=== PATIENT | female | born 1990 | race Caucasian/White ===

== ENCOUNTER → 2017-09-01 09:45 | Outpatient (CLI) | payer OTHER, SELFPAY ==
[2017-09-01 12:52] LABS: T4 Free Direct 0.99 ng/dL (0.76-1.46); Thyroid Stim Hormone (TSH) 1.56 uIU/mL (0.358-3.74)
== END ==
PROVIDERS: Family Provider Family Medicine; PCP Family Medicine; Visit Provider Family Medicine
DX: E05.00 Thyrotoxicosis with diffuse goiter without thyrotoxic crisis or storm (principal)
CPT/HCPCS: 36415; 84439; 84443

== ENCOUNTER → 2018-07-13 | Outpatient (CLI) | payer OTHER, SELFPAY ==
[2018-07-02 09:29] VITALS: BMI 28.3
[2018-07-13 12:06] LABS: Absolute Lymphocyte Count 3.49 X10^3/ul (0.83-4.51); Absolute Neutrophil Count 4.3 X10^3/uL (2.0-7.7); Basophil# 0.05 X10^3/uL; Basophil% 0.6 % (0-1); Eosinophil# 0.31 X10^3/uL; Eosinophils% 3.6 % (0-5); Hematocrit 41.8 % (37-47); Hemoglobin 13.8 g/dl (12.0-15.0); Lymphocyte # 3.49 X10^3/ul (4.0); Lymphocyte % 40.1 % (19-41); Mean Corpuscular Hgb 27.8 pg (27.0-32.0); Mean Corpuscular Volume 84.3 fL (81-99); Mean Platelet Vol. 10.1 fl (6.2-12.0); Monocyte# 0.51 X10^3/uL; Monocyte% 5.9 % (0-10); Neutrophil # 4.34 X10^3/uL (2.7-7.7); Neutrophil % 49.7 % (47-70); Platelet Count 305 K/mm3 (150-450); RBC Distribution Width CV 12.6 % (11.6-14.6); RBC Distribution Width SD 38.3 fl (35.1-43.9); Red Blood Count 4.96 M/mm3 (4.2-5.4); White Blood Count 8.7 K/mm3 (4.4-11.0)
[2018-07-13 12:07] LABS: POSITIVE COUNT NO; POSITIVE DIFFERENTIAL NO; POSITIVE MORPHOLOGY NO
[2018-07-13 13:05] LABS: AST(SGOT) 25 U/L (15-37); Alanine Aminotransfer ALT/SGPT 48 U/L (13-56); Albumin, Serum 3.8 g/dL (3.2-5.0); Alkaline Phosphatase 86 U/L (45-117); Anion Gap 11 (5-15); BUN 10 mg/dL (7-18); BUN/Creat Ratio 11.8 RATIO (10-20); Bilirubin, Direct 0.07 mg/dL (0.00-0.30); Chloride 104 mmol/L (98-107); Creatinine, Serum 0.84 mg/dL (0.55-1.02); EST Glomerular Filtration Rate 86 mL/min (>60); Est Glom Filt Rate - Afr Amer 104 mL/min (>60); Glucose 70 mg/dL (74-106); Potassium 3.9 mmol/L (3.5-5.1); Protein, Total 7.8 g/dL (6.4-8.2); Sodium Level 139 mmol/L (136-145)
[2018-07-16 20:07] LABS: QNTFERON TB Mitogen Value > 10.00 IU/mL (.); QNTFERON TB Nil Value 0.03 IU/mL (.); QNTFERON TB1+ Ag Value 0.03 IU/mL (.); QNTFERON TB2+ Ag Value 0.02 IU/mL (.)
[2018-07-17 14:01] LABS: QNTIFERON TB Positive Criteria Negative (Negative)
== END | disposition home or self-care (01) ==
LOC: MTLAB 09:56
PROVIDERS: Family Provider Family Medicine; PCP Family Medicine; Referring Provider Physician Assistant; Visit Provider Physician Assistant
DX: L20.89 Other atopic dermatitis (principal); L30.1 Dyshidrosis [pompholyx]; L23.9 Allergic contact dermatitis, unspecified cause
CPT/HCPCS: 36415; 80048; 80076; 85025; 86480

== ENCOUNTER 2018-08-31 13:55 | Emergency (ER) | payer OTHER, SELFPAY ==
[2018-08-31 12:53] VITALS: BMI 28.3
[2018-08-31 13:56] VITALS: BP 128/83; PULSE 89; RESP 16; TEMP 36.7; O2SAT 96; BMI 29.7
--- NOTE | 2018-08-31 16:04 | ED.VIS.GEN ---
History of Present Illness Chief Complaint: GI Bleed Informant: Patient Onset: Days - 4 Narrative: Sent over by urgent care for concerns for rectal bleeding. Patient reports she has been noting black stools at least for the last 4 days unclear if prior to that. She states she started Pepto-Bismol 4 days ago. Denies abdominal pain. Denies chronic NSAID use, states yesterday took 2 ibuprofens for discomfort. She noted pain in her rectum concerns of hemorrhoid. She called her insurance company with nursing was referred to go see a healthcare provider. After going to urgent care states had discussion however no rectal exam was sent to the ED. She is on immunosuppressants for her eczema every 2 weeks followed by dermatology. Denies any nausea or vomiting. No lightheaded symptoms. No bright red blood per rectum. Past Medical History - Allergies and Home Meds Allergies/Adverse Reactions: Allergies shellfish derived Allergy (Severe, Verified 08/31/18 13:58) unknown Primary Care Physician: Julieta Prince MD [Primary Care Provider] - Smoking Status: Never smoker Review of Systems General: Denies: Chills, Fever, Sweats Eyes: Denies: Visual changes - bilaterally, Diplopia ENT: Denies: Rhinorrhea, Sore throat Cardiovascular: Denies: Chest pain, Palpitations Respiratory: Denies: Dyspnea, Cough, Dyspnea on exertion Gastrointestinal: Denies: Abdominal pain, Nausea, Vomiting, Diarrhea, Melena, Hematochezia Genitourinary: Denies: Dysuria, Hematuria, Frequency Musculoskeletal: Denies: Back pain, Extremity Pain Skin: Denies: Rash, Wounds Neurological: Denies: Headache, Weakness, Numbness Physical Exam Vital Signs/Narrative: Vital Signs Temp Pulse Resp BP Pulse Ox 08/31/18 13:56 98.1 F 89 16 128/83 H 96 Inital Vital Signs reviewed: Yes General: Well nourished, Well developed, No Acute Distress Head: Normocephalic, Atraumatic Eyes: Perrl, EOMI ENT: Moist mucous membranes, No rhinorrhea Neck: Supple, Nontender Cardiovascular: Regular rate, Regular rhythm, No murmurs Respiratory: No distress, CTA bilaterally, Chest nontender Abdomen: Soft, Nontender, Nondistended, Normal bowel sounds Rectal: Guaiac negative, - - Noticed small bump 3:00 positions tender to palpation, no fissures. Yellow stools, guaiac negative. Back: Nontender, Normal Inspection Extremities: Nontender, No edema Skin: Normal color, No rash Neurological: Alert, Oriented x3, Cranial nerves II-XII grossly intact, Normal Strength, Normal Sensation Psychological: Normal affect, Normal Mood Diagnostic/Tx/Re-eval - Medical Decision Making Patient's guaiac sent was negative. She has a tender bump right at the anal region. Discussed possibility of early hemorrhoid versus abscess. Discussed monitoring symptoms. She is Tylenol for discomfort she provided stool softeners and Proctofoam. She will follow-up with her PCP for reevaluation. ED Disposition - Plan for ED Patient: Disposition: Home or Assisted Living Diagnosis: Acute hemorrhoid Instructions: Hemorrhoids Prescriptions: Docusate Sodium [Colace] 100 mg PO BID #60 capsule Pramoxine HCl [Proctofoam] 1 applic TP BID PRN #1 foam PRN Reason: Pain Referrals: Julieta Prince MD [Primary Care Provider] - 3-5 Days Additional Instructions: Early hemorrhoid versus early abscess, monitor symptoms. Use medications as prescribed. Worsening symptoms of fever, pain, drainage, return for reevaluation. Otherwise follow-up with your doctor.
[2018-08-31 16:19] VITALS: BP 114/76; PULSE 52; RESP 16; O2SAT 98
== END 2018-08-31 16:20 | disposition home or self-care (01) ==
PROVIDERS: Emergency Provider Emergency Medicine; Family Provider Family Medicine; PCP Family Medicine
DX: K64.9 Unspecified hemorrhoids (principal); L30.9 Dermatitis, unspecified; Z79.899 Other long term (current) drug therapy
CPT/HCPCS: 82274; 99282

== ENCOUNTER → 2018-09-09 | Outpatient (CLI) | payer OTHER, SELFPAY ==
[2018-09-09 17:26] VITALS: BMI 29.7
== END | disposition home or self-care (01) ==
PROVIDERS: Family Provider Family Medicine; PCP Family Medicine; Referring Provider Family Medicine; Visit Provider Family Medicine
DX: L73.9 Follicular disorder, unspecified (principal)
CPT/HCPCS: 87070; 87077; 87186; 87205

== ENCOUNTER 2019-05-08 11:28 | Emergency (ER) | payer OTHER, SELFPAY ==
[2018-09-09 17:26] VITALS: BMI 29.7
[2019-05-08 11:29] VITALS: BP 118/80; PULSE 115; RESP 20; TEMP 36.9; O2SAT 98; BMI 27.7
[2019-05-08 11:44] VITALS: BP 118/80; PULSE 115; RESP 20; TEMP 36.9; O2SAT 98
--- NOTE | 2019-05-08 11:46 | CT_ITS ---
STUDY: CT BRAIN WITHOUT CONTRAST REASON FOR EXAM: Female, 29 years old. PATIENT STATES SHE HAS HAD LOSS OF TASTE AND SMELL A WEEK AGO AND SOB X2 DAYS, FEVER 100.4 THIS AM -- STATES THAT SHE HAD A SEIZURE PER HER . RADIATION DOSAGE (If Supplied By Facility): CTDIvol = ( 44.99 ) mGy, DLP = ( 796.11 ) mGycm TECHNIQUE: Transaxial CT imaging of the brain was performed without administration of intravenous contrast material. Individualized dose optimization techniques were used for this CT. COMPARISON: No relevant priors. FINDINGS: Normal soft tissue structures. Normal calvarium. Normal size ventricles and extra-axial spaces for the patient''s age. Normal white matter tracts of the cerebral hemispheres. Normal basal ganglia and thalami. Normal brainstem. Normal cerebellum. There is no intracranial hemorrhage. There are no findings of an acute ischemic infarction. Normal visualized paranasal sinuses. CT/Brain/Head without Contrast IMPRESSION: Normal unenhanced CT scan of the brain. Electronically Signed: Shu Rojas MD at 13:10 EDT Tel , Service support ,
--- NOTE | 2019-05-08 11:46 | EKG12_ITS ---
Test Reason : SYNCOPE Blood Pressure : / mmHG Vent. Rate : 088 BPM Atrial Rate : 088 BPM P-R Int : 142 ms QRS Dur : 078 ms QT Int : 392 ms P-R-T Axes : 046 -15 073 degrees QTc Int : 474 ms Normal sinus rhythm Low voltage QRS Nonspecific T-wave Abnormality Borderline ECG Confirmed by TE ARRINGTON, KIKA ([id number]), editor producer GISELA LAWTON ([id number]) on 05/10/2019 9:35:29 AM Referred By: MARTINA Confirmed By:KIKA TIWARI MD
--- NOTE | 2019-05-08 11:48 | ED.VIS.GEN ---
History of Present Illness Chief Complaint: Seizure Informant: Patient Narrative: Patient presents following an unresponsive episode at home. Patient tells me that for the past week she has felt ill. She is felt some sinus congestion and lost her sense of taste and smell. She states that she has felt short of breath for the past couple days. She has had fever up to 100.4 for several days as well including this morning. She tells me that she has been able to eat and drink and some intermittent nausea though. Today she took a shower when she got in the shower she was feeling very lightheaded she felt like she needed to sit down. She got sweaty and the next thing she knows she woke up and she had emesis in her hair and her had said that she looked like she had had a seizure. She has had no prior history of syncope or seizures. She denies any loss of bowel or bladder control. She denies any injuries to her tongue or mouth. Past Medical History - Allergies and Home Meds Allergies/Adverse Reactions: Allergies shellfish derived Allergy (Severe, Verified 05/08/19 11:29) unknown Primary Care Physician: Julieta Prince MD [Primary Care Provider] - Smoking Status: Never smoker Review of Systems General: Reports: Fever, Malaise. Denies: Chills, Sweats Eyes: Denies: Visual changes - bilaterally, Diplopia ENT: Reports: Rhinorrhea - And congestion. Denies: Sore throat Cardiovascular: Denies: Chest pain, Palpitations Respiratory: Reports: Dyspnea, Cough - Mild nonproductive cough. Denies: Dyspnea on exertion Gastrointestinal: Reports: Nausea. Denies: Abdominal pain, Vomiting, Diarrhea, Melena, Hematochezia Genitourinary: Denies: Dysuria, Hematuria, Frequency Musculoskeletal: Reports: Myalgias. Denies: Back pain, Extremity Pain Skin: Denies: Rash, Wounds Neurological: Reports: Headache - Frontal headache (patient describes this as a sinus headache).. Denies: Weakness, Numbness Physical Exam Vital Signs/Narrative: Vital Signs Temp Pulse Resp BP Pulse Ox 05/08/19 11:44 98.4 F 115 H 20 H 118/80 98 05/08/19 11:29 98.4 F 115 H 20 H 118/80 98 Inital Vital Signs reviewed: Yes General: Well nourished, Well developed, No Acute Distress Head: Normocephalic, Atraumatic Eyes: Perrl, EOMI ENT: Moist mucous membranes, Nasal congestion Neck: Supple, Nontender Cardiovascular: Regular rate, Regular rhythm, No murmurs Respiratory: No distress, CTA bilaterally, Chest nontender Abdomen: Soft, Nontender, Nondistended, Normal bowel sounds Back: Nontender, Normal Inspection Extremities: Nontender, No edema Skin: Normal color, No rash Neurological: Alert, Oriented x3, Cranial nerves II-XII grossly intact, Normal Strength, Normal Sensation Psychological: Normal affect, Normal Mood Diagnostic/Tx/Re-eval - EKG Initial EKG Interpretation: Sinus Rhythm - EKG is a sinus rhythm at a rate of 88 with no ectopy. No concerning features of ACS. No prolonged QT or delta wave noted. - Medical Decision Making Chest x-ray shows a normal mediastinal silhouette. Basic labs including lactic acid and troponin and were normal. Her white count is normal. CT the brain was obtained and I do not see any obvious cause for her anosmia. I think based on her description of events this is most likely a vasovagal syncope. Even if this was a seizure we would not start antiepileptics on the first event. Patient appears to be having a viral illness. She does not meet the current guidelines for prajapati virus testing. She was instructed to self isolate. To rest. Continue to hydrate. ED Disposition - Plan for ED Patient: Disposition: Home or Assisted Living Diagnosis: Syncope and collapse, Viral syndrome Instructions: ED VAGAL SYNCOPE, ED Viral Syndrome Prescriptions: Ondansetron [Zofran Odt] 4 mg PO Q6H PRN PRN #14 tab PRN Reason: Nausea Prescription Printed Referrals: Julieta Prince MD [Primary Care Provider] - As Needed
--- NOTE | 2019-05-08 12:00 | RAD_ITS ---
STUDY: X-RAY CHEST REASON FOR EXAM: Female, 29 years old. Shortness of breath and fever TECHNIQUE: Single AP portable view of the chest. COMPARISON: None. FINDINGS: There is hazy groundglass opacity in the right midlung. There is no demonstrated pleural abnormality. Normal size heart. Normal mediastinum and nabil. Normal visualized pulmonary arteries. Normal visualized aortic arch and descending thoracic aorta. Normal visualized thoracic spine. Normal visualized ribs, clavicles, and shoulders. There is no demonstrated abnormality of the visualized soft tissue structures of the upper abdomen. RAD/Chest 1 View (Portable) IMPRESSION: Hazy ground glass opacity in the right midlung. Consider early COVID-19 infection with this clinical presentation and radiographic appearance. Electronically Signed: Kashmir Hwang, at 13:16 EDT Tel , Service support ,
[2019-05-08 12:11] LABS: Absolute Lymphocyte Count 1.83 X10^3/uL (0.83-4.51); Absolute Neutrophil Count 2.3 X10^3/uL (2.0-7.7); Basophil# 0.01 X10^3/uL; Basophil% 0.2 % (0-1); Eosinophil# 0.02 X10^3/uL; Eosinophils% 0.5 % (0-5); Hematocrit 45.7 % (37-47); Hemoglobin 14.7 g/dL (12.0-15.0); Lymphocyte # 1.83 X10^3/ul (4.0); Lymphocyte % 41.5 % (19-41); Mean Corp Hgb Conc 32.2 g/dL (32-36); Mean Corpuscular Hgb 27.7 pg (27.0-32.0); Mean Corpuscular Volume 86.1 fL (81-99); Mean Platelet Vol. 10.1 fl (6.2-12.0); Monocyte# 0.28 X10^3/uL; Monocyte% 6.3 % (0-10); NRBC Flagged by Analyzer 0 % (0-5); Neutrophil # 2.26 X10^3/uL (2.7-7.7); Neutrophil % 51.3 % (47-70); Platelet Count 220 K/mm3 (150-450); RBC Distribution Width CV 13.2 % (11.6-14.6); RBC Distribution Width SD 40.5 fl (35.1-43.9); Red Blood Count 5.31 M/mm3 (4.2-5.4); White Blood Count 4.4 K/mm3 (4.4-11.0)
[2019-05-08 12:28] LABS: ALB/GLOB Ratio 1.1 RATIO (0.9-2.4); AST(SGOT) 36 U/L (15-37); Alanine Aminotransfer ALT/SGPT 50 U/L (13-56); Albumin, Serum 4.5 g/dL (3.2-5.0); Alkaline Phosphatase 85 U/L (45-117); Anion Gap 5 (5-15); BUN 8 mg/dL (7-18); BUN/Creat Ratio 8.2 RATIO (10-20); Calcium,Total 9.2 mg/dL (8.5-10.1); Chloride 105 mmol/L (98-107); Creatinine, Serum 0.98 mg/dL (0.55-1.02); EST Glomerular Filtration Rate 72 mL/min (>60); Est Glom Filt Rate - Afr Amer 87 mL/min (>60); Estimated Creatinine Clearance 80.01 ml/min; Glucose 89 mg/dL (74-106); Potassium 3.8 mmol/L (3.5-5.1); Protein, Total 8.5 g/dL (6.4-8.2); Sodium Level 139 mmol/L (136-145)
[2019-05-08 12:48] LABS: Internal QC Validated? YES +Cl - CLEAR BKGD; Pregnancy, Serum, hCG Quali. NEGATIVE Negative
[2019-05-08 12:51] LABS: Lactic Acid 1.7 mmol/L (0.4-1.9)
[2019-05-08 13:45] VITALS: BP 118/62; PULSE 88; RESP 18; O2SAT 98
== END 2019-05-08 13:48 | disposition home or self-care (01) ==
LOC: ED 13:28
PROVIDERS: Emergency Provider Emergency Medicine; PCP Family Medicine
DX: J06.9 Acute upper respiratory infection, unspecified (principal); R55 Syncope and collapse
CPT/HCPCS: 70450; 71045; 80053; 83605; 84484; 84703; 85025; 93005; 99284; A4216

== ENCOUNTER → 2019-09-01 | Outpatient (CLI) | payer OTHER, SELFPAY ==
[2019-09-01 17:16] LABS: Absolute Lymphocyte Count 3.12 X10^3/uL (0.83-4.51); Absolute Neutrophil Count 4.4 X10^3/uL (2.0-7.7); Basophil# 0.06 X10^3/uL; Basophil% 0.7 % (0-1); Eosinophil# 0.17 X10^3/uL; Hematocrit 40.4 % (37-47); Hemoglobin 12.8 g/dL (12.0-15.0); Lymphocyte # 3.12 X10^3/ul (4.0); Lymphocyte % 37.5 % (19-41); Mean Corp Hgb Conc 31.7 g/dL (32-36); Mean Corpuscular Hgb 28.3 pg (27.0-32.0); Mean Corpuscular Volume 89.2 fL (81-99); Monocyte# 0.53 X10^3/uL; Monocyte% 6.4 % (0-10); NRBC Flagged by Analyzer 0 % (0-5); Neutrophil # 4.41 X10^3/uL (2.7-7.7); Platelet Count 322 K/mm3 (150-450); RBC Distribution Width CV 12.7 % (11.6-14.6); RBC Distribution Width SD 41.1 fl (35.1-43.9); Red Blood Count 4.53 M/mm3 (4.2-5.4); White Blood Count 8.3 K/mm3 (4.4-11.0)
[2019-09-01 17:44] LABS: Thyroid Stim Hormone (TSH) 1.63 uIU/mL (0.358-3.74)
== END | disposition home or self-care (01) ==
LOC: MFPLAB 16:02
PROVIDERS: PCP Family Medicine; Referring Provider Family Medicine; Visit Provider Family Medicine
DX: F41.9 Anxiety disorder, unspecified (principal)
CPT/HCPCS: 36415; 84443; 85025

== ENCOUNTER → 2020-01-26 | Outpatient (CLI) | payer OTHER, SELFPAY ==
[2020-01-26 10:45] LABS: Red Blood Cells-Urine 0 SEEN /hpf (0-5)
[2020-01-26 10:58] LABS: Color, Urine Yellow (Yellow); Glucose, Dipstick Normal (Normal); Ketone-Dipstick Negative (Negative); Leukocyte Esterase-Dipstick Negative /ul (Negative); Nitrite-Dipstick Negative (Negative); Occult Blood-Urine Negative /ul (Negative); Protein-Dipstick Negative (Negative); Urine Bilirubin Dipstick Negative (Negative); Urine Clarity Sl. Cloudy (Clear); Urine Urobilinogen Normal (Normal)
[2020-01-26 11:00] LABS: Bacteria RARE /hpf (None Seen); Mucous, Urine RARE /hpf (<or=2+); Squamous Epithelial Cells - UA 0-5 SEEN /hpf (5-10); White Blood Cells 0-5 SEEN /hpf (0-5)
[2020-01-26 12:55] LABS: Chlamydia Trachomatis by PCR Negative (Negative); Neisserai gonorrhoeae by PCR Negative (Negative); Probe Check PASS; Sample Adequacy Control PASS; Specimen Processing Control PASS
== END | disposition home or self-care (01) ==
LOC: LABSPEC 10:24
PROVIDERS: PCP Family Medicine; Visit Provider Physician Assistant Surgical
DX: R10.2 Pelvic and perineal pain (principal); R10.9 Unspecified abdominal pain
CPT/HCPCS: 81001; 87086; 87491; 87591

== ENCOUNTER → 2020-02-21 | Outpatient (CLI) | payer OTHER, SELFPAY ==
[2020-02-21 10:11] VITALS: BMI 22.3
[2020-02-26 17:31] LABS: HPV Reflexed? NOT INDICATED
== END | disposition home or self-care (01) ==
LOC: LABSPEC 13:14
PROVIDERS: PCP Family Medicine; Visit Provider Nurse Practitioner Women's Health
DX: N89.8 Other specified noninflammatory disorders of vagina (principal); Z12.4 Encounter for screening for malignant neoplasm of cervix
CPT/HCPCS: 87070; 87205; 88175; G0145

== ENCOUNTER → 2020-10-12 | Outpatient (CLI) | payer OTHER, SELFPAY | END | disposition home or self-care (01) | LOC: LABSPEC 10-15 10:38 | PROVIDERS: PCP Family Medicine; Referring Provider Nurse Practitioner Family; Visit Provider Nurse Practitioner Family | DX: R50.9 Fever, unspecified (principal) | CPT/HCPCS: 87635; U0005; U0003 ==

== ENCOUNTER → 2021-12-15 | Outpatient (CLI) | payer OTHER, SELFPAY ==
--- NOTE | 2021-12-15 17:01 | RAD_ITS ---
EXAM: XR RIGHT SHOULDER COMPLETE, 2 OR MORE VIEWS CLINICAL INDICATION: pain TECHNIQUE: Two or more views of the right shoulder. This report was created using [employer] report generation technology. COMPARISON: None. FINDINGS: BONES/JOINTS: Irregular contour of the undersurface of the acromion, mild, suspected hypertrophic changes. No evidence of shoulder, clavicle, glenohumeral or AC joint fracture or dislocation. No sclerotic or destructive changes observed. SOFT TISSUES: Unremarkable. No soft tissue swelling or gas. No radiopaque foreign body. RAD/Shoulder min 2 Views IMPRESSION: 1. No acute abnormality. 2. Unusual small crescent-shaped ossification along the inferior surface of the acromion, suspected hypertrophic change or incompletely fused ossification center. Not typical of fracture. No rotator cuff interval narrowing to suggest impingement. Electronically Signed: Kate Martinez MD at 7:26 EST ,
== END | disposition home or self-care (01) ==
LOC: MTRAD 17:00
PROVIDERS: PCP Family Medicine; Referring Provider Physician Assistant; Visit Provider Physician Assistant
DX: M25.511 Pain in right shoulder (principal)
CPT/HCPCS: 73030

== ENCOUNTER → 2022-01-13 | Outpatient (CLI) | payer OTHER, SELFPAY ==
[2022-01-13 10:41] LABS: NATERA MAILED SPECIMEN
[2022-01-20 14:40] LABS: HPV Reflexed? NOT INDICATED
== END | disposition home or self-care (01) ==
PROVIDERS: PCP Family Medicine; Referring Provider Nurse Practitioner Women's Health; Visit Provider Nurse Practitioner Women's Health
DX: Z12.4 Encounter for screening for malignant neoplasm of cervix (principal)
CPT/HCPCS: 36415; 88175; G0145

== ENCOUNTER → 2022-01-14 | Outpatient (CLI) | payer OTHER, SELFPAY ==
--- NOTE | 2022-01-14 08:47 | US_ITS ---
STUDY: ULTRASOUND BREAST - RIGHT REASON FOR EXAM: Female, 31 years old. Palpable lump in the right breast. TECHNIQUE: Axial and longitudinal images of the RIGHT breast were performed with a high resolution ultrasound transducer. # OF IMAGES: 36 COMPARISON: Comparison is made with prior mammogram done earlier today. FINDINGS: RIGHT Breast: Dense fibroglandular tissue. The palpable abnormality corresponds to a 1.7 cm x 1.9 cm x 1.3 cm well-defined hypoechoic nodule at the 5 o''clock position of the breast at 5 cm from the nipple. Increased blood flow is seen. This most likely represents a fibroadenoma. Biopsy recommended. Incidental note is also made of multiple small cysts at the 11 o''clock position of the breast. The largest measures 9 mm x 9 mm x 4 US/Breast Limited Unilateral IMPRESSION: The palpable abnormality corresponds to a 1.7 cm x 1.9 cm x 1.3 cm well-defined hypoechoic nodule at the 5 o''clock position of the breast at 5 cm from the nipple. Biopsy recommended. ASSESSMENT CATEGORY: BIRADS Category 4: Suspicious - Biopsy Should Be Considered. A letter regarding these results will be sent to the patient by the facility within 30 days. Electronically Signed: Akhil Marshall MD at 10:07 EST ,
--- NOTE | 2022-01-14 08:47 | BI_ITS ---
MAMMOGRAPHY - BILATERAL DIAGNOSTIC REASON FOR EXAM: Female, 31 years old. Right breast lump. PERTINENT HISTORY: Grandmother with breast cancer. TECHNIQUE: Digital bilateral breast umu (3D mammographic acquisition) in the CC and MLO projections. 2-D mediolateral oblique (MLO) and craniocaudad (CC) views of both breasts were obtained. CAD: Full Field Digital Mammography with Computer Added Detection was performed. COMPARISON: None. Baseline examination. FINDINGS: Breast Composition: The breasts are extremely dense, which lowers the sensitivity of mammography. There are no dominant masses or suspicious calcifications. No other significant abnormalities are identified. BI/DIAG MAMM W/CAD, BILAT IMPRESSION: Negative diagnostic mammogram. With the patient''s history of a palpable lump in the right breast, correlation with ultrasound is recommended. ASSESSMENT CATEGORY: BIRADS Category 0: Incomplete. Need additional imaging evaluation. A letter regarding these results will be sent to the patient by the facility within 30 days. Approximately 10% of breast cancers are not detected by mammography. A normal mammogram should not delay biopsy of a clinically suspicious abnormality. Electronically Signed: Akhil Marshall MD at 10:07 [facility] ,
== END | disposition home or self-care (01) ==
PROVIDERS: PCP Family Medicine; Referring Provider Nurse Practitioner Women's Health; Visit Provider Nurse Practitioner Women's Health
DX: Z12.31 Encounter for screening mammogram for malignant neoplasm of breast (principal); Z80.3 Family history of malignant neoplasm of breast; N63.0 Unspecified lump in unspecified breast
CPT/HCPCS: 76642; 77062; 77066; G0279

== ENCOUNTER 2022-01-26 08:40 | Day surgery (SDC) | payer OTHER, SELFPAY ==
[2022-01-26] VITALS (7 sets, daily range): BP systolic 98–114; BP diastolic 66–81; PULSE 80–103; RESP 16; TEMP 36.3–37.1; O2SAT 97–100; BMI 28.0
--- NOTE | 2022-01-26 08:55 | HP.PCM_ITS ---
History and Physical Date of Admission: 01/26/22 Intake Visit Reasons:?RIGHT BIRAD 4 Chief Complaint: right breast biopsy Patient Account Representative Required: No Is patient in pain?: No Allergies shellfish derived Allergy (Severe, Verified 01/19/22 10:12) unknown Medications fluoxetine 40 mg capsule ea PO 11/06/19 [History Confirmed 01/19/22] PFSH Medical History? Asthma Cervical strain, acute Depression Right shoulder strain Surgical History? History of oral surgery Family History? Grandmother Breast cancerUncle Lung cancer Social History? household members:? spouse number of children:? 0 current occupational status:? employed current occupation:? [employer] history of recent travel:? No sexually active:? Yes Smoking Status:? Never smoker alcohol intake:? never substance use type:? does not use what type of physical activity do you participate in:? walking and running seatbelt use:? always do you feel safe at home:? Yes additional social history:? - Eliseo HPI HPI HPI: Patient is a 31-year-old female here with a right breast mass.? Patient noted this about a week ago.? She has never noticed a breast mass in this area.? She has never had a breast biopsy.? She does have a strong family history with a grandmother and several cousins with breast cancer.? She denies any nipple discharge or breast pain ROS General General: Yes weight change and fatigue; No appetite, colon cancer, breast cancer or weakness HEENT HEENT: No difficulty swallowing, eye injury, eye surgery, swollen glands or hoarseness Endo Endocrine: Yes thyroid disease; No diabetes mellitus, thyroid cancer, Hair loss, heat intolerance or cold intolerance Skin Skin: No rash or changing moles Breast Breast: No left breast lump, right breast lump, nipple discharge, breast pain, abnormal mammogram, abnormal US or breast enlargement Musc Musculoskeletal: No back problems, arthritis, rheumatoid arthritis, gout or joint pain Cardio Cardiovascular: No murmur, pacemaker, heart disease, atrial fibrillation, high blood pressure, heart attack, heart stent, palpitations, shortness of breat with exertion or chest pain Psych Psychiatric: Yes depression and anxiety; No hearing voices Resp Respiratory: No shortness of breath, No sleep apnea, No cough, No COPD, Yes asthma, No emphysema and No wheezing Gastro Gastrointestinal: No abdominal pain, No nausea or vomiting, No diarrhea, No constipation, No blood in stool, No acid reflux, No hemorrhoids, No ulcers, No gallbladder problem and No black,tarry stools Davy Hematologic: No blood thinners, No blood disorders, No bleeding, No anemia and No blood clots Neuro Neurologic: No system reviewed and no additional complaints, except as documented, No as per HPI, No abnormal gait, No abnormal hearing, No abnormal movements, No abnormal speech, No behavioral changes, No burning sensations, No confusion, No convulsions, No disequilibrium, No dizziness, No localized weakness, No frequent falls, No headache(s), No lack of coordination, No loss of vision, No memory loss, No numbness, No other visual disturbances, No radicular pain, No restless legs, No sensory deficit, No syncope, No tingling, No tremor(s), No weakness and No other Exam Const General: cooperative Orientation: alert and oriented x3 HENMT Head: normal to inspection Neck Neck: normal visual inspection and full ROM Chest Chest palpation & inspection: normal inspection of the chest Resp Effort & Inspection: normal respiratory effort Auscultation: clear to auscultation bilaterally Cardio Rate: regular rate Rhythm: regular rhythm GI Inspection: non-distended Palpation: soft and nontender Skin General: no rashes or lesions noted Neuro General: patient alert and patient oriented x3 Extrem General: full ROM Psych Appearance: grossly normal Mental Status: mental status grossly normal Assessment and Plan Assessment and Plan (1) Breast mass, right: ?Status:?Acute ?Comment: Imaging 01/14/22 ?Plan: Patient has a right breast mass was given a BI-RADS score 4 and the read this is likely fibroadenoma.? I discussed core needle biopsy versus excisional biopsy with the patient in detail.? The patient is very anxious and would like this removed if possible.? I discussed excisional biopsy with her in the risks including balloted to bleeding, infection, seroma or hematoma formation, need for further margins or sentinel lymph node biopsy if this is cancerous.? Patient understands all the risks and is willing proceed with excisional biopsy of the right breast mass.? She will be scheduled next week. Bill Perea MD Pager: [facility] [address] [place] [address], [address] [place] [phone] Office: I have examined the patient and the H&P has been reviewed. There are no clinical changes since date of exam.
[2022-01-26] MEDS: Lactated Ringers 1,000 ML 15 ML IV (09:07)
[2022-01-26 09:13] LABS: Internal QC Validated? YES +Cl - CLEAR BKGD; Pregnancy, Urine Negative Negative
[2022-01-26] MEDS: Cefazolin 2 GM in 0.9% Normal Saline 100 ML IV (09:19)
[2022-01-26] MEDS: Bupivacaine Mpf 0.5% 30 ML VIAL (09:45)
--- NOTE | 2022-01-26 10:15 | BR_PTH ---
PATIENT: JOSEPHINE VILLANUEVA LOC: [facility] U#:[id number] AGE/SX: 31/F ROOM: RE01/26/[address]: Dr. Bill Perea MD : 1990 BED: DIS: 01/26/2022 SPEC #: [id number] RECD: 01/26/22 14:17 STATUS: MERCEDES REQ #: [id number] SANDIE: 01/26/22 10:[address]: Bill Perea DEPT: SURGICAL PATHOLOGY RECD BY: Lianna Ruvalcaba ENTERED: 01/27/22 09:27 SP TYPE: MAMOPLASTY OTHR DR: Dr. Julieta Prince MD Tissues: Right breast, NOS Procedures: Surgery Specimen Level V HEADER OPERATION: Excisional right breast biopsy PRE-OP DIAGNOSIS: Right breast mass TISSUE SUBMITTED: Right breast mass MICROSCOPIC DIAGNOSIS Right breast mass, excisional biopsy: Fibroadenoma. Negative for atypia or malignancy. SJ:inessa 01/28/2022 MICROSCOPIC DESCRIPTION Slides are reviewed. GROSS DESCRIPTION Received in fixative is one container labeled with the patient's name and designated right breast mass. The specimen consists of a nodular, rubbery piece of hoyt-yellow tissue measuring 3 x 2 x 1.5 cm. Also present in the container are two detached pieces of hoyt, rubbery tissue measuring 0.5 and 1 cm in greatest dimension. The larger piece is inked and serially sectioned and reveals a hoyt, solid nodule. One of the smaller piece is bisected. The entire specimen is submitted in five cassettes. Cassette 1 contains the smaller pieces of tissue. / SJ:inessa 01/27/2022 TC:1 CPT: 95740
--- NOTE | 2022-01-26 11:28 | PCM.OPRPT ---
Problems Associated Problem List Diagnoses (1) Breast mass, right: Report of Operation Date of Procedure: 01/26/22 Pre-Operative Diagnosis: Right breast mass Post-Operative Diagnosis: Right breast mass Surgery/Procedure Performed:: Right breast mass excisional biopsy Specimen's removed: Right breast mass Description of Procedure: General anesthesia was induced. Right breast was prepped and draped in the usual sterile fashion. Ultrasound was used to elia the skin over the mass. The skin was then injected with local anesthetic. Incision was made and the mass was palpable. It was disssected free using electrocautery and sent for pathology. The cavity was irrigated and suctioned dry. Hemostasis was obtained with electrocautery. The incision was closed with 3-0 vicryl suture and a running 4-0 monocryl suture. Dermabond was applies. Patient tolerated the procedure well. Admit VTE Documentation VTE Mechan Device Prophylaxis: SCD's
--- NOTE | 2022-01-26 11:32 | DCINST_ITS ---
Discharge Instructions Diet Discharge Diet: No restrictions Activity Discharge Activity: No Restrictions, May Drive and May Shower Dressing / Incision Call your doctor if your incision/area has: Continuous Slow Oozing, Sudden In creased Bleeding, Increased Pain/ Swelling, Increased Redness, Foul Smelling Discharge and Swelling at the incision site Call your doctor if you observe: Fever of 101 or Higher Cleanse incision/area with: Soap & Water Additional Dressing/Incision Instructions:: Tylenol and Ibuprofen alternating for pain Follow Up Care Please Follow Up With: Bill Perea MD When: Call to make 2 week follow up appt [phone] Test Results: Test results from this visit will be discussed in further detail at your follow- up appointment, if applicable. Discharge Plan Admission Attending Provider: Bill Perea Primary Care Provider: Julieta Prince Discharge Orders/Prescriptions Prescriptions: No Action fluoxetine 40 mg capsule 40 mg PO DAILY Label Comments: TAKE 1 CAPSULE BY MOUTH EVERY DAY alprazolam [Xanax] 0.5 mg Tablet 0.25 mg PO BID PRN (Reason: Anxiety) albuterol sulfate 90 mcg/actuation Hfa Aerosol Inhaler 2 puff INHALATION Q6H PRN (Reason: ASTHMA) 1 mg Tablet 1 tab PO DAILY Referrals / Follow Up: Julieta Prince MD [Primary Care Provider] - Disposition Disposition (needs filled in before D/C Order can be placed): Home, Self Care
== END 2022-01-26 12:17 | disposition home or self-care (01) ==
LOC: SDC 08:41 → AC 08:41
PROVIDERS: Anesthesiology; PCP Family Medicine; Referring Provider Surgery; Visit Provider Surgery
PROC: (CPT 19120; principal; 2022-01-26 10:00)
DX: D24.1 Benign neoplasm of right breast (principal); Z80.3 Family history of malignant neoplasm of breast; E05.00 Thyrotoxicosis with diffuse goiter without thyrotoxic crisis or storm
CPT/HCPCS: 19120; 00400; 81025; 88305; 88307; J7120; J2405

== ENCOUNTER 2022-02-27 16:13 | Outpatient (CLI) | payer OTHER, SELFPAY ==
[2022-02-27 18:16] LABS: Internal QC Validated? YES +Cl - CLEAR BKGD; Pregnancy, Serum, hCG Quali. NEGATIVE Negative
== END 2022-02-27 23:59 | disposition home or self-care (01) ==
LOC: MFPLAB 16:20
PROVIDERS: PCP Family Medicine; Referring Provider Family Medicine; Visit Provider Family Medicine
DX: N91.2 Amenorrhea, unspecified (principal)
CPT/HCPCS: 36415; 84703

== ENCOUNTER → 2022-05-19 | Outpatient (CLI) | payer OTHER, SELFPAY ==
[2022-05-19 17:26] LABS: Bacteria 0 SEEN /hpf (None Seen); Mucous, Urine 0 SEEN /hpf (<or=2+); Red Blood Cells-Urine 0 SEEN /hpf (0-5)
[2022-05-19 17:49] LABS: Color, Urine Yellow (Yellow); Glucose, Dipstick Normal (Normal); Ketone-Dipstick Negative (Negative); Leukocyte Esterase-Dipstick 25 /ul (Negative); Nitrite-Dipstick Positive (Negative); Occult Blood-Urine Negative /ul (Negative); Protein-Dipstick 15 mg/dl (Negative); Specific Gravity, Urine 1.005 (1.002-1.030); Urine Clarity Clear (Clear); Urine Urobilinogen 8 mg/dl (Normal)
[2022-05-19 18:06] LABS: Urine Bilirubin Dipstick 3 mg/dL (Negative)
[2022-05-19 18:07] LABS: Squamous Epithelial Cells - UA 0-5 SEEN /hpf (5-10); White Blood Cells 0-5 SEEN /hpf (0-5)
== END | disposition home or self-care (01) ==
LOC: LABSPEC 15:25
PROVIDERS: PCP Family Medicine; Referring Provider Physician Assistant Surgical; Visit Provider Physician Assistant Surgical
DX: R30.0 Dysuria (principal)
CPT/HCPCS: 81001; 87077; 87086; 87088; 87186

== ENCOUNTER → 2022-05-20 | Outpatient (CLI) | payer OTHER, SELFPAY ==
--- NOTE | 2022-05-20 12:40 | US_ITS ---
STUDY: ULTRASOUND OF THE FEMALE PELVIS - COMPLETE REASON FOR EXAM: Female, 32 years old. Infertility LMP: 04/29/2022 TECHNIQUE: Transabdominal and Transvaginal TECHNICAL QUALITY: Adequate. COMPARISON: None. FINDINGS: The uterus is anteverted and is in a midline position. The uterus measures 8.2 x 6.5 x 5.5 cm. Normal uterine cervix. The endometrium measures 11 mm in thickness, and is hyperechoic. There is no demonstrated endometrial mass. There is a 4.9 x 4.7 x 4.8 cm fibroid. I.U.D. - The patient does not have an I.U.D. The right ovary is visualized. The right ovary measures 4.5 x 2.3 x 3.3 cm. There is no right ovarian cyst or ovarian mass. There is no visualized right adnexal mass or complex lesion. There is normal arterial and normal venous vascularity. The left ovary is visualized. The left ovary measures 2.5 x 1.5 x 1.3 cm. There is no left ovarian cyst or ovarian mass. There is no visualized left adnexal mass or complex lesion. There is normal arterial and normal venous vascularity. There is no fluid in the cul-de-sac. The pre void volume of the bladder was 504 ml. The post void volume of the bladder was 0 ml. Polycystic ovary disease: No. US/Pelvic w/ Transvaginal IMPRESSION: 4.9 cm uterine fibroid, otherwise unremarkable pelvic ultrasound Electronically Signed: Tom Kahn MD at 14:07 EDT ,
== END | disposition home or self-care (01) ==
LOC: US 12:39
PROVIDERS: PCP Family Medicine; Referring Provider Advanced Practice Midwife; Visit Provider Advanced Practice Midwife
DX: N97.0 Female infertility associated with anovulation (principal)
CPT/HCPCS: 76830; 76856

== ENCOUNTER → 2022-05-28 | Outpatient (CLI) | payer OTHER, SELFPAY ==
--- NOTE | 2022-05-28 12:00 | RAD_ITS ---
STUDY: HISTORY OF SEPTIC VENOGRAM. REASON FOR EXAM: Female, 32 years old. Abnormal US FLUOROSCOPY TIME (if supplied): ( 1 minute and 5 seconds ) minutes/seconds. 6 images were obtained. 26.93 mGy TECHNIQUE: A hysterosalpingogram was performed by the contact center consultant. Imaging was provided. COMPARISON: None. FINDINGS: There is patency of the left fallopian tube with spill. The right fallopian tube is not well visualized. There is heterogeneous filling defects in the dome of the uterus extending to the right side of the uterus. RAD/Salpingogram IMPRESSION: Patency of the left fallopian tube. Heterogeneous appearance of the fundal portion of the uterus extending to the right side at the midline. Electronically Signed: Akhil Marshall MD at 15:36 EDT ,
--- NOTE | 2022-05-31 15:09 | OP.PCM_ITS ---
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 Speculum was placed in the vagina and the cervix prepped with Betadine and the HSG catheter was easily introduced into the uterus and speculum removed. Radiologist was brought in and while pushing radiopaque dye into the uterus via the HSG catheter the radiologist took multiple images and views and confirmed left only tubal patency was seen. images were compared with the ultrasound and reviewed with the radiologist and he agreed that the fundal fibroid is impinging on the tube and cavity, and would recommend removal prior to conception. All instruments removed from the vagina and the uterus without complication. Patient tolerated the procedure well. Multi Select Codes Urinary/Genital Urinary/Genital CPT Codes: 03428 HSG/SIS
== END | disposition home or self-care (01) ==
LOC: RAD 11:49
PROVIDERS: PCP Family Medicine; Referring Provider Advanced Practice Midwife; Visit Provider Advanced Practice Midwife
DX: R10.2 Pelvic and perineal pain (principal)
CPT/HCPCS: 58340; 74740; Q9967

== ENCOUNTER 2022-07-17 07:25 | Inpatient (IN) | payer OTHER, SELFPAY ==
[2022-07-14 13:28] LABS: Hematocrit 39.6 % (37-47); Hemoglobin 12.5 g/dL (12.0-15.0); Mean Corp Hgb Conc 31.6 g/dL (32-36); Mean Corpuscular Hgb 27.1 pg (27.0-32.0); Mean Corpuscular Volume 85.9 fL (81-99); Mean Platelet Vol. 9.6 fl (6.2-12.0); Platelet Count 369 K/mm3 (150-450); RBC Distribution Width SD 40.3 fl (35.1-43.9); Red Blood Count 4.61 M/mm3 (4.2-5.4); White Blood Count 9.3 K/mm3 (4.4-11.0)
[2022-07-17] VITALS (15 sets, daily range): BP systolic 90–113; BP diastolic 45–79; PULSE 66–90; RESP 14–20; TEMP 36.6–37.2; O2SAT 93–99; BMI 29.8
--- NOTE | 2022-07-17 | MISC_PTH ---
PATIENT: JOSEPHINE VILLANUEVA LOC: [facility] U#:[id number] AGE/SX: 32/F ROOM: AK316 RE07/17/[address]: Dr. Lakia Mayo MD : 1990 BED: 1 DIS: 07/18/2022 SPEC #: [id number] RECD: 07/17/22 10:17 STATUS: MERCEDES SALDIVAR #: [id number] SANDIE: 07/17/22 00:[address]: Lakia Mayo DEPT: SURGICAL PATHOLOGY RECD BY: Que Christine ENTERED: 07/17/22 10:17 SP TYPE: MISC OTHR DR: Dr. Julieta Prince MD Tissues: Fibrous tissue Procedures: Surgery Specimen Level IV HEADER OPERATION: Mini laparotomy, abdominal myomectomy PRE-OP DIAGNOSIS: Abnormal menstrual periods, fibroid uterus TISSUE SUBMITTED: Fibroid MICROSCOPIC DIAGNOSIS Fibroid, myomectomy: Leiomyoma (5.5 cm in greatest dimension). SJ:inessa 07/20/2022 MICROSCOPIC DESCRIPTION Slides are reviewed. GROSS DESCRIPTION Received in fixative is one container labeled with the patient's name and designated fibroid. The specimen consists of a hoyt-white nodule weighing 60 gm and measuring 5.5 x 5.0 x 4.0 cm. Sections of this mass reveals hoyt whorled cut surfaces without areas of hemorrhage, necrosis or cystic degeneration. Agriculture Intern sections are submitted in three cassettes. / ELIZABETH:inessa 07/17/2022 TC:1 CPT: 68474
--- NOTE | 2022-07-17 01:59 | PCM.HP.BLA ---
History and Physical [facility] [address] [place] [address] OFFICE VISIT Date of Service:? 06/29/22 MR#: [id number] Acct: [id number] Name:JOSEPHINE DE LOS SANTOS Rep #: [id number] : 1990 ? ? Provider: Dr. Lakia Mayo MD Age/Sex:? 32/F ? ? Location: [facility] [place] Status: Signed Intake Vital Signs ? 06/29/2312:48 06/29/2313:02 Height 5 ft 6 in 5 ft 6 in Weight: 179 lb ? BMI 28.8 ? BP 117/79 ? Intake Visit Reasons:?mini lap. abdominal myomectomy Chief Complaint: preop minin lap. abd. myomectomy Ob Gyn Physician Assistant Required: No Is patient in pain?: No Allergies shellfish derived Allergy (Severe, Verified 06/29/22 13:47) unknownlatex Allergy (Verified 06/29/22 13:47) Rash Medications fluoxetine 40 mg capsule 40 mg PO DAILY 11/06/19 [History Confirmed 06/29/22] albuterol sulfate 90 mcg/actuation aerosol inhaler 2 puff inhalation Q6H PRN ASTHMA 01/21/22 [History Confirmed 06/29/22] alprazolam 0.5 mg tablet (Xanax) 0.25 mg PO BID PRN Anxiety 01/21/22 [History Confirmed 06/29/22] Is last menstrual period known: Yes Last Menstrual Period: 06/03/22 Post menopausal: No Patient : No : No [facility] Medical History? Anxiety Asthma Blackout Cervical strain, acute Depression Graves' disease Non-smoker Restless legs Right shoulder strain Syncope Surgical History? History of breast biopsy History of oral surgery Family History? Grandmother Breast cancerUncle Lung cancer Social History? household members:? spouse number of children:? 0 current occupational status:? employed current occupation:? [employer] history of recent travel:? No sexually active:? Yes Smoking Status:? Never smoker alcohol intake:? never substance use type:? does not use what type of physical activity do you participate in:? walking and running seatbelt use:? always do you feel safe at home:? Yes additional social history:? - Eliseo HPI mini lap. abdominal myomectomy Details: JOSEPHINE VILLANUEVA is a 32 year old who presents for preop visit for fibroid.? she has heavy bleeding and infertility. Female Reproductive History Last Menstrual Period: 06/03/22 Menopausal Symptoms: No night sweats History ? ? ? 0 ? Elective abortions ? Hx Para ? Spontaneous abortions ? Hx # Term Pregnancies ? Ectopic pregnancies ? Hx # Pregnancies ? Multiple births ? # of living children ? ROS Const Constitutional: Denies fatigue, night sweats, weight gain or weight loss ENT ENT: Reports system reviewed and no additional complaints, except as documented Cardio Card: Denies chest pain Resp Resp: Denies cough or dyspnea GI GI: Reports as per HPI; Denies abdominal pain, constipation, nausea or vomiting : Denies nipple discharge, urinary frequency, urinary incontinence, urinary hesitancy, urinary urgency, vaginal discharge, vaginal dryness, vaginal odor or vaginal pruritus Musc Musc: Denies arthralgias, back pain or muscle weakness Skin Skin/Breast: Denies alopecia, change in hair, dry skin, breast mass, breast pain, breast skin changes or nipple discharge Neuro Neuro: Reports system reviewed and no additional complaints, except as documented Psych Psych: Reports system reviewed and no additional complaints, except as documented Endo Endo: Denies cold intolerance, excessive sweating, heat intolerance or polydipsia Davy/Lymph Hematologic/Lymphatic: Denies easy bleeding, Denies easy bruising and Denies lymphadenopathy Exam Const General: cooperative, healthy appearing, comfortable and no acute distress Orientation: alert [facility] Head: normal to inspection and normocephalic Ears: hearing grossly normal bilaterally and external ears normal Nose: external nose normal and nares normal Face and sinus: normal facial exam Neck Neck: normal visual inspection and no lymphadenopathy Thyroid: thyroid normal Chest Chest palpation & inspection: normal inspection of the chest Resp Effort & Inspection: normal respiratory effort Auscultation: clear to auscultation bilaterally Cardio Rate: regular rate Rhythm: regular rhythm Heart Sounds: S1 normal and S2 normal GI Inspection: normal to inspection and non-distended Palpation: soft and no hepatosplenomegaly Musc Other: gross motor intact no deficits, full bilateral strength Skin General: no rashes or lesions noted Neuro General: patient alert, patient awake, moves all extremities and no focal motor deficits Motor: muscle tone normal throughout Extrem General: normal to inspection and no pedal edema Psych Appearance: grossly normal Mental Status: mental status grossly normal Affect: normal affect Speech and Movement: speech and movement normal Coding Level of Care Code No Charge Diagnoses 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 N97.1 Fibroid uterus? 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 schedule minilap with myomectomy Plan After discussing the patient's diagnosis and treatment plan options, patient wishes to proceed with surgical management.? I have discussed with the patient the risks, benefits, and alternatives of the procedure which include but are not limited to risks of anesthesia, bleeding, infection, possible damage to bowel, bladder, or surrounding vasculature which could lead to additional surgery to evaluate any complications.? Patient agrees to procedure and wishes to proceed.? ACOG/uptodate references given for additional information regarding procedure.?
[2022-07-17] MEDS: Lactated Ringers 1,000 ML 15 ML IV (06:40)
[2022-07-17 06:45] LABS: Internal QC Validated? YES +Cl - CLEAR BKGD; Pregnancy, Urine Negative Negative
[2022-07-17] MEDS: Cefotetan 2 GM in 0.9% NS 100 ML IV (07:25)
--- NOTE | 2022-07-17 07:40 | DCINST_ITS ---
Discharge Instructions Diet Discharge Diet: No restrictions Activity Discharge Activity: Return to Normal Activity, May Drive (when pain free and off narcotic pain meds), May Shower and May Take a Tub Bath (in 4 weeks) May resume sexual activity in: 6 weeks Weight Bearing Status: Full weight bearing Lifting Restrictions: under 30 lbs for 6 weeks Dressing / Incision Call your doctor if your incision/area has: Continuous Slow Oozing, Sudden Increased Bleeding, Increased Pain/ Swelling, Increased Redness, Foul Smelling Discharge and - Call your doctor if you observe: Fever of 101 or Higher, Using more than 1 pad per hour, Shortness of breath, Chest pain and Uncontrolled pain Suture Line Care: Avoid Pulling/Pushing and Avoid Pinching/Bending Change Dressing in: 1 week (leave open to air after removed) Remove Dressing in: 1 week (if present) Cleanse incision/area with: Soap & Water and Keep Dressing Clean & Dry Follow Up Care Please Follow Up With: Lakia Mayo MD When: Call to make an appointment with your doctor for a postop visit in 2 and 6 weeks. Test Results: Test results from this visit will be discussed in further detail at your follow- up appointment, if applicable. Discharge Plan Admission Attending Provider: Lakia Mayo Primary Care Provider: Julieta Prince Discharge Orders/Prescriptions Prescriptions: New oxycodone-acetaminophen [Percocet] 5-325 mg tablet 1 tab PO Q6H PRN (Reason: pain) 7 Days Qty: 20 0RF naproxen [naproxen] 500 mg tablet 500 mg PO BID PRN PRN (Reason: Pain) Qty: 30 1RF Continued fluoxetine 40 mg capsule 40 mg PO DAILY Label Comments: TAKE 1 CAPSULE BY MOUTH EVERY DAY alprazolam [Xanax] 0.5 mg Tablet 0.25 mg PO BID PRN (Reason: Anxiety) albuterol sulfate 90 mcg/actuation Hfa Aerosol Inhaler 2 puff INHALATION Q6H PRN (Reason: ASTHMA) Referrals / Follow Up: Julieta Prince MD [Primary Care Provider] - Disposition Disposition (needs filled in before D/C Order can be placed): Home, Self Care
--- NOTE | 2022-07-17 07:40 | PCM.OPRPT ---
Problems Associated Problem List Diagnoses (1) Abnormal menstrual periods: (2) Fibroid uterus: Report of Operation Date of Procedure: 07/17/22 Pre-Operative Diagnosis: see A/P Post-Operative Diagnosis: same Surgery/Procedure Performed:: abdominal myomectomy Description of Surgical Findings:: 5 cm anterior low vesicouterine fibroid subserosal Surgeon: Lakia Mayo branner machine tender: Brown Boone Type of Anesthesia: General Special Medications: vasopressin, surgicel Specimen's removed: fibroid Drains: pineda Estimated Blood Loss (mL): 100 Description of Procedure: The patient was taken to the operating room and placed under general anesthesia in the dorsal supine position. She was prepped and draped in the normal sterile fashion. Pineda catheter was placed in the bladder SCDs were on and preoperative antibiotics were given. A Pfannenstiel skin incision was made with the scalpel and carried through the underlying layer of the fascia with the scalpel, fascia was nicked in the midline, incision extended laterally. Rectus bellies were dissected off superiorly and inferiorly sharply and bluntly and peritoneum entered digitally, incision stretched laterally and the retractor was placed after the bowel was packed away. The uterus was identified and noted to be significantly enlarged approximately 5 cm. The ovaries were noted to be within normal limits. Vasopressin was injected into the fibroid and under their serosa. Incision was made across the serosa and then the fibroid was shelled out without complication. The uterine defect was closed in 3 layers with first 3-0 Monocryl and fibrillar and finishing with a baseball stitch of 4-0 Monocryl across the uterine serosa. Surgicel was placed over the incision after excellent hemostasis was noted. Excellent hemostasis was noted all instruments removed from the abdomen and the peritoneum was closed with 3-0 Monocryl fascia closed with 0 PDS subcutaneous tissue reapproximated with 3-0 Monocryl and the skin closed with 4-0 Monocryl. Patient was awoken and taken recovery in stable condition. Complications none Admit VTE Documentation VTE Present on Admission: No VTE Mechan Device Prophylaxis: [facility] Pharm Prophylaxis ordered?: Yes Multi Select Codes Urinary/Genital Urinary/Genital CPT Codes: 12797 Myomectomy, >5 fibroids >250gr uterus
[2022-07-17] MEDS: Vasopressin 20 UNITS/ML Vial (08:15)
[2022-07-17] MEDS: Acetaminophen 500 MG Tablet 1000 MG PO ×3 (12:35→23:32)
[2022-07-17] MEDS: Ketorolac 30 MG/ML Syringe IV ×3 (12:35→23:32)
[2022-07-17] MEDS: Docusate Sodium 100 MG Capsule PO ×2 (12:36→23:32)
[2022-07-17] MEDS: Fluoxetine HCl 40 MG CAPSULE PO (12:36)
[2022-07-17] MEDS: Lactated Ringers 1,000 ML 70 ML IV (15:23)
--- NOTE | 2022-07-17 15:51 | NURSING ---
Spoke with Dr Smith, informed her pt has been dizzy each time she has been up, has voided. bp is within parameters, but on the low end.
[2022-07-17] MEDS: Lactated Ringers 1,000 ML 999 ML IV (16:22)
[2022-07-17 16:29] LABS: Hematocrit 37.8 % (37-47); Hemoglobin 12.1 g/dL (12.0-15.0); Mean Corpuscular Hgb 28.1 pg (27.0-32.0); Mean Corpuscular Volume 87.7 fL (81-99); Mean Platelet Vol. 9.8 fl (6.2-12.0); Platelet Count 297 K/mm3 (150-450); RBC Distribution Width CV 12.8 % (11.6-14.6); RBC Distribution Width SD 41.3 fl (35.1-43.9); Red Blood Count 4.31 M/mm3 (4.2-5.4); White Blood Count 11.4 K/mm3 (4.4-11.0)
--- NOTE | 2022-07-17 17:36 | NURSING ---
abd binder applied
[2022-07-17] MEDS: 0.9% Saline Lock 10 ML Syringe IV (17:41)
[2022-07-17] MEDS: ALPRAZolam 0.5 MG Tablet 0.25 MG PO (23:44)
[2022-07-18 03:16] VITALS: BP 98/61; PULSE 90; RESP 18; TEMP 36.7; O2SAT 95
[2022-07-18] MEDS: Lactated Ringers 1,000 ML 70 ML IV (03:32)
[2022-07-18 06:49] LABS: Hematocrit 34.1 % (37-47); Hemoglobin 10.7 g/dL (12.0-15.0); Mean Corp Hgb Conc 31.4 g/dL (32-36); Mean Corpuscular Hgb 27.4 pg (27.0-32.0); Mean Corpuscular Volume 87.4 fL (81-99); Mean Platelet Vol. 10.1 fl (6.2-12.0); Platelet Count 271 K/mm3 (150-450); RBC Distribution Width CV 13.1 % (11.6-14.6); RBC Distribution Width SD 41.1 fl (35.1-43.9); White Blood Count 11.6 K/mm3 (4.4-11.0)
[2022-07-18] MEDS: Acetaminophen 500 MG Tablet 1000 MG PO (06:49)
[2022-07-18] MEDS: Ketorolac 30 MG/ML Syringe IV (06:51)
[2022-07-18] MEDS: Fluoxetine HCl 40 MG CAPSULE PO (08:11)
[2022-07-18] MEDS: Ensure Plus High Protein 120 ML LIQUID PO (08:11)
[2022-07-18] MEDS: Enoxaparin 40 MG/0.4 ML Syringe SC (08:12)
[2022-07-18] MEDS: Docusate Sodium 100 MG Capsule PO (08:12)
[2022-07-18 08:13] VITALS: O2SAT 98
[2022-07-18 08:16] VITALS: BP 107/61; PULSE 87; RESP 16; TEMP 36.8; O2SAT 96
--- NOTE | 2022-07-18 09:01 | PCM.PN.OB ---
Subjective Subjective pt tolerating PO diet, ambulating well. pain controlled with PO medications .denies dizziness, sob, lightheadness no vaginal bleeding. Objective Data Objective Data Vital Signs: Vital Signs Temp Pulse Resp BP Pulse Ox O2 Del Method O2 Flow Rate 98.3 F 87 16 107/61 96 Room Air 2 07/18/22 08:16 07/18/22 08:16 07/18/22 08:16 07/18/22 08:16 07/18/22 08:16 07/18/22 08:16 07/17/22 15:32 Oxygen Flow Rate (L/min) 2 Oxygen Delivery Method Room Air Weight: 184 lb 11.958 oz Body Mass Index (BMI) 29.8 Intake & Output: Intake and Output for Last 24 Hours 07/16/22 07/17/22 07/18/22 23:59 23:59 23:59 Intake Total 1300.5 / 1800.5 1114.83 / 1114.83 Output Total 1040 / 1040 Balance 260.5 / 760.5 1114.83 / 1114.83 Lab / Micro Data Attestation: I reviewed the patient's lab results. Result Diagrams: 07/18/22 06:26 Labs: Laboratory Results - last 24 hr 07/17/22 16:09: WBC 11.4 H, RBC 4.31, Hgb 12.1, Hct 37.8, MCV 87.7, MCH 28.1, MCHC 32.0, RDW Std Deviation 41.3, RDW Coeff of Ramiro 12.8, Plt Count 297, MPV 9.8 07/18/22 06:26: WBC 11.6 H, RBC 3.90 L, Hgb 10.7 L, Hct 34.1 L, MCV 87.4, MCH 27.4, MCHC 31.4 L, RDW Std Deviation 41.1, RDW Coeff of Ramiro 13.1, Plt Count 271, MPV 10.1 Physical Exam Const alert, oriented x3 and no apparent distress Neck full ROM and nuchal rigidity Lymph Lymphatic: no lymphadenopathy noted Resp normal respiratory effort, normal air movement and no retractions Auscultation: crackles right GI normal to inspection, nondistended, normoactive bowel sounds GI Narrative: abdomen soft, nd. dressing c/d/i Extremity normal to inspection, full ROM, no calf tenderness and no pedal edema Skin no rashes or lesions noted Skin Narrative: dressing c/d/i Neuro oriented x3 Psych mental status grossly normal Assessment & Plan (1) Fibroid uterus: COMMENT: HSG done, recommend removal of fibroid prior to conception. schedule minilap with myomectomy PLAN: stable for d/c home today with follow up in office in 2 and 6 weeks. Percocet and naproxen for pain management. Rx sent encourage deep breath, ambulation. Charges/Coding Visit Charges Office Visits / Consults: 17511 OV L3 Est
--- NOTE | 2022-07-18 11:45 | CASEMGMT ---
Patient was discharged prior to RN CM completing assessment. No needs identified when reviewing chart.
== END 2022-07-18 11:22 | disposition home or self-care (01) | DRG 743 ==
LOC: SDC 09:50 → MS3 09:51
PROVIDERS: Admitting Provider Obstetrics & Gynecology; PCP Family Medicine; Referring Provider Obstetrics & Gynecology; Visit Provider Obstetrics & Gynecology
PROC: 0UT90ZZ Resection of Uterus, Open Approach (ICD-10-PCS; CPT 58150; principal; 2022-07-17 07:10)
DX: D25.2 Subserosal leiomyoma of uterus (principal); N97.1 Female infertility of tubal origin; Z79.899 Other long term (current) drug therapy
CPT/HCPCS: 36415; 81025; 85027; 86850; 86900; 86901; 88304; 88305; 94668; J7120; A4216; J2405

== ENCOUNTER → 2022-07-30 | Outpatient (CLI) | payer OTHER, SELFPAY | END | disposition home or self-care (01) | LOC: PAVLAB 12:27 | PROVIDERS: PCP Family Medicine; Referring Provider Advanced Practice Midwife; Visit Provider Advanced Practice Midwife | DX: N97.0 Female infertility associated with anovulation (principal) | CPT/HCPCS: 36415 ==

== ENCOUNTER → 2022-08-04 | Outpatient (CLI) | payer OTHER, SELFPAY ==
--- NOTE | 2022-08-04 10:19 | MRI_ITS ---
STUDY: BILATERAL BREAST MR WITHOUT AND WITH CONTRAST REASON FOR EXAM: Female, 32 years old. Family history of breast cancer. Abnormal breast cancer genetics. TECHNIQUE: Multi-sequence multi-echo imaging of both breasts was performed with a dedicated breast coil. T1-weighted and T2-weighted images were performed before the administration of contrast. T1-weighted images were also performed after the intravenous administration of 16ml of Clariscan contrast. COMPARISON: Mammogram and right breast ultrasound dated January 14, 2022. FINDINGS: RIGHT BREAST: Extremely dense fibroglandular tissue with moderate background enhancement. Multiple cysts and ductal ectasia. No abnormal enhancing masses or areas of non-mass enhancement in the right breast. LEFT BREAST: Extremely dense fibroglandular tissue with moderate background enhancement. Multiple cysts and ductal ectasia. Irregular ovoid enhancing area of enhancement at the 6:00 position measuring 13 mm x 9 mm x 6.5 mm best seen on series 02/13/2002 images 140-144 and sagittal series 7 images 14-17). This area is approximately 4.8 cm behind the nipple. A second look ultrasound of the left breast for further evaluation of this MRI finding is recommended. If no correlate to the MRI finding is noted by ultrasound, a six-month follow-up bilateral breast MRI with contrast, given the patient''s history, is recommended. No enlarged or abnormal lymph nodes. No abnormality in the visualized regions of the chest or liver. MRI/Breast Bilateral W/O and W IMPRESSION: Irregular ovoid focal area of enhancement in the left breast at the 6:00 position 4.8 cm behind the nipple and slightly below the nipple on the lateral view. A second look left breast ultrasound is recommended for this finding. There is no ultrasonographic correlate is identified, a repeat breast MRI with contrast in 6 months to establish the stability of this focus of enhancement is recommended. CATEGORY: BIRADS Category 0: Incomplete. Need additional imaging evaluation. A letter regarding these results will be sent to the patient by the facility within 30 days. Electronically Signed: Fernando Sanon MD at 10:07 EDT ,
== END | disposition home or self-care (01) ==
LOC: MRI 10:14
PROVIDERS: PCP Family Medicine; Referring Provider Nurse Practitioner Women's Health; Visit Provider Nurse Practitioner Women's Health
DX: N63.10 Unspecified lump in the right breast, unspecified quadrant (principal); D24.9 Benign neoplasm of unspecified breast; Z80.3 Family history of malignant neoplasm of breast; Z15.01 Genetic susceptibility to malignant neoplasm of breast; Z14.8 Genetic carrier of other disease
CPT/HCPCS: 77049; A9575; A4216; C8908

== ENCOUNTER → 2022-08-10 | Outpatient (CLI) | payer OTHER, SELFPAY ==
--- NOTE | 2022-08-10 07:48 | US_ITS ---
STUDY: ULTRASOUND BREAST - LEFT REASON FOR EXAM: Female, 32 years old. Abnormal MRI examination. TECHNIQUE: Axial and longitudinal images of the LEFT breast were performed with a high resolution ultrasound transducer. # OF IMAGES: 54 COMPARISON: Comparison is made with prior MRI of the breasts dated August 04, 2022. FINDINGS: LEFT Breast: There is 8 mm by 8 mm x 7mm complex cystic structure in the retroareolar region of the left breast. US/Breast Limited Unilateral IMPRESSION: There is a 7 mm x 8 mm x 8 mm complex cystic nodule at the 12:00 position breast in the retroareolar region. Biopsy recommended. ASSESSMENT CATEGORY: BIRADS Category 4: Suspicious - Biopsy Should Be Considered. A letter regarding these results will be sent to the patient by the facility within 30 days. Electronically Signed: Akhil Marshall MD at 12:24 EDT ,
== END | disposition home or self-care (01) ==
LOC: OPUS 07:47
PROVIDERS: PCP Family Medicine; Referring Provider Registered Nurse; Visit Provider Registered Nurse
DX: R92.8 Other abnormal and inconclusive findings on diagnostic imaging of breast (principal); Z80.3 Family history of malignant neoplasm of breast
CPT/HCPCS: 76642

== ENCOUNTER → 2022-08-20 | Outpatient (CLI) | payer OTHER, SELFPAY ==
--- NOTE | 2022-08-20 11:47 | US_ITS ---
ULTRASOUND GUIDED CORE BIOPSY REASON FOR EXAM: Female, 32 years old. Left breast mass PERTINENT HISTORY: Left breast mass. COMPARISON: Comparison is made with prior ultrasound of the left breast dated August 10, 2022. TECHNIQUE: (All elements of maximal sterile barrier technique followed, including US elements as applicable) Under direct sonographic guidance, the surgeon performed core biopsies of the 8mm by 8 mm x 7 mm complex cystic structure in the retroareolar region of the left breast. US/US Breast Biopsy 1st Lesion IMPRESSION: Ultrasound guided core biopsy of a mass in the LEFT breast in the retroareolar region without complication. Electronically Signed: Akhil Marshall MD at 13:19 EDT ,
--- NOTE | 2022-08-20 12:27 | BRBX_PTH ---
PATIENT: JOSEPHINE VILLANUEVA LOC: [facility] U#:[id number] AGE/SX: 32/F ROOM: RE08/20/[address]: Dr. Bill Perea MD : 1990 BED: DIS: 08/20/2022 SPEC #: [id number] RECD: 08/20/22 13:23 STATUS: MERCEDES JANNA #: [id number] SANDIE: 08/20/22 12:[address]: Bill Perea DEPT: SURGICAL PATHOLOGY RECD BY: Lianna Ruvalcaba ENTERED: 08/20/22 14:02 SP TYPE: BREAST BX OTHR DR: Dr. Julieta Prince MD Tissues: Left breast, NOS Procedures: Surgery Specimen Level IV HEADER OPERATION: Ultrasound guided left breast core biopsy PRE-OP DIAGNOSIS: Mass in left breast TISSUE SUBMITTED: Left breast 12:00 o'clock, retroaleolar MICROSCOPIC DIAGNOSIS Left breast 12:00 o'clock, retroaleolar, Ultrasound guided core biopsy: Fibrocystic changes, adenosis, and intraductal hyperplasia without atypia. See comment. SJ: 08/21/2022 COMMENT Correlation with clinical, radiologic findings and appropriate follow up are necessary. MICROSCOPIC DESCRIPTION Slides are reviewed. GROSS DESCRIPTION Received in formalin is one container labeled with the patient name and designated left breast. The specimen consists of multiple irregular and elongated fragments of hoyt-white tissue measuring in aggregate 2 x 1 x .1 cm. The specimen is totally submitted in one cassette. / ELIZABETH:whitney 08/21/22 TC:5 CPT: 12082
--- NOTE | 2022-08-20 13:23 | PCM.OPRPT ---
Report of Operation Date of Procedure: 08/20/22 Pre-Operative Diagnosis: Abnormal left breast ultrasound Post-Operative Diagnosis: Same Surgery/Procedure Performed:: Ultrasound-guided core needle biopsy of the left breast Specimen's removed: Left breast biopsy Description of Procedure: The left breast was prepped and draped in usual sterile fashion. Ultrasound to localize the lesion. Lateral to this an area of skin was injected with local anesthetic and a small chloe was made with a scalpel. Next the mammotome needle was placed into the breast under ultrasound guidance and the area was biopsied. The needle was removed and a clip was placed into the area. A Steri-Strip and OpSite were placed over the incision. Patient tolerated the procedure well.
== END | disposition home or self-care (01) ==
PROVIDERS: PCP Family Medicine; Referring Provider Surgery; Visit Provider Surgery
DX: N60.22 Fibroadenosis of left breast (principal)
CPT/HCPCS: 19083; 88305

== ENCOUNTER → 2023-04-19 | Outpatient (CLI) | payer OTHER, SELFPAY ==
--- OUTSIDE RECORDS SUMMARY | 2023-04-19 09:26 | XMS RPT_ITS | CCD ---
Author Name Unknown Address [address] [place] [address] Organization [facility] Care Team Providers Care Housing Property Manager Name Role Phone Julieta Prince Primary Care Provider MAXIM MCDERMOTT Attending Unavailabl e Unavailable Primary Care Provider Unavailkeyona e MAXIM MCDERMOTT Referring Unavailabl e Allergies Allergy Classification Reported Allergen(s) Allergy Type Date of Onset Reaction(s) Facility (4 sources) Shellfish; Translations: [SHELLFISH DERIVED] Propensity to adverse reactions to drug (disorder) 6 Shortness of Breath [facility] Other [place] [facility] Medications Current Medications Medication Drug Class(es) Dates Sig (Normalized) Sig (Original) Dupilumab (DUPIXENT SC) (1 source) Dupilumab (DUPIX ENT SC) Inject under the skin. 0 Active FLUoxetine 20 mg oral tablet (1 source) Serotonin Reuptake Inhibitor take 1 tablet by mouth once daily fluoxetine 20 MG tablet Take 20 mg by mouth daily. 0 Active loratadine 10 mg oral capsule (1 source) Loratadine (Claritin) 10 MG capsule Take by mouth. 0 Active Completed/Discontinued Medications Medication Drug Class(es) Dates Sig (Normalized) Sig (Original) [id number] 200 actuat albuterol 0.09 mg/actuat metered dose inhaler (2 sources) beta2-Adrenergic Agonist Start: 12-31-2015 take 2 puff(s) by inhalation every four hours as needed for wheezing albuterol HFA (VENTOLIN HFA) 90 mcg/actuation inhaler Indications: Bronchitis Inhale 2 Puffs as instructed every 4 hours as needed for Wheezing/Shortnes s of Breath. 1 Inhaler 0 12/31/2015 Active Problems Active Problems Problem Classification Problem Date Documented Da te Episodic/Chronic Anxiety disorders (1 source) Panic attack; Translations: [Panic attack] Chronic Female infertility (1 source) Female infertility; Translations: [Female infertility, unspecified] 04-14-2023 Chronic Past or Other Problems Problem Classification Problem Date Documented Da te Episodic/Chronic Allergic reactions (2 sources) Contact dermatitis; Translations: [Unspecified contact dermatitis, unspecified cause] Onset: 07-24-2010 07-24-2010 Episodic Nausea and vomiting (1 source) Nausea and vomiting; Translations: [Non-intractable vomiting with nausea, unspecified vomiting type] Episodic Results Test Name Value Interpretation Reference Range Facil ity Vital Signs Date Time Vital Sign Value Performing Clinician Faci lit 08-18-2019 15:29-0400 BP Diastolic 72 mm[Hg] [employer] 08-18-2019 15:29-0400 BP Systolic 117 mm[Hg] Julieta [employer] 08-18-2019 15:29-0400 Pulse (Heart Rate) 92 /min [employer] 08-18-2019 15:29-0400 Pulse Oximetry 100 % [employer] 08-18-2019 15:29-0400 Respiratory Rate 16 /min [employer] 08-18-2019 14:57-0400 Height 167.6 cm [employer] 08-18-2019 14:55-0400 Body Temperature 97.81 [degF] Julieta [employer] Encounters Encounter Date Encounter Type Care Provider Facility Start: 04-12-2023 End: 04-12-2023 ambulatory MAXIM MCDERMOTT Facility:[facility] Start: 04-12-2023 End: 04-12-2023 Nursing evaluation of patient and report Nurse Drew [facility] Work Phone: Reproductive Endocrinology Infertility Procedures Date Procedure Procedure Detail Performing Clinician Start: 08-18-2019 Choriogonadotropin ( test) [Presence] in Urine Shameka Miramontes Work Phone: Start: 08-18-2019 Urinalysis, reagent strip without microscopy Shameka Miramontes Work Phone: Start: 08-18-2019 Complete blood count with white cell differential, automated Shameka Miramontes Work Phone: Start: 08-18-2019 Creatinine blood Shameka Miramontes Work Phone: Plan of Treatment Date Care Activity Detail Author Start: 02-08-2023 Depression Assessment Depression Ass essment [facility] Start: 10-09-2022 Covid-19 Vaccine ( season) Covid-19 Vaccine () [facility] Start: 10-09-2022 Influenza vaccination Influenza Vacc ine (#1) [facility] Start: 05-01-2021 Screening for malign ant neoplasm of cervix HPV Testing [facility] Start: 10-10-2019 Influenza vaccination INFLUENZA VACC INE (#1) [facility] Start: 05-01-2012 Screening for malign ant neoplasm of cervix [facility] Start: 05-01-2010 Third diphtheria, te tanus and acellular pertussis (DTaP) vaccination TDAP (ADULT) [facility] Start: 05-01-2010 Urine microalbumin profile DTa P,Tdap,Td Vaccine (1 - Tdap) [facility] Start: 05-01-2009 Hepatitis C screening Hepatitis C Sc reening [facility] Start: 05-01-2009 HIV screening HIV Screening [facility] Start: 05-01-2009 Tetanus vaccination [facility] Start: 05-01-2004 HIV screening HIV SCREENING DISCUSSI ON [facility] Start: 1991 Hepatitis B Vaccine (1 of 3 - 3-dose series) Hepatitis B Vaccine (1 of 3 - 3-dose series) [facility] Immunizations Immunization Date Immunization Notes Care Provider Fa aguilar 01-28-2022 influenza virus vacc ine, unspecified formulation Maxim Mcdermott MD Work Phone: [facility] Payers Date Payer Category Payer Unknown [id number] 2018 Unknown MMO MMO [employer] PPO [id number] 2018-Present [phone] [address] [place] [address] PPO [id number] 2015 Unknown [employer] [id number] 2015-Present [id number] Social History Date Type Detail Facility Start: 12-31-2015 End: 08-18-2019 Tobacco smoking status NHIS Never smoker [facility] Start: 12-31-2015 End: 08-18-2019 Tobacco use and exposure Never used [employer] Start: 08-18-2019 Alcohol intake Current drinke r of alcohol (finding) [employer] Start: 08-18-2019 Alcohol Comment [facility] Start: 1990 Sex Assigned At Not on file A [place] Exposure to SARS-CoV -2 (event) Not sure [facility] Start: 02-15-2023 End: 04-12-2023 Alcohol intake Ex-drinker (finding) [facility] Start: 02-15-2023 End: 04-12-2023 History of Social function [place] [facility] Start: 02-15-2023 End: 04-12-2023 Tobacco use panel [facility] National Score (1-10 0), lower number is lower risk 90 [facility] Progress note 04-12-2023 Note Date & Type Note Facility 04-12-2023 Note HNO ID: [id number] Author: SUDHA CURTIS RN Service: ? Author Type: Registered Nurse Type: Progress Notes Filed: 04/14/2023 13:40 Note Text: Patient had an IVF consult with Maxim Mcdermott MD. Present for the phone call today is patient and partner/. Identified patient by name and date of . Yes. Chief Complaint- infertility Medications and allergies reviewed and updated. Yes. History reviewed: OB, Medical, Surgical, and Substance AND Sexuality- Yes. Pre IVF requirements reviewed- Yes. Pre IVF requirements sent to the patient via PayActivt- Yes Patient reminded to call us with start of periods- Yes Previous Fertility Treatment? - No G 0P 0 AB 0 LMP 04/01/23, Cycles- 30 days Episode created- yes / Protocol- antagonist Will monitor at [facility] yearly exam/PAP - 04/19/23 Uterine Eval - needs Mammo needed (41yo) - needs [facility]- 6.13 Pt. Labs: Type AND Screen, HIV 1AND2, Syphilis (RPR), Hepatitis B Core AB, Hepatitis B Surface AG, Hepatitis C AB, Rubella, Varicella, GC/Chlam - Needs___ Myriad carrier screening - Needs____ History AND Physical appt with Nurse Practitioner - Needs____ Partner STD: HIV 1AND2, Syphilis (RPR) Hepatitis B Core AB, Hepatitis B Surface AG, GC/Chlam - Needs____ SA/Freeze Backup - ? Needs____ PGTA/M - yes Financial/Coverage- self pay Pharmacy [facility] Reunite discussed Psych Consult- n/a Donor Sperm- n/a IVF / Embryo - Nursing reviewed with patient and Sent via [employer] Is there anything special we should know about your medical history: Any artificial parts, pins, limbs, lines, drains, ports, implants, prosthetics- Patient Declines Medical problems- anxiety Diabetes- Patient Declines / (For DM - last eye appt no, MFM appt n/a) Sleep apnea- Patient Declines / CPAP machine no Blood clots or history of hematology issues- Patient Declines Any Latex allergies Yes. control use in past? Yes. Any contraindications? No / migraines No / smoking No / blood clots No RN Discussed: Nursing reviewed with patient all below Vacations and Traveling / Covid-19 / Weekend monitoring and retrieval / Time-off work MyChart use with plans, instructions results, appts. No jumping, bouncing, heavy lifting, or high impact activity during IVF cycle. Risk of ovarian torsion. No Motrin, Advil, Ibuprofen, etc. Tylenol or Acetaminophen only. Team approach of doctors and nurses. Stimulation can go 10-14 days. IVF appointments in the morning, called monitoring, which consist of ultrasound and bloodwork. Noon meeting with MD to discuss results/POC. Nurse call patient in afternoon with plan and send MyChart, schedule next appt. Patient and Partner verbally agreed on 3 not to order medication until all of the above requirements are completed, and they have been formally instructed to order medication. Patient and Partner verbally agreed on 04/11 to share their medical information with each other. 3/4 will be available and with patient before and after surgery. To Do: [facility] woman STD for both Semen analysis Send shamekaitae [facility] History of Present illness Narrative 04-12-2023 Sudha Curtis RN - 04/12/2023 9:57 AM EST Note Date & Type Note Facility 04-12-2023 History of Presen t illness Narrative Patient had an IVF consult with Maxim Mcdermott MD. Present for the phone call today is patient and partner/. Identified patient by name and date of . Yes. Chief Complaint- infertility Medications and allergies reviewed and updated. Yes. History reviewed: OB, Medical, Surgical, and Substance & Sexuality- Yes. Pre IVF requirements reviewed- Yes. Pre IVF requirements sent to the patient via PayActivt- Yes Patient reminded to call us with start of periods- Yes Previous Fertility Treatment? - No G 0P 0 AB 0 LMP 04/01/23, Cycles- 30 days Episode created- yes / Protocol- antagonist Will monitor at [facility] yearly exam/PAP - 04/19/23 Uterine Eval - needs Mammo needed (41yo) - needs [facility]- 6.13 Pt. Labs: Type & Screen, HIV 1&2, Syphilis (RPR), Hepatitis B Core AB, Hepatitis B Surface AG, Hepatitis C AB, Rubella, Varicella, GC/Chlam - Needs___ Myriad carrier screening - Needs____ History & Physical appt with Nurse Practitioner - Needs____ Partner STD: HIV 1&2, Syphilis (RPR) Hepatitis B Core AB, Hepatitis B Surface AG, GC/Chlam - Needs____ SA/Freeze Backup - ? Needs____ PGTA/M - yes Financial/Coverage- self pay Pharmacy [facility] Reunite discussed Psych Consult- n/a Donor Sperm- n/a IVF / Embryo - Nursing reviewed with patient and Sent via [employer]Activt Is there anything special we should know about your medical history: Any artificial parts, pins, limbs, lines, drains, ports, implants, prosthetics- Patient Declines Medical problems- anxiety Diabetes- Patient Declines / (For DM - last eye appt no, MFM appt n/a) Sleep apnea- Patient Declines / CPAP machine no Blood clots or history of hematology issues- Patient Declines Any Latex allergies Yes. control use in past? Yes. Any contraindications? No / migraines No / smoking No / blood clots No RN Discussed: Nursing reviewed with patient all below Vacations and Traveling / Covid-19 / Weekend monitoring and retrieval / Time-off work MyChart use with plans, instructions results, appts. No jumping, bouncing, heavy lifting, or high impact activity during IVF cycle. Risk of ovarian torsion. No Motrin, Advil, Ibuprofen, etc. Tylenol or Acetaminophen only. Team approach of doctors and nurses. Stimulation can go 10-14 days. IVF appointments in the morning, called monitoring, which consist of ultrasound and bloodwork. Noon meeting with MD to discuss results/POC. Nurse call patient in afternoon with plan and send MyChart, schedule next appt. Patient and Partner verbally agreed on 3/4 not to order medication until all of the above requirements are completed, and they have been formally instructed to order medication. Patient and Partner verbally agreed on 3/4 to share their medical information with each other. 3/4 will be available and with patient before and after surgery. To Do: Well woman STD for both Semen analysis Send invitae documented in this encounter [facility] Note 04-02-2023 Telephone Encounter - Sudha Curtis RN - 04/02/2023 4:30 PM ESTTelephone Encounter - Nae Ureña - 04/02/2023 4:00 PM ESTTelephone Encounter - Shonda Carranza - 04/02/2023 11:08 AM EST Note Date & Type Note Facility 04-02-2023 Miscellaneous Notes Formattin g of this note might be different from the original. [employer] message sent to patient. Sudha Curtis RN April 02, 2023 4:31 PM Patient is financially cleared for IVF, scheduled ivf teach looking for next stepsl Pt made payment for ivf , would like to start scheduling her apts documented in this encounter [facility] Progress note 02-15-2023 Note Date & Type Note Facility 02-15-2023 Note HNO ID: [id number] Author: JENNIE TELLEZ RN Service: ? Author Type: Registered Nurse Type: Progress Notes Filed: 02/15/2023 11:16 Note Text: [employer] req completed on portal. Next steps IVF mychart sent to patient. [facility] entered in resports console. Jennie Tellez RN February 15, 2023 11:16 AM [facility] Progress note 02-15-2023 Note Date & Type Note Facility 02-15-2023 Note HNO ID: [id number] Author: MAXIM MCDERMOTT MD Service: ? Author Type: Physician Type: Progress Notes Filed: 02/15/2023 12:14 Note Text: [facility] Date: 02/15/2023 Consultation Requested By: Self-refered Estrella Riojas is a 32 year old female presenting with the following history: HISTORY OF PRESENT ILLNESS: Estrella Riojas is a 32 year old female Attempting to conceive since 04/2020 Menstrual cycle irregularity: 30-35 day interval. 50 day recently PMHx: BMI 29.0. Graves disease as a teen. CHIP. Depression PSHx: Laparotomy myomectomy OBHx: Denies Meds: MVI. Cymbalta Desire for future fertility Consultation at [facility] 35 year old male partner without proven fertility PMHx: Central sleep apnea (phrenic nerve). Gastroparesis (vagus nerve) PSHx: Denies Meds: Pantoprazole SA: 1.6M/15%/0% Obstetric History T0 L0 SAB0 IAB0 Ectopic0 Multiple0 Live Births0 Fertility Evaluations and Treatments: Eval Checklist Results Date Comments HSG Hysteroscopy Not done Laparoscopy Not done OPK (Ovulation Predictor Kit) Normal Ovarian [place] Ultrasound Semen Analysis Abnormal all categorys abnormal Ultrasound Normal Other (See comments) MENSTRUAL HISTORY: Menarche Age: 16 Length of Cycle: 28-30 most recent 50 day Regular Days: 7 Menstrual Flow: Heavy,Moderate Menstrual Symptoms: Breast Tenderness,Mood Changes,Bloating,Cramping Patient's last menstrual period was 02/03/2023 (exact date). 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 back surgery MEDICATIONS: Current Outpatient Medications on File Prior to Visit Medication Sig DULoxetine (CYMBALTA) 60 mg capsule escitalopram oxalate (LEXAPRO) 10 mg tablet Take 10 mg by mouth once daily. (Patient not taking: Reported on 02/15/2023) MEDICATION, NON-DATABASE Oral control, pt unsure of which one (Patient not taking: Reported on 02/15/2023) albuterol HFA (VENTOLIN HFA) 90 mcg/actuation inhaler Inhale 2 Puffs as instructed every 4 hours as needed for Wheezing/Shortness of Breath. (Patient not taking: Reported on 02/15/2023) clobetasol 0.05 % TOPICAL ointment Apply at bedtime (Patient not taking: Reported on 02/15/2023) No current facility-administered medications on file prior to visit. ALLERGIES: Shellfish Derived [facility] PAP Results: Normal HPV Results: Negative STD Results: No Blood Type: NA ASSESSMENT: 32 year old female Attempting to conceive since 04/2020 Menstrual cycle irregularity: 30-35 day interval. 50 day recently PMHx: BMI 29.0. Graves disease as a teen. CHIP. Depression PSHx: Laparotomy myomectomy OBHx: Denies Meds: MVI. Cymbalta Desire for future fertility Consultation at [facility] 35 year old male partner without proven fertility PMHx: Central sleep apnea (phrenic nerve). Gastroparesis (vagus nerve) PSHx: Denies Meds: Pantoprazole SA: 1.6M/15%/0% PLAN: IVF cycle planning: Consider PGT-A Antagonist. FSH 150-200. No LD hCg. Dual trigger STI/FDA infectious disease screening tests Carrier screening Office hysteroscopy or SIS prior to FET Financial Team: Discuss medical insurance benefits and likely [id number] costs of IVF. IVF nurse coordinator: Schedule IVF nurse teaching. Order meds. Prepare IVF cycle schedule/flowsheet. Sign consents. Dr Mcdermott: Review lab test results. Determine IVF stimulation protocol and medications dosage. Consultation with couple prior to IVF start if questions, abnormal lab test values or other concerns arise. I spent a total of 64 minutes on the date of the service which included preparing to see the patient, [id number] patient care, completing clinical documentation, obtaining and/or reviewing separately obtained history, counseling and educating the patient/family/caregiver, ordering medications, tests, or procedures, communicating with other HCPs (not separately reported), independently interpreting results (not separately reported), communicating results to the patient/family/caregiver, and care coordination (not separately reported). Maxim Mcdermott MD February 15, 2023 12:14 PM [facility] Evaluation note Note Date & Type Note Facility documented in this encounter [facility] Summary Purpose Family History No Family History Records FoundNo Family History Records FoundNo Family History Records Found Advance Directives No Advanced Directives Records FoundNo Advanced Directives Records FoundNo Advanced Directives Records Found Discharge Instructions * Instructions* Shameka Miramontes PA-C - 08/18/2019 Use Zofran as needed for nausea. Follow a clear liquid diet for the next 48 hours. Slowly progress to a bland diet. Utilize your Xanax as needed for further panic attack. * Attachments The following attachments cannot be sent through Care Everywhere. * Nausea and Vomiting (Stateless) * Panic Attacks (Stateless) documented in this encounter Assessments Diagnosis Non-intractable vomiting with nausea, unspecified vomiting type Panic attack Panic disorder without agoraphobia Additional Source Comments INFORMATION SOURCE (unrecogn ized section and content) DATE CREATED AUTHOR AUTHOR'S ORGANIZ ATION 02/15/2023 [facility] DATE CREATED AUTHOR AUTHOR'S ORGANIZ ATION 04/15/2023 [facility] Reason for Visit (unrecogniz ed section and content) Reason Comments scheduling next apts IVF next steps/financially cleared Reason Comments IVF teach Specialty Diagnoses / Procedures Referred By Macy t Referred To Contact REPRODUCT[facility] ENDOCRINOLOGY & FERTILITY Diagnoses Encounter for other procreative management [place] [id number] [place] [address] [facility] [address] [place] [address] Referral ID Status Reason Start Date Expiration Date Visits Requested Visits Authorized [id number] Authorized Do Not Bill Insurance - SP patient Patient Cleared - True Self-Pay required payment collected 04/02/2023 10/01/2023 99 99 Source Comments (unrecognize d section and content) In the event this informatio n is protected by the Federal Confidentiality of Alcohol and Drug Abuse Patient Records regulations: The Federal rules restrict any use of the information to criminally investigate or prosecute any alcohol or drug abuse [facility] the event this information is protected by the Federal Confidentiality of Alcohol and Drug Abuse Patient Records regulations: The Federal rules restrict any use of the information to criminally investigate or prosecute any alcohol or drug abuse patient.[facility] FOR RECORDS PERTAINING TO PATIENTS WHO ARE OR HAVE BEEN ENROLLED IN A CHEMICAL DEPENDENCY/SUBSTANCEABUSE PROGRAM, SOME INFORMATION MAY BE OMITTED. This clinical summary was aggregated from multiple sources. Caution should be exercised in using it in the provision of clinical care. This summary normalizes information from multiple sources, and as a consequence, information in this document may materially change the coding, format and clinical context of patient data. In addition, data may be omitted in some cases. CLINICAL DECISIONS SHOULD BE BASED ON THE PRIMARY CLINICAL RECORDS. [employer] [facility]. provides no warranty or guarantee of the accuracy or completeness of information in this document.
[2023-04-19 10:52] LABS: HIV - WCH Non-Reactive (Nonreactive); Hepatitis B Surface Antigen Non-Reactive (Nonreactive); Hepatitis C Antibody Non-Reactive (Nonreactive); Rubella IgG Reactive (Nonreactive); Syphilis Antibodies Non-reactive
[2023-04-20 07:08] LABS: Hepatitis A IgM Antibody Negative (Negative); Hepatitis B Core Ab Total Negative (Negative); V-Zoster IgG (Immunity) 846 index (Immune >165)
== END | disposition home or self-care (01) ==
LOC: PAVLAB 09:03
PROVIDERS: PCP Family Medicine; Referring Provider Nurse Practitioner Women's Health; Visit Provider Nurse Practitioner Women's Health
DX: Z00.00 Encounter for general adult medical examination without abnormal findings (principal); Z20.2 Contact with and (suspected) exposure to infections with a predominantly sexual mode of transmission
CPT/HCPCS: 36415; 86703; 86704; 86709; 86762; 86780; 86787; 86803; 87340

== ENCOUNTER → 2023-05-03 | Outpatient (CLI) | payer OTHER, SELFPAY ==
--- NOTE | 2023-05-03 12:47 | BI_ITS ---
MAMMOGRAPHY - BILATERAL SCREENING REASON FOR EXAM: Female, 33 years old. Routine annual screening examination. PERTINENT HISTORY: Grandmother with breast cancer. TECHNIQUE: Digital bilateral breast nick (3D mammographic acquisition) in the CC and MLO projections. 2-D mediolateral oblique (MLO) and craniocaudad (CC) views of both breasts were obtained. CAD: Full Field Digital Mammography with Computer Added Detection was performed. COMPARISON: Comparison is made with prior study dated January 14, 2022. FINDINGS: Breast Composition: The breasts are extremely dense, which lowers the sensitivity of mammography. There are no dominant masses or suspicious calcifications. A tissue clip marker seen along the anterior slightly superior retroareolar region of the left breast. Stable small benign-appearing bilateral axillary lymph nodes. No other significant abnormalities are identified. There has been no significant change since the prior study. BI/SCRN MAMM (CAD)W/NICK BILAT IMPRESSION: Stable bilateral screening mammogram. Yearly follow-up mammogram recommended. (A) ASSESSMENT CATEGORY: BIRADS Category 1: Negative. A letter regarding these results will be sent to the patient by the facility within 30 days. Approximately 10% of breast cancers are not detected by mammography. A normal mammogram should not delay biopsy of a clinically suspicious abnormality. [id number] Electronically Signed: Akhil Marshall MD at 13:59 EDT ,
== END | disposition home or self-care (01) ==
LOC: OPBI 12:47
PROVIDERS: PCP Family Medicine; Referring Provider Nurse Practitioner Women's Health; Visit Provider Nurse Practitioner Women's Health
DX: Z12.31 Encounter for screening mammogram for malignant neoplasm of breast (principal)
CPT/HCPCS: 77063; 77067

== ENCOUNTER → 2023-10-22 | Outpatient (CLI) | payer OTHER, SELFPAY ==
[2023-10-22 15:58] LABS: Absolute Lymphocyte Count 4.13 X10^3/uL (0.83-4.51); Absolute Neutrophil Count 5.9 X10^3/uL (2.0-7.7); Basophil# 0.06 X10^3/uL; Basophil% 0.5 % (0-1); Eosinophil# 0.39 X10^3/uL; Eosinophils% 3.5 % (0-5); Hematocrit 36.3 % (37-47); Hemoglobin 11.4 g/dL (12.0-15.0); Lymphocyte # 4.13 X10^3/ul (0.83-4.51); Lymphocyte % 37.3 % (19-41); Mean Corp Hgb Conc 31.4 g/dL (32-36); Mean Corpuscular Hgb 26.2 pg (27.0-32.0); Mean Corpuscular Volume 83.4 fL (81-99); Mean Platelet Vol. 9.9 fl (6.2-12.0); Monocyte# 0.59 X10^3/uL; Monocyte% 5.3 % (0-10); NRBC Flagged by Analyzer 0 % (0-5); Neutrophil # 5.85 X10^3/uL (2.7-7.7); Platelet Count 351 K/mm3 (150-450); RBC Distribution Width CV 13.7 % (11.6-14.6); RBC Distribution Width SD 41.9 fl (35.1-43.9); Red Blood Count 4.35 M/mm3 (4.2-5.4); White Blood Count 11.1 K/mm3 (4.4-11.0)
[2023-10-22 16:54] LABS: HIV - WCH Non-Reactive (Nonreactive); Hepatitis B Surface Antigen Non-Reactive (Nonreactive); Hepatitis C Antibody Non-Reactive (Nonreactive); Rubella IgG Reactive (Nonreactive); Syphilis Antibodies Non-reactive
[2023-10-25 22:06] LABS: Chlamydia By Nucleic Acid AMP Negative (Negative); Gonococcus By Nucleic Acid AMP Negative (Negative)
== END | disposition home or self-care (01) ==
LOC: LAB 15:44
PROVIDERS: PCP Family Medicine; Referring Provider Advanced Practice Midwife; Visit Provider Advanced Practice Midwife
DX: O09.90 Supervision of high risk pregnancy, unspecified, unspecified trimester (principal); Z3A.00 Weeks of gestation of pregnancy not specified
CPT/HCPCS: 36415; 85025; 86703; 86762; 86780; 86803; 86850; 86900; 86901; 87086; 87088; 87340; 87491; 87591

== ENCOUNTER → 2023-11-19 | Outpatient (CLI) | payer OTHER, SELFPAY ==
[2023-11-19 16:55] LABS: T4 Free Direct 0.83 ng/dL (0.76-1.46)
== END | disposition home or self-care (01) ==
LOC: WOBLAB 15:34
PROVIDERS: PCP Family Medicine; Referring Provider Obstetrics & Gynecology; Visit Provider Obstetrics & Gynecology
DX: E05.00 Thyrotoxicosis with diffuse goiter without thyrotoxic crisis or storm (principal); Z13.29 Encounter for screening for other suspected endocrine disorder
CPT/HCPCS: 36415; 84439; 84443

== ENCOUNTER → 2024-01-19 | Outpatient (CLI) | payer OTHER, SELFPAY ==
[2024-01-19 15:28] LABS: Absolute Lymphocyte Count 2.69 X10^3/uL (0.83-4.51); Absolute Neutrophil Count 8.4 X10^3/uL (2.0-7.7); Basophil# 0.06 X10^3/uL; Basophil% 0.5 % (0-1); Eosinophils% 3.3 % (0-5); Hematocrit 32.7 % (37-47); Hemoglobin 10.3 g/dL (12.0-15.0); Lymphocyte # 2.69 X10^3/ul (0.83-4.51); Lymphocyte % 21.9 % (19-41); Mean Corp Hgb Conc 31.5 g/dL (32-36); Mean Corpuscular Hgb 26.5 pg (27.0-32.0); Mean Corpuscular Volume 84.3 fL (81-99); Mean Platelet Vol. 10.1 fl (6.2-12.0); Monocyte% 5.7 % (0-10); NRBC Flagged by Analyzer 0 % (0-5); Neutrophil # 8.39 X10^3/uL (2.7-7.7); Neutrophil % 68.1 % (47-70); Platelet Count 357 K/mm3 (150-450); RBC Distribution Width SD 42.9 fl (35.1-43.9); Red Blood Count 3.88 M/mm3 (4.2-5.4); White Blood Count 12.3 K/mm3 (4.4-11.0)
[2024-01-19 15:53] LABS: Vitamin B12 543 pg/mL (211-911)
[2024-01-19 16:00] LABS: ALB/GLOB Ratio 0.6 RATIO (0.9-2.4); AST(SGOT) 18 U/L (15-37); Alanine Aminotransfer ALT/SGPT 22 U/L (13-56); Albumin, Serum 2.7 g/dL (3.2-5.0); Alkaline Phosphatase 77 U/L (45-117); Anion Gap 9 (5-15); BUN 6 mg/dL (7-18); BUN/Creat Ratio 7.5 RATIO (10-20); Chloride 105 mmol/L (98-107); EST Glomerular Filtration Rate 88 mL/min (>60); Est Glom Filt Rate - Afr Amer 107 mL/min (>60); Ferritin 6 ng/mL (8-252); Globulin 4.3 g/dL (2.2-4.2); Glucose 144 mg/dL (74-106); Iron Binding Capacity,Total 452 ug/dL (250-450); Potassium 3.8 mmol/L (3.5-5.1); Sodium Level 135 mmol/L (136-145)
== END | disposition home or self-care (01) ==
LOC: BWCLAB 14:49
PROVIDERS: PCP Family Medicine; Referring Provider Obstetrics & Gynecology; Visit Provider Obstetrics & Gynecology
DX: R42 Dizziness and giddiness (principal); R00.0 Tachycardia, unspecified
CPT/HCPCS: 36415; 80053; 82607; 82728; 83550; 85025

== ENCOUNTER → 2024-02-29 | Outpatient (CLI) | payer OTHER, SELFPAY ==
[2024-02-29 14:38] LABS: Absolute Lymphocyte Count 2.51 X10^3/uL (0.83-4.51); Absolute Neutrophil Count 7.8 X10^3/uL (2.0-7.7); Basophil# 0.06 X10^3/uL; Basophil% 0.5 % (0-1); Eosinophil# 0.27 X10^3/uL; Eosinophils% 2.4 % (0-5); Hemoglobin 9.8 g/dL (12.0-15.0); Lymphocyte # 2.51 X10^3/ul (0.83-4.51); Lymphocyte % 22.1 % (19-41); Mean Corp Hgb Conc 31.6 g/dL (32-36); Mean Corpuscular Volume 82.2 fL (81-99); Monocyte# 0.61 X10^3/uL; Monocyte% 5.4 % (0-10); NRBC Flagged by Analyzer 0 % (0-5); Neutrophil # 7.84 X10^3/uL (2.7-7.7); Platelet Count 371 K/mm3 (150-450); RBC Distribution Width SD 42.9 fl (35.1-43.9); Red Blood Count 3.77 M/mm3 (4.2-5.4); White Blood Count 11.4 K/mm3 (4.4-11.0)
[2024-02-29 14:47] LABS: Glucose Challenge Gest 1H 50g 169 mg/dL (70-140)
[2024-02-29 15:19] LABS: HIV - WCH Non-Reactive (Nonreactive); Syphilis Antibodies Non-reactive
== END | disposition home or self-care (01) ==
PROVIDERS: Obstetrics & Gynecology; PCP Family Medicine; Referring Provider Nurse Practitioner Women's Health; Visit Provider Nurse Practitioner Women's Health
DX: O09.90 Supervision of high risk pregnancy, unspecified, unspecified trimester (principal); Z13.1 Encounter for screening for diabetes mellitus; Z3A.00 Weeks of gestation of pregnancy not specified
CPT/HCPCS: 36415; 82950; 85025; 86703; 86780

== ENCOUNTER → 2024-03-09 | Outpatient (CLI) | payer OTHER, SELFPAY ==
[2024-03-09 07:31] LABS: Bedside Glucose 78 mg/dL (74-106)
[2024-03-09 08:01] LABS: Glucose GTT-Gestation. Fasting 84 mg/dL (<105)
== END | disposition home or self-care (01) ==
LOC: LAB 07:03
PROVIDERS: PCP Family Medicine; Referring Provider Nurse Practitioner Women's Health; Visit Provider Nurse Practitioner Women's Health
DX: O99.810 Abnormal glucose complicating pregnancy (principal); Z3A.00 Weeks of gestation of pregnancy not specified
CPT/HCPCS: 36415; 82951; 82952; 82962

== ENCOUNTER → 2024-03-17 | Outpatient (CLI) | payer OTHER, SELFPAY ==
--- NOTE | 2024-03-17 12:57 | ECHOD_ITS ---
Reason For Study: Tachy Procedure This was a 2D Doppler, Color Flow transthoracic echocardiogram. Exam performed in department. Left Ventricle Normal LV size. Left ventricular systolic function is normal. The left ventricular ejection fraction is 55 %. No regional wall motion abnormalities noted. Right Ventricle Normal RV size. Normal systolic function. Atria Normal left atrium. Normal right atrium. Mitral Valve Normal mitral valve. Tricuspid Valve Normal tricuspid valve. Aortic Valve Trisinus/trileaflet aortic valve. Pulmonic Valve Normal pulmonic valve. Great Vessels Normal aortic root. The pulmonary artery is normal size. Normal inferior vena cava. Pericardium/Pleural No pericardial effusion. MMode/2D Measurements & Calculations LVIDd: 4.8 cm IVSd: 0.94 cm LVOT diam: 2.0 cm LVIDs: 3.4 cm LVPWd: 0.99 cm LVOT area: 3.1 cm2 FS: 29.1 % _ Ao root diam: 2.8 cm LAV(MOD-bp): 45.9 ml LVAd ap4: 28.1 cm2 LAV(MOD-bp) Indexed: 22.9 ml/m2 LVLd ap4: 8.9 cm LAV(MOD-sp2): 46.9 ml EDV(MOD- sp4): 76.1 ml LAV(MOD-sp4): 36.8 ml EDV(sp4- el): 75.6 ml LVAs ap4: 16.8 cm2 LVLs ap4: 7.3 cm ESV(MOD- sp4): 32.5 ml ESV(sp4- el): 32.8 ml EF(MOD- sp4): 57.3 % EF(sp4- el): 56.7 % _ SV(MOD-sp4): 43.6 ml SV(sp4-el): 42.9 ml LA A4 area: 16.1 cm2 SI(MOD-sp4): 21.8 ml/m2 _ LA dimension(2D): 3.9 cm RA A4 area: 8.3 cm2 Time Measurements MV dec time: 0.14 sec Doppler Measurements & Calculations MV E max giorgi: 86.7 cm/sec Lat Peak E' Giorgi: 19.9 cm/sec Med Peak E' Giorgi: 12.4 cm/sec MV A max giorgi: 59.0 cm/sec E/E' lat: 4.4 E/E' med: 7.0 MV E/A: 1.5 _ MV V2 max: 105.0 cm/sec Ao V2 max: 123.6 cm/sec MV max P.4 mmHg MV dec slope: 605.5 cm/sec2 Ao max P.1 mmHg MV V2 mean: 65.1 cm/sec Ao V2 mean: 83.3 cm/sec MV mean P.9 mmHg Ao mean P.2 mmHg MV V2 VTI: 30.7 cm Ao V2 VTI: 22.8 cm AV (velocity ratio): 0.89 MVA(VTI): 2.1 cm2 MIKE(I,D): 2.8 cm2 MIEK(V,D): 2.7 cm2 _ LV V1 max: 106.3 cm/sec SV(LVOT): 63.6 ml PA V2 max: 114.2 cm/sec LV V1 max P.5 mmHg PA V2 mean: 81.0 cm/sec LV V1 mean P.5 mmHg LV V1 mean: 73.2 cm/sec LV V1 VTI: 20.2 cm ECHO/Echo Complete Interpretation Summary Normal LV size. Left ventricular systolic function is normal. The left ventricular ejection fraction is 55 %. Structurally normal valves. Ordering Physician: Cecil Ramirez Referring Physician: Cecil Ramirez Performed By: Nuris Duran RCS
== END | disposition home or self-care (01) ==
LOC: CVS 12:56
PROVIDERS: PCP Family Medicine; Referring Provider Internal Medicine Cardiovascular Disease; Visit Provider Internal Medicine Cardiovascular Disease
DX: R00.0 Tachycardia, unspecified (principal); R55 Syncope and collapse
CPT/HCPCS: 93306

== ENCOUNTER 2024-04-03 16:02 | Outpatient (RCR) | payer OTHER, SELFPAY | END 2024-04-07 23:59 | LOC: NS 16:02 | PROVIDERS: PCP Family Medicine; Referring Provider Nurse Practitioner Women's Health; Visit Provider Nurse Practitioner Women's Health | DX: Z71.3 Dietary counseling and surveillance (principal); O24.419 Gestational diabetes mellitus in pregnancy, unspecified control; Z3A.00 Weeks of gestation of pregnancy not specified | CPT/HCPCS: 97802 ==

== ENCOUNTER 2024-04-11 15:55 | Outpatient (RCR) | payer OTHER, SELFPAY ==
--- NOTE | 2024-04-11 16:17 | NS ---
04/11/24: RDN called pt for phone call follow-up. No one answered, RDN left voicemail asking pt to call back to reschedule. Shanae Butler RDN, LD
== END 2024-05-08 23:59 ==
LOC: NS 15:55
PROVIDERS: PCP Family Medicine; Referring Provider Nurse Practitioner Women's Health; Visit Provider Nurse Practitioner Women's Health
DX: Z71.3 Dietary counseling and surveillance (principal); O24.419 Gestational diabetes mellitus in pregnancy, unspecified control; Z3A.00 Weeks of gestation of pregnancy not specified

== ENCOUNTER → 2024-04-19 | Outpatient (CLI) | payer OTHER, SELFPAY ==
--- NOTE | 2024-04-19 12:12 | US_ITS ---
PROCEDURE: OB LIMITED WITH BIOMETRICS REASON FOR EXAM: GROWTH COMPARISON: None. FINDINGS Number: 1 Position: Vertex Placental Position: Posterior and not low-lying. Placental Abnormalities: None. DIMENSIONS: Biparietal Diameter: 9 cm: 36 weeks and 2 days: 86 percentile/ Head Circumference: 32.3 cm: 36 weeks and 3 days: 52 percentile/ Abdominal Circumference: 31.5 cm: 35 weeks and 3 days: 70 percentile/ Femur Length: 6.7 cm: 34 weeks and 2 days: 25th percentile/ ESTIMATED WEIGHT: 2672 g plus/-401 g ESTIMATED WEIGHT PERCENTILE (24+ weeks): 59 ESTIMATED GESTATIONAL AGE: Baseline: 35 weeks and 0 days By Ultrasound: 35 weeks and 4 days ESTIMATED DATE OF DELIVERY: Baseline: May 24, 2024 By Ultrasound: May 20, 2024 BIOPHYSICAL ASSESSMENT: Amniotic Fluid Volume: Subjectively normal. Amniotic Fluid Index: 14.7 (8-24 cm normal range) Cardiac Motion: 157 beats per minute (average) Trunk and Limb Motion: Present. MATERNAL ANATOMY: Adnexa: Neither maternal ovary is successfully identified. US/OB Limited With Biometrics IMPRESSION: Single live intrauterine gestation with a mean gestational age of 35 weeks and 4 days. Reading Location: [place] [address]
== END | disposition home or self-care (01) ==
LOC: OPUS 12:11
PROVIDERS: PCP Family Medicine; Referring Provider Obstetrics & Gynecology; Visit Provider Obstetrics & Gynecology
DX: O24.419 Gestational diabetes mellitus in pregnancy, unspecified control (principal); Z3A.35 35 weeks gestation of pregnancy
CPT/HCPCS: 76816

== ENCOUNTER 2024-04-26 05:37 | Inpatient (IN) | payer OTHER, SELFPAY ==
[2024-04-26] VITALS (22 sets, daily range): BP systolic 90–115; BP diastolic 55–92; PULSE 73–106; RESP 13–20; TEMP 35.9–36.8; O2SAT 78–100; BMI 32.1
[2024-04-26] MEDS: Lactated Ringers 1,000 ML 999 ML IV (06:00)
[2024-04-26 06:29] LABS: Absolute Neutrophil Count 5.8 X10^3/uL (2.0-7.7); Basophil# 0.08 X10^3/uL; Basophil% 0.8 % (0-1); Eosinophil# 0.34 X10^3/uL; Eosinophils% 3.2 % (0-5); Hematocrit 30.2 % (37-47); Hemoglobin 9.6 g/dL (12.0-15.0); Lymphocyte % 33.2 % (19-41); Mean Corp Hgb Conc 31.8 g/dL (32-36); Mean Corpuscular Hgb 25.1 pg (27.0-32.0); Mean Corpuscular Volume 79.1 fL (81-99); Mean Platelet Vol. 10.6 fl (6.2-12.0); Monocyte% 7.6 % (0-10); NRBC Flagged by Analyzer 0.2 % (0-5); Neutrophil # 5.78 X10^3/uL (2.7-7.7); Neutrophil % 54.8 % (47-70); Platelet Count 341 K/mm3 (150-450); RBC Distribution Width CV 14.6 % (11.6-14.6); RBC Distribution Width SD 41.9 fl (35.1-43.9); Red Blood Count 3.82 M/mm3 (4.2-5.4); White Blood Count 10.5 K/mm3 (4.4-11.0)
[2024-04-26] MEDS: Acetaminophen 500 MG Tablet 1000 MG PO ×3 (06:54→19:09)
[2024-04-26] MEDS: Lactated Ringers 1,000 ML 50 ML IV (06:55)
[2024-04-26 06:57] LABS: Syphilis Antibodies Nonreactive (Nonreactive)
[2024-04-26] MEDS: Sodium Citrate/Citric Acid 30 ML UDC PO (07:13)
[2024-04-26 07:16] LABS: Bedside Glucose 79 mg/dL (74-106)
--- NOTE | 2024-04-26 07:23 | HP.PCM.OB_ITS ---
HPI - General General Date of Admission: 04/26/24 HPI Narrative JOSEPHINE VILLANUEVA, is a 33 F who presents for LTCS due to previous myomectomy. GDM. Maternal Data Information UNIQUE Calculator Estimated Delivery Date Method Current WG Current Estimate 05/24/24 Manual 36w 0d Other Estimates 05/20/24 Ultrasound #1 36w 4d PFSH PFSH Medical History (Updated 04/26/24 @ 06:06 by Whit Zelaya) Infertility HX: benign breast biopsy Left breast mass Blister Fibroadenoma of breast Anxiety Graves' disease Restless legs Syncope Blackout Non-smoker Depression Asthma Home Medications ?Medication ?Instructions ?Recorded ?Last Taken ?Type albuterol sulfate 90 mcg/actuation 2 puff inhalation Q 6H PRN ASTHMA 01/21/22 04/25/24 16:00 History aerosol inhaler vits 75-iron 28 mg-folic 1 pkg PO DAILY suppl ement 04/19/23 04/25/24 22:00 History acid 800 mcg-omega-3 oral combo pack (One A Day Women's DHA) famotidine 10 mg tablet 10 mg PO BID acid reflux 10/0204/25/24 22:00 History blood sugar diagnostic (Blood #120 ea 03/17/24 Unknown Rx Glucose Test strips) blood-glucose meter #1 ea 03/17/24 Unknown Rx lancets #200 ea 03/17/24 Unknown Rx sertraline 100 mg tablet (Zoloft) 100 mg PO DAILY anxi ety #30 tabs 04/05/24 04/25/24 22:00 Rx Allergy/AdvReac Type Severity Reaction Status Date / Time shellfish derived Allergy Severe unknown Verified 04/26/24 05:49 latex Allergy Rash Verified 04/26/24 05:49 Family History Grandmother Breast cancer Uncle Lung cancer Surgical History S/P laparotomy History of breast biopsy History of oral surgery Social History adopted: No household members: spouse number of children: 0 current occupational status: employed current occupation: [employer] current occupational exposures/hazards: No pets and animals: Yes (Avoid litterbox) pets and animals: cat(s) history of recent travel: Yes (W -Oct) out of state: Yes out of country: No sexually active: Yes Smoking Status: Never smoker alcohol intake: never substance use type: does not use well-balanced diet: daily or most days caffeine: No eating out: 1-3 times/week during the past year weight has: remained stable what type of physical activity do you participate in: none lea/temple: Judaism seatbelt use: always do you feel safe at home: Yes additional social history: - Eliseo History 1 Elective abortions Hx Para 0 Spontaneous abortions Hx # Term Pregnancies Ectopic pregnancies Hx # Pregnancies Multiple births # of living children Visit Details Expected Delivery Route/Plan LTCS with Labor Preferences- CB/BF classes: yes labor support person: Tyler labor intervention preferences: [] pain management options preferred: [] cut cord/dad catch: [] : yes PP control planned: discussed discussed possible routes of delivery and associated risks: [] special requests: [] Plans Covid status: [] Flu vaccine: given Tdap vaccine: given Rhogam: NA LARC form signed: yes Problem list reviewed and updated with the most current plan of care details and appropriate orders placed. Relevant counseling for the gestational age provided. Continue routine care and follow up unless otherwise noted in visit notes/problem list details OB Flowsheet Initial Weight: 187 lb Date -?-?-?-?-?-?-?-?-?-?-?-?- EGA Weight BP Urine Prot -?-?-?-?-?-?-?-?-?-?-?-?- Glucose FHR FuHt Pres Dilation -?-?-?-?-?-?-?-?-?-?-?-?- Effaced St Visit Note 10/22/23 -?-?-?-?-?-?-?-?-?-?-?-?- 9w 2d 187 lb 2 oz (+2 oz) 110/77 -?-?-?-?-?-?-?-?-?-?-?-?- 180 -?-?-?-?-?-?-?-?-?-?-?-?- KW- CRL cons wit h dates. IVF transfer. genetics done with [facility]. likely needs P C/S due to hx of uterine surgery 11/19/23 -?-?-?-?-?-?-?-?-?-?-?-?- 13w 2d 188 lb (+16 oz) 102/73 Negative -?-?-?-?-?-?-?-?-?-?-?-?- Negative 150 -?-?-?-?-?-?-?-?-?-?-?-?- SM- no vb crampi ng discussed depression symptoms SM- no vb cramping discussed depression symptoms co hair loss check tsh and free t4 12/21/23 -?-?-?-?-?-?-?-?-?-?-?-?- 17w 6d 191 lb 2 oz (+4 lb 2 oz) 109/77 Negative -?-?-?-?-?-?-?-?-?-?-?-?- Negative 145 -?-?-?-?-?-?-?-?-?-?-?-?- KW- no vb/crampi ng. MFM US scheduled. requesting mammogram to be scheduled for gene mutation. was getting Q6 mo-last testing was last jan. 01/19/24 -?-?-?-?-?-?-?-?-?-?-?-?- 22w 0d 196 lb 8 oz (+9 lb 8 oz) 106/71 Trace -?-?-?-?-?-?-?-?-?-?-?-?- Negative 148 -?-?-?-?-?-?-?--?-?-?-?-?- JV- pt complains of near blacking out a couple of times. one of the times was when she was driving and had to brisket puller. She has rapid heart rate and has tunnel vision when this happens. One time she started vomiting and this stopped the episode. consulting cardiology and encouraging fluids and compression stockings. Ordering some baseline blood work. There is also a report in her chart that is inaccurate and this was clarified with MFM. they have sent over a new correct copy of her ultrasound. plan for echo at 24 weeks. 02/16/24 -?-?-?-?-?-?-?-?-?-?-?-?- 26w 0d 204 lb 6 oz (+17 lb 6 oz) 107/75 Trace -?-?-?-?-?-?-?-?-?-?-?-?- Negative 140 26 -?-?-?-?-?-?-?-?-?-?-?-?- SM- no vb lof go od fm no regular ctx discussed scheduling csection, will figure out timing 02/29/24 -?-?-?-?-?-?-?-?-?-?-?-?- 27w 6d 206 lb 2 oz (+19 lb 2 oz) 108/70 Trace -?-?-?-?-?-?-?-?-?-?-?-?- Negative 142 28 -?-?-?-?-?-?-?-?-?-?-?-?- MH-No VB, LOF. G ood FM. 28 wk labs pending. [facility] 03/17/24 -?-?-?-?-?-?-?-?-?-?-?-?- 30w 2d 206 lb (+19 lb) 104/72 Negative -?-?-?-?-?-?-?-?-?-?-?-?- Negative 140 30 -?-?-?-?-?-?-?-?-?-?-?-?- SM- no vb lof go od fm no reugalr ctx, threw u p3 hour test. 03/30/24 -?-?-?-?-?-?-?-?-?-?-?-?- 32w 1d 207 lb (+20 lb) 115/75 Negative -?-?-?-?-?-?-?-?-?-?-?-?- Negative 135 33 -?-?-?-?-?-?-?-?-?-?-?-?- SM- no vb lof go od fm no regular ctx BS reveiwed. 04/12/24 -?-?-?-?-?-?-?-?-?-?-?-?- 34w 0d 203 lb 8 oz (+16 lb 8 oz) 102/70 Negative -?-?-?-?-?-?-?-?-?-?-?-?- Negative 135 34 -?-?-?-?-?-?-?-?-?-?-?-?- SM- no vb lof go od fm no regular ctx BS reviewed 04/18/24 -?-?-?-?-?-?-?-?-?-?-?-?- 34w 6d 199 lb (+12 lb) 106/75 Negative -?-?-?-?-?-?-?-?-?-?-?-?- Negative 140 35 -?-?-?-?-?-?-?-?-?-?-?-?- SM- no vb lof go od fm no reuglar ctx NST FHR Rate Baby A Baseline: 130 Variability:: Moderate Accelerations:: 15 x 15 Decelerations:: None NST Reactive:: Yes FHR Category:: Category I Uterine Activity:: irregular ROS Constitutional Constitutional: Reports systems reviewed and no addt'l complaints, except as documented Eyes Eyes: Denies change in vision ENT HEENT: Reports systems reviewed and no addt'l complaints, except as documented; Denies headache(s) Cardiovascular Cardiovascular: Reports systems reviewed and no addt'l complaints, except as documented; Denies chest pain or dyspnea Respiratory/Chest Respiratory/Chest: Reports systems reviewed and no addt'l complaints, except as documented Gastrointestinal Gastrointestinal: Reports systems reviewed and no addt'l complaints, except as documented; Denies abdominal pain Genitourinary Genitourinary: Reports systems reviewed and no addt'l complaints, except as documented, contractions Details: present (irregular) and movement Details: present; Denies dysuria or genital lesions Musculoskeletal Musculoskeletal: Reports systems reviewed and no addt'l complaints, except as documented Neurologic Neurologic: Reports systems reviewed and no addt'l complaints, except as documented Endocrine Endocrinology: Reports systems reviewed and no addt'l complaints, except as documented Vital Signs Vital Signs Vital Signs: 04/26/24 06:34 04/26/24 06:34 04/26/24 06:34 Temperature Temperature Source Pulse Rate 91 Respiratory Rate Blood Pressure 110/69 Blood Pressure Mean BP Systolic 110 BP Diastolic 69 Blood Pressure Source Blood Pressure Position Blood Pressure Location Pulse Ox 97 Oxygen Delivery Method 04/26/24 06:34 04/26/24 06:34 04/26/24 06:34 Temperature 98.2 F Temperature Source Temporal Pulse Rate Respiratory Rate 16 Blood Pressure Blood Pressure Mean BP Systolic BP Diastolic Blood Pressure Source Blood Pressure Position Blood Pressure Location Pulse Ox Oxygen Delivery Method 04/26/24 06:36 Temperature 98.2 F Temperature Source Temporal Pulse Rate 81 Respiratory Rate 16 Blood Pressure 110/69 Blood Pressure Mean 82 BP Systolic BP Diastolic Blood Pressure Source Monitor Blood Pressure Position Semi-Fowlers Blood Pressure Location Right Arm Pulse Ox 100 Oxygen Delivery Method Room Air Weight Weight: 199 lb 4.766 oz Body Mass Index (BMI) 32.1 Physical Exam Const alert, oriented x3, no apparent distress and healthy appearing HEENT normocephalic and moist oral mucous membranes Head and Scalp: atraumatic Neck full ROM, no lymphadenopathy, supple and thyroid normal General: trachea midline Lymph Lymphatic: no lymphadenopathy noted Chest inspection of chest normal Resp normal respiratory effort Cardio regular rate GI soft to palpation and non-tender GI Narrative: gravid Inspection: gravid external exam normal Manual OB Exam: estimated gestational size appropriate, presentation cephalic, dilated, effaced and station Extremity normal to inspection General Extremity: Negative for edema Skin no rashes or lesions noted Neuro no focal motor deficits and deep tendon reflexes 2+ bilaterally Motor Exam: strength 5/5 throughout and clonus absent Psych mental status grossly normal Labs Labs Labs: Blood Type A POSITIVE Antibody Screen NEGATIVE Hct 30.2 % (37-47) L Hgb 9.6 g/dL (12.0-15.0) L Obstetrics Ultrasound Syphilis Total Ab Nonreactive (Nonreactive) VZV IgG Antibody 846 index (Immune >165) Rubella IgG Antibody Reactive (Nonreactive) Hep Bs Antigen Non-Reactive (Nonreactive) Hepatitis C Antibody Non-Reactive (Nonreactive) Chlamydia DNA (ALEXIS) Negative (Negative) N.gonorrhoeae DNA (ALEXIS) Negative (Negative) HIV 1&2 Antibody Non-Reactive (Nonreactive) Glucose 1 Hr 50 gm 169 mg/dL (70-140) H Gest Glucose Tolerance MG/DL Miscellaneous Test Assessment & Plan (1) Gestational diabetes mellitus (GDM): COMMENT: diet controlled. growth US 35 weeks. (2) Supervision of high-risk : QUALIFIERS: Trimester: second trimester Qualified Code(s): O09.92 - Supervision of high risk , unspecified, second trimester COMMENT: PRR, , UNIQUE 05/24/24, boy Amandeep Eliseo (3) Conceived by in vitro fertilization: COMMENT: echo schedulednl (4) : QUALIFIERS: Weeks of gestation: 34 weeks Qualified Code(s): Z3A.34 - 34 weeks gestation of COMMENT: nl echo, nl anatomy (additional views in 2 weeks)previously had genetic and carrier testing-IVF (5) History of uterine fibroid: COMMENT: removed SM- needs P C/S at 36 weeks. (6) Female infertility associated with male factors: COMMENT: seeing [facility], Embryo transfer planned August 2023 (7) Positive test for genetic breast cancer susceptibility marker: COMMENT: Positive CHEK2: yearly mammogram and MRI with imaging Q 6 mo. (8) Anxiety: COMMENT: on meds (9) Depression: QUALIFIERS: Depression Type: reactive depression Qualified Code(s): F32.9 - Major depressive disorder, single episode, unspecified COMMENT: on meds/stable PLAN: Plan plan primary ltcs at 36 weeks due to preivous myomectomy
--- NOTE | 2024-04-26 07:24 | EX.PCM.OBRPT ---
Assessment & Plan (1) Gestational diabetes mellitus (GDM): COMMENT: diet controlled. growth US 35 weeks. (2) Supervision of high-risk : QUALIFIERS: Trimester: second trimester Qualified Code(s): O09.92 - Supervision of high risk , unspecified, second trimester COMMENT: PRR, , UNIQUE 05/24/24, levi Bernstein Eliseo (3) Conceived by in vitro fertilization: COMMENT: echo schedulednl (4) : QUALIFIERS: Weeks of gestation: 34 weeks Qualified Code(s): Z3A.34 - 34 weeks gestation of COMMENT: nl echo, nl anatomy (additional views in 2 weeks)previously had genetic and carrier testing-IVF (5) History of uterine fibroid: COMMENT: removed SM- needs P C/S at 36 weeks. (6) Female infertility associated with male factors: COMMENT: seeing [facility], Embryo transfer planned August 2023 (7) Positive test for genetic breast cancer susceptibility marker: COMMENT: Positive CHEK2: yearly mammogram and MRI with imaging Q 6 mo. (8) Depression: QUALIFIERS: Depression Type: reactive depression Qualified Code(s): F32.9 - Major depressive disorder, single episode, unspecified COMMENT: on meds/stable (9) Anxiety: COMMENT: on meds (10) delivery delivered: COMMENT: LTCS 36 SM levi bernstein gdm previous myomectomy Maternal Data Information UNIQUE Calculator Estimated Delivery Date Method Current WG Current Estimate 05/24/24 Manual 36w 0d Other Estimates 05/20/24 Ultrasound #1 36w 4d Final UNIQUE Source: LMP Operative Report (OB) Cecarean Details Procedure Type: low transverse Date of Procedure: 04/26/24 Procedure Start Time: 07:48 Procedure Stop Time: 08:30 Pre-Operative Diagnosis: Other Other Pre-Operative diagnosis: see a/p comments Post-Operative Diagnosis: Same as Pre-operative diagnosis Classification: Scheduled Type of Anesthesia: Spinal Special Medications: none Antibiotic Given: Ancef 2 grams IV x1 Drain: Garcia to straight drain Estimated Blood Loss: 1100 Fluids Replaced: crystalloid Findings Description of surgery: Patient had a prevoius myomectomy so 36 week delivery was recommended. Spinal anesthesia was placed without difficulty. Garcia catheter was placed. The patient was placed in the dorsal supine position with leftward tilt. Patient was prepped and draped in the normal sterile fashion. Pfannenstiel skin incision was made with the scalpel and carried through to the underlying layer of fascia with the scalpel. Fascia was nicked in the midline and the incision extended laterally. The rectus bellies were dissected off superiorly and inferiorly with out complication both sharply and bluntly. The peritoneum was entered digitally. omental to peritoneum adhesions encountered and taken down with the ligasure. The incision was stretched and a low transverse uterine incision was made with the scalpel. The 's head was delivered atraumatically followed by the anterior and posterior shoulders without complication the rest of the delivered. large blood vessels were encountered and a larger blood loss was encountered approximatlye 1100cc. The cord was clamped and cut and the was handed off to awaiting nurse. The placenta was delivered spontaneously immediately following and was noted to be intact and have a three-vessel cord. The uterus was exteriorized cleared of all clots and debris, and the incision was closed in a single layer closure using #1 Monocryl. The ovaries and fallopian tubes were noted to be within normal limits. The uterus was returned to the maternal abdomen and gutters were cleared of all clots and debris. The peritoneum was closed with 3-0 Monocryl in a running fashion. Gloves were changed prior to fascial closure. Fascia was closed with 0 PDS in a running fashion. Subcutaneous tissue was copiously irrigated and the skin was closed with 3-0 Monocryl in a subcuticular fashion. Mepilex dressing was applied without complication. Patient was taken to recovery in stable condition. It was discussed with the patient that based on the clinical information obtained during this encounter, combined with her history, at this time I would recommend for future deliveries if further pregnancies are desired. Surgical findings: nl uterus tubes ovaries two small 2 cm fibroid in posterior uterine wall Presentation: Vertex Amniotic Membrane Rupture Type: Artificial Amniotic Fluid Description: Clear Specimen collected: Yes Description of specimen(s) removed: placenta and baby Cord Vessel Description: 3 Vessels Delayed Cord Clamping: Yes Court Supervisor ux visual designer: Yes Financial Service Rep: Cuco Ayala Tasks completed by cutting table operator first: Opening & closing, Retracting and Other (assisting in delivery of the infant) Additional bricklayer's assistant?: No Complications Complications: No Admit VTE Documentation VTE Present on Admission: No VTE Mechan Device Prophylaxis: SCD's Procedures Urinary/Genital [id number]: [id number] Delivery global pkg
[2024-04-26] MEDS: Cefazolin 2 GM in Syringe IV (07:30)
[2024-04-26] MEDS: Oxytocin 15 Units/NS 250ml 15 UNITS/250 ML IV.SOLN 83 UNITS IV (09:00)
[2024-04-26] MEDS: Ketorolac 30 MG/ML Syringe IV ×3 (09:23→21:12)
[2024-04-26] MEDS: DiphenhydrAMINE 25 MG Capsule PO (10:06)
[2024-04-26] MEDS: Senna/Docusate Sodium 1 Tablet PO (10:06)
[2024-04-26 10:33] LABS: Bedside Glucose 89 mg/dL (74-106)
[2024-04-26 12:22] LABS: Absolute Neutrophil Count 10.8 X10^3/uL (2.0-7.7); Basophil# 0.06 X10^3/uL; Basophil% 0.4 % (0-1); Eosinophil# 0.04 X10^3/uL; Eosinophils% 0.3 % (0-5); Hematocrit 27.8 % (37-47); Lymphocyte % 13.9 % (19-41); Mean Corp Hgb Conc 32.4 g/dL (32-36); Mean Corpuscular Hgb 25.4 pg (27.0-32.0); Mean Corpuscular Volume 78.5 fL (81-99); Mean Platelet Vol. 10.4 fl (6.2-12.0); Monocyte# 0.75 X10^3/uL; Monocyte% 5.5 % (0-10); NRBC Flagged by Analyzer 0 % (0-5); Neutrophil # 10.83 X10^3/uL (2.7-7.7); Neutrophil % 79.5 % (47-70); Platelet Count 286 K/mm3 (150-450); RBC Distribution Width CV 14.6 % (11.6-14.6); RBC Distribution Width SD 41.5 fl (35.1-43.9); Red Blood Count 3.54 M/mm3 (4.2-5.4); White Blood Count 13.6 K/mm3 (4.4-11.0)
[2024-04-26] MEDS: Lactated Ringers 1,000 ML 100 ML IV (12:29)
[2024-04-26] MEDS: Enoxaparin 40 MG/0.4 ML Syringe SC (20:39)
[2024-04-26] MEDS: LACTATED RINGERS 500 ML 999 ML IV (20:45)
[2024-04-26] MEDS: Sertraline 100 MG Tablet PO (20:46)
--- NOTE | 2024-04-26 22:37 | DCINST_ITS ---
Discharge Instructions Diet Discharge Diet: No restrictions DC O2, CPAP, BIPAP needs Home O2 Discharge instructions: No Dressing / Incision Discharge Activity: May Not Drive (for 2 weeks or while taking narcotic pain medications.), May Shower and May Take a Tub Bath (in 7 days) May shower in (days): 0 May resume sexual activity in: 4-6 weeks Weight Bearing Status: Full weight bearing Lifting Restrictions: 20 pounds Dressing / Incision Call your doctor if your incision/area has: Continuous Slow Oozing, Sudden Increased Bleeding, Increased Pain/ Swelling, Increased Redness and Foul Smelling Discharge Call your doctor if you observe: Fever of 101 or Higher and Using more than 1 pad per hour (for 2 hours) Suture Line Care: Avoid Pulling/Pushing and Avoid Pinching/Bending Cleanse incision/area with: Soap & Water and Keep Dressing Clean & Dry Follow Up Care Please Follow Up With: Lakia Mayo MD When: Call [phone] to make an appointment for an incision check in 1-2 weeks. Test Results: Test results from this visit will be discussed in further detail at your follow- up appointment, if applicable. Discharge Plan Admission Admit Date/Time: 04/26/24 05:37 Attending Provider: Lakia Mayo Primary Care Provider: Julieta Prince Discharge Orders/Prescriptions Prescriptions: New oxycodone-acetaminophen [Percocet] 5-325 mg tablet 1 tab PO Q4H PRN (Reason: pain) 7 Days Qty: 20 0RF naproxen 500 mg tablet 500 mg PO BID PRN PRN (Reason: Pain) Qty: 30 1RF No Action One A Day Women's DHA 28 mg iron- 800 mcg combo pack 1 pkg PO DAILY famotidine 10 mg tablet 10 mg PO BID (DME) Blood Glucose Test Strip See Rx Instructions .MEDSUPPLY Qty: 120 5RF Rx Instructions: As directed-fasting & 2 hr post meals (DME) blood-glucose meter Misc See Rx Instructions .MEDSUPPLY Qty: 1 0RF Rx Instructions: As directed- Test fasting and 2 hours after meals (DME) lancets Misc See Rx Instructions .MEDSUPPLY Qty: 200 5RF Rx Instructions: As directed-fasting & 2 hr post meals albuterol sulfate 90 mcg/actuation Hfa Aerosol Inhaler 2 puff INHALATION Q6H PRN (Reason: ASTHMA) sertraline [Zoloft] 100 mg tablet 100 mg PO DAILY Qty: 30 1RF Referrals / Follow Up: Julieta Prince MD [Primary Care Provider] - Disposition Disposition (needs filled in before D/C Order can be placed): Home, Self Care
[2024-04-27 00:36] VITALS: BP 111/72; PULSE 80; RESP 16; TEMP 36.4; O2SAT 96
[2024-04-27] MEDS: Acetaminophen 500 MG Tablet 1000 MG PO ×4 (00:58→20:04)
[2024-04-27] MEDS: Ketorolac 30 MG/ML Syringe IV (03:33)
[2024-04-27] MEDS: 0.9% Saline Lock 10 ML Syringe IV (03:33)
[2024-04-27 03:40] VITALS: BP 106/68; PULSE 78; RESP 16; TEMP 36.2; O2SAT 96
[2024-04-27 06:37] LABS: Bedside Glucose 101 mg/dL (74-106)
[2024-04-27 07:08] LABS: Hematocrit 25.5 % (37-47); Hemoglobin 8.1 g/dL (12.0-15.0); Mean Corp Hgb Conc 31.8 g/dL (32-36); Mean Corpuscular Hgb 25.4 pg (27.0-32.0); Mean Corpuscular Volume 79.9 fL (81-99); Mean Platelet Vol. 11.3 fl (6.2-12.0); Platelet Count 277 K/mm3 (150-450); RBC Distribution Width CV 14.6 % (11.6-14.6); Red Blood Count 3.19 M/mm3 (4.2-5.4)
--- NOTE | 2024-04-27 07:17 | PCM.PN.OB ---
Subjective Subjective Patient doing well without complaints. Tolerating PO. Ambulating and voiding without difficulty. feeding well. Denies chest pain, shortness of breath, calf pain/swelling, fevers, chills, lightheadedness. Objective Data Objective Data Vital Signs: Vital Signs Temp Pulse Resp BP Pulse Ox O2 Del Method 97.1 F L 78 16 106/68 96 Room Air 04/27/24 03:40 04/27/24 03:40 04/27/24 03:40 04/27/24 03:40 04/27/24 03:40 04/27/24 03:40 Oxygen Delivery Method Room Air Weight: 199 lb 4.766 oz Body Mass Index (BMI) 32.1 Intake & Output: Intake and Output for Last 24 Hours 04/25/24 04/26/24 04/27/24 23:59 23:59 23:59 Intake Total 2250.0 / 2250.0 Output Total 1700 / 1700 Balance 550.0 / 550.0 Lab / Micro Data 04/27/24 06:15 Labs: Laboratory Results - last 24 hr 04/26/24 06:00: Blood Type A POSITIVE, Antibody Screen NEGATIVE 04/26/24 10:09: POC Glucose 89 04/26/24 12:10: WBC 13.6 H, RBC 3.54 L, Hgb 9.0 L, Hct 27.8 L, MCV 78.5 L, MCH 25.4 L, MCHC 32.4, RDW Std Deviation 41.5, RDW Coeff of Ramiro 14.6, Plt Count 286, MPV 10.4, Immature Gran % (Auto) 0.400, Neut % (Auto) 79.5 H, Lymph % (Auto) 13.9 L, Stone % (Auto) 5.5, Eos % (Auto) 0.3, Baso % (Auto) 0.4, Absolute Neuts (auto) 10.8 H, Absolute Lymphs (auto) 1.90, Nucleated RBC % 0 04/27/24 06:15: WBC 12.0 H, RBC 3.19 L, Hgb 8.1 L, Hct 25.5 L, MCV 79.9 L, MCH 25.4 L, MCHC 31.8 L, RDW Std Deviation 43.0, RDW Coeff of Ramiro 14.6, Plt Count 277, MPV 11.3 04/27/24 06:17: POC Glucose 101 ROS Constitutional Constitutional: Reports systems reviewed and no addt'l complaints, except as documented Cardiovascular Cardiovascular: Reports systems reviewed and no addt'l complaints, except as documented Respiratory/Chest Respiratory/Chest: Reports systems reviewed and no addt'l complaints, except as documented Gastrointestinal Gastrointestinal: Reports systems reviewed and no addt'l complaints, except as documented Physical Exam Const alert, oriented x3 and no apparent distress HEENT Head and Scalp: atraumatic Resp normal respiratory effort GI soft to palpation and non-tender Inspection: incision intact, healing well and drainage (none) Bimanual Exam - Vag & Uterus: uterus non-tender Uterus Palpation: uterus fundus firm (below Umbilicus) Assessment & Plan (1) delivery delivered: COMMENT: LTCS 36 SM boy coral gdm previous myomectomy PLAN: Plan s/p LTCS PPD # 1 1. routine post care 2. breast feeding- support given 3. rh positive 4. rubella immune
[2024-04-27 08:55] VITALS: BP 104/70; PULSE 74; RESP 16; TEMP 36.1; O2SAT 98
[2024-04-27] MEDS: Senna/Docusate Sodium 1 Tablet PO (09:35)
[2024-04-27] MEDS: Naproxen 500 MG Tablet PO ×2 (09:35→16:59)
[2024-04-27 13:52] VITALS: BP 103/71; PULSE 79; RESP 16; TEMP 36.1; O2SAT 95
--- NOTE | 2024-04-27 15:45 | CASEMGMT ---
Social Work Brief Assessment - Labor and Delivery Unit [facility] [place] [address] Phone number: [phone] Date and Time of Referral:? 04/26/24, 1222 Referred By: Dr. Mayo Date and time of intervention:? 04/27/24, 1500 Reason for Referral:?? history of anxiety, depression and on zoloft Sw completed chart review and acknowledges social work consult due to maternal mental health history. Sw presented to bedside and introduced self to mother of baby (MOB- Estrella) and father of baby (FOB- Tyler). Sw explained reason for sw involvement and completed psychosocial assessment. Informant:?? Medical record, MOB and FOB History:? JACEK is 33 year old female who is 1, para 0- now 1 following labor and delivery of . JACEK received routine care during with [facility]. JACEK presented to hospital for scheduled on 04/26/24 at 36 weeks gestation. Baby boy, named Mark Ortega, was born weighing 6lb 2oz with apgars of 7 and 8 at one and five minutes of life respectfully. JACEK reports to obtaining all necessary baby supplies and has natural supports in place. Both parents acknowledge that they have mental health history. FOFrancesco has been diagnosed with depression and has perviously been prescribed medications to assist with his symptoms, however he has stopped taking what he was on due to some of the physical side effects it was causing him and impacting his physical health. JACEK states that she has been diagnosed with anxiety and depression and is prescribed Zoloft by her OBGYN. JACEK states that she started to experience anxiety and depression when her parents got a divorce after she and FOB got . MOB also able to relate a lot of her anxiety and depression a result of the couple's infertility. FOFrancesco states that although they have both struggled in the past, the last 8 months have been filled with a lot of rivas when MOB got using IVF. Both parents state that they are not sure what their future holds but they are both extremely excited to now get to do things as a family of three. JACEK reports that at this time she feels as though her mental health is managed, she feels happy and excited now that baby is here. Both parents report to using healthy and safe coping mechanisms when they may be struggling with their mental health. Parents state that they enjoy taking naps as a way to cope. Getting outside and spending time in the fresh air and in the sunshine was encouraged. Educated regarding signs and symptoms of baby blues and depression and anxiety discussed with parents, along with shaken baby prevention and ABCs of safe sleep. Parents expressed understanding. Assessment:? MOB and baby admitted following labor and delivery. MOB was observed laying in bed holding baby following a feed. MOB and FOB both looked somewhat uncomfortable caring for baby, as baby is still fragile to them. But they were tender and loving and their garcia to baby was acknowledged. Parents state that they are each others support. They have a good form of communication and will be able to recognize if the other parent is struggling during this period. MOB states to having all necessary baby supplies. MOB has prior linkage to mental health services in the community, and states that if she feels the need she is able to get reacquainted with them at any time. Plan:??? MOB and baby to be discharged when medically ready. Parents were provided handouts/ literature on: shaken baby prevention, ABCs of safe sleep, Help Me Grow, mental health and list of [facility] resources. No further needs requested or indicated. Betsy Fenton, MATERNITY NURSE, BUSINESS EMPLOYMENT SPECIALIST
[2024-04-27 20:00] VITALS: BP 109/73; PULSE 89; RESP 16; TEMP 36.5; O2SAT 99
[2024-04-27] MEDS: SimETHICONE 80 MG Chewable Tablet PO (20:05)
[2024-04-27] MEDS: Enoxaparin 40 MG/0.4 ML Syringe SC (20:05)
[2024-04-27] MEDS: Sertraline 100 MG Tablet PO (22:46)
[2024-04-28] MEDS: Naproxen 500 MG Tablet PO ×3 (01:40→17:58)
[2024-04-28 02:00] VITALS: BP 110/78; PULSE 70; RESP 17; TEMP 36.2; O2SAT 98
[2024-04-28] MEDS: Acetaminophen 500 MG Tablet 1000 MG PO ×4 (03:08→22:26)
[2024-04-28 07:50] VITALS: BP 115/79; PULSE 65; RESP 16; TEMP 36.4; O2SAT 100
--- NOTE | 2024-04-28 08:25 | PCM.PN.CNM ---
Subjective Subjective Patient doing well without complaints. Tolerating PO. Ambulating and voiding without difficulty. Feeding/pumping well. Denies chest pain, shortness of breath, calf pain/swelling, fevers, chills, lightheadedness. Objective Data Objective Data Vital Signs: Vital Signs Temp Pulse Resp BP Pulse Ox O2 Del Method 97.6 F L 65 16 115/79 100 Room Air 04/28/24 07:50 04/28/24 07:50 04/28/24 07:50 04/28/24 07:50 04/28/24 07:50 04/28/24 07:50 Oxygen Delivery Method Room Air Weight: 199 lb 4.766 oz Body Mass Index (BMI) 32.1 Intake & Output: Intake and Output for Last 24 Hours 04/26/24 04/27/24 04/28/24 23:59 23:59 23:59 Intake Total 2250.0 / 2250.0 Output Total 1700 / 1700 Balance 550.0 / 550.0 Lab / Micro Data 04/27/24 06:15 Physical Exam Const alert, oriented x3 and no apparent distress HEENT Head and Scalp: atraumatic Resp normal respiratory effort GI soft to palpation and non-tender Inspection: incision intact, healing well and drainage (none) Bimanual Exam - Vag & Uterus: uterus non-tender Uterus Palpation: uterus fundus firm (below Umbilicus) Assessment & Plan (1) delivery delivered: COMMENT: LTCS 36 SM boy coral gdm previous myomectomy (2) Gestational diabetes mellitus (GDM): COMMENT: diet controlled. growth US 35 weeks. PLAN: Plan s/p LTCS PPD # 2 1. routine post care 2. breast feeding- support given 3. rh positive 4. rubella immune 5. plan on d/c home tomorrow
[2024-04-28] MEDS: Senna/Docusate Sodium 1 Tablet PO (10:29)
[2024-04-28 14:00] VITALS: BP 99/75; PULSE 80; RESP 15; TEMP 36.8
[2024-04-28] MEDS: Enoxaparin 40 MG/0.4 ML Syringe SC (20:28)
[2024-04-28 20:31] VITALS: BP 108/69; PULSE 80; RESP 16; TEMP 36.6
[2024-04-28] MEDS: Sertraline 100 MG Tablet PO (22:25)
[2024-04-29] MEDS: Naproxen 500 MG Tablet PO ×2 (00:49→08:25)
[2024-04-29 00:50] VITALS: BP 107/77; PULSE 85; RESP 16; TEMP 36.6; O2SAT 98
[2024-04-29] MEDS: Acetaminophen 500 MG Tablet 1000 MG PO ×2 (04:54→11:39)
[2024-04-29 08:30] VITALS: BP 115/94; PULSE 72; RESP 16; TEMP 37.2
--- NOTE | 2024-04-29 10:42 | PCM.PN.CNM ---
Subjective Subjective Patient doing well without complaints. Tolerating PO. Ambulating and voiding without difficulty. Feeding/pumping well. Denies chest pain, shortness of breath, calf pain/swelling, fevers, chills, lightheadedness. Objective Data Objective Data Vital Signs: Vital Signs Temp Pulse Resp BP Pulse Ox O2 Del Method 99 F 72 16 115/94 H 98 Room Air 04/29/24 08:30 04/29/24 08:30 04/29/24 08:30 04/29/24 08:30 04/29/24 00:50 04/29/24 00:50 Oxygen Delivery Method Room Air Weight: 199 lb 4.766 oz Body Mass Index (BMI) 32.1 Intake & Output: Intake and Output for Last 24 Hours 04/26/24 04/27/24 04/28/24 23:59 23:59 23:59 Intake Total 2250.0 / 2250.0 Output Total 1700 / 1700 Balance 550.0 / 550.0 Lab / Micro Data 04/27/24 06:15 Physical Exam Const alert, oriented x3 and no apparent distress HEENT Head and Scalp: atraumatic Resp normal respiratory effort GI soft to palpation and non-tender Inspection: incision intact, healing well and drainage (none) Bimanual Exam - Vag & Uterus: uterus non-tender Uterus Palpation: uterus fundus firm (below Umbilicus) Assessment & Plan (1) delivery delivered: COMMENT: LTCS 36 SM boy coral gdm previous myomectomy (2) Gestational diabetes mellitus (GDM): COMMENT: diet controlled. growth US 35 weeks. PLAN: Plan s/p LTCS PPD # 3 1. routine post care 2. breast feeding- support given 3. rh positive 4. rubella immune 5. plan on d/c home tomorrow due to feedings
[2024-04-29] MEDS: Senna/Docusate Sodium 1 Tablet PO (11:39)
[2024-04-29 14:00] VITALS: BP 95/66; PULSE 68; RESP 16; TEMP 36.4; O2SAT 98
== END 2024-04-29 14:15 | disposition home or self-care (01) | DRG 788 ==
PROVIDERS: Obstetrics & Gynecology; Admitting Provider Obstetrics & Gynecology; PCP Family Medicine; Visit Provider Obstetrics & Gynecology
PROC: 10D00Z1 Extraction of Products of Conception, Low, Open Approach (ICD-10-PCS; CPT 59514; principal; 2024-04-26 07:00)
DX: O24.420 Gestational diabetes mellitus in childbirth, diet controlled (principal); D25.9 Leiomyoma of uterus, unspecified; F32.9 Major depressive disorder, single episode, unspecified; J45.909 Unspecified asthma, uncomplicated; F41.9 Anxiety disorder, unspecified; O99.344 Other mental disorders complicating childbirth; O99.52 Diseases of the respiratory system complicating childbirth; Z37.0 Single live birth; O34.13 Maternal care for benign tumor of corpus uteri, third trimester; O99.893 Other specified diseases and conditions complicating puerperium; Z79.899 Other long term (current) drug therapy; Z3A.36 36 weeks gestation of pregnancy
CPT/HCPCS: 59025; 59050; 82962; 85025; 85027; 86780; 86850; 86900; 86901; 99221; A4216; G0378; J2405

== ENCOUNTER → 2024-06-07 | Outpatient (CLI) | payer OTHER, SELFPAY | END | disposition home or self-care (01) | LOC: LABSPEC 13:33 | PROVIDERS: PCP Family Medicine; Referring Provider Obstetrics & Gynecology; Visit Provider Obstetrics & Gynecology | DX: Z12.4 Encounter for screening for malignant neoplasm of cervix (principal) | CPT/HCPCS: 87624; 88175; G0145 ==

== ENCOUNTER → 2024-07-27 | Outpatient (CLI) | payer OTHER, SELFPAY ==
--- NOTE | 2024-07-27 10:25 | BI_ITS ---
EXAM: SCRN MAMM (CAD)W/NICK BILAT DATE: 07/27/2024 CLINICAL HISTORY: F, Age 34 y/o , BREAST CANCER SCREENING Maternal grandmother with breast cancer. History of prior bilateral breast biopsies for fibroadenoma. BREAST CANCER RISK ASSESSMENT: Not assessed. TECHNIQUE: Bilateral screening digital breast tomosynthesis with 2D and 3D images. Computer aided detection. COMPARISON: Prior exam(s) dated May 03, 2023.. FINDINGS: TISSUE DENSITY: The breast tissue is extremely dense which lowers the sensitivity of mammography. Bilateral Breast Mammographic Findings: No significant masses, calcifications or other abnormalities are identified. No suspicious masses, areas of developing architectural distortion, or suspicious calcifications. There has been no significant interval change. A tissue clip marker is seen along the anterior slightly superior retroareolar region of the left breast. BI/SCRN MAMM (CAD)W/NICK BILAT IMPRESSION: Stable examination OVERALL FINAL ASSESSMENT BI-RADS 2: BENIGN RECOMMEND ANNUAL MAMMOGRAPHIC SCREENING. RECOMMENDATION: Routine annual follow-up in 1 Year A letter with findings and recommendations will be mailed to the patient. Reading Location: [place] [id number]
--- OUTSIDE RECORDS SUMMARY | 2024-07-27 11:15 | XMS RPT_ITS | CCD ---
Author Organization [facility] Care Team Providers Care Web Marketing Assistant Name Role Phone Julieta Prince Primary Care Provider Dr. Julieta Prince Primary Care Provider Dr. Julieta Prince Referring Provider Home PAUL, PA Logan Uribe Attending Provider Johnny 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, 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-C Nadeen Attending Provider Dr. Federico Perea Attending Provider [phone] Dr. Federico Perea Referring Provider Dr. Federico Perea Other Provider Dr. Julieta Prince Primary Care Provider Dr. Federico Perea Attending Provider Dr. Federico Perea Referring Provider Dr. Federico Perea Other Provider Dr. Julieta Prince Referring Provider [phone] ANTWON Rowe Attending Provider Josue PAUL, PA Kenrick Attending Provider Dr. Julieta Prince Primary Care Provider Dr. Federico Perea Attending Provider [phone] ANTWON Rowe Referring Provider ANTWON Rowe Other Provider Dr. Lakia Richards Attending Provider Dr. Julieta Prince Primary Care Provider Dr. Julieta Prince Referring Provider Dr. Lakia Richards Referring Provider [phone] Dr. Lakia Richards Other Provider [phone] Lakia Richards Admit Provider [phone] ANTWON Duff Attending Provider [phone] Dr. Federico Perea Attending Provider Dr. Federico Perea Referring Provider Dr. Federico Perea Other Provider Unavailable Primary Care Provider UnavailDr. Julieta Brewer Primary Care Provider Dr. Julieta Prince Referring Provider Johnny 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, 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Damián Senior Attending Provider [phone] Unavailable Primary Care Provider Unavailabl e Niki, Julieta Kenneth Primary Care Provider LIONELLLIFF, JULIETA KENNETH Primary Care Unavailable REHMER, NICCI Referring Unavailable JOLLIFF, JULIETA KENNETH Primary Care Unavailable ZAIDA NESS Referring Unavailable MAXIM MARTIN Attending Unavailabl e JOLLIFF, JULIETA KENNETH Primary Care Unavailable JOLLIFF, JULIETA KENNETH Primary Care Unavailable JOLLIFF, JULIETA KENNETH Primary Care Unavailable JOLLIFF, JULIETA KENNETH Primary Care Unavailable REHMER, NICCI Referring Unavailable DUDZIAK, EDUAR Referring Unavailable DUDZIAK, EDUAR Referring Unavailable MAXIM MARTIN Referring Unavailabl e DUDZIAK, EDUAR Referring Unavailable DUDZIAK, EDUAR Referring Unavailable DUDZIAK, EDUAR Referring Unavailable JOLLIFF, JULIETA KENNETH Primary Care Unavailable REHMER, NICCI Referring Unavailable JOLLIFF, JULIETA KENNETH Primary Care Unavailable DUDZIAK, EDUAR Referring Unavailable DUDZIAK, EDUAR Referring Unavailable DUDZIAK, EDUAR Referring Unavailable JOLLIFF, JULIETA KENNETH Primary Care Unavailable MAXIM MARTIN Referring Unavailabl e FRANK TRONCOSO Attending Unav ailable JOLLIFF, JULIETA KENNETH Primary Care Unavailable MARTIN, MAXIM LEVI Referring Unavailabl e JOLLIFF, JULIETA KENNETH Primary Care Unavailable PRADEEP ANDREWS Attending Unavailable STEFF CAZARES Referring Unavaila ble JOLLIFF, JULIETA KENNETH Primary Care Unavailable RAHEL, MINDY Referring Unavailable RAHELZAIDA Attending Unavailable MARTIN, MAXIM LEVI Referring Unavailabl e JOLLIFF, JULIETA KENNETH Primary Care Unavailable NICCI CH Attending Unavailable MARTIN, MAXIM LEVI Referring Unavailabl e JOLLIFF, JULIETA KENNETH Primary Care Unavailable JOLLIFF, JULIETA Primary Care Unavailable MARCANTHONY, LAKIA E Referring Unavailabl e HORNE, MONTSE Aguayo Attending Unavailable MARCANTHONY, LAKIA E Referring Unavailabl e HORNE, MONTSE Aguayo Attending Unavailable ZACOUR, PABLO A Primary Care Unavailable MARCANTHONY, LAKIA E Referring Unavailabl e ZACOUR, PABLO A Primary Care Unavailable COLE SCOTT Attending Unavailable Dr. Julieta Prince MD Primary Care Provider Dr. Julieta Prince MD Referring Provider Dr. Janessa Rodrigues DO Attending Provider Dr. Janessa Rodrigues DO Referring Provider Dr. Lakia Richards MD Attending Provider [phone] Dr. Cecil Ramirez MD Attending Provider Johnny 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-CNadeen Attending Provider [phone] Nadeen Padilla Referring Provider [phone] Dr. Cecil Ramirez MD Referring Provider Ginger ARRINGTON, Dr. Hernandez Attending Provider [phone] Dr. Lakia Richards MD Referring Provider [phone] Dr. Lakia Richards MD Admit Provider [phone] Maria Esther ARRINGTON, Dr. Dorman Other Provider [phone] Joanne Duff CNM Attending Provider [phone] Shameka Rowe Referring Unavailable Shameka Rowe Attending Unavailable Niki, Julieta S Primary Care Unavailable Lakia Richards Referring Unavailable DanteonyLakia Attending Unavailable Jolliff, Julieta S Primary Care Unavailable [place] 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, Nadeen Attending Unavailable Jolliff, Julieta S Primary Care Unavailable Jolliff, Julieta S Referring Unavailable MarcanthonyLakia Attending Unavailable Marcanthony, Lakia Referring Unavailable Jolliff, Julieta S Primary Care Unavailable [place] 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, Nadeen Attending Unavailable [place] 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, Nadeen Referring Unavailable Jolliff, Julieta S Primary Care Unavailable [place] 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, Nadeen Referring Unavailable Johnny 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, Nadeen Attending Unavailable Jolliff, Julieta S Primary Care Unavailable [place] 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, Nadeen Referring Unavailable Johnny 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, Nadeen Attending Unavailable Jolliff, Julieta S Primary Care Unavailable DanteonyLakia Admitting Unavailable KasianthonyLakia Attending Unavailable Jolliff, Julieta S Primary Care Unavailable Marcanthony, Lakia Attending Unavailable Jolliff, Julieta S Primary Care Unavailable Jolliff, Julieta S Referring Unavailable MarcanthonyLakia Attending Unavailable Jolliff, Julieta S Referring Unavailable Jolliff, Julieta S Primary Care Unavailable Cecil Ramirez Attending Unavailable Arice VelJanessa arenas Referring Unavailabl e Jolliff, Julieta S Primary Care Unavailable MarcanthonyLakia Attending Unavailable Jolliff, Julieta S Primary Care Unavailable Jolliff, Julieta S Referring Unavailable David Miles Attending Unavailable Jolliff, Julieta S Primary Care Unavailable Johnny 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, Nadeen Attending Unavailable Jolliff, Julieta S Primary Care Unavailable Jolliff, Julieta S Referring Unavailable Shameka Rowe Attending Unavailable Jolliff, Julieta S Primary Care Unavailable Jolliff, Julieta S Referring Unavailable [place] 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, Nadeen Attending Unavailable [place] 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, Nadene Referring Unavailable Jolliff, Julieta S Primary Care Unavailable Cecil Ramirez Referring Unavailable Cecil Ramirez Attending Unavailable Jolliff, Julieta S Primary Care Unavailable Jolliff, Julieta S Primary Care Unavailable Joanne Duff Attending Unavailable Lakia Richards Consulting Unavailable KasianthonyLakia Admitting Unavailable KasianthonyLakia Attending Unavailable Jolliff, Julieta S Referring Unavailable Jolliff, Julieta S Primary Care Unavailable MarclucieonyLakia Attending Unavailable Jolliff, Julieta S Primary Care Unavailable Jolliff, Julieta S Referring Unavailable Johnny 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, Nadeen Referring Unavailable Johnny 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, Nadeen Attending Unavailable Jolliff, Julieta S Primary Care Unavailable Vande Velde, Janessa Attending Unavailabl e Jolliff, Julieta S Primary Care Unavailable Jolliff, Julieta S Referring Unavailable Vande Velde, Janessa Referring Unavailabl e Vande Velde, Janessa Attending Unavailabl e Jolliff, Julieta S Primary Care Unavailable Jhonny 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, Nadeen Attending Unavailable Jolliff, Julieta S Primary Care Unavailable Jolliff, Julieta S Referring Unavailable Shameka Rowe Attending Unavailable Jolliff, Julieta S Primary Care Unavailable Jolliff, Julieta S Referring Unavailable MarcanthonyLakia Attending Unavailable Jolliff, Julieta S Referring Unavailable Jolliff, Julieta S Primary Care Unavailable Marcanthony, Lakia Attending Unavailable Jolliff, Julieta S Referring Unavailable Jolliff, Julieta S Primary Care Unavailable [place] 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, Nadeen Attending Unavailable Jolliff, Julieta S Referring Unavailable Jolliff, Julieta S Primary Care Unavailable Vande Velde, Janessa Attending Unavailabl e Jolliff, Julieta S Referring Unavailable Jolliff, Julieta S Primary Care Unavailable Lakia Richards Attending Unavailable Jolliff, Julieta S Primary Care Unavailable Jolliff, Julieta S Referring Unavailable MarcanthonyLakia Attending Unavailable MarcanthonyLakia Attending Unavailable Marcanthony, Lakia Referring Unavailable Jolliff, Julieta S Primary Care Unavailable Allergies Allergy Classification Reported Allergen(s) Allergy Type Date of Onset Reaction(s) Facility Latex (3 sources) Latex Substance Allergy 4 Rash, Itching [facility] Shellfish (3 sources) Shellfish Food Allergy 6 Shortness of Breath [facility] (20 sources) Latex; Translations: [LATEX] Allergy to substance 2 Rash, Itching [facility] (20 sources) Shellfish; Translations: [SHELLFISH DERIVED] Allergy to substance 6 Shortness of Breath [facility] (1 source) Latex Drug allergy (disorder) 5 [facility] Repository Medications Current Medications Medication Drug Class(es) Dates Sig (Normalized) Sig (Original) acetaminophen 325 mg / oxyCODONE hydrochloride 5 mg oral tablet (12 sources) Opioid Agonist Start: 04-26-2024 take 1 tablet by mouth every four hours as needed for pain Oxycodone-Acetami nophen (Percocet) 5-325 mg tablet Active 1 {tbl} PO Q4H as needed for pain 27 08April 26, 2024 Start: 07-17-2022 End: 07-31-2022 Oxycodone-Acetaminophen (Per cocet) 5-325 mg tablet Discontinued 1 {tbl} PO EVERY 6 HOURS as needed for pain 27 08July 17, 2022 July 31, 2022 1:56pm [id number] 200 actuat albuterol 0.09 mg/actuat metered dose inhaler (20 sources) beta2-Adrenergic Agonist Start: 01-21-2022 Albut lety Sulfate 90 mcg/actuation Hfa Aerosol Inhaler Active 2 NMA INHALATION EVERY 6 HOURS as needed for ASTHMA January 21, 2022 1:00am Start: 01-21-2022 take 1 puff(s) by in halation every six hours Albuterol Sulfate Active 2 PUFF INHALATION EVERY 6 HOURS January 21, 2022 1:00am Start: 12-31-2015 take 2 puff(s) by in halation every four hours as needed for wheezing albuterol HFA (VENTOLIN HFA) 90 mcg/actuation inhaler Indications: Bronchitis Inhale 2 Puffs as instructed every 4 hours as needed for Wheezing/Shortness of Breath. 1 Inhaler 0 12/31/2015 Active Comment on above: Inhale 2 Puffs as in structed every 4 hours as needed for Wheezing/Shortness of Breath. Blood-Glucose Meter misc (6 sources) Start: 03-17-2024 Blood-Glucose Meter misc Active 0 .MEDSUPPLY March 17, 2024 4:18pm As directed- Test fasting and 2 hours after meals Start: 03-13-2024 End: 03-17-2024 Blood-Glucose Meter misc Dis continued 0 .MEDSUPPLY March 13, 2024 1:00am March 17, 2024 4:19pm As directed- Test fasting and 2 hours after meals chorionic gonadotropin 98230 unt/ml injectable solution (12 sources) Gonadotropin Start: 05-05-2023 inject 14824 [IU] by subcutaneous injection once chorionic gonadotropin (PREGNYL) 10,000 unit solr 10,000 Units as directed. Mix vials as directed per nursing in office. Administer subcutaneous. 2 Each 1 05/05/2023 Active Comment on above: 10,000 Units as dire cted. Mix vials as directed per nursing in office. Administer subcutaneous. clobetasol propionate 0.0005 mg/mg topical ointment (15 sources) Corticosteroid Start: 08-05-2010 apply 60 g topically at bedtime clobetasol 0.05 % TOPICAL ointment Apply at bedtime 60 g 0 08/05/2010 Active Comment on above: Apply at bedtime doxycycline hyclate 100 mg oral tablet (12 sources) Tetracycline-clas s Drug Start: 07-26-2023 take 1 tablet by mouth twice daily doxycycline (VIBRA-TABS) 100 mg tablet Take 1 tablet by mouth two times a day. 8 tablet 07/26/2023 Active Dupilumab (DUPIXENT SC) (1 source) Dupilumab (DUPIX ENT SC) Inject under the skin. 0 Active escitalopram 10 mg oral tablet (15 sources) Serotonin Reuptake Inhibitor take 1 tablet by mouth once daily escitalopram oxalate (LEXAPRO) 10 mg tablet Take 10 mg by mouth once daily. 0 Active Comment on above: Take 10 mg by mouth once daily. Ethinyl Estradiol / ethynodiol (12 sources) Progestin, Estrogen Start: 05-05-2023 take 1 tablet by mouth once, then take 1 tablet by mouth once daily at bedtime ethynodiol diacetate-ethinyl estradiol 1 mg-35 mcg (ZOVIA , 28,) 1-35 mg-mcg per tablet Start day 1 of full flow period. Take 1 pill by mouth daily at bedtime, active pills only. Throw out or skip placebo week. 28 tablet 2 05/05/2023 Active Comment on above: Start day 1 of full flow period. Take 1 pill by mouth daily at bedtime, active pills only. Throw out or skip placebo week. famotidine 10 mg oral tablet (3 sources) Histamine-2 Receptor Antagonist Start: 02-16-2024 take 1 tablet by mouth twice daily Famotidine 10 mg tablet Active 10 mg PO TWICE A DAY February 16, 2024 1:00am 0.36 ml follitropin beta 833 unt/ml cartridge (12 sources) Start: 05-05-2023 inject 200 [IU] by subcutaneous injection once daily Follitropin Beta (FOLLISTIM AQ) 300 unit/0.36 mL Inject 200 Units subcutaneously once daily. 6 Each 1 05/05/2023 Active Comment on above: Inject 200 Units sub cutaneously once daily. 0.5 ml ganirelix acetate 0.5 mg/ml prefilled syringe (12 sources) Gonadotropin Releasing Hormone Antagonist Start: 05-05-2023 Ganirelix Acetate 250 mcg/0.5 mL Inject 1 syringe daily subcutaneous before 8am. Inject same time each day 7 Each 1 05/05/2023 Active Comment on above: Inject 1 syringe neli ly subcutaneous before 8am. Inject same time each day leuprolide acetate 5 mg/ml injectable solution (12 sources) Gonadotropin Releasing Hormone Receptor Agonist Start: 05-05-2023 inject 80 [IU] by subcutaneous injection once leuprolide (LUPRON) 1 mg/0.2 mL Inject 80 units subcutaneous once as directed for Lupron trigger 1 Kit 1 05/05/2023 Active Comment on above: Inject 80 units subc utaneous once as directed for Lupron trigger loratadine 10 mg oral capsule (1 source) Loratadine (Claritin) 10 MG capsule Take by mouth. 0 Active MEDICATION, NON-DATABASE (15 sources) MEDICATION, NON-DATABASE Oral control, pt unsure of which one 0 Active Comment on above: Oral control, pt unsure of which one methylPREDNISolone 16 mg oral tablet (20 sources) Corticosteroid Start: 07-26-2023 take 1 tablet by mouth once daily methylPREDNISolone (MEDROL) 16 mg tablet Take 1 tablet by mouth once daily. 4 tablet 07/26/2023 Active Start: 03-20-2017 End: 03-25-2017 take 1 tablet by mouth once Methylprednisolone (Medrol (Jhon)) 4 mg tablets,dose pack Discontinued 4 mg PO per package directions 21 March 20, 2017 1:00am March 24, 2017 1:00am March 25, 2017 1:06am naproxen 500 mg oral tablet (12 sources) Nonsteroidal Anti-inflammatory Drug Start: 04-26-2024 take 1 tablet by mouth twice daily as needed for pain Naproxen 500 mg tablet Active 500 mg PO TWICE DAILY NEEDED as needed for Pain April 26, 2024 12:00am Start: 07-17-2022 End: 04-19-2023 take 1 tablet by mouth twice daily as needed for pain Naproxen 500 mg tablet Discontinued 500 mg PO TWICE DAILY NEEDED as needed for Pain July 17, 2022 12:00am April 19, 2023 8:23am [id number] Fum-Folic Ac-O m3 (One A Day Women's Dha) 28 mg iron- 800 mcg combo pack (5 sources) Start: 04-19-2023 [id number]-Fipo Fum-Folic Ac-Om3 (One A Day Women's Dha) 28 mg iron- 800 mcg combo pack Active 1 NMA PO DAILY April 19, 2023 12:00am Start: 04-19-2023 [id number]-Gdue Fum-Folic Ac-Om3 (One A Day Women's Dha) 28 mg iron- 800 mcg combo pack Active PKG PO April 19, 2023 12:00am vit,calc76/iron/fol ic (PNV 29-1 ORAL) (20 sources) vit,blu c76/iron/folic (PNV 29-1 ORAL) Take by mouth. Active vit,blu c76/iron/folic (PNV 29-1 ORAL) Take by mouth. 0 Active sertraline 100 mg oral tablet (20 sources) Serotonin Reuptake Inhibitor Start: 07-29-2023 End: 05-04-2024 take 1 tablet by mouth once daily Sertraline (Zoloft) 100 mg tablet Active 100 mg PO DAILY May 04, 2024 8:02am Start: 06-17-2023 End: 07-29-2023 take 1 tablet by mouth once daily Sertraline (Zoloft) 50 mg tablet Discontinued 50 mg PO DAILY June 17, 2023 12:00am July 29, 2023 10:46am Sharps Container-Ins Syrng-N dl 1/2 mL 30 x 1/2 syrg (20 sources) Start: 05-05-2023 Sharps Contain er-Ins Syrng-Ndl 1/2 mL 30 x 1/2 syrg 1 Container as directed. Pregnyl trigger 79425 Units #1 with syringes and needles. 1 Each 0 05/05/2023 Active Start: 05-05-2023 Sharps Contain er-Ins Syrng-Ndl 1/2 mL 30 x 1/2 syrg 1 Container as directed. For low dose HCG Pregnyl 14223 units with 5ml syringe and needle to mix and 15 insulin syringes. 1 Each 0 05/05/2023 Active Comment on above: 1 Container as direc veronika. Pregnyl trigger 42892 Units #1 with syringes and needles. 1 Container as dire veronika. For low dose HCG Pregnyl 21434 units with 5ml syringe and needle to mix and 15 insulin syringes. Zuranolone (1 source) Start: 05-01-2024 take 1 capsule by mouth once daily Zuranolone (Zurzuvae) 25 mg capsule Active 50 mg PO daily May 01, 2024 12:00am May 14, 2024 12:00am administer with a high fat meal Completed/Discontinued Medications Medication Drug Class(es) Dates Sig (Normalized) Sig (Original) ALPRAZolam 0.5 mg oral tablet (20 sources) Benzodiazepine Start: 01-21-2022 End: 10-19-2023 take 0.25 mg by mouth twice daily as needed for anxiety Alprazolam (Xanax) 0.5 mg Tablet Discontinued 0.25 mg PO TWICE A DAY as needed for Anxiety January 21, 2022 1:00am October 19, 2023 8:31am Start: 08-18-2019 End: 08-18-2019 ALPRAZolam (XANAX) tablet 0. 25 mg amoxicillin 500 mg oral capsule (16 sources) Penicillin-class Antibacterial Start: 04-30-2021 End: 05-10-2021 take 2 capsules by mouth twice daily Amoxicillin 500 mg capsule Discontinued 1000 mg PO TWICE A DAY 40 April 30, 2021 12:00am May 09, 2021 12:00am May 10, 2021 12:05am Start: 04-30-2021 End: 05-10-2021 take 1000 mg by mouth twice daily Amoxicillin Discontinued 1000 MG PO TWICE A DAY 40 April 30, 2021 12:00am May 10, 2021 12:05am amoxicillin 875 mg / clavulanate 125 mg oral tablet (20 sources) Penicillin-class Antibacterial Start: 07-03-2021 End: 01-13-2022 Amoxicillin-Pot Clavulanate 875-125 mg tablet Discontinued 1 {tbl} PO TWICE A DAY July 03, 2021 12:00am January 13, 2022 9:46am Start: 07-03-2021 End: 01-13-2022 take 1 tablet by mouth twice daily Amoxicillin-Pot Clavulanate Discontinued 1 TABLET PO TWICE A DAY July 03, 2021 12:00am January 13, 2022 9:46am Start: 10-13-2020 End: 04-30-2021 Amoxicillin-Pot Clavulanate (Augmentin) 875-125 mg tablet Discontinued 1 {tbl} PO TWICE A DAY October 13, 2020 12:00am April 30, 2021 11:12am Start: 11-06-2019 End: 11-16-2019 Amoxicillin-Pot Clavulanate (Augmentin) 875-125 mg tablet Discontinued 1 {tbl} PO Q12H 20 November 06, 2019 12:00am November 15, 2019 12:00am November 16, 2019 12:02am Start: 07-02-2018 End: 08-31-2018 Amoxicillin-Pot Clavulanate (Augmentin) 875-125 mg tablet Discontinued 1 {tbl} PO TWICE A DAY July 02, 2018 12:00am August 31, 2018 12:54pm Start: 05-06-2018 End: 05-16-2018 Amoxicillin-Pot Clavulanate (Augmentin) 875-125 mg tablet Discontinued 1 {tbl} PO Q12H 20 May 06, 2018 12:00am May 15, 2018 12:00am May 16, 2018 12:08am Start: 05-13-2017 End: 11-18-2017 Amoxicillin-Pot Clavulanate 875-125 mg tablet Discontinued 1 {tbl} PO TWICE A DAY May 13, 2017 12:00am November 18, 2017 2:37pm Start: 05-13-2017 End: 11-18-2017 take 1 tablet by mouth twice daily Amoxicillin-Pot Clavulanate Discontinued 1 TABLET PO TWICE A DAY May 13, 2017 12:00am November 18, 2017 2:37pm azithromycin 250 mg oral tablet (20 sources) Macrolide Antimicrobial Start: 11-18-2017 End: 05-06-2018 Azithromycin 250 mg tablet Discontinued 250 mg PO daily November 18, 2017 12:00am May 06, 2018 8:22am 2 tablets today, then 1 tablet daily on days 2 through 11 Start: 03-20-2017 End: 03-25-2017 Azithromycin 250 mg tablet D iscontinued 250 mg PO daily 6 5 March 20, 2017 1:00am March 24, 2017 1:00am March 25, 2017 1:06am Take 2 tabs once on day one. Take one tablet once daily for the next 4 days. benzonatate 200 mg oral capsule (19 sources) Non-narcotic Antitussive Start: 06-02-2023 End: 10-19-2023 take 1 capsule by mouth three times daily as needed for cough Benzonatate 200 mg capsule Discontinued 200 mg PO THREE TIMES A DAY as needed for cough June 02, 2023 12:00am October 19, 2023 8:32am Start: 07-03-2021 End: 01-13-2022 take 1 capsule by mouth three times daily as needed for cough Benzonatate 200 mg capsule Discontinued 200 mg PO THREE TIMES A DAY as needed for cough July 03, 2021 12:00am January 13, 2022 9:46am cabergoline 0.5 mg oral tablet (10 sources) Ergot Derivative Start: 06-29-2023 End: 07-26-2023 take 1 tablet by mouth once daily cabergoline (DOSTINEX) 0.5 mg tablet Take 1 tablet by mouth once daily for 8 days. 8 tablet 0 06/29/2023 07/26/2023 Discontinued cyclobenzaprine hydrochloride 5 mg oral tablet (16 sources) Muscle Relaxant Start: 12-15-2021 End: 01-13-2022 take 1 tablet by mouth at bedtime as needed for muscle spasms Cyclobenzaprine 5 mg tablet Discontinued 5 mg PO AT BEDTIME as needed for muscle spasm December 15, 2021 1:00am January 13, 2022 9:46am docusate sodium 100 mg oral capsule (16 sources) Start: 08-31-2018 End: 02-21-2020 take 1 capsule by mouth twice daily Docusate Sodium 100 MG capsule Discontinued 100 mg PO TWICE A DAY August 31, 2018 12:00am February 21, 2020 11:06am doxylamine succinate 25 mg oral tablet (3 sources) Start: 10-22-2023 End: 02-24-2024 take 1 tablet by mouth at bedtime as needed Doxylamine Succinate (Unisom (Doxylamine)) 25 mg tablet Discontinued 25 mg PO AT BEDTIME as needed October 22, 2023 12:00am February 24, 2024 4:00pm DULoxetine 60 mg delayed release oral capsule (20 sources) Serotonin and Norepinephrine Reuptake Inhibitor Start: 07-31-2022 End: 06-17-2023 take 1 capsule by mouth once daily Duloxetine (Cymbalta) 60 mg capsule,delayed release(DR/EC) Discontinued 60 mg PO DAILY July 31, 2022 12:00am June 17, 2023 2:47pm 2 ml dupilumab 150 mg/ml auto-injector (16 sources) Interleukin-4 Receptor alpha Antagonist Start: 02-21-2020 End: 01-13-2022 Dupilumab (Dupixent Pen) 300 mg/2 mL pen injector Discontinued 300 mg SC every 2 weeks February 21, 2020 1:00am January 13, 2022 9:46am estradiol 2 mg oral tablet (16 sources) Estrogen Start: 10-19-2023 End: 12-21-2023 take 3 tablets by mouth once daily Estradiol 2 mg tablet Discontinued 6 mg PO daily October 19, 2023 12:00am December 21, 2023 4:09pm Start: 07-26-2023 End: 08-20-2023 take 3 tablets by mouth once daily estradiol (ESTRACE) 2 mg tablet TAKE 3 TABLETS BY MOUTH EVERY DAY 270 tablet 1 08/20/2023 Active ferrous sulfate 325 mg delayed release oral tablet (3 sources) Start: 01-19-2024 End: 04-26-2024 take 1 tablet by mouth once daily Ferrous Sulfate 325 mg (65 mg iron) tablet,delayed release (DR/EC) Discontinued 325 mg PO daily January 19, 2024 1:00am April 26, 2024 5:55am fluconazole 150 mg oral tablet (3 sources) Azole Antifungal Start: 07-29-2023 End: 10-19-2023 Fluconazole 150 mg tablet Discontinued 150 mg PO .COMPLEX 2 July 29, 2023 12:00am October 19, 2023 8:32am 150 mg PO take one po now and repeat in 3 days FLUoxetine 40 mg oral capsule (20 sources) Serotonin Reuptake Inhibitor Start: 11-06-2019 End: 07-31-2022 take 1 capsule by mouth once daily Fluoxetine 40 mg capsule Discontinued 40 mg PO DAILY November 06, 2019 12:00am July 31, 2022 1:56pm Start: 03-20-2017 End: 11-06-2019 take 1 capsule by mouth once daily Fluoxetine 20 mg capsule Discontinued 20 mg PO DAILY 30 March 20, 2017 1:00am November 06, 2019 4:18pm take 1 tablet by delio th once daily fluoxetine 20 MG tablet Take 20 mg by mouth daily. 0 Active fluticasone propionate 0.05 mg/actuat metered dose nasal spray (20 sources) Corticosteroid Start: 08-24-2018 End: 02-21-2020 take 2 spray(s) nasal route once daily Fluticasone Propionate 50 mcg/actuation spray,suspension Discontinued 0 .ROUTE .COMPLEX August 24, 2018 8:17am February 21, 2020 11:07am 2 SPRAY INTRANASAL DAILY ADMINISTER INTO EACH NOSTRIL Start: 07-02-2018 End: 08-24-2018 take 50 ug nasal route once daily Fluticasone Propionate (Flonase Allergy Relief) 50 mcg/actuation spray,suspension Discontinued 2 NMA INTRANASAL DAILY 15.8 July 02, 2018 12:00am August 24, 2018 8:17am administer into each nostril Start: 07-02-2018 End: 08-24-2018 take 1 spray(s) nasal route once daily Fluticasone Propionate (Flonase Allergy Relief) 50 mcg/actuation spray,suspension Discontinued 2 SPRAY INTRANASAL DAILY 15.8 July 02, 2018 12:00am August 24, 2018 8:17am administer into each nostril nitrofurantoin, macrocrystals 25 mg / nitrofurantoin, monohydrate 75 mg oral capsule (12 sources) Nitrofuran Antibacterial Start: 05-19-2022 End: 05-26-2022 take 1 capsule by mouth every twelve hours at mealtime Nitrofurantoin Monohyd/M-Cryst 100 mg capsule Discontinued 1 NMA PO Q12H 14 7 May 19, 2022 12:00am May 25, 2022 12:00am May 26, 2022 12:05am administer with a meal/food; swallow whole; do not open, crush, dissolve , or chew ondansetron 4 mg disintegrating oral tablet (20 sources) Serotonin-3 Receptor Antagonist Start: 10-22-2023 End: 02-24-2024 take 1 tablet by mouth every six hours as needed for nausea and vomiting Ondansetron 4 mg tablet,disintegrati ng Discontinued 4 mg PO EVERY 6 HOURS as needed for nausea and vomiting October 22, 2023 12:00am February 24, 2024 4:01pm Start: 01-26-2020 End: 02-21-2020 take 1 tablet by mouth every six hours as needed for nausea and vomiting Ondansetron Hcl (Zofran) 4 mg tablet Discontinued 4 mg PO EVERY 6 HOURS as needed for nausea and vomiting January 26, 2020 1:00am February 21, 2020 11:07am Start: 08-18-2019 End: 08-18-2019 ondansetron 4mg/2ml (ZOFRAN) injection 4 mg Start: 08-18-2019 take 1 tablet by delio th every four hours as needed ondansetron 4 MG Tab Dispersible tablet Take 1 tablet by mouth every 4 hours as needed for Nausea. Place on tongue 30 tablet 0 08/18/2019 Active Start: 05-08-2019 End: 01-26-2020 take 1 tablet by mouth every six hours as needed for nausea Ondansetron 4 MG tablet Discontinued 4 mg PO EVERY 6 HOURS NEEDED as needed for Nausea May 08, 2019 1:13pm January 26, 2020 8:46am pramoxine hydrochloride 10 m g/ml rectal foam (16 sources) Start: 08-31-2018 End: 02-21-2020 Pramoxine 15 GM foam Discontinued 1 NMA TP TWICE A DAY as needed for Pain August 31, 2018 4:07pm February 21, 2020 11:07am Start: 08-31-2018 End: 02-21-2020 Pramoxine Discontinued 1 MARY ALICE LIC TP TWICE A DAY August 31, 2018 4:07pm February 21, 2020 11:07am predniSONE 10 mg oral tablet (16 sources) Start: 12-15-2021 End: 01-13-2022 take 4 tablets by mouth once daily, then take 3 tablets by mouth once daily, then take 2 tablets by mouth once daily, then take 1 tablet by mouth once daily Prednisone 10 mg tablet Discontinued 10 mg PO DAILY December 15, 2021 1:00am January 13, 2022 9:46am 4 tablets daily for 3 days, then 3 tablets daily for 3 days, then 2 tablets daily for 3 days, then 1 tablet daily for 3 days Utzjmldy-Jwp-Kg-Fa () 1 mg Tablet (15 sources) Start: 01-21-2022 End: 06-29-2022 take 1 tablet by mouth once daily Cgwwqvee-Sdn-Qt-Fa () 1 mg Tablet Discontinued 1 {tbl} PO DAILY January 21, 2022 1:00am June 29, 2022 2:07pm Start: 01-21-2022 End: 06-29-2022 take 1 tablet by mouth once daily Rpjpcccv-Odj-Tm-Fa () 1 mg Tablet Discontinued 1 TABLET PO DAILY January 21, 2022 1:00am June 29, 2022 2:07pm Start: 01-21-2022 take 1 tablet by delio th once daily Wefbhtui-Lpx-Ip-Fa () 1 mg Tablet Active 1 TABLET PO DAILY January 21, 2022 1:00am Start: 01-21-2022 take 1 tablet by delio th once daily Xyimlqwx-Nat-An-Fa () 1 mg Tablet Active 1 TABLET PO DAILY January 21, 2022 12:00am progesterone 50 mg/ml injectable solution (15 sources) Progesterone Start: 07-26-2023 End: 12-21-2023 inject 50 mg by intramuscular injection once daily Progesterone 50 mg/mL oil Discontinued 50 mg IM daily October 19, 2023 12:00am December 21, 2023 4:09pm 250 ml sodium chloride 9 mg/ml injection (1 source) Start: 08-18-2019 End: 08-18-2019 sodium chloride 0.9% IV solution 1,000 mL Problems Active Problems Problem Classification Problem Date Documented Date Episodic/Chronic Acute bronchitis (1 source) Acute bronchitis; Translations: [Acute bronchitis, unspecified] Episodic Anxiety disorders (20 sources) Panic attack; Translations: [Anxiety] Onset: 04-18-2024 06-17-2023 Chronic Comment on above: on meds Benign neoplasm of uterus (20 sources) Uterine leiomyoma; Translations: [Leiomyoma of uterus, unspecified] 05-21-2022 Episodic Comment on above: HSG done, recommend removal of fibroid prior to conception. schedule minilap with myomectomy Cancer; other and unspecified primary (20 sources) History of gynecological disorder; Translations: [Personal history of other benign neoplasm] 04-19-2023 Episodic Comment on above: removed SM- needs P C/S at 36 weeks. Cancer; other and unspecified primary (4 sources) Personal history of other benign neoplasm; Translations: [Personal history of other genital system and obstetric disorders] Onset: 04-18-2024 04-19-2023 Episodic Cardiac dysrhythmias (13 sources) Tachycardia; Translations: [Tachycardia, unspecified] Onset: 04-03-2024 Episodic Conditions associated with dizziness or vertigo (13 sources) Dizziness; Translations: [Dizziness and giddiness] Onset: 03-17-2024 Episodic Conditions associated with dizziness or vertigo (3 sources) Conditions associated with dizziness or vertigo Contraceptive and procreative management (20 sources) Encounter for other general counseling and advice on procreation; Translations: [Other procreative management counseling and advice] Onset: 06-25-2023 Episodic Comment on above: seeing [facility], Gabino sheridan planned August 2023 Diabetes or abnormal glucose tolerance complicating ; childbirth; or the puerperium (20 sources) Abnormal glucose level; Translations: [Abnormal glucose complicating ] Onset: 03-28-2024 03-30-2024 Episodic Comment on above: threw up with 3 hr, will test for 2 weeks. diet controlled. [facility] US 35 weeks. 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; Translations: [Female infertility of tubal origin] Onset: 08-26-2023 05-31-2022 Chronic Comment on above: left patent right bl ocked Fever of unknown origin (1 source) Fever; Translations: [Fever, unspecified] Episodic Genitourinary symptoms and ill-defined conditions (14 sources) Dysuria; Translations: [Dysuria] 05-19-2022 Episodic Hemorrhoids (16 sources) Hemorrhoids; Translations: [Unspecified hemorrhoids] 09-01-2018 Episodic Immunizations and screening for infectious disease (20 sources) Patient encounter status; Translations: [Encounter for laboratory testing for COVID-19 virus] Onset: 03-17-2024 01-13-2022 Episodic Comment on above: optimal times for co nception, taking PNV, using OPT. [facility] first Menstrual disorders (20 sources) Disorder of menstruation; Translations: [Irregular menstruation, unspecified] Onset: 12-21-2023 01-26-2020 Chronic Miscellaneous mental health disorders (2 sources) depression; Translations: [ depression] 05-01-2024 Episodic Mood disorders (20 sources) Depressive disorder; Translations: [Depression] Onset: 04-18-2024 02-29-2024 Chronic Comment on above: on meds/stable Nonmalignant breast conditions (20 sources) Breast lump; Translations: [Unspecified lump in the right breast, unspecified quadrant] Episodic Comment on above: Imaging 01/14/22 Other and unspecified benign neoplasm (12 sources) Fibroadenoma of breast; Translations: [Benign neoplasm of unspecified breast] 02-03-2022 Episodic Comment on above: removed 01/2022 Other and unspecified benign neoplasm (3 sources) Benign neoplasm of unspecified breast; Translations: [Benign neoplasm of breast] 02-11-2022 Episodic Other complications of ; puerperium affecting management of mother (6 sources) Deliveries by ; Translations: [Encounter for delivery without indication] 04-26-2024 Episodic Comment on above: LTCS 36 SM boy archi e gdm previous myomectomy Other complications of ; puerperium affecting management of mother (1 source) Encounter for delivery without indication; Translations: [Encounter for delivery without indication] Onset: 05-08-2024 Episodic Other complications of (4 sources) with inconclusive viability, not applicable or unspecified; Translations: [ with inconclusive viability] Onset: 09-20-2023 09-20-2023 Episodic Other complications of (20 sources) High risk ; Translations: [Supervision of high risk , unspecified, unspecified trimester] 03-30-2024 Episodic Comment on above: PRR, , UNIQUE , levi Bernstein [place] Other complications of (2 sources) Supervision of high risk , unspecified, second trimester; Translations: [Supervision of high risk , unspecified, second trimester] Onset: 04-18-2024 Episodic Other complications of (1 source) Supervision of high risk , unspecified, unspecified trimester; Translations: [Supervision of high risk , unspecified, unspecified trimester] Onset: 03-21-2024 Episodic Other and delivery including normal (20 sources) test positive; Translations: [Encounter for test, result positive] Onset: 09-27-2023 09-20-2023 Episodic Comment on above: nl echo, nl an atomy (additional views in 2 weeks)previously had genetic and carrier testing-IVF Other screening for suspected conditions (not mental disorders or infectious disease) (9 sources) Magnetic resonance imaging of breast abnormal; Translations: [Other abnormal and inconclusive findings on diagnostic imaging of breast] Onset: 09-20-2023 08-07-2022 Episodic Residual codes; unclassified (20 sources) Family history of breast cancer; Translations: [Family history of malignant neoplasm of breast] 01-13-2022 Episodic Comment on above: Maternal aunt (dx in her 30s) and mat grandmother. Residual codes; unclassified (7 sources) Genetic disorder carrier; Translations: [Genetic carrier of other disease] 02-03-2022 Episodic Residual codes; unclassified (20 sources) Breast cancer genetic marker of susceptibility positive; Translations: [Genetic susceptibility to malignant neoplasm of breast] 02-03-2022 Episodic Comment on above: Positive CHEK2: year ly mammogram and MRI with imaging Q 6 mo. Residual codes; unclassified (4 sources) Other specified postprocedural states; Translations: [Other postprocedural status] 07-31-2022 Episodic Residual codes; unclassified (4 sources) Genetic susceptibility to malignant neoplasm of breast; Translations: [Genetic susceptibility to malignant neoplasm of breast] Onset: 04-18-2024 04-19-2023 Episodic Residual codes; unclassified (20 sources) Conceived by in vitro fertilization; Translations: [Other specified health status] 02-29-2024 Episodic Comment on above: echo schedulednl Residual codes; unclassified (2 sources) Other specified health status; Translations: [Other specified health status] Onset: 04-18-2024 Episodic Residual codes; unclassified (2 sources) 34 weeks gestation of ; Translations: [34 weeks gestation of ] Onset: 04-18-2024 Episodic Residual codes; unclassified (1 source) 32 weeks gestation of ; Translations: [32 weeks gestation of ] Onset: 03-30-2024 Episodic Residual codes; unclassified (1 source) 30 weeks gestation of ; Translations: [30 weeks gestation of ] Onset: 03-17-2024 Episodic Sprains and strains (20 sources) Shoulder strain; Translations: [Strain of unspecified muscle, fascia and tendon at shoulder and upper arm level, right arm, initial encounter] Episodic Syncope (20 sources) Syncope and collapse; Translations: [Syncope and collapse] 05-09-2019 Episodic Thyroid disorders (1 source) Thyrotoxicosis with diffuse goiter without thyrotoxic crisis or storm; Translations: [Thyrotoxicosis with diffuse goiter without thyrotoxic crisis or storm] Onset: 12-13-2023 Chronic Unclassified (14 sources) Infertile; Translations: [Infertility] 05-01-2022 Unclassified (1 source) Consult Onset: 02-15-2023 Viral infection (16 sources) Viral disease; Translations: [Viral infection, unspecified] 05-09-2019 Episodic Past or Other Problems Problem Classification Problem Date Documented Da te Episodic/Chronic Allergic reactions (20 sources) Contact dermatitis; Translations: [Unspecified contact dermatitis, unspecified cause] Onset: 07-24-2010 07-24-2010 Episodic Hemorrhage during ; abruptio placenta; placenta previa (1 source) Other antepartum hemorrhage, unspecified trimester; Translations: [Other antepartum hemorrhage, unspecified trimester] Onset: 12-21-2023 Episodic Nausea and vomiting (1 source) Nausea and vomiting; Translations: [Non-intractable vomiting with nausea, unspecified vomiting type] Episodic Other complications of (1 source) Vomiting of , unspecified; Translations: [Vomiting of , unspecified] Onset: 10-22-2023 Episodic Other upper respiratory infections (12 sources) Acute sinusitis; Translations: [Acute sinusitis, unspecified] Onset: 12-21-2023 02-29-2024 Episodic Polyhydramnios and other problems of amniotic cavity (10 sources) Subchorionic hematoma; Translations: [Other specified disorders of amniotic fluid and membranes, unspecified trimester, not applicable or unspecified] Onset: 12-21-2023 03-17-2024 Episodic Residual codes; unclassified (10 sources) Family history of malignant neoplasm of breast; Translations: [Family history of malignant neoplasm of breast] Onset: 12-21-2023 Episodic Residual codes; unclassified (1 source) 17 weeks gestation of ; Translations: [17 weeks gestation of ] Onset: 12-21-2023 Episodic Results Test Name Value Interpretation Reference Range Facility PAP IG HPV APTIMA 16/18,45on 06-12-2024 ADEQ Comment Normal . [facility] Comment on above: Order Comment: Speci men Comment: [id number] Comment: No. of containers..01 ThinPrep Vial Result Comment: Sati sfactory for evaluation. Endocervical and/or squamous metaplastic cells (endocervical component) are present. Performed By: #### L 7400.0280 ####[facility] [address] [place], [address] COMM . Normal . [facility] Comment on above: Order Comment: Speci men Comment: [id number] Comment: No. of containers..01 ThinPrep Vial Performed By: #### L 7400.0280 ####[facility] [address] [place], [address] COMMENT Comment Normal . [facility] Comment on above: Order Comment: Speci men Comment: [id number] Comment: No. of containers..01 ThinPrep Vial Result Comment: This liquid based ThinPrep(R) pap test was screened with the use of an image guided system. Performed By: #### L 7400.0280 ####[facility] [address] [place], [address] DIAG Comment Normal . [facility] Comment on above: Order Comment: Speci men Comment: [id number] Comment: No. of containers..01 ThinPrep Vial Result Comment: NEGA TIVE FOR INTRAEPITHELIAL LESION OR MALIGNANCY. Performed By: #### L 7400.0280 ####[facility] [address] [place], [address] HPV APTIMA, HR Negative Normal Negative [facility] Comment on above: Order Comment: Speci men Comment: [id number] Comment: No. of containers..01 ThinPrep Vial Result Comment: This nucleic acid amplification test detects fourteen high- risk HPV types (16,18,31,33,35,39,45,51,52,56,58,59,66,68) without differentiation. Performed By: #### L 7400.0280 ####[facility] [address] [place], [address] HPV Marian Rfx Comment Normal . [facility] Comment on above: Order Comment: Speci men Comment: [id number] Comment: No. of containers..01 ThinPrep Vial Result Comment: Denit joseph not met, HPV Genotype not performed. Performed at: - [facility] [id number] Elevator Service Technician: Barbara Fox MD, Phone: [phone] Performed at: = - [facility] [id number] Elevator Service Technician: Barbara Fox MD, Phone: [phone] Performed By: #### L 7400.0280 ####[facility] [address] [place], [address] PAPSMR Comment Normal . [facility] Comment on above: Order Comment: Speci men Comment: [id number] Comment: No. of containers..01 ThinPrep Vial Result Comment: The Pap smear is a screening test designed to aid in the detection of premalignant and malignant conditions of the uterine cervix. It is not a diagnostic procedure and should not be used as the sole means of detecting cervical cancer. Both false-positive and false-negative reports do occur. Performed By: #### L 7400.0280 ####[facility] [address] [place], [address] PERFORM Comment Normal . [facility] Comment on above: Order Comment: Speci men Comment: [id number] Comment: No. of containers..01 ThinPrep Vial Result Comment: Nkechi Rey, Optical Engineering Manager (ASCP) Performed By: #### L 7400.0280 ####[facility] [address] [place], [address] Director Energy Office Visit Reporton 06-07-2024 Director Energy Office Visit Report [facility] [place] [facility] [address], [address] [place] [address] OFFICE VISIT Date of Service: 06/07/24 MR#: [id number] Acct: [id number] Name: ESTRELLA RIOJAS Rep #: [id number] 25 : 1990 Provider: Dr. Lakia guillermo MD Age/Sex: 34/F Location: [facility] Status: Signed Intake Vital Signs 02/29/24 13:33 05/09/24 10:50 06/07/24 10:56 Height 5 ft 6 in 5 ft 6 in 5 ft 6 in Weight: 180 lb 6 oz BMI 29.1 BP 93/61 Intake Visit Reasons: visit (obstetrics) Chief Complaint: 6w pp declines IUD Freight Checker Required: No Is patient in pain?: No Allergies shellfish derived Allergy (Severe, Verified 06/07/24 11:05) unknown latex Allergy (Verified 06/07/24 11:05) Rash Medications ???Medication ???Instructions ???Recorded ???Confirmed ???Type albuterol sulfate 90 mcg/actuation 2 puff inhalation Q6H PRN ASTHMA 01/21/22 06/07/24 History aerosol inhaler vits 75-iron 28 mg-folic 1 pkg PO DAILY supplement 4 06/07/24 History acid 800 mcg-omega-3 oral combo pack (One A Day Women's DHA) sertraline 100 mg tablet (Zoloft) 100 mg PO DAILY anxiety #30 tabs 05/04/24 06/07/24 Rx : Yes PFSH Medical History (Updated 06/07/24 @ 11:[address] Lakia Richards MD) Infertility HX: benign breast biopsy Left breast mass Blister Fibroadenoma of breast Anxiety Graves' disease Restless legs Syncope Blackout Non-smoker Depression Asthma Surgical History S/P laparotomy History of breast biopsy History of oral surgery Family History Grandmother Breast cancer Uncle Lung cancer Social History (Updated 06/07/24 @ 11:05 by Nadeen Ochoa) adopted: No household members: spouse number of children: 1 current occupational status: employed current occupation: [employer] current occupational exposures/hazards: No pets and animals: Yes (Avoid litterbox) pets and animals: cat(s) history of recent travel: Yes ( -Oct) out of state: Yes out of country: No sexually active: Yes Smoking Status: Never smoker alcohol intake: never substance use type: does not use well-balanced diet: daily or most days caffeine: No eating out: 1-3 times/week during the past year weight has: remained stable what type of physical activity do you participate in: none lea/anglican: Islam seatbelt use: always do you feel safe at home: Yes additional social history: - Eliseo History 1 Elective abortions Hx Para 1 Spontaneous abortions Hx # Term Pregnancies Ectopic pregnancies Hx # Pregnancies 1 Multiple births # of living children 1 Past Pregnancies Del. Date Name GA/Weeks Outcome Route Bth Weight Infant Gen Labor Lgth Anesthesia Del Locatn Provider FOB 04/26/24 Flores 36 live - 6lb 0oz Female spinal [facility] [place] Delivery Date: 04/26/24 Last Updated by: Basilia Santiago RN LT 36 gdm Depression Screen PHQ-2/9 PHQ-2 Over the last 2 weeks, how often have you been bothered by any of the following problems? 1. Little interest or pleasure in doing things: not at all 2. Feeling down, depressed, or hopeless: not at all Total score: 0 Post HPI Routine Follow-Up: Details: ESTRELLA RIOJAS is a 34 year old who presents for her post visit. Infant Feeding: Breast Menses resumed: No [place] since delivery: No Emotional Support: Yes Last Pap:: 01/13/22 Control Method: none ROS Const Reports system reviewed and no additional complaints, except as documented GI Reports system reviewed and no additional complaints, except as documented, Denies bloating, Denies constipation, Denies nausea and Denies vomiting Reports system reviewed and no additional complaints, except as documented, Denies abnormal vaginal bleeding, Denies pelvic pain, Denies sexual dysfunction, Denies urinary incontinence, Denies urinary hesitancy, Denies urinary urgency and Denies vaginal discharge Skin/Breast Reports system reviewed and no additional complaints, except as documented and Reports as per HPI Psych Reports as per HPI Exam Const General: cooperative, healthy appearing, comfortable and no acute distress HENWV Head: normal to inspection Neck Neck: normal visual inspection and no lymphadenopathy Thyroid: thyroid normal Chest Breast inspection: normal inspection of the breasts and normal inspection of the axillae Breast palpation: normal palpation of the breasts and normal palpation of the axillae Resp Effort Inspection: normal respiratory effort GI Inspection: normal to inspection and incision (C/D/I) P (more content not included)... Normal [facility] Director Energy Office Visit Reporton 05-09-2024 Director Energy Office Visit Report [facility] [address], [address] [place] [address] OFFICE VISIT Date of Service: 05/09/24 MR#: [id number] Acct: [id number] Name: ESTRELLA RIOJAS Rep #: [id number] 32 : 1990 Provider: MIREILLE gilliam Age/Sex: 34/F Location: [facility] Status: Signed Intake Vital Signs 02/29/24 13:33 04/26/24 05:41 05/09/24 10:44 05/09/24 10:50 Height 5 ft 6 in 5 ft 6 in 5 ft 6 in 5 ft 6 in Weight: 183 lb 6 oz BMI 29.5 BP 102/70 Intake Visit Reasons: 2 wk primary imaging administrator Complaint: 2 Week incision check Freight Checker Required: No Is patient in pain?: No Allergies shellfish derived Allergy (Severe, Verified 05/09/24 10:44) unknown latex Allergy (Verified 05/09/24 10:44) Rash Medications ???Medication ???Instructions ???Recorded ???Confirmed ???Type albuterol sulfate 90 mcg/actuation 2 puff inhalation Q6H PRN ASTHMA 01/21/22 05/09/24 History aerosol inhaler vits 75-iron 28 mg-folic 1 pkg PO DAILY supplement 4 05/09/24 History acid 800 mcg-omega-3 oral combo pack (One A Day Women's DHA) sertraline 100 mg tablet (Zoloft) 100 mg PO DAILY anxiety #30 tabs 05/04/24 05/09/24 Rx Is last menstrual period known: No Post menopausal: No Patient : No : Yes PFSH Medical History Infertility HX: benign breast biopsy Left breast mass Blister Fibroadenoma of breast Anxiety Graves' disease Restless legs Syncope Blackout Non-smoker Depression Asthma Surgical History S/P laparotomy History of breast biopsy History of oral surgery Family History Grandmother Breast cancer Uncle Lung cancer Social History adopted: No household members: spouse number of children: 0 current occupational status: employed current occupation: [employer] current occupational exposures/hazards: No pets and animals: Yes (Avoid litterbox) pets and animals: cat(s) history of recent travel: Yes ( -Oct) out of state: Yes out of country: No sexually active: Yes Smoking Status: Never smoker alcohol intake: never substance use type: does not use well-balanced diet: daily or most days caffeine: No eating out: 1-3 times/week during the past year weight has: remained stable what type of physical activity do you participate in: none lea/anglican: Islam seatbelt use: always do you feel safe at home: Yes additional social history: - [place]iseo HPI 2 wk primary section Details: ESTRELLA RIOJAS is a 34 year old who presents for 2 week postop c section Dr Richards. She is doing well physically. No pain. No issues with bowel/bladder habits. Baby Mark doing well, breast feeding Was having depression/anxiety symptoms first 5 days. On zoloft. Urmila ordered but by time PA approved she started feeling better and never started. Today she states that her symptoms have resolved. Feeling much less anxious History 1 Elective abortions Hx Para 0 Spontaneous abortions Hx # Term Pregnancies Ectopic pregnancies Hx # Pregnancies 1 Multiple births # of living children 1 Past Pregnancies Del. Date Name GA/Weeks Outcome Route Bth Weight Infant Gen Labor Lgth Anesthesia Del Locatn Provider FOB 04/26/24 Flores 36 live - Female spinal [facility] Eliseo Delivery Date: 04/26/24 Last Updated by: Basilia Santiago RN LTCS 36 gdm Exam Const General: cooperative and no acute distress Orientation: oriented x3 GI Inspection: incision (well healed, nonerythematous) Palpation: soft and nontender Coding Level of Care Code No Charge Diagnoses Postop check Z09 depression F53.0 delivery delivered O82 Assessment and Plan Assessment and Plan (1) Postop check: (2) depression: Status: Acute Comment: zoloft. Zuzurve was Rx and approved but did not start. stable (3) delivery delivered: Status: Acute Comment: LTCS 36 SM boy amandeep gdm previous myomectomy Plan Routine pp care If increased anxiety/depression, enc to start zurzuvea and to call if starts it Enc counseling RTO 4 wk 05/09/24 1103 Date Nadeen Turner 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-C Cosigner Signature: Date (if applicable) CC: Normal [facility] Virtual Office Visiton 05-05 Virtual Office Visit [facility] [address] [place] [address] [address] OFFICE VISIT Date of Service: 05/05/24 MR#: [id number] Acct: [id number] Patient: ESTRELLA RIOJAS Rep #: [id number] : 1990 Provider: Dr. Janessa Davidson DO Age/Sex: 34/F Location: [facility] [place] Status: Signed Intake Vital Signs 04/26/24 05:41 Height 5 ft 6 in Intake Visit Reasons: phone call per JV Chief Complaint: 28 Week OB/Glucose Allergies shellfish derived Allergy (Severe, Verified 04/26/24 05:49) unknown latex Allergy (Verified 04/26/24 05:49) Rash Questionnaire PHQ-2/PHQ-9 PHQ-2 Over the last 2 weeks, how often have you been bothered by any of the following problems? 1. Little interest or pleasure in doing things: nearly every day 2. Feeling down, depressed, or hopeless: nearly every day Total score: 6 If score is 2 or greater, continue 3. Trouble falling or staying asleep, or sleeping too much: nearly every day 4. Feeling tired or having little energy: nearly every day 5. Poor appetite or overeating: several days 6. Feeling bad about yourself - or that you are a failure or have let yourself and your family down: not at all 7. Trouble concentrating on things, such as reading the newspaper or watching television: several days 8. Moving or speaking so slowly that other people could have noticed? - Or the opposite - being so fidgety or restless that you have been moving around a lot more than usual: not at all 9. Thoughts that you would be better off or of hurting yourself in some way: not at all Total score: 14 If you checked off any problems, how difficult have these problems made it for you to do your work, take care of things at home, or get along with other people?: somewhat difficult Source: Developed by Drs. Mj Bassett, Amie Rowe, Joe Watkins and colleagues, with an educational ilia from [employer]. PHQ-9 Over the last 2 weeks, how often have you been bothered by any of the following problems? 1. Little interest or pleasure in doing things: nearly every day 2. Feeling down, depressed, or hopeless: nearly every day 3. Trouble falling or staying asleep, or sleeping too much: nearly every day 4. Feeling tired or having little energy: nearly every day 5. Poor appetite or overeating: several days 6. Feeling bad about yourself - or that you are a failure or have let yourself and your family down: not at all 7. Trouble concentrating on things, such as reading the newspaper or watching television: several days 8. Moving or speaking so slowly that other people could have noticed? - Or the opposite - being so fidgety or restless that you have been moving around a lot more than usual: not at all 9. Thoughts that you would be better off or of hurting yourself in some way: not at all Total score: 14 If you checked off any problems, how difficult have these problems made it for you to do your work, take care of things at home, or get along with other people?: somewhat difficult Source: Developed by Drs. Mj Bassett, Amie Rowe, Joe Watkins and colleagues, with an educational ilia from [employer]. [facility] Medical History (Updated 05/01/24 @ 10:51 by Quyen Juan LPN) Infertility HX: benign breast biopsy Left breast mass Blister Fibroadenoma of breast Anxiety Graves' disease Restless legs Syncope Blackout Non-smoker Depression Asthma Surgical History S/P laparotomy History of breast biopsy History of oral surgery Family History Grandmother Breast cancer Uncle Lung cancer Social History adopted: No household members: spouse number of children: 0 current occupational status: employed current occupation: [employer] current occupational exposures/hazards: No pets and animals: Yes (Avoid litterbox) pets and animals: cat(s) history of recent travel: Yes ( -Oct) out of state: Yes out of country: No sexually active: Yes Smoking Status: Never smoker alcohol intake: never substance use type: does not use well-balanced diet: daily or most days caffeine: No eating out: 1-3 times/week during the past year weight has: remained stable what type of physical activity do you participate in: none lea/anglican: Islam seatbelt use: always do you feel safe at home: Yes additional social history: - Eliseo HPI HPI Chief Complaint: 28 Week OB/Glucose Details: Patient was informed that today's visit charges, even if billed to insurance may still be the patient's responsibility to pay. ESTRELLA RIOJAS, is a 34 F who has expressed need for assistance with depression. She is taking zoloft with little relief and is interested in zuzuvae. see PHQ-9 for [employer] (more content not included)... Normal [facility] Bedside Glucoseon 04-27-2024 FINGERSTICK GLU 101 mg/dL Normal 74-106 [facility] Comment on above: Result Comment: EDELMIRA GIFFORD OF PATIENT CARE PER NURSING PROTOCOL Performed By: #### L 500.3332 #### [facility] Laboratory [address] [place], [address] CBC-Complete Blood Cnt No Di ffon 04-27-2024 Erythrocyte distribution width (RBC) [Ratio] 14.6 % Normal 11.6-14.6 [facility] Comment on above: Order Comment: Comme nts: Day #1Reason for Laboratory Test Performed By: #### L 100.0500 ####[facility] [address] [place], [address] Hematocrit (Bld) [Volume fraction] 25.5 % Low 37-47 [facility] Comment on above: Order Comment: Comme nts: Day #1Reason for Laboratory Test Performed By: #### L 100.0500 ####[facility] [address] [place], [address] Hemoglobin (Bld) [Mass/Vol] 8.1 g/dL Low 12.0-15.0 [facility] Comment on above: Order Comment: Comme nts: Day #1Reason for Laboratory Test Performed By: #### L 100.0500 ####[facility] [address] [place], [address] MCH (RBC) [Entitic mass] 25.4 pg Low 27.0-32.0 [facility] Comment on above: Order Comment: Comme nts: Day #1Reason for Laboratory Test Performed By: #### L 100.0500 ####[facility] [address] [place], [address] MCHC (RBC) [Mass/Vol] 31.8 g/dL Low 32-36 [facility] Comment on above: Order Comment: Comme nts: Day #1Reason for Laboratory Test Performed By: #### L 100.0500 ####[facility] [address] [place], [address] MCV (RBC) [Entitic vol] 79.9 fL Low 81-99 [facility] Comment on above: Order Comment: Comme nts: Day #1Reason for Laboratory Test Performed By: #### L 100.0500 ####[facility] [address] [place], [address] Platelet mean volume (Bld) [Entitic vol] 11.3 fL Normal 6.2-12.0 [facility] Comment on above: Order Comment: Comme nts: Day #1Reason for Laboratory Test Performed By: #### L 100.0500 ####[facility] [address] [place], [address] Platelets (Bld) [#/Vol] 277 10*3/uL Normal 150-450 [facility] Comment on above: Order Comment: Comme nts: Day #1Reason for Laboratory Test Performed By: #### L 100.0500 ####[facility] [address] [place], [address] RBC (Bld) [#/Vol] 3.19 10*6/uL Low 4.2-5.4 [facility] Comment on above: Order Comment: Comme nts: Day #1Reason for Laboratory Test Performed By: #### L 100.0500 ####[facility] [address] [place], [address] RDW SD 43.0 fl Normal 35.1-43.9 [facility] Comment on above: Order Comment: Comme nts: Day #1Reason for Laboratory Test Performed By: #### L 100.0500 ####[facility] [address] [place], [address] WBC (Bld) [#/Vol] 12.0 10*3/uL High 4.4-11.0 [facility] Comment on above: Order Comment: Comme nts: Day #1Reason for Laboratory Test Performed By: #### L 100.0500 ####[facility] [address] [place], [address] Erythrocyte distribution wid th ratioOrdered By: Lakia Richards on 04-27-2024 Erythrocyte distribution width (RBC) [Ratio] 14.6 % 11.6-14.6 [facility] Erythrocyte distribution wid th standard deviationOrdered By: Lakia Richards on 04-27-2024 Erythrocyte distribution width (RBC) [Entitic vol] 43.0 fL 35.1-43.9 [facility] Glucose measurement at bedsi deOrdered By: Lakia Richards on 04-27-2024 Bedside Glucose (Misc Panel) 101 mg/dL 74-106 [facility] Comment on above: MANAGEMENT OF PATIEN T CARE PER NURSING PROTOCOL Hematocrit Auto (Bld) [Volum e fraction]Ordered By: Lakia Richards on 04-27-2024 Hematocrit (Bld) [Volume fraction] 25.5 % Low 37-47 [facility] Hemoglobin measurementOrdere d By: Lakia Richards on 04-27-2024 Hemoglobin (Bld) [Mass/Vol] 8.1 g/dL Low 12.0-15.0 [facility] MCV (mean corpuscular volume ) determinationOrdered By: Lakia Richards on 04-27-2024 MCV (RBC) [Entitic vol] 79.9 fL Low 81-99 [facility] Mean corpuscular hemoglobin (MCH) determinationOrdered By: Lakia Richards on 04-27-2024 MCH (RBC) [Entitic mass] 25.4 pg Low 27.0-32.0 [facility] Mean corpuscular hemoglobin concentration (MCHC) determinationOrdered By: Lakia Richards on 04-27-2024 MCHC (RBC) [Mass/Vol] 31.8 g/dL Low 32-36 [facility] Mean platelet volume determi nationOrdered By: Lakia Richards on 04-27-2024 Platelet mean volume (Bld) [Entitic vol] 11.3 fL 6.2-12.0 [facility] Platelet countOrdered By: Magdaleno Richards on 04-27-2024 Platelets (Bld) [#/Vol] 277 10*3/uL 150-450 [facility] RBC Auto (Bld) [#/Vol]Ordere d By: Lakia Villaseñorlucieisela on 04-27-2024 RBC (Bld) [#/Vol] 3.19 10*6/uL Low 4.2-5.4 [facility] White blood cell (WBC) count Ordered By: Lakia Villaseñorfederico on 04-27-2024 WBC (Bld) [#/Vol] 12.0 10*3/uL High 4.4-11.0 [facility] Absolute neutrophil countOrd ered By: Lakia Villaseñorfederico on 04-26-2024 Neutrophils (Bld) [#/Vol] 10.8 10*3/uL High 2.0-7.7 [facility] Basophil percentageOrdered B y: Lakia Richards on 04-26-2024 Basophils/100 WBC (Bld) 0.4 % 0-1 [facility] Bedside Glucoseon 04-26-2024 FINGERSTICK GLU 89 mg/dL Normal 74-106 [facility] Comment on above: Result Comment: EDELMIRA GEMENT OF PATIENT CARE PER NURSING PROTOCOL Performed By: #### L 501.080 #### [facility] [address] [place], [place], [address] (413) FINGERSTICK GLU 79 mg/dL Normal 74-106 [facility] Comment on above: Result Comment: EDELMIRA GEMENT OF PATIENT CARE PER NURSING PROTOCOL Performed By: #### L 501.080 #### [facility] [address] [place], [address] CBC W/Diff, Automatedon 04-08 Absolute Lymph 1.90 X10 3/uL Normal 0.83-4.51 [facility] Comment on above: Performed By: #### L 100.0100 #### [facility] [address] [place], [address] Absolute Neut 10.8 X10 3/uL High 2.0-7.7 [facility] Comment on above: Performed By: #### L 100.0100 #### [facility] [address] [place], [address] Basophils/100 WBC (Bld) 0.4 % Normal 0-1 [facility] Comment on above: Performed By: #### L 100.0100 #### [facility] [address] [place], [address] Eosinophils/100 WBC (Bld) 0.3 % Normal 0-5 [facility] Comment on above: Performed By: #### L 100.0100 #### [facility] [address] [place], [address] Erythrocyte distribution width (RBC) [Ratio] 14.6 % Normal 11.6-14.6 [facility] Comment on above: Performed By: #### L 100.0100 #### [facility] [address] [place], [address] Hematocrit (Bld) [Volume fraction] 27.8 % Low 37-47 [facility] Comment on above: Performed By: #### L 100.0100 #### [facility] [address] [place], [address] Hemoglobin (Bld) [Mass/Vol] 9.0 g/dL Low 12.0-15.0 [facility] Comment on above: Performed By: #### L 100.0100 #### [facility] [address] [place], [address] IG% 0.400 Normal 0.0-0.9 [facility] Comment on above: Result Comment: IG% - Immature Granulocytes (promyelocytes, myelocytes and metamyelocytes) > 1% indicates that a LEFT SHIFT is Present. Performed By: #### L 100.0100 #### [facility] [address] [place], [address] Lymphocytes/100 WBC (Bld) 13.9 % Low 19-41 [facility] Comment on above: Performed By: #### L 100.0100 #### [facility] [address] [place], [address] MCH (RBC) [Entitic mass] 25.4 pg Low 27.0-32.0 [facility] Comment on above: Performed By: #### L 100.0100 #### [facility] [address] [place], [address] MCHC (RBC) [Mass/Vol] 32.4 g/dL Normal 32-36 [facility] Comment on above: Performed By: #### L 100.0100 #### [facility] [address] [place], [address] MCV (RBC) [Entitic vol] 78.5 fL Low 81-99 [facility] Comment on above: Performed By: #### L 100.0100 #### [facility] [address] [place], [address] Monocytes/100 WBC (Bld) 5.5 % Normal 0-10 [facility] Comment on above: Performed By: #### L 100.0100 #### [facility] [address] [place], [address] Neutrophils/100 WBC (Bld) 79.5 % High 47-70 [facility] Comment on above: Performed By: #### L 100.0100 #### [facility] [address] [place], [address] Nucleated RBC (Bld) [#/Vol] 0 10*3/uL Normal 0-5 [facility] Comment on above: Performed By: #### L 100.0100 #### [facility] [address] [place], [address] Platelet mean volume (Bld) [Entitic vol] 10.4 fL Normal 6.2-12.0 [facility] Comment on above: Performed By: #### L 100.0100 #### [facility] [address] [place], [address] Platelets (Bld) [#/Vol] 286 10*3/uL Normal 150-450 [facility] Comment on above: Performed By: #### L 100.0100 #### [facility] [address] [place], [address] RBC (Bld) [#/Vol] 3.54 10*6/uL Low 4.2-5.4 [facility] Comment on above: Performed By: #### L 100.0100 #### [facility] [address] [place], [address] RDW SD 41.5 fl Normal 35.1-43.9 [facility] Comment on above: Performed By: #### L 100.0100 #### [facility] [address] [place], [address] WBC (Bld) [#/Vol] 13.6 10*3/uL High 4.4-11.0 [facility] Comment on above: Performed By: #### L 100.0100 #### [facility] [address] [place], [address] Absolute Lymph 3.50 X10 3/uL Normal 0.83-4.51 [facility] Comment on above: Performed By: #### L 500.7210 #### [facility] [address] [place], [address] Absolute Neut 5.8 X10 3/uL Normal 2.0-7.7 [facility] Comment on above: Performed By: #### L 500.6313 #### [facility] [address] [place], [address] Basophils/100 WBC (Bld) 0.8 % Normal 0-1 [facility] Comment on above: Performed By: #### L 500.4710 #### [facility] [address] [place], [address] Eosinophils/100 WBC (Bld) 3.2 % Normal 0-5 [facility] Comment on above: Performed By: #### L 500.4710 #### [facility] [address] [place], [address] Erythrocyte distribution width (RBC) [Ratio] 14.6 % Normal 11.6-14.6 [facility] Comment on above: Performed By: #### L 500.4710 #### [facility] [address] [place], [address] Hematocrit (Bld) [Volume fraction] 30.2 % Low 37-47 [facility] Comment on above: Performed By: #### L 500.4710 #### [facility] [address] [place], [address] Hemoglobin (Bld) [Mass/Vol] 9.6 g/dL Low 12.0-15.0 [facility] Comment on above: Performed By: #### L 500.4710 #### [facility] [address] [place], [address] IG% 0.400 Normal 0.0-0.9 [facility] Comment on above: Result Comment: IG% - Immature Granulocytes (promyelocytes, myelocytes and metamyelocytes) > 1% indicates that a LEFT SHIFT is Present. Performed By: #### L 500.4710 #### [facility] [address] [place], [address] Lymphocytes/100 WBC (Bld) 33.2 % Normal 19-41 [facility] Comment on above: Performed By: #### L 500.4710 #### [facility] [address] [place], [address] MCH (RBC) [Entitic mass] 25.1 pg Low 27.0-32.0 [facility] Comment on above: Performed By: #### L 500.4710 #### [facility] [address] [place], [address] MCHC (RBC) [Mass/Vol] 31.8 g/dL Low 32-36 [facility] Comment on above: Performed By: #### L 500.4710 #### [facility] [address] [place], [address] MCV (RBC) [Entitic vol] 79.1 fL Low 81-99 [facility] Comment on above: Performed By: #### L 500.4710 #### [facility] [address] [place], [address] Monocytes/100 WBC (Bld) 7.6 % Normal 0-10 [facility] Comment on above: Performed By: #### L 500.4710 #### [facility] [address] [place], [address] Neutrophils/100 WBC (Bld) 54.8 % Normal 47-70 [facility] Comment on above: Performed By: #### L 500.4710 #### [facility] [address] [place], [address] Nucleated RBC (Bld) [#/Vol] 0.2 10*3/uL Normal 0-5 [facility] Comment on above: Performed By: #### L 500.4710 #### [facility] [address] [place], [address] Platelet mean volume (Bld) [Entitic vol] 10.6 fL Normal 6.2-12.0 [facility] Comment on above: Performed By: #### L 500.4710 #### [facility] [address] [place], [address] Platelets (Bld) [#/Vol] 341 10*3/uL Normal 150-450 [facility] Comment on above: Performed By: #### L 500.4710 #### [facility] [address] [place], [address] RBC (Bld) [#/Vol] 3.82 10*6/uL Low 4.2-5.4 [facility] Comment on above: Performed By: #### L 500.4710 #### [facility] [address] [place], [address] RDW SD 41.9 fl Normal 35.1-43.9 [facility] Comment on above: Performed By: #### L 500.4710 #### [facility] [address] [place], [address] WBC (Bld) [#/Vol] 10.5 10*3/uL Normal 4.4-11.0 [facility] Comment on above: Performed By: #### L 500.4710 #### [facility] [address] [place], [address] Discharge Instructionon 04-08 Discharge Instruction [facility] Medical Records Department [address] [place] [address] Instructions for Home/Discharge Instructions 04/26/24 2237 MR#: [id number] Acct: [id number] Name: ESTRELLA RIOJAS Rep #: [id number] : 1990 33 From: Lakia Richards MD PCP: Dr. Julieta Prince MD Status:ADM IN Discharge Instructions Diet Discharge Diet: No restrictions DC O2, CPAP, BIPAP needs Home O2 Discharge instructions: No Dressing / Incision Discharge Activity: May Not Drive (for 2 weeks or while taking narcotic pain medications.), May Shower and May Take a Tub Bath (in 7 days) May shower in (days): 0 May resume sexual activity in: 4-6 weeks Weight Bearing Status: Full weight bearing Lifting Restrictions: 20 pounds Dressing / Incision Call your doctor if your incision/area has: Continuous Slow Oozing, Sudden Increased Bleeding, Increased Pain/ Swelling, Increased Redness and Foul Smelling Discharge Call your doctor if you observe: Fever of 101 or Higher and Using more than 1 pad per hour (for 2 hours) Suture Line Care: Avoid Pulling/Pushing and Avoid Pinching/Bending Cleanse incision/area with: Soap Water and Keep Dressing Clean Dry Follow Up Care Please Follow Up With: Lakia Richards MD When: Call [phone] to make an appointment for an incision check in 1-2 weeks. Test Results: Test results from this visit will be discussed in further detail at your follow-up appointment, if applicable. Discharge Plan Admission Admit Date/Time: 04/26/24 05:37 Attending Provider: Lakia Richards Primary Care Provider: Julieta Prince Discharge Orders/Prescriptions Prescriptions: New oxycodone-acetaminophen [Percocet] 5-325 mg tablet 1 tab PO Q4H PRN (Reason: pain) 7 Days Qty: 20 0RF naproxen 500 mg tablet 500 mg PO BID PRN PRN (Reason: Pain) Qty: 30 1RF No Action One A Day Women's DHA 28 mg iron- 800 mcg combo pack 1 pkg PO DAILY famotidine 10 mg tablet 10 mg PO BID (DME) Blood Glucose Test Strip See Rx Instructions .MEDSUPPLY Qty: 120 5RF Rx Instructions: As directed-fasting 2 hr post meals (DME) blood-glucose meter Misc See Rx Instructions .MEDSUPPLY Qty: 1 0RF Rx Instructions: As directed- Test fasting and 2 hours after meals (DME) lancets Misc See Rx Instructions .MEDSUPPLY Qty: 200 5RF Rx Instructions: As directed-fasting 2 hr post meals albuterol sulfate 90 mcg/actuation Hfa Aerosol Inhaler 2 puff INHALATION Q6H PRN (Reason: ASTHMA) sertraline [Zoloft] 100 mg tablet 100 mg PO DAILY Qty: 30 1RF Referrals / Follow Up: Julieta Prince MD [Primary Care Provider] - Disposition Disposition (needs filled in before D/C Order can be placed): Home, Self Care 04/26/24 [id number] Lakia Richards MD CC: Dr. Julieta Prince MD Signed Normal [facility] Eosinophil percentageOrdered By: Lakia Richards on 04-26-2024 Eosinophils/100 WBC (Bld) 0.3 % 0-5 [facility] H AND P Exam - OB/GYNon 04-08 H&P Exam - ACADEMIC ASSOCIATE [facility] Medical Records Department [address] [place] [address] H P Exam - ACADEMIC ASSOCIATE 04/26/24 0723 MR#: [id number] Acct: [id number] Name: ESTRELLA RIOJAS Rep #: [id number] : 1990 33 From: Lakia Richards MD PCP: Dr. Julieta Prince MD Status:ADM [facility] - General General Date of Admission: 04/26/24 HPI Narrative ESTRELLA RIOJAS is a 33 F who presents for LTCS due to previous myomectomy. GDM. Maternal Data Information UNIQUE Calculator Estimated Delivery Date Method Current WG Current Estimate 05/24/24 Manual 36w 0d Other Estimates 05/20/24 Ultrasound #1 36w 4d PFSH PFSH Medical History (Updated 04/26/24 @ 06:06 by Whit Zelaya) Infertility HX: benign breast biopsy Left breast mass Blister Fibroadenoma of breast Anxiety Graves' disease Restless legs Syncope Blackout Non-smoker Depression Asthma Home Medications ???Medication ???Instructions ???Recorded ???Last Taken ???Type albuterol sulfate 90 mcg/actuation 2 puff inhalation Q6H PRN ASTHMA 01/21/22 04/25/24 16:00 History aerosol inhaler vits 75-iron 28 mg-folic 1 pkg PO DAILY supplement 4 04/25/24 22:00 History acid 800 mcg-omega-3 oral combo pack (One A Day Women's DHA) famotidine 10 mg tablet 10 mg PO BID acid reflux 02/16/24 04/25/24 22:00 History blood sugar diagnostic (Blood #120 ea 03/17/24 Unknown Rx Glucose Test strips) blood-glucose meter #1 ea 03/17/24 Unknown Rx lancets #200 ea 03/17/24 Unknown Rx sertraline 100 mg tablet (Zoloft) 100 mg PO DAILY anxiety #30 tabs 04/05/24 04/25/24 22:00 Rx Allergy/AdvReac Type Severity Reaction Status Date / Time shellfish derived Allergy Severe unknown Verified 04/26/24 05:49 latex Allergy Rash Verified 04/26/24 05:49 Family History Grandmother Breast cancer Uncle Lung cancer Surgical History S/P laparotomy History of breast biopsy History of oral surgery Social History adopted: No household members: spouse number of children: 0 current occupational status: employed current occupation: [employer] current occupational exposures/hazards: No pets and animals: Yes (Avoid litterbox) pets and animals: cat(s) history of recent travel: Yes ( -Oct) out of state: Yes out of country: No sexually active: Yes Smoking Status: Never smoker alcohol intake: never substance use type: does not use well-balanced diet: daily or most days caffeine: No eating out: 1-3 times/week during the past year weight has: remained stable what type of physical activity do you participate in: none lea/anglican: Islam seatbelt use: always do you feel safe at home: Yes additional social history: - Eliseo History 1 Elective abortions Hx Para 0 Spontaneous abortions Hx # Term Pregnancies Ectopic pregnancies Hx # Pregnancies Multiple births # of living children Visit Details Expected Delivery Route/Plan LTCS with Labor Preferences- CB/BF classes: yes labor support person: Tyler labor intervention preferences: [] pain management options preferred: [] cut cord/dad catch: [] : yes PP control planned: discussed discussed possible routes of delivery and associated risks: [] special requests: [] Plans Covid status: [] Flu vaccine: given Tdap vaccine: given Rhogam: NA LARC form signed: yes Problem list reviewed and updated with the most current plan of care details and appropriate orders placed. Relevant counseling for the gestational age provided. Continue routine care and follow up unless otherwise noted in visit notes/problem list details OB Flowsheet Initial Weight: 187 lb Date -???-???-???-???-???-?? ?-???-???-???-???-???-? ??- EGA Weight BP Urine Prot -???-???-???-???-???-?? ?-???-???-???-???-???-? ??- Glucose FHR FuHt Pres Dilation -???-???-???-???-???-?? ?-???-???-???-???-???-? ??- Effaced St Visit Note 10/22/23 -???-???-???-???-???-?? ?-???-???-???-???-???-? ??- 9w 2d 187 lb 2 oz (+2 oz) 110/77 -???-???-???-???-???-?? ?-???-???-???-???-???-? ??- 180 -???-???-???-???-???-?? ?-???-???-???-???-???-? ??- KW- CRL cons with dates. IVF transfer. genetics done with [facility]. likely needs P C/S due to hx of uterine surgery 11/19/23 -???-???-???-???-???-?? ?-???-???-???-???-???-? ??- 13w 2d 188 lb (+16 oz) 102/73 Negative -???-???-???-???-???-?? ?-???-???-???-???-???-? ??- Negative 150 -???-???-???-???-???-?? ?-???-???-???-???-???-? ??- SM- no vb cr amping discussed depression symptoms SM- no vb cramping discussed depre ssion symptoms (more content not included)... Normal [facility] Immature granulocytes/100 WB C Auto (Bld)Ordered By: Lakia Richards on 04-26-2024 Immature granulocytes/100 WBC (Bld) 0.400 % 0.0-0.9 [facility] Comment on above: IG% - Immature Granu locytes (promyelocytes, myelocytes and metamyelocytes) > 1% indicates that a LEFT SHIFT is Present. [id number] 04-26-2024 Syphilis Abs Non-Reactive Normal Nonreactive [facility] Comment on above: Performed By: #### L 509.8002 #### [facility] Laboratory [address] [place], [address] Lymphocytes Auto (Unsp spec) [#/Vol]Ordered By: Lakia Richards on 04-26-2024 Lymphocytes (Bld) [#/Vol] 1.90 10*3/uL 0.83-4.51 [facility] Lymphocytes/100 WBC Auto (Un sp spec)Ordered By: Lakia Richards on 04-26-2024 Lymphocytes/100 WBC (Bld) 13.9 % Low 19-41 [facility] Monocyte percentageOrdered B y: Lakia Richards on 04-26-2024 Monocytes/100 WBC (Bld) 5.5 % 0-10 [facility] Neutrophil percentageOrdered By: Lakia Richards on 04-26-2024 Neutrophils/100 WBC (Bld) 79.5 % High 47-70 [facility] Nucleated red blood cell per centageOrdered By: Lakia Richards on 04-26-2024 Nucleated RBC/100 WBC (Bld) [Ratio] 0 % 0-5 [facility] Operative Reporton Operative Report [facility] Medical Records Department [address] [place] [address] Operative Report 04/26/24 0724 MR#: [id number] Acct: [id number] Name: ESTRELLA RIOJAS Rep #: [id number] : 1990 33 From: Lakia Richards MD PCP: Dr. Julieta Prince MD Status:ADM IN Location: [id number] Assessment Plan (1) Gestational diabetes mellitus (GDM): COMMENT: diet controlled. growth US 35 weeks. (2) Supervision of high-risk : QUALIFIERS: Trimester: second trimester Qualified Code(s): O09.92 - Supervision of high risk , unspecified, second trimester COMMENT: PRR, , UNIQUE 05/24/24, levi Bernstein Eliseo (3) Conceived by in vitro fertilization: COMMENT: echo schedulednl (4) : QUALIFIERS: Weeks of gestation: 34 weeks Qualified Code(s): Z3A.34 - 34 weeks gestation of COMMENT: nl echo, nl anatomy (additional views in 2 weeks)previously had genetic and carrier testing-IVF (5) History of uterine fibroid: COMMENT: removed SM- needs P C/S at 36 weeks. (6) Female infertility associated with male factors: COMMENT: seeing [facility], Embryo transfer planned August 2023 (7) Positive test for genetic breast cancer susceptibility marker: COMMENT: Positive CHEK2: yearly mammogram and MRI with imaging Q 6 mo. (8) Depression: QUALIFIERS: Depression Type: reactive depression Qualified Code(s): F32.9 - Major depressive disorder, single episode, unspecified COMMENT: on meds/stable (9) Anxiety: COMMENT: on meds (10) delivery delivered: COMMENT: LTCS 36 SM levi bernstein gdm previous myomectomy Maternal Data Information UNIQUE Calculator Estimated Delivery Date Method Current WG Current Estimate 05/24/24 Manual 36w 0d Other Estimates 05/20/24 Ultrasound #1 36w 4d Final UNIQUE Source: LMP Operative Report (OB) Cecarean Details Procedure Type: low transverse Date of Procedure: 04/26/24 Procedure Start Time: 07:48 Procedure Stop Time: 08:30 Pre-Operative Diagnosis: Other Other Pre-Operative diagnosis: see a/p comments Post-Operative Diagnosis: Same as Pre-operative diagnosis Classification: Scheduled Type of Anesthesia: Spinal Special Medications: none Antibiotic Given: Ancef 2 grams IV x1 Drain: Garcia to straight drain Estimated Blood Loss: 1100 Fluids Replaced: crystalloid Findings Description of surgery: Patient had a prevoius myomectomy so 36 week delivery was recommended. Spinal anesthesia was placed without difficulty. Garcia catheter was placed. The patient was placed in the dorsal supine position with leftward tilt. Patient was prepped and draped in the normal sterile fashion. Pfannenstiel skin incision was made with the scalpel and carried through to the underlying layer of fascia with the scalpel. Fascia was nicked in the midline and the incision extended laterally. The rectus bellies were dissected off superiorly and inferiorly with out complication both sharply and bluntly. The peritoneum was entered digitally. omental to peritoneum adhesions encountered and taken down with the ligasure. The incision was stretched and a low transverse uterine incision was made with the scalpel. The 's head was delivered atraumatically followed by the anterior and posterior shoulders without complication the rest of the delivered. large blood vessels were encountered and a larger blood loss was encountered approximatlye 1100cc. The cord was clamped and cut and the infant was handed off to awaiting nurse. The placenta was delivered spontaneously immediately following and was noted to be intact and have a three-vessel cord. The uterus was exteriorized cleared of all clots and debris, and the incision was closed in a single layer closure using #1 Monocryl. The ovaries and fallopian tubes were noted to be within normal limits. The uterus was returned to the maternal abdomen and gutters were cleared of all clots and debris. The peritoneum was closed with 3-0 Monocryl in a running fashion. Gloves were changed prior to fascial closure. Fascia was closed with 0 PDS in a running fashion. Subcutaneous tissue was copiously irrigated and the skin was closed with 3-0 Monocryl in a subcuticular fashion. Mepilex dressing was applied without complication. Patient was taken to recovery in stable condition. It was discussed with the patient that based on the clinical information obtained during this encounter, combined with her history, at this time I would recommend for future deliveries if further pregnancies are desired. Surgical findings: nl uterus tubes ovaries two small 2 cm fibroid in posterior uterine wall Presentation: Vertex Amniotic Membrane Rupture Type: Artificial Amniotic Fluid Description: Clear Specimen collected: Yes Description of specimen(s) removed: placenta and baby Cord Vessel Description: 3 Vess (more content not included)... Normal [facility] T. pallidum abOrdered By: Rogers Kinsey on 04-26-2024 Syphilis Total Antibody Non-Reactive Nonreactiv e [facility] Type AND Screenon 04-26-2024 ABO and Rh group Nom (Bld) Blood group A Rh(D) positive Normal [facility] Comment on above: Order Comment: Y Performed By: #### L 500.4710 #### [facility] Laboratory [address] [facility] [place], [place], [id number] OB Limited With Biometricson 04-19-2024 OB Limited With Biometrics [facility] [address] [place], [place] [id number] OB Limited With Biometrics MR#: [id number] Acct: [id number] Name: ESTRELLA RIOJAS Rep #: [id number] : 1990 F 33 From: Akhil woo MD PCP: Dr. Julieta Prince MD Status: REG CLI Study: OB Limited With Biometrics Date of Exam: 04/19 Exam# [id number] Ordering Dr: Lakia Richards PROCEDURE: OB LIMITED WITH BIOMETRICS REASON FOR EXAM: GROWTH COMPARISON: None. FINDINGS Number: 1 Position: Vertex Placental Position: Posterior and not low-lying. Placental Abnormalities: None. DIMENSIONS: Biparietal Diameter: 9 cm: 36 weeks and 2 days: 86 percentile/ Head Circumference: 32.3 cm: 36 weeks and 3 days: 52 percentile/ Abdominal Circumference: 31.5 cm: 35 weeks and 3 days: 70 percentile/ Femur Length: 6.7 cm: 34 weeks and 2 days: 25th percentile/ ESTIMATED WEIGHT: 2672 g plus/-401 g ESTIMATED WEIGHT PERCENTILE (24+ weeks): 59 ESTIMATED GESTATIONAL AGE: Baseline: 35 weeks and 0 days By Ultrasound: 35 weeks and 4 days ESTIMATED DATE OF DELIVERY: Baseline: May 24, 2024 By Ultrasound: May 20, 2024 BIOPHYSICAL ASSESSMENT: Amniotic Fluid Volume: Subjectively normal. Amniotic Fluid Index: 14.7 (8-24 cm normal range) Cardiac Motion: 157 beats per minute (average) Trunk and Limb Motion: Present. MATERNAL ANATOMY: Adnexa: Neither maternal ovary is successfully identified. US/OB Limited With Biometrics IMPRESSION: Single live intrauterine gestation with a mean gestational age of 35 weeks and 4 days. Reading Location: [place] [address] CC: Dr. Julieta Prince MD; Dr. Lakia Richards MD Psychiatry Resident: Signed Normal [facility] Laboratory - Chemistry and C hemistry - challengeOrdered By: Lakia Richards on 04-18-2024 Glucose Ql (U) Negative [facility] Laboratory - UrinalysisOrder ed By: Lakia Richards on 04-18-2024 Protein Ql (U) Negative [facility] Director Energy Office Visit Reporton 04-18-2024 Director Energy Office Visit Report [facility] [address], [address] [place] [address] OFFICE VISIT Date of Service: 04/18/24 MR#: [id number] Acct: [id number] Name: ESTRELLA RIOJAS Rep #: [id number] : 1990 Provider: Dr. Lakia guillermo MD Age/Sex: 33/F Location: [facility] Status: Signed Intake Vital Signs 04/12/24 14:20 04/18/24 09:55 Height 5 ft 6 in 5 ft 6 in Weight: 199 lb BMI 32.1 BP 106/75 Intake Visit Reasons: 35 wk ob Freight Checker Required: No Is patient in pain?: No Feel stressed/tense/nervous/ anxious/difficulty sleeping: not at all Allergies shellfish derived Allergy (Severe, Verified 04/18/24 09:57) unknown latex Allergy (Verified 04/18/24 09:57) Rash Medications ???Medication ???Instructions ???Recorded ???Confirmed ???Type albuterol sulfate 90 mcg/actuation 2 puff inhalation Q6H PRN ASTHMA 01/21/22 04/18/24 History aerosol inhaler vits 75-iron 28 mg-folic pkg PO 04/19/23 04/18/24 History acid 800 mcg-omega-3 oral combo pack (One A Day Women's DHA) ferrous sulfate 325 mg (65 mg 325 mg PO QDAY #30 tabs 01/19/24 0 04/18/24 Rx iron) tablet,delayed release famotidine 10 mg tablet 10 mg PO BID 02/16/24 04/18/24 His tory blood sugar diagnostic (Blood #120 ea 03/17/24 04/18/24 Rx Glucose Test strips) blood-glucose meter #1 ea 03/17/24 04/18/24 Rx lancets #200 ea 03/17/24 04/18/24 Rx sertraline 100 mg tablet (Zoloft) 100 mg PO DAILY #30 tabs 04/05/24 04/18/24 Rx Last Menstrual Period: 08/14/23 Zika: Zika virus screening: Negative : No PFSH PFSH Medical History HX: benign breast biopsy Left breast mass Blister Fibroadenoma of breast Anxiety Graves' disease Restless legs Syncope Blackout Non-smoker Depression Asthma Surgical History S/P laparotomy History of breast biopsy History of oral surgery Family History Grandmother Breast cancer Uncle Lung cancer Social History adopted: No household members: spouse number of children: 0 current occupational status: employed current occupation: [employer] current occupational exposures/hazards: No pets and animals: Yes (Avoid litterbox) pets and animals: cat(s) history of recent travel: Yes ( -Oct) out of state: Yes out of country: No sexually active: Yes Smoking Status: Never smoker alcohol intake: never substance use type: does not use well-balanced diet: daily or most days caffeine: No eating out: 1-3 times/week during the past year weight has: remained stable what type of physical activity do you participate in: none lea/anglican: Islam seatbelt use: always do you feel safe at home: Yes additional social history: - Eliseo History 1 Elective abortions Hx Para 0 Spontaneous abortions Hx # Term Pregnancies Ectopic pregnancies Hx # Pregnancies Multiple births # of living children HPI 35 wk ob Details: ESTRELLA RIOJAS is a 33 year old who presents for routine OB visit. OB Visit UNIQUE Calculator Estimated Delivery Date Method Current WG Current Estimate 05/24/24 Manual 34w 6d Other Estimates 05/20/24 Ultrasound #1 35w 3d Expected Delivery Route/Plan LTCS with SM Labor Preferences- CB/BF classes: yes labor support person: Tyler labor intervention preferences: [] pain management options preferred: [] cut cord/dad catch: [] : yes PP control planned: discussed discussed possible routes of delivery and associated risks: [] special requests: [] Specific Issue/Plans Covid status: [] Flu vaccine: given Tdap vaccine: given Rhogam: NA LARC form signed: yes Problem list reviewed and updated with the most current plan of care details and appropriate orders placed. Relevant counseling for the gestational age provided. Continue routine care and follow up unless otherwise noted in visit notes/problem list details Initial Weight: 187 lb Date -???-???-???-???-???-?? ?-???-???-???-???-???-? ??- EGA Weight BP Urine Prot -???-???-???-???-???-?? ?-???-???-???-???-???-? ??- Glucose FHR FuHt Pres Dilation -???-???-???-???-???-?? ?-???-???-???-???-???-? ??- Effaced St Visit Note 10/22/23 -???-???-???-???-???-?? ?-???-???-???-???-???-? ??- 9w 2d 187 lb 2 oz (+2 oz) 110/77 -???-???-???-???-???-?? ?-???-???-???-???-???-? ??- 180 -???-???-???-???-???-?? ?-???-???-???-???-???-? ??- KW- CRL cons with dates. IVF transfer. genetics done with [facility]. likely needs P C/S due to hx of uterine surgery 11/19/23 -???-???-?? (more content not included)... Normal [facility] Laboratory - Chemistry and C hemistry - challengeOrdered By: Lakia Richards on 04-12-2024 Glucose Ql (U) Negative [facility] Laboratory - UrinalysisOrder ed By: Lakia Richards on 04-12-2024 Protein Ql (U) Negative [facility] Director Energy Office Visit Reporton 04-12-2024 Director Energy Office Visit Report [facility] [address] [place] [address], [address] [place] [address] OFFICE VISIT Date of Service: 04/12/24 MR#: [id number] Acct: [id number] Name: ESTRELLA RIOJAS Rep #: [id number] : 1990 Provider: Dr. Lakia guillermo MD Age/Sex: 33/F Location: [facility] Status: Signed Intake Vital Signs 12/21/23 13:54 04/03/24 15:17 04/12/24 14:20 Height 5 ft 6 in 5 ft 6 in 5 ft 6 in Weight: 203 lb 8 oz BMI 32.8 BP 102/70 Intake Visit Reasons: 34 WK OB Freight Checker Required: No Allergies shellfish derived Allergy (Severe, Verified 04/12/24 14:21) unknown latex Allergy (Verified 04/12/24 14:21) Rash Medications ???Medication ???Instructions ???Recorded ???Confirmed ???Type albuterol sulfate 90 mcg/actuation 2 puff inhalation Q6H PRN ASTHMA 01/21/22 04/12/24 History aerosol inhaler vits 75-iron 28 mg-folic pkg PO 04/19/23 04/12/24 History acid 800 mcg-omega-3 oral combo pack (One A Day Women's DHA) ferrous sulfate 325 mg (65 mg 325 mg PO QDAY #30 tabs 01/19/24 0 04/12/24 Rx iron) tablet,delayed release famotidine 10 mg tablet 10 mg PO BID 02/16/24 04/12/24 His tory blood sugar diagnostic (Blood #120 ea 03/17/24 04/12/24 Rx Glucose Test strips) blood-glucose meter #1 ea 03/17/24 04/12/24 Rx lancets #200 ea 03/17/24 04/12/24 Rx sertraline 100 mg tablet (Zoloft) 100 mg PO DAILY #30 tabs 04/05/24 04/12/24 Rx Last Menstrual Period: 08/14/23 Zika: Zika virus screening: Negative : No PFSH PFSH Medical History HX: benign breast biopsy Left breast mass Blister Fibroadenoma of breast Anxiety Graves' disease Restless legs Syncope Blackout Non-smoker Depression Asthma Surgical History S/P laparotomy History of breast biopsy History of oral surgery Family History Grandmother Breast cancer Uncle Lung cancer Social History adopted: No household members: spouse number of children: 0 current occupational status: employed current occupation: [employer] current occupational exposures/hazards: No pets and animals: Yes (Avoid litterbox) pets and animals: cat(s) history of recent travel: Yes ( -Oct) out of state: Yes out of country: No sexually active: Yes Smoking Status: Never smoker alcohol intake: never substance use type: does not use well-balanced diet: daily or most days caffeine: No eating out: 1-3 times/week during the past year weight has: remained stable what type of physical activity do you participate in: none lea/anglican: Islam seatbelt use: always do you feel safe at home: Yes additional social history: - Eliseo History 1 Elective abortions Hx Para 0 Spontaneous abortions Hx # Term Pregnancies Ectopic pregnancies Hx # Pregnancies Multiple births # of living children HPI 34 WK OB Details: ESTRELLA RIOJAS is a 33 year old who presents for routine OB visit. OB Visit UNIQUE Calculator Estimated Delivery Date Method Current WG Current Estimate 05/24/24 Manual 34w 0d Other Estimates 05/20/24 Ultrasound #1 34w 4d Expected Delivery Route/Plan LTCS with SM Labor Preferences- CB/BF classes: yes labor support person: Tyler labor intervention preferences: [] pain management options preferred: [] cut cord/dad catch: [] : yes PP control planned: discussed discussed possible routes of delivery and associated risks: [] special requests: [] Specific Issue/Plans Covid status: [] Flu vaccine: given Tdap vaccine: given Rhogam: NA LARC form signed: yes Problem list reviewed and updated with the most current plan of care details and appropriate orders placed. Relevant counseling for the gestational age provided. Continue routine care and follow up unless otherwise noted in visit notes/problem list details Initial Weight: 187 lb Date -???-???-???-???-???-?? ?-???-???-???-???-???-? ??- EGA Weight BP Urine Prot -???-???-???-???-???-?? ?-???-???-???-???-???-? ??- Glucose FHR FuHt Pres Dilation -???-???-???-???-???-?? ?-???-???-???-???-???-? ??- Effaced St Visit Note 10/22/23 -???-???-???-???-???-?? ?-???-???-???-???-???-? ??- 9w 2d 187 lb 2 oz (+2 oz) 110/77 -???-???-???-???-???-?? ?-???-???-???-???-???-? ??- 180 -???-???-???-???-???-?? ?-???-???-???-???-???-? ??- KW- CRL cons with dates. IVF transfer. genetics done with [facility]. likely needs P C/S due to hx of uterine surgery 11/19/23 -???-???-???-???-???-?? ?-???-???-???-???-???-? ??- 13w 2d 188 lb (+16 oz (more content not included)... Normal [facility] - Chemistry and C hemistry - challengeOrdered By: Lakia Richards on 03-30-2024 Glucose Ql (U) Negative [facility] Laboratory - UrinalysisOrder ed By: Lakia Richards on 03-30-2024 Protein Ql (U) Negative [facility] Director Energy Office Visit Reporton 03-30-2024 Director Energy Office Visit Report [facility] [address], [address] [place] [address] OFFICE VISIT Date of Service: 03/30/24 MR#: [id number] Acct: [id number] Name: ESTRELLA RIOJAS Rep #: [id number] : 1990 Provider: Dr. Lakia guillermo MD Age/Sex: 33/F Location: [facility] Status: Signed Intake Vital Signs 12/21/23 13:54 12/21/23 14:39 03/17/24 14:48 03/30/24 14:28 Height 5 ft 6 in 5 ft 6 in 5 ft 6 in 5 ft 6 in Weight: 207 lb BMI 33.4 BP 115/75 Intake Visit Reasons: 33 WK OB Freight Checker Required: No Is patient in pain?: No Allergies shellfish derived Allergy (Severe, Verified 03/30/24 14:31) unknown latex Allergy (Verified 03/30/24 14:31) Rash Medications ???Medication ???Instructions ???Recorded ???Confirmed ???Type albuterol sulfate 90 mcg/actuation 2 puff inhalation Q6H PRN ASTHMA 01/21/22 03/30/24 History aerosol inhaler vits 75-iron 28 mg-folic pkg PO 04/19/23 03/30/24 History acid 800 mcg-omega-3 oral combo pack (One A Day Women's DHA) ferrous sulfate 325 mg (65 mg 325 mg PO QDAY #30 tabs 01/19/24 0 03/30/24 Rx iron) tablet,delayed release famotidine 10 mg tablet 10 mg PO BID 02/16/24 03/30/24 His tory sertraline 100 mg tablet (Zoloft) 100 mg PO DAILY #30 tabs 03/06/24 03/30/24 Rx blood sugar diagnostic (Blood #120 ea 03/17/24 03/30/24 Rx Glucose Test strips) blood-glucose meter #1 ea 03/17/24 03/30/24 Rx lancets #200 ea 03/17/24 03/30/24 Rx Last Menstrual Period: 08/14/23 Zika: Zika virus screening: Negative : No PFSH PFSH Medical History HX: benign breast biopsy Left breast mass Blister Fibroadenoma of breast Anxiety Graves' disease Restless legs Syncope Blackout Non-smoker Depression Asthma Surgical History S/P laparotomy History of breast biopsy History of oral surgery Family History Grandmother Breast cancer Uncle Lung cancer Social History adopted: No household members: spouse number of children: 0 current occupational status: employed current occupation: [employer] current occupational exposures/hazards: No pets and animals: Yes (Avoid litterbox) pets and animals: cat(s) history of recent travel: Yes ( -Oct) out of state: Yes out of country: No sexually active: Yes Smoking Status: Never smoker alcohol intake: never substance use type: does not use well-balanced diet: daily or most days caffeine: No eating out: 1-3 times/week during the past year weight has: remained stable what type of physical activity do you participate in: none lea/anglican: Islam seatbelt use: always do you feel safe at home: Yes additional social history: - Eliseo History 1 Elective abortions Hx Para 0 Spontaneous abortions Hx # Term Pregnancies Ectopic pregnancies Hx # Pregnancies Multiple births # of living children HPI 33 WK OB Details: ESTRELLA RIOJAS is a 33 year old who presents for routine OB visit. OB Visit UNIQUE Calculator Estimated Delivery Date Method Current WG Current Estimate 05/24/24 Manual 32w 1d Other Estimates 05/20/24 Ultrasound #1 32w 5d Expected Delivery Route/Plan LTCS with SM Labor Preferences- CB/BF classes: yes labor support person: Tyler labor intervention preferences: [] pain management options preferred: [] cut cord/dad catch: [] : yes PP control planned: discussed discussed possible routes of delivery and associated risks: [] special requests: [] Specific Issue/Plans Covid status: [] Flu vaccine: given Tdap vaccine: given Rhogam: NA LARC form signed: yes Problem list reviewed and updated with the most current plan of care details and appropriate orders placed. Relevant counseling for the gestational age provided. Continue routine care and follow up unless otherwise noted in visit notes/problem list details Initial Weight: 187 lb Date -???-???-???-???-???-?? ?-???-???-???-???-???-? ??- EGA Weight BP Urine Prot -???-???-???-???-???-?? ?-???-???-???-???-???-? ??- Glucose FHR FuHt Pres Dilation -???-???-???-???-???-?? ?-???-???-???-???-???-? ??- Effaced St Visit Note 10/22/23 -???-???-???-???-???-?? ?-???-???-???-???-???-? ??- 9w 2d 187 lb 2 oz (+2 oz) 110/77 -???-???-???-???-???-?? ?-???-???-???-???-???-? ??- 180 -???-???-???-???-???-?? ?-???-???-???-???-???-? ??- KW- CRL cons with dates. IVF transfer. genetics done with [facility]. likely needs P C/S due to hx of uterine surgery 11/19/23 -???-???-???-???-???-?? ?-?? (more content not included)... Normal [facility] Echo Completeon 03-17-2024 Echo Complete [facility] [address] [place] [address] Echo Complete 03/17/24 1300 MR#: [id number] Acct: [id number] Name: ESTRELLA RIOJAS Rep #: [id number] : 1990 33 From: David Miles MD Attending Dr: Dr. Cecil Ramirez MD Status: RE G CLI Ordering Dr: Cecil Ramirez MD Date: 03/17/24 Location: [facility] Sex: F C Admitted: Reason For Study: Tachy Procedure This was a 2D Doppler, Color Flow transthoracic echocardiogram. Exam performed in department. Left Ventricle Normal LV size. Left ventricular systolic function is normal. The left ventricular ejection fraction is 55 %. No regional wall motion abnormalities noted. Right Ventricle Normal RV size. Normal systolic function. Atria Normal left atrium. Normal right atrium. Mitral Valve Normal mitral valve. Tricuspid Valve Normal tricuspid valve. Aortic Valve Trisinus/trileaflet aortic valve. Pulmonic Valve Normal pulmonic valve. Great Vessels Normal aortic root. The pulmonary artery is normal size. Normal inferior vena cava. Pericardium/Pleural No pericardial effusion. MMode/2D Measurements Calculations LVIDd: 4.8 cm IVSd: 0.94 cm LVOT diam: 2.0 cm LVIDs: 3.4 cm LVPWd: 0.99 cm LVOT area: 3.1 cm2 FS: 29.1 % Ao root diam: 2.8 cm LAV(MOD-bp): 45.9 ml LVAd ap4: 28.1 cm2 LAV(MOD-bp) Indexed: 22.9 ml/m2 LVLd ap4: 8.9 cm LAV(MOD-sp2): 46.9 ml EDV(MOD-sp4): 76.1 ml LAV(MOD-sp4): 36.8 ml EDV(sp4-el): 75.6 ml LVAs ap4: 16.8 cm2 LVLs ap4: 7.3 cm ESV(MOD-sp4): 32.5 ml ESV(sp4-el): 32.8 ml EF(MOD-sp4): 57.3 % EF(sp4-el): 56.7 % SV(MOD-sp4): 43.6 ml SV(sp4-el): 42.9 ml LA A4 area: 16.1 cm2 SI(MOD-sp4): 21.8 ml/m2 LA dimension(2D): 3.9 cm RA A4 area: 8.3 cm2 Time Measurements MV dec time: 0.14 sec Doppler Measurements Calculations MV E max shawnee: 86.7 cm/sec Lat Peak E' [place]: 19.9 cm/sec Med Peak E' [place]: 12.4 cm/sec MV A max shawnee: 59.0 cm/sec E/E' lat: 4.4 E/E' med: 7.0 MV E/A: 1.5 MV V2 max: 105.0 cm/sec Ao V2 max: 123.6 cm/sec MV max P.4 mmHg MV dec slope: 605.5 cm/sec2 Ao max P.1 mmHg MV V2 mean: 65.1 cm/sec Ao V2 mean: 83.3 cm/sec MV mean P.9 mmHg Ao mean P.2 mmHg MV V2 VTI: 30.7 cm Ao V2 VTI: 22.8 cm AV (velocity ratio): 0.89 MVA(VTI): 2.1 cm2 MIKE(I,D): 2.8 cm2 MIKE(V,D): 2.7 cm2 LV V1 max: 106.3 cm/sec SV(LVOT): 63.6 ml PA V2 max: 114.2 cm/sec LV V1 max P.5 mmHg PA V2 mean: 81.0 cm/sec LV V1 mean P.5 mmHg LV V1 mean: 73.2 cm/sec LV V1 VTI: 20.2 cm ECHO/Echo Complete Interpretation Summary Normal LV size. Left ventricular systolic function is normal. The left ventricular ejection fraction is 55 %. Structurally normal valves. Ordering Physician: Cecil Ramirez Referring Physician: Cecil Ramirez Performed By: Nuris Duran RCS 03/17/24 173 Date David Miles MD CC: Dr. Julieta Prince MD; Dr. Cecil Ramirez MD Date Dictated: 03/17/24 1300 Date Transcribed: 03/17/241733 Psychiatry Resident: Signed Normal [facility] Laboratory - Chemistry and C hemistry - challengeOrdered By: Lakia Richards on 03-17-2024 Glucose Ql (U) Negative [facility] Laboratory - UrinalysisOrder ed By: Lakai Richards on 03-17-2024 Protein Ql (U) Negative [facility] Director Energy Office Visit Reporton 03-17-2024 Director Energy Office Visit Report [facility]'s [address], [address] [place] [address] OFFICE VISIT Date of Service: 03/17/24 MR#: [id number] Acct: [id number] Name: ESTRELLA RIOJAS Rep #: [id number] : 1990 Provider: Dr. Lakia guillermo MD Age/Sex: 33/F Location: [facility] Status: Signed Intake Vital Signs 12/21/23 13:54 12/21/23 14:39 02/29/24 13:33 03/17/24 14:47 03/17/24 14:48 Height 5 ft 6 in 5 ft 6 in 5 ft 6 in 5 ft 6 in 5 ft 6 in Weight: 206 lb 2 oz 206 lb BMI 33.3 33.2 BP 108/70 104/72 Intake Visit Reasons: 30 WK OB Freight Checker Required: No Is patient in pain?: No Feel stressed/tense/nervous/ anxious/difficulty sleeping: not at all Allergies shellfish derived Allergy (Severe, Verified 03/17/24 14:47) unknown latex Allergy (Verified 03/17/24 14:47) Rash Medications ???Medication ???Instructions ???Recorded ???Confirmed ???Type albuterol sulfate 90 mcg/actuation 2 puff inhalation Q6H PRN ASTHMA 01/21/22 03/17/24 History aerosol inhaler vits 75-iron 28 mg-folic pkg PO 04/19/23 03/17/24 History acid 800 mcg-omega-3 oral combo pack (One A Day Women's DHA) ferrous sulfate 325 mg (65 mg 325 mg PO QDAY #30 tabs 01/19/24 0 03/17/24 Rx iron) tablet,delayed release famotidine 10 mg tablet 10 mg PO BID 02/16/24 03/17/24 His tory sertraline 100 mg tablet (Zoloft) 100 mg PO DAILY #30 tabs 03/06/24 03/17/24 Rx blood sugar diagnostic (Blood #120 ea 03/17/24 03/17/24 Rx Glucose Test strips) blood-glucose meter #1 ea 03/17/24 03/17/24 Rx lancets #200 ea 03/17/24 03/17/24 Rx Last Menstrual Period: 08/14/23 Zika: Zika virus screening: Negative : No Have you fallen in the past year?: No PFSH PFSH Medical History HX: benign breast biopsy Left breast mass Blister Fibroadenoma of breast Anxiety Graves' disease Restless legs Syncope Blackout Non-smoker Depression Asthma Surgical History S/P laparotomy History of breast biopsy History of oral surgery Family History Grandmother Breast cancer Uncle Lung cancer Social History adopted: No household members: spouse number of children: 0 current occupational status: employed current occupation: [employer] current occupational exposures/hazards: No pets and animals: Yes (Avoid litterbox) pets and animals: cat(s) history of recent travel: Yes ( -Oct) out of state: Yes out of country: No sexually active: Yes Smoking Status: Never smoker alcohol intake: never substance use type: does not use well-balanced diet: daily or most days caffeine: No eating out: 1-3 times/week during the past year weight has: remained stable what type of physical activity do you participate in: none lea/anglican: Islam seatbelt use: always do you feel safe at home: Yes additional social history: - Eliseo History 1 Elective abortions Hx Para 0 Spontaneous abortions Hx # Term Pregnancies Ectopic pregnancies Hx # Pregnancies Multiple births # of living children HPI 30 WK OB Details: ESTRELLA RIOJAS is a 33 year old who presents for routine OB visit. OB Visit UNIQUE Calculator Estimated Delivery Date Method Current WG Current Estimate 05/24/24 Manual 30w 2d Other Estimates 05/20/24 Ultrasound #1 30w 6d Expected Delivery Route/Plan LTCS with Labor Preferences- CB/BF classes: yes labor support person: Tyler labor intervention preferences: [] pain management options preferred: [] cut cord/dad catch: [] : yes PP control planned: discussed discussed possible routes of delivery and associated risks: [] special requests: [] Specific Issue/Plans Covid status: [] Flu vaccine: given Tdap vaccine: given Rhogam: NA LARC form signed: yes Problem list reviewed and updated with the most current plan of care details and appropriate orders placed. Relevant counseling for the gestational age provided. Continue routine care and follow up unless otherwise noted in visit notes/problem list details Initial Weight: 187 lb Date -???-???-???-???-???-?? ?-???-???-???-???-???-? ??- EGA Weight BP Urine Prot -???-???-???-???-???-?? ?-???-???-???-???-???-? ??- Glucose FHR FuHt Pres Dilation -???-???-???-???-???-?? ?-???-???-???-???-???-? ??- Effaced St Visit Note 10/22/23 -???-???-???-???-???-?? ?-???-???-???-???-???-? ??- 9w 2d 187 lb 2 oz (+2 oz) 110/77 -???-???-???-???-???-?? ?-???-???-???-???-???-? ??- 180 -???-???-???-???-???-?? ?-???-???-???-???-???-? ?? (more content not included)... Normal [facility] Bedside Glucoseon 03-09-2024 FINGERSTICK GLU 78 mg/dL Normal 74-106 [facility] Comment on above: Result Comment: EDELMIRA AYLEENENT OF PATIENT CARE PER NURSING PROTOCOL Performed By: #### L 509.8002 #### [facility] Laboratory [address] [place], [place], [address] Gestational GTT 3HR 100gon 0 03-09-2024 3HR GTT- GEST. Normal [facility] Comment on above: Order Comment: Y Result Comment: FAST ING 84 Col: 03/09/24 0709 GLUCOSE TOLERANCE TEST FOR Reference Interval GESTATIONAL DIABETES Fasting <105 mg/dL 1 hour <190 mg/dl 2 hour <165 mg/dl 3 hour <145 mg/dl 1 HR GLU Col: 03/09/24 0812 2 HR GLU Col: 03/09/24 0912 3 HR GLU Col: 03/09/24 1012 Performed By: #### L 500.9956 #### [facility] [address] [place], [place], [id number] [facility] deOrdered By: Nadeen Turner on 03-09-2024 [facility] 78 mg/dL 74-106 [facility] Comment on above: MANAGEMENT OF PATIEN T CARE PER NURSING PROTOCOL Glucose tolerance 3 hours ge stational panelOrdered By: Nadeen Turner on 03-09-2024 Gestational Glucose Tolerance Test See comment [facility] Comment on above: FASTING 84 Col: 02/10 0709GLUCOSE TOLERANCE TEST FOR Reference Interval GESTATIONAL DIABETES Fasting <105 mg/dL 1 hour <190 mg/dl 2 hour <165 mg/dl 3 hour <145 mg/dl Absolute neutrophil countOrd ered By: Lakia Richards on 02-29-2024 Neutrophils (Bld) [#/Vol] 7.8 10*3/uL High 2.0-7.7 [facility] Basophil percentageOrdered B y: Lakia Richards on 02-29-2024 Basophils/100 WBC (Bld) 0.5 % 0-1 [facility] CBC W/Diff, Automatedon 02-09 Absolute Lymph 2.51 X10 3/uL Normal 0.83-4.51 [facility] Comment on above: Performed By: #### L 509.8002 #### [facility] [address] [place], [address] Absolute Neut 7.8 X10 3/uL High 2.0-7.7 [facility] Comment on above: Performed By: #### L 509.8002 #### [facility] [address] [place], [address] Basophils/100 WBC (Bld) 0.5 % Normal 0-1 [facility] Comment on above: Performed By: #### L 509.8002 #### [facility] [address] [place], [address] Eosinophils/100 WBC (Bld) 2.4 % Normal 0-5 [facility] Comment on above: Performed By: #### L 509.8002 #### [facility] [address] [place], [address] Erythrocyte distribution width (RBC) [Ratio] 15.0 % High 11.6-14.6 [facility] Comment on above: Performed By: #### L 509.8002 #### [facility] [address] [place], [address] Hematocrit (Bld) [Volume fraction] 31.0 % Low 37-47 [facility] Comment on above: Performed By: #### L 509.8002 #### [facility] [address] [place], [address] Hemoglobin (Bld) [Mass/Vol] 9.8 g/dL Low 12.0-15.0 [facility] Comment on above: Performed By: #### L 509.8002 #### [facility] [address] [place], [address] IG% 0.600 Normal 0.0-0.9 [facility] Comment on above: Result Comment: IG% - Immature Granulocytes (promyelocytes, myelocytes and metamyelocytes) > 1% indicates that a LEFT SHIFT is Present. Performed By: #### L 509.8002 #### [facility] [address] [place], [address] Lymphocytes/100 WBC (Bld) 22.1 % Normal 19-41 [facility] Comment on above: Performed By: #### L 509.8002 #### [facility] [address] [place], [address] MCH (RBC) [Entitic mass] 26.0 pg Low 27.0-32.0 [facility] Comment on above: Performed By: #### L 509.8002 #### [facility] [address] [place], [address] MCHC (RBC) [Mass/Vol] 31.6 g/dL Low 32-36 [facility] Comment on above: Performed By: #### L [id number] #### [facility] [address] [place], [address] MCV (RBC) [Entitic vol] 82.2 fL Normal 81-99 [facility] Comment on above: Performed By: #### L [id number] #### [facility] [address] [place], [address] Monocytes/100 WBC (Bld) 5.4 % Normal 0-10 [facility] Comment on above: Performed By: #### L [id number] #### [facility] [address] [place], [address] Neutrophils/100 WBC (Bld) 69.0 % Normal 47-70 [facility] Comment on above: Performed By: #### L [id number] #### [facility] [address] [place], [address] Nucleated RBC (Bld) [#/Vol] 0 10*3/uL Normal 0-5 [facility] Comment on above: Performed By: #### L 509.8002 #### [facility] [address] [place], [address] Platelet mean volume (Bld) [Entitic vol] 10.0 fL Normal 6.2-12.0 [facility] Comment on above: Performed By: #### L 509.8002 #### [facility] [address] [place], [address] Platelets (Bld) [#/Vol] 371 10*3/uL Normal 150-450 [facility] Comment on above: Performed By: #### L [id number] #### [facility] [address] [place], [address] RBC (Bld) [#/Vol] 3.77 10*6/uL Low 4.2-5.4 [facility] Comment on above: Performed By: #### L [id number] #### [facility] [address] [place], [address] RDW SD 42.9 fl Normal 35.1-43.9 [facility] Comment on above: Performed By: #### L [id number] #### [facility] [address] [place], [address] WBC (Bld) [#/Vol] 11.4 10*3/uL High 4.4-11.0 [facility] Comment on above: Performed By: #### L 509.8002 #### [facility] [address] [place], [address] Eosinophil percentageOrdered By: Lakia Richards on 02-29-2024 Eosinophils/100 WBC (Bld) 2.4 % 0-5 [facility] Erythrocyte distribution wid th ratioOrdered By: Lakia Richards on 02-29-2024 Erythrocyte distribution width (RBC) [Ratio] 15.0 % High 11.6-14.6 [facility] Erythrocyte distribution wid th standard deviationOrdered By: Lakia Richards on 02-29-2024 Erythrocyte distribution width (RBC) [Entitic vol] 42.9 fL 35.1-43.9 [facility] Glucose 1 Hr post 50 g gluco se PO [Mass/Vol]Ordered By: Lakia Richards on 02-29-2024 Glucose [Mass/Vol] 169 mg/dL High 70-140 [facility] Glucose Challenge Gest 1H 50 josseline 02-29-2024 GLU GEST 50g 1H 169 mg/dL High 70-140 [facility] Comment on above: Performed By: #### L 509.8002 #### [facility] [address] [place], [address] HIV - WCHon 02-29-2024 HIV Non-Reactive Normal Nonreactive [facility] Comment on above: Performed By: #### L 509.8002 #### [facility] [address] [place], [address] HIV 1+2 Ab+HIV1 p24 Ag IA Ql Ordered By: Lakia Richards on 02-29-2024 HIV (1&2) Antibody Non-Reactive Nonreactive [facility] Hematocrit Auto (Bld) [Volum e fraction]Ordered By: Lakia Richards on 02-29-2024 Hematocrit (Bld) [Volume fraction] 31.0 % Low 37-47 [facility] Hemoglobin measurementOrdere d By: Lakia Richards on 02-29-2024 Hemoglobin (Bld) [Mass/Vol] 9.8 g/dL Low 12.0-15.0 [facility] Immature granulocytes/100 WB C Auto (Bld)Ordered By: Lakia Richards on 02-29-2024 Immature granulocytes/100 WBC (Bld) 0.600 % 0.0-0.9 [facility] Comment on above: IG% - Immature Granu locytes (promyelocytes, myelocytes and metamyelocytes) > 1% indicates that a LEFT SHIFT is Present. [id number] 02-29-2024 Syphilis Abs Non-Reactive Normal [facility] Comment on above: Performed By: #### L 509.8002 #### [facility] [address] [place], [address] Laboratory - Chemistry and C hemistry - challengeon 02-29-2024 Glucose Ql (U) Negative [facility] Laboratory - Urinalysison Protein Ql (U) Trace [facility] Lymphocytes Auto (Unsp spec) [#/Vol]Ordered By: Lakia Richards on 02-29-2024 Lymphocytes (Bld) [#/Vol] 2.51 10*3/uL 0.83-4.51 [facility] Lymphocytes/100 WBC Auto (Un sp spec)Ordered By: Lakia Richards on 02-29-2024 Lymphocytes/100 WBC (Bld) 22.1 % 19-41 [facility] MCV (mean corpuscular volume ) determinationOrdered By: Lakia Richards on 02-29-2024 MCV (RBC) [Entitic vol] 82.2 fL 81-99 [facility] Mean corpuscular hemoglobin (MCH) determinationOrdered By: Lakia Richards on 02-29-2024 MCH (RBC) [Entitic mass] 26.0 pg Low 27.0-32.0 [facility] Mean corpuscular hemoglobin concentration (MCHC) determinationOrdered By: Lakia Richards on 02-29-2024 MCHC (RBC) [Mass/Vol] 31.6 g/dL Low 32-36 [facility] Mean platelet volume determi nationOrdered By: Lakia Richards on 02-29-2024 Platelet mean volume (Bld) [Entitic vol] 10.0 fL 6.2-12.0 [facility] Monocyte percentageOrdered B y: Lakia Richards on 02-29-2024 Monocytes/100 WBC (Bld) 5.4 % 0-10 [facility] Neutrophil percentageOrdered By: Lakia Richards on 02-29-2024 Neutrophils/100 WBC (Bld) 69.0 % 47-70 [facility] Nucleated red blood cell per centageOrdered By: Lakia Richards on 02-29-2024 Nucleated RBC/100 WBC (Bld) [Ratio] 0 % 0-5 [facility] Director Energy Office Visit Reporton 02-29-2024 Director Energy Office Visit Report [facility] [address], [address] [place] [address] OFFICE VISIT Date of Service: 02/29/24 MR#: [id number] Acct: [id number] Name: ESTRELLA RIOJAS Rep #: [id number] : 1990 Provider: MIREILLE gilliam Age/Sex: 33/F Location: [facility] Status: Signed Intake Vital Signs 12/21/23 13:54 02/24/24 14:59 02/29/24 13:33 Height 5 ft 6 in 5 ft 6 in 5 ft 6 in Weight: 206 lb 2 oz BMI 33.3 BP 108/70 Intake Visit Reasons: 28 WK OB/GLUCOSE Chief Complaint: 28 Week OB/Glucose Freight Checker Required: No Is patient in pain?: No Allergies shellfish derived Allergy (Severe, Verified 02/29/24 13:37) unknown latex Allergy (Verified 02/29/24 13:37) Rash Medications ???Medication ???Instructions ???Recorded ???Confirmed ???Type albuterol sulfate 90 mcg/actuation 2 puff inhalation Q6H PRN ASTHMA 01/21/22 02/29/24 History aerosol inhaler vits 75-iron 28 mg-folic pkg PO 04/19/23 02/29/24 History acid 800 mcg-omega-3 oral combo pack (One A Day Women's DHA) sertraline 100 mg tablet (Zoloft) 100 mg PO DAILY #30 tabs 07/29/23 02/29/24 Rx ferrous sulfate 325 mg (65 mg 325 mg PO QDAY #30 tabs 01/19/24 02/29/24 Rx iron) tablet,delayed release famotidine 10 mg tablet 10 mg PO BID 02/16/24 02/29/24 History Last Menstrual Period: 08/14/23 Zika: Zika virus screening: Negative : Yes PFSH PFSH Medical History HX: benign breast biopsy Left breast mass Blister Fibroadenoma of breast Anxiety Graves' disease Restless legs Syncope Blackout Non-smoker Depression Asthma Surgical History S/P laparotomy History of breast biopsy History of oral surgery Family History Grandmother Breast cancer Uncle Lung cancer Social History adopted: No household members: spouse number of children: 0 current occupational status: employed current occupation: [employer] current occupational exposures/hazards: No pets and animals: Yes (Avoid litterbox) pets and animals: cat(s) history of recent travel: Yes ( -Oct) out of state: Yes out of country: No sexually active: Yes Smoking Status: Never smoker alcohol intake: never substance use type: does not use well-balanced diet: daily or most days caffeine: No eating out: 1-3 times/week during the past year weight has: remained stable what type of physical activity do you participate in: none lea/anglican: Islam seatbelt use: always do you feel safe at home: Yes additional social history: - Eliseo History 1 Elective abortions Hx Para 0 Spontaneous abortions Hx # Term Pregnancies Ectopic pregnancies Hx # Pregnancies Multiple births # of living children HPI 28 WK OB/GLUCOSE Details: ESTRELLA RIOJAS is a 33 year old who presents for routine OB visit. OB Visit UNIQUE Calculator Estimated Delivery Date Method Current WG Current Estimate 05/24/24 Manual 27w 6d Other Estimates 05/20/24 Ultrasound #1 28w 3d Expected Delivery Route/Plan Labor Preferences- CB/BF classes: yes labor support person: Tyler labor intervention preferences: [] pain management options preferred: [] cut cord/dad catch: [] : yes PP control planned: discussed discussed possible routes of delivery and associated risks: [] special requests: [] Specific Issue/Plans Covid status: [] Flu vaccine: given Tdap vaccine: [] Rhogam: NA LARC form signed: yes Problem list reviewed and updated with the most current plan of care details and appropriate orders placed. Relevant counseling for the gestational age provided. Continue routine care and follow up unless otherwise noted in visit notes/problem list details Initial Weight: 187 lb Date -???-???-???-???-???-?? ?-???-???-???-???-???-? ??- EGA Weight BP Urine Prot -???-???-???-???-???-?? ?-???-???-???-???-???-? ??- Glucose FHR FuHt Pres Dilation -???-???-???-???-???-?? ?-???-???-???-???-???-? ??- Effaced St Visit Note 10/22/23 -???-???-???-???-???-?? ?-???-???-???-???-???-? ??- 9w 2d 187 lb 2 oz (+2 oz) 110/77 -???-???-???-???-???-?? ?-???-???-???-???-???-? ??- 180 -???-???-???-???-???-?? ?-???-???-???-???-???-? ??- KW- CRL cons with dates. IVF transfer. genetics done with [facility]. likely needs P C/S due to hx of uterine surgery 11/19/23 -???-???-???-???-???-?? ?-???-???-???-???-???-? ??- 13w 2d 188 lb (+16 oz) 102/73 Negative -???-???-???-???-???-?? ?-???-???-???-???-???-? ??- Negative 150 -???-???-???-???-???-?? ?-???-???-?? (more content not included)... Normal [facility] Platelet countOrdered By: Magdaleno Richards on 02-29-2024 Platelets (Bld) [#/Vol] 371 10*3/uL 150-450 [facility] RBC Auto (Bld) [#/Vol]Ordere d By: Lakia Richards on 02-29-2024 RBC (Bld) [#/Vol] 3.77 10*6/uL Low 4.2-5.4 [facility] Treponema sp Ab Ql (S)Ordere d By: Lakia Richards on 02-29-2024 Syphilis Total Antibody Non-Reactive [facility] White blood cell (WBC) count Ordered By: Lakia Richards on 02-29-2024 WBC (Bld) [#/Vol] 11.4 10*3/uL High 4.4-11.0 [facility] 12 Lead EKG performed by [facility] on 02-24-2024 12 Lead EKG performed by [facility] [address] [place] [address] 12 Lead EKG performed by [facility] 02/24/24 0938 MR#: [id number] Acct: [id number] Name: ESTRELLA RIOJAS Rep #: [id number] : 1990 33 From: Cecil Ramirez MD Attending Dr: Dr. Cecil Ramirez MD Status: DE P AMB Ordering Dr: Cecil Ramirez MD Date: 02/24/24 [facility] Sex: F C Admitted: BMS/12 Lead EKG performed by [facility] ECG Report Interpretation ---Sinus Tachycardia Low voltage in precordial leads. OTHWERWISE NORMALElectronically signed on 02/24/2024 at 16:[address] Cecil Ramirez [employer] Software Version [id number] 02/24/24 1658 Date Cecil Ramirez MD CC: Dr. Julieta Prince MD Date Dictated: 02/24/24937 Date Transcribed: 02/24/24937 Psychiatry Resident: Signed Normal [facility] Cardiology Visit Reporton Cardiology Visit Report [facility] [address] [place] [address] OFFICE VISIT Date of Service: 02/24/24 MR#: [id number] Acct: [id number] Name: ESTRELLA RIOJAS Rep #: [id number] : 1990 Provider: Dr. Cecil martinez MD Age/Sex: 33/F Location: [facility] Status: Signed HPI HPI History of Present Illness Details: Patient is a 33-year-old white female that comes in today for new patient visit. She is accompanied by her . She is 27 weeks with in vitro fertilization. Patient carries a history of dizziness and near syncope that predated her but became much more prominent in January 2024. During that timeframe she had 3 episodes that were described as feeling clammy and weak developing tunnel vision and she had to sit down or lay down. When she vomited it relieved all the symptoms and she was back fine. She has not had any falls she has not had any harriet syncope denies any trauma. She did occasionally feel short of breath with these episodes. The patient says she feels her heart racing but she is never been able to catch anything she just got an Apple Watch and does not have it set up yet. The patient's EKG done in office today showed sinus tachycardia to 102 bpm with low voltage in the precordial leads and otherwise is unremarkable and essentially borderline. The patient does have a past history of Graves' disease her thyroid function test in November 2023 were normal. The patient also has a history of depression and some significant emotional distress and anxiety when she came off of Cymbalta in the past. Currently the patient denies any chest pain she denies any PND orthopnea denies any significant lower extremity edema she does wear compression socks. The patient has not had any of these dizzy symptoms or near syncopal episodes in the last 3 weeks. This is the patient's first should be delivered by section end of April beginning of May due to a previous surgery on her uterus for fibroids. Intake Vital Signs 01/19/24 14:15 02/16/24 14:10 02/24/24 14:59 Height 5 ft 6 in 5 ft 6 in 5 ft 6 in Weight: 204 lb 6 oz 203 lb BMI 33.0 32.8 BP 107/75 118/83 H Blood Pressure Location Rt brachial Position Sitting Respiration 20 H Pulse 91 Pulse Source Monitor Pulse Oximetry (%) 98 Oxygen Delivery Method room air Intake Visit Reasons: Tachycardia/Dizziness and Giddiness Freight Checker Required: No Accompanied by: Self Is patient in pain?: No Allergies shellfish derived Allergy (Severe, Verified 02/24/24 15:00) unknown latex Allergy (Verified 02/24/24 15:00) Rash Medications ???Medication ???Instructions ???Recorded ???Confirmed ???Type albuterol sulfate 90 mcg/actuation 2 puff inhalation Q6H PRN ASTHMA 01/21/22 02/24/24 History aerosol inhaler vits 75-iron 28 mg-folic pkg PO 04/19/23 02/24/24 History acid 800 mcg-omega-3 oral combo pack (One [facility] DHA) sertraline 100 mg tablet (Zoloft) 100 mg PO DAILY #30 tabs 07/29/23 02/24/24 Rx ferrous sulfate 325 mg (65 mg 325 mg PO QDAY #30 tabs 01/19/24 02/24/24 Rx iron) tablet,delayed release famotidine 10 mg tablet 10 mg PO BID 02/16/24 02/24/24 History Have you fallen in the past year?: No PFSH Medical History HX: benign breast biopsy Left breast mass Blister Fibroadenoma of breast Anxiety Graves' disease Restless legs Syncope Blackout Non-smoker Depression Asthma Surgical History S/P laparotomy History of breast biopsy History of oral surgery Family History Grandmother Breast cancer Uncle Lung cancer Social History adopted: No household members: spouse number of children: 0 current occupational status: employed current occupation: [employer] current occupational exposures/hazards: No pets and animals: Yes (Avoid litterbox) pets and animals: cat(s) history of recent travel: Yes ( -Oct) out of state: Yes out of country: No sexually active: Yes Smoking Status: Never smoker alcohol intake: never substance use type: does not use well-balanced diet: daily or most days caffeine: No eating out: 1-3 times/week during the past year weight has: remained stable what type of physical activity do you participate in: none lea/anglican: Islam seatbelt use: always do you feel safe at home: Yes additional social history: - Eliseo MACEDO Const Const: Positive for fatigue (attributes to ); Negative for weakness ENT ENT: Negative for dizziness or balance problems (more content not included)... Normal [facility] Laboratory - Chemistry and C hemistry - challengeon 02-16-2024 Glucose Ql (U) Negative [facility] Laboratory - Urinalysison Protein Ql (U) Trace [facility] Director Energy Office Visit Reporton 02-16-2024 Director Energy Office Visit Report [facility] [address], [address] [place] [address] OFFICE VISIT Date of Service: 02/16/24 MR#: [id number] Acct: [id number] Name: ESTRELLA RIOJAS Rep #: [id number] : 1990 Provider: Dr. Lakia guillermo MD Age/Sex: 33/F Location: [facility] Status: Signed Intake Vital Signs 12/21/23 13:54 01/19/24 14:15 02/16/24 14:10 Height 5 ft 6 in 5 ft 6 in 5 ft 6 in Weight: 204 lb 6 oz BMI 33.0 BP 107/75 Intake Visit Reasons: 26 wk ob Chief Complaint: 26 wk ob Allergies shellfish derived Allergy (Severe, Verified 02/16/24 14:17) unknown latex Allergy (Verified 02/16/24 14:17) Rash Medications ???Medication ???Instructions ???Recorded ???Confirmed ???Type albuterol sulfate 90 mcg/actuation 2 puff inhalation Q6H PRN ASTHMA 01/21/22 02/16/24 History aerosol inhaler vits 75-iron 28 mg-folic pkg PO 04/19/23 02/16/24 History acid 800 mcg-omega-3 oral combo pack (One [facility] DHA) sertraline 100 mg tablet (Zoloft) 100 mg PO DAILY #30 tabs 07/29/23 02/16/24 Rx doxylamine succinate 25 mg tablet 25 mg PO QHS PRN 10/22/23 02/16/24 History (Unisom (doxylamine)) ondansetron 4 mg disintegrating 4 mg PO Q6H PRN nausea and 10/22/23 02/16/24 Rx tablet vomiting #90 tabs ferrous sulfate 325 mg (65 mg 325 mg PO QDAY #30 tabs 01/19/24 02/16/24 Rx iron) tablet,delayed release famotidine 10 mg tablet 10 mg PO BID 02/16/24 02/16/24 History Last Menstrual Period: 08/14/23 : No PFSH PFSH Medical History HX: benign breast biopsy Left breast mass Blister Fibroadenoma of breast Anxiety Graves' disease Restless legs Syncope Blackout Non-smoker Depression Asthma Surgical History S/P laparotomy History of breast biopsy History of oral surgery Family History Grandmother Breast cancer Uncle Lung cancer Social History adopted: No household members: spouse number of children: 0 current occupational status: employed current occupation: [employer] current occupational exposures/hazards: No pets and animals: Yes (Avoid litterbox) pets and animals: cat(s) history of recent travel: Yes ( -Oct) out of state: Yes out of country: No sexually active: Yes Smoking Status: Never smoker alcohol intake: never substance use type: does not use well-balanced diet: daily or most days caffeine: No eating out: 1-3 times/week during the past year weight has: remained stable what type of physical activity do you participate in: none lea/anglican: Islam seatbelt use: always do you feel safe at home: Yes additional social history: - Eliseo History 1 Elective abortions Hx Para 0 Spontaneous abortions Hx # Term Pregnancies Ectopic pregnancies Hx # Pregnancies Multiple births # of living children HPI 26 wk ob Details: ESTRELLA RIOJAS is a 33 year old who presents for routine OB visit. OB Visit UNIQUE Calculator Estimated Delivery Date Method Current WG Current Estimate 05/24/24 Manual 26w 0d Other Estimates 05/20/24 Ultrasound #1 26w 4d Expected Delivery Route/Plan Labor Preferences- CB/BF classes: [] labor support person: [] labor intervention preferences: [] pain management options preferred: [] cut cord/dad catch: [] : [] PP control planned: [] discussed possible routes of delivery and associated risks: [] special requests: [] Specific Issue/Plans Covid status: [] Flu vaccine: given Tdap vaccine: [] Rhogam: [] LARC form signed: [] Problem list reviewed and updated with the most current plan of care details and appropriate orders placed. Relevant counseling for the gestational age provided. Continue routine care and follow up unless otherwise noted in visit notes/problem list details Initial Weight: 187 lb Date -???-???-???-???-???-?? ?-???-???-???-???-???-? ??- EGA Weight BP Urine Prot -???-???-???-???-???-?? ?-???-???-???-???-???-? ??- Glucose FHR FuHt Pres Dilation -???-???-???-???-???-?? ?-???-???-???-???-???-? ??- Effaced St Visit Note 10/22/23 -???-???-???-???-???-?? ?-???-???-???-???-???-? ??- 9w 2d 187 lb 2 oz (+2 oz) 110/77 -???-???-???-???-???-?? ?-???-???-???-???-???-? ??- 180 -???-???-???-???-???-?? ?-???-???-???-???-???-? ??- KW- CRL cons with dates. IVF transfer. genetics done with [facility]. likely needs P C/S due to hx of uterine surgery 11/19/23 -???-???-???-???-???-?? ?-???-???-???-???-???-? ??- 13w 2d 188 lb (+16 oz) 102/73 Negative -???-???-???-???-???-?? ?-? (more content not included)... Normal [facility] Absolute neutrophil countOrd ered By: Janessa Kinsey on 01-19-2024 Neutrophils (Bld) [#/Vol] 8.4 10*3/uL High 2.0-7.7 [facility] Albumin to globulin ratioOrd ered By: Janessa Kinsey on 01-19-2024 Albumin/Globulin [Mass ratio] 0.6 {ratio} Low 0.9-2.4 [facility] Comment on above: Performed By: #### L 503.9124, L503.1056, L100.0100, L500.4050, L503.0105 #### [facility] [address] [place], [address] Basophil percentageOrdered B y: Janessa Kinsey on 01-19-2024 Basophils/100 WBC (Bld) 0.5 % 0-1 [facility] Bilirubin, totalOrdered By: Janessa Kinsey on 01-19-2024 Bilirubin [Mass/Vol] 0.20 mg/dL Normal 0.20-1.00 [facility] Comment on above: For patients on eltr ombopag therapy, use of Dimension Edon TBIL is not recommended. Result Comment: For patients on eltrombopag therapy, use of Dimension Edon TBIL is not recommended. Performed By: #### L 503.6550, L503.6075, L100.0100, L500.4050, L503.0105 #### [facility] [address] [place], [address] Blood urea nitrogen (BUN)/cr eatinine ratioOrdered By: Janessa Kinsey on 01-19-2024 Urea nitrogen/Creatinine [Mass ratio] 7.5 mg/mg Low 10-20 [facility] CBC W/Diff, Automatedon 12- Absolute Lymph 2.69 X10 3/uL Normal 0.83-4.51 [facility] Comment on above: Performed By: #### L 503.6550, L503.6075, L100.0100, L500.4050, L503.0105 #### [facility] [address] [place], [address] Absolute Neut 8.4 X10 3/uL High 2.0-7.7 [facility] Comment on above: Performed By: #### L 503.6550, L503.6075, L100.0100, L500.4050, L503.0105 #### [facility] [address] [place], [address] Basophils/100 WBC (Bld) 0.5 % Normal 0-1 [facility] Comment on above: Performed By: #### L 503.6550, L503.6075, L100.0100, L500.4050, L503.0105 #### [facility] [address] [place], [address] Eosinophils/100 WBC (Bld) 3.3 % Normal 0-5 [facility] Comment on above: Performed By: #### L 503.6550, L503.6075, L100.0100, L500.4050, L503.0105 #### [facility] [address] [place], [address] Erythrocyte distribution width (RBC) [Ratio] 14.0 % Normal 11.6-14.6 [facility] Comment on above: Performed By: #### L 503.6550, L503.6075, L100.0100, L500.4050, L503.0105 #### [facility] [address] [place], [address] Hematocrit (Bld) [Volume fraction] 32.7 % Low 37-47 [facility] Comment on above: Performed By: #### L 503.6550, L503.6075, L100.0100, L500.4050, L503.0105 #### [facility] [address] [place], [address] Hemoglobin (Bld) [Mass/Vol] 10.3 g/dL Low 12.0-15.0 [facility] Comment on above: Performed By: #### L 503.6550, L503.6075, L100.0100, L500.4050, L503.0105 #### [facility] [address] [place], [address] IG% 0.500 Normal 0.0-0.9 [facility] Comment on above: Result Comment: IG% - Immature Granulocytes (promyelocytes, myelocytes and metamyelocytes) > 1% indicates that a LEFT SHIFT is Present. Performed By: #### L 503.6550, L503.6075, L100.0100, L500.4050, L503.0105 #### [facility] [address] [place], [address] Lymphocytes/100 WBC (Bld) 21.9 % Normal 19-41 [facility] Comment on above: Performed By: #### L 503.6550, L503.6075, L100.0100, L500.4050, L503.0105 #### [facility] [address] [place], [address] MCH (RBC) [Entitic mass] 26.5 pg Low 27.0-32.0 [facility] Comment on above: Performed By: #### L 503.6550, L503.6075, L100.0100, L500.4050, L503.0105 #### [facility] [address] [place], [address] MCHC (RBC) [Mass/Vol] 31.5 g/dL Low 32-36 [facility] Comment on above: Performed By: #### L 503.6550, L503.6075, L100.0100, L500.4050, L503.0105 #### [facility] [address] [place], [address] MCV (RBC) [Entitic vol] 84.3 fL Normal 81-99 [facility] Comment on above: Performed By: #### L 503.6550, L503.6075, L100.0100, L500.4050, L503.0105 #### [facility] [address] [place], [address] Monocytes/100 WBC (Bld) 5.7 % Normal 0-10 [facility] Comment on above: Performed By: #### L 503.6550, L503.6075, L100.0100, L500.4050, L503.0105 #### [facility] [address] [place], [address] Neutrophils/100 WBC (Bld) 68.1 % Normal 47-70 [facility] Comment on above: Performed By: #### L 503.6550, L503.6075, L100.0100, L500.4050, L503.0105 #### [facility] [address] [place], [address] Nucleated RBC (Bld) [#/Vol] 0 10*3/uL Normal 0-5 [facility] Comment on above: Performed By: #### L 503.6550, L503.6075, L100.0100, L500.4050, L503.0105 #### [facility] [address] [place], [address] Platelet mean volume (Bld) [Entitic vol] 10.1 fL Normal 6.2-12.0 [facility] Comment on above: Performed By: #### L 503.6550, L503.6075, L100.0100, L500.4050, L503.0105 #### [facility] [address] [place], [address] Platelets (Bld) [#/Vol] 357 10*3/uL Normal 150-450 [facility] Comment on above: Performed By: #### L 503.6550, L503.6075, L100.0100, L500.4050, L503.0105 #### [facility] [address] [place], [address] RBC (Bld) [#/Vol] 3.88 10*6/uL Low 4.2-5.4 [facility] Comment on above: Performed By: #### L 503.6550, L503.6075, L100.0100, L500.4050, L503.0105 #### [facility] [address] [place], [address] RDW SD 42.9 fl Normal 35.1-43.9 [facility] Comment on above: Performed By: #### L 503.6550, L503.6075, L100.0100, L500.4050, L503.0105 #### [facility] [address] [place], [address] WBC (Bld) [#/Vol] 12.3 10*3/uL High 4.4-11.0 [facility] Comment on above: Performed By: #### L 503.6550, L503.6075, L100.0100, L500.4050, L503.0105 #### [facility] [address] [place], [address] Carbon dioxide measurementOr dered By: Janessa Kinsey on 01-19-2024 CO2 [Moles/Vol] 21.0 mmol/L Normal 21.0-32.0 [facility] Comment on above: Performed By: #### L 503.6550, L503.6075, L100.0100, L500.4050, L503.0105 #### [facility] [address] [place], [address] Chloride measurementOrdered By: Janessa Kinsey on 01-19-2024 Chloride [Moles/Vol] 105 mmol/L Normal 98-107 [facility] Comment on above: Performed By: #### L 503.6550, L503.6075, L100.0100, L500.4050, L503.0105 #### [facility] [address] [place], [address] Comprehensive Metabolic Prof ilon 01-19-2024 ALK P 77 U/L Normal 45-117 [facility] Comment on above: Performed By: #### L 503.6550, L503.6075, L100.0100, L500.4050, L503.0105 #### [facility] [address] [place], [address] BUN/CRE 7.5 RATIO Low 10-20 [facility] Comment on above: Performed By: #### L 503.6550, L503.6075, L100.0100, L500.4050, L503.0105 #### [facility] [address] [place], [address] CA,Total 9.0 mg/dL Normal 8.5-10.1 [facility] Comment on above: Performed By: #### L 503.6550, L503.6075, L100.0100, L500.4050, L503.0105 #### [facility] [address] [place], [address] EST GFR - AA 107 mL/min Normal >60 [facility] Comment on above: Result Comment: Afri can Bangladeshi GFR Calc Performed By: #### L 503.6550, L503.6075, L100.0100, L500.4050, L503.0105 #### [facility] [address] [place], [address] GAP 9 Normal 5-15 [facility] Comment on above: Performed By: #### L 503.6550, L503.6075, L100.0100, L500.4050, L503.0105 #### [facility] [address] [place], [address] GFR/1.73 sq M.predicted among non-blacks MDRD (S/P/Bld) [Vol rate/Area] 88 mL/min/{1.73_m2} Normal >60 [facility] Comment on above: Result Comment: Non- GFR Calc Performed By: #### L 503.6550, L503.6075, L100.0100, L500.4050, L503.0105 #### [facility] [address] [place], [address] T PROT 7.0 g/dL Normal 6.4-8.2 [facility] Comment on above: Performed By: #### L 503.6550, L503.6075, L100.0100, L500.4050, L503.0105 #### [facility] [address] [place], [address] Comprehensive Metabolic Prof ilOrdered By: Janessa Kinsey on 01-19-2024 AST [Catalytic activity/Vol] 18 U/L Normal 15-37 [facility] Comment on above: Performed By: #### L 503.6550, L503.6075, L100.0100, L500.4050, L503.0105 #### [facility] [address] [place], [address] Eosinophil percentageOrdered By: Janessa Kinsey on 01-19-2024 Eosinophils/100 WBC (Bld) 3.3 % 0-5 [facility] Erythrocyte distribution wid th ratioOrdered By: Janessa Kinsey on 01-19-2024 Erythrocyte distribution width (RBC) [Ratio] 14.0 % 11.6-14.6 [facility] Erythrocyte distribution wid th standard deviationOrdered By: Janessa Kinsey on 01-19-2024 Erythrocyte distribution width (RBC) [Entitic vol] 42.9 fL 35.1-43.9 [facility] Estimated glomerular filtrat ion rate (GFR) AmericanOrdered By: Janessa Kinsey on 01-19-2024 Estimated GFR (MDRD) Amer 107 mL/min >60 [facility] Comment on above: GFR Calc Ferritin measurementOrdered By: Janessa Kinsey on 01-19-2024 Ferritin [Mass/Vol] 6 ng/mL Low 8-252 [facility] Comment on above: Performed By: #### L 501.080 #### [facility] [address] [place], [address] Glomerular filtration rate ( GFR) estimationOrdered By: Janessa Randdeepa on 01-19-2024 Estimated GFR (MDRD) Non-Af Amer 88 mL/min >60 [facility] Comment on above: Non- GFR Calc Glucose measurementOrdered B y: Janessa Kinsey on 01-19-2024 Glucose [Mass/Vol] 144 mg/dL High 74-106 [facility] Comment on above: Fasting Glucose resu lt greater than or equal to 126 mg/dL suggests DIABETES MELLITUS per A.D.A. criteria. Result Comment: Fast ing Glucose result greater than or equal to 126 mg/dL suggests DIABETES MELLITUS per A.D.A. criteria. Performed By: #### L 503.6550, L503.6075, L100.0100, L500.4050, L503.0105 #### [facility] [address] [place], [place], [id number] Hematocrit Auto (Bld) [Volum e fraction]Ordered By: Janessa Tio on 01-19-2024 Hematocrit (Bld) [Volume fraction] 32.7 % Low 37-47 [facility] Hemoglobin measurementOrdere d By: Janessa Randdeepa on 01-19-2024 Hemoglobin (Bld) [Mass/Vol] 10.3 g/dL Low 12.0-15.0 [facility] Immature granulocytes/100 WB C Auto (Bld)Ordered By: Janessa Tio on 01-19-2024 Immature granulocytes/100 WBC (Bld) 0.500 % 0.0-0.9 [facility] Comment on above: IG% - Immature Granu locytes (promyelocytes, myelocytes and metamyelocytes) > 1% indicates that a LEFT SHIFT is Present. Iron Binding Capacity,Totalo n 01-19-2024 TIBC 452 ug/dL High 250-450 [facility] Comment on above: Performed By: #### L 503.6550, L503.6075, L100.0100, L500.4050, L503.0105 #### [facility] [address] [place], [place], [id number] Laboratory - Chemistry and C hemistry - challengeon 01-19-2024 Glucose Ql (U) Negative [facility] Laboratory - Urinalysison Protein Ql (U) Trace [facility] Comment on above: Office Urine Protein previously reported as Negative Lymphocytes Auto (Unsp spec) [#/Vol]Ordered By: Janessa Kinsey on 01-19-2024 Lymphocytes (Bld) [#/Vol] 2.69 10*3/uL 0.83-4.51 [facility] Lymphocytes/100 WBC Auto (Un sp spec)Ordered By: Janessa Kinsey on 01-19-2024 Lymphocytes/100 WBC (Bld) 21.9 % 19-41 [facility] MCV (mean corpuscular volume ) determinationOrdered By: Janessa Kinsey on 01-19-2024 MCV (RBC) [Entitic vol] 84.3 fL 81-99 [facility] Mean corpuscular hemoglobin (MCH) determinationOrdered By: Janessa Kinsey on 01-19-2024 MCH (RBC) [Entitic mass] 26.5 pg Low 27.0-32.0 [facility] Mean corpuscular hemoglobin concentration (MCHC) determinationOrdered By: Janessa Kinsey on 01-19-2024 MCHC (RBC) [Mass/Vol] 31.5 g/dL Low 32-36 [facility] Mean platelet volume determi nationOrdered By: Janessa Kinsey on 01-19-2024 Platelet mean volume (Bld) [Entitic vol] 10.1 fL 6.2-12.0 [facility] Monocyte percentageOrdered B y: Janessa Kinsey on 01-19-2024 Monocytes/100 WBC (Bld) 5.7 % 0-10 [facility] Neutrophil percentageOrdered By: Janessa Kinsey on 01-19-2024 Neutrophils/100 WBC (Bld) 68.1 % 47-70 [facility] Nucleated red blood cell per centageOrdered By: Janessa Kinsey on 01-19-2024 Nucleated RBC/100 WBC (Bld) [Ratio] 0 % 0-5 [facility] Director Energy Office Visit Reporton 01-19-2024 Director Energy Office Visit Report [facility] [address], [address] [place] [address] OFFICE VISIT Date of Service: 01/19/24 MR#: [id number] Acct: [id number] Name: ESTRELLA RIOJAS Rep #: [id number] : 1990 Provider: Dr. Janessa Davidson DO Age/Sex: 33/F Location: [facility] Status: Signed Intake Vital Signs 12/21/23 13:54 12/21/23 14:39 01/19/24 14:13 01/19/24 14:15 Height 5 ft 6 in 5 ft 6 in 5 ft 6 in 5 ft 6 in Weight: 196 lb 8 oz BMI 31.7 BP 106/71 Intake Visit Reasons: 22 wk ob Freight Checker Required: No Is patient in pain?: No Allergies shellfish derived Allergy (Severe, Verified 01/19/24 14:13) unknown latex Allergy (Verified 01/19/24 14:13) Rash Medications ???Medication ???Instructions ???Recorded ???Confirmed ???Type albuterol sulfate 90 mcg/actuation 2 puff inhalation Q6H PRN ASTHMA 01/21/22 01/19/24 History aerosol inhaler vits 75-iron 28 mg-folic pkg PO 04/19/23 01/19/24 History acid 800 mcg-omega-3 oral combo pack (One A Day Women's DHA) sertraline 100 mg tablet (Zoloft) 100 mg PO DAILY #30 tabs 07/29/23 01/19/24 Rx doxylamine succinate 25 mg tablet 25 mg PO QHS PRN 10/22/23 01/19/24 History (Unisom (doxylamine)) ondansetron 4 mg disintegrating 4 mg PO Q6H PRN nausea and 10/22/23 01/19/24 Rx tablet vomiting #90 tabs Last Menstrual Period: 08/14/23 Zika: Zika virus screening: Negative : No PFSH PFSH Medical History HX: benign breast biopsy Left breast mass Blister Fibroadenoma of breast Anxiety Graves' disease Restless legs Syncope Blackout Non-smoker Depression Asthma Surgical History S/P laparotomy History of breast biopsy History of oral surgery Family History Grandmother Breast cancer Uncle Lung cancer Social History adopted: No household members: spouse number of children: 0 current occupational status: employed current occupation: [employer] current occupational exposures/hazards: No pets and animals: Yes (Avoid litterbox) pets and animals: cat(s) history of recent travel: Yes ( -Oct) out of state: Yes out of country: No sexually active: Yes Smoking Status: Never smoker alcohol intake: never substance use type: does not use well-balanced diet: daily or most days caffeine: No eating out: 1-3 times/week during the past year weight has: remained stable what type of physical activity do you participate in: none lea/anglican: Islam seatbelt use: always do you feel safe at home: Yes additional social history: - Eliseo History 1 Elective abortions Hx Para 0 Spontaneous abortions Hx # Term Pregnancies Ectopic pregnancies Hx # Pregnancies Multiple births # of living children HPI 22 wk ob Details: ESTRELLA RIOJAS is a 33 year old who presents for routine OB visit. OB Visit UNIQUE Calculator Estimated Delivery Date Method Current WG Current Estimate 05/24/24 Manual 22w 0d Other Estimates 05/20/24 Ultrasound #1 22w 4d Expected Delivery Route/Plan Labor Preferences- CB/BF classes: [] labor support person: [] labor intervention preferences: [] pain management options preferred: [] cut cord/dad catch: [] : [] PP control planned: [] discussed possible routes of delivery and associated risks: [] special requests: [] Specific Issue/Plans Covid status: [] Flu vaccine: [] Tdap vaccine: [] Rhogam: [] LARC form signed: [] Problem list reviewed and updated with the most current plan of care details and appropriate orders placed. Relevant counseling for the gestational age provided. Continue routine care and follow up unless otherwise noted in visit notes/problem list details Initial Weight: 187 lb Date -???-???-???-???-???-?? ?-???-???-???-???-???-? ??- EGA Weight BP Urine Prot -???-???-???-???-???-?? ?-???-???-???-???-???-? ??- Glucose FHR FuHt Pres Dilation -???-???-???-???-???-?? ?-???-???-???-???-???-? ??- Effaced St Visit Note 10/22/23 -???-???-???-???-???-?? ?-???-???-???-???-???-? ??- 9w 2d 187 lb 2 oz (+2 oz) 110/77 -???-???-???-???-???-?? ?-???-???-???-???-???-? ??- 180 -???-???-???-???-???-?? ?-???-???-???-???-???-? ??- KW- CRL cons with dates. IVF transfer. genetics done with RGI. likely needs P C/S due to hx of uterine surgery 11/19/23 -???-???-???-???-???-?? ?-???-???-???-???-???-? ??- 13w 2d 188 lb (+16 oz) 102/73 Negative -???-???-???-???-???-?? ?-???-???-???-???-???-? ??- Negative 150 -???-???-???-???-???-?? ?-???-??? (more content not included)... Normal [facility] Platelet countOrdered By: Rogers mccann Tio on 01-19-2024 Platelets (Bld) [#/Vol] 357 10*3/uL 150-450 [facility] Potassium measurementOrdered By: Janessa Kinsey on 01-19-2024 Potassium [Moles/Vol] 3.8 mmol/L Normal 3.5-5.1 [facility] Comment on above: Performed By: #### L 503.6550, L503.6075, L100.0100, L500.4050, L503.0105 #### [facility] [address] [place], [address] RBC Auto (Bld) [#/Vol]Ordere d By: Janessa Kinsey on 01-19-2024 RBC (Bld) [#/Vol] 3.88 10*6/uL Low 4.2-5.4 [facility] Serum anion gap measurementO rdered By: Janessa Kinsey on 01-19-2024 Anion gap [Moles/Vol] 9 mmol/L 5-15 [facility] Serum globulin measurementOr dered By: Janessa Kinsey on 01-19-2024 Globulin (S) [Mass/Vol] 4.3 g/dL High 2.2-4.2 [facility] Comment on above: Performed By: #### L 503.6550, L503.6075, L100.0100, L500.4050, L503.0105 #### [facility] [address] [place], [address] Serum or plasma alanine elias otransferase (ALT) measurementOrdered By: Janessa Kinsey on 01-19-2024 ALT [Catalytic activity/Vol] 22 U/L Normal 13-56 [facility] Comment on above: Performed By: #### L 503.6550, L503.6075, L100.0100, L500.4050, L503.0105 #### [facility] [address] [place], [address] Serum or plasma albumin bebeto urement (mass/volume)Ordered By: Janessa Kinsey on 01-19-2024 Albumin [Mass/Vol] 2.7 g/dL Low 3.2-5.0 [facility] Comment on above: Performed By: #### L 503.6550, L503.6075, L100.0100, L500.4050, L503.0105 #### [facility] [address] [place], [place], [id number] Serum or plasma alkaline wendy sphatase measurementOrdered By: Janessa Kinsey on 01-19-2024 ALP [Catalytic activity/Vol] 77 U/L 45-117 [facility] Serum or plasma calcium bebeto urement (mass/volume)Ordered By: Janessa Kinsey on 01-19-2024 Calcium [Mass/Vol] 9.0 mg/dL 8.5-10.1 [facility] Serum or plasma creatinine m easurement (mass/volume)Ordered By: Janessa Kinsey on 01-19-2024 Creatinine [Mass/Vol] 0.80 mg/dL Normal 0.55-1.02 [facility] Comment on above: The validity of the calculated GFR & GFRAA in patients over 70 years has not been determined. Clinical correlation is essential. Result Comment: The validity of the calculated GFR GFRAA in patients over 70 years has not been determined. Clinical correlation is essential. Performed By: #### L 503.6550, L503.6075, L100.0100, L500.4050, L503.0105 #### [facility] [address] [place], [place], [id number] Serum or plasma urea nitroge n measurement (mass/volume)Ordered By: Janessa Kinsey on 01-19-2024 Urea nitrogen [Mass/Vol] 6 mg/dL Low 7-18 [facility] Comment on above: Performed By: #### L 503.6550, L503.6075, L100.0100, L500.4050, L503.0105 #### [facility] [address] [place], [address] Sodium levelOrdered By: Simona Kinsey on 01-19-2024 Sodium [Moles/Vol] 135 mmol/L Low 136-145 [facility] Comment on above: Performed By: #### L 503.6550, L503.6075, L100.0100, L500.4050, L503.0105 #### [facility] [address] [place], [place], [address] TIBCOrdered By: Janessa Parisi on 01-19-2024 Total Iron Binding Capacity 452 ug/dL High 250-450 [facility] Total proteinOrdered By: Ashley Kinsey on 01-19-2024 Protein [Mass/Vol] 7.0 g/dL 6.4-8.2 [facility] Vitamin B12on 01-19-2024 Cobalamin (Vitamin B12) [Mass/Vol] 543 pg/mL Normal 211-911 [facility] Comment on above: Performed By: #### L 503.6550, L503.6075, L100.0100, L500.4050, L503.0105 #### [facility] [address] [place], [place], [id number] Vitamin B12 measurementOrder ed By: Janessa Kinsey on 01-19-2024 Cobalamin (Vitamin B12) [Mass/Vol] 543 pg/mL 211-911 [facility] White blood cell (WBC) count Ordered By: Janessa Kinsey on 01-19-2024 WBC (Bld) [#/Vol] 12.3 10*3/uL High 4.4-11.0 [facility] Director Energy Office Visit Reporton 12-21-2023 Director Energy Office Visit Report [facility], [address] [place] [address] OFFICE VISIT Date of Service: 12/21/23 MR#: [id number] Acct: [id number] Name: ESTRELLA RIOJAS Rep #: [id number] : 1990 Provider: ANTWON Saunders ams Age/Sex: 33/F Location: [facility] Status: Signed Intake Vital Signs 11/19/23 15:02 12/21/23 13:54 Height 5 ft 6 in 5 ft 6 in Weight: 191 lb 2 oz BMI 30.8 BP 109/77 Intake Visit Reasons: 17wk OB Freight Checker Required: No Is patient in pain?: No Feel stressed/tense/nervous/ anxious/difficulty sleeping: not at all Allergies shellfish derived Allergy (Severe, Verified 12/21/23 13:55) unknown latex Allergy (Verified 12/21/23 13:55) Rash Medications ???Medication ???Instructions ???Recorded ???Confirmed ???Type albuterol sulfate 90 mcg/actuation 2 puff inhalation Q6H PRN ASTHMA 01/21/22 12/21/23 History aerosol inhaler vits 75-iron 28 mg-folic pkg PO 04/19/23 12/21/23 History acid 800 mcg-omega-3 oral combo pack (One A Day Women's DHA) sertraline 100 mg tablet (Zoloft) 100 mg PO DAILY #30 tabs 07/29/23 12/21/23 Rx estradiol 2 mg tablet 6 mg PO QDAY 10/19/23 12/21/23 History progesterone 50 mg/mL 50 mg IM QDAY 10/19/23 12/21/23 History intramuscular oil doxylamine succinate 25 mg tablet 25 mg PO QHS PRN 10/22/23 12/21/23 History (Unisom (doxylamine)) ondansetron 4 mg disintegrating 4 mg PO Q6H PRN nausea and 10/22/23 12/21/23 Rx tablet vomiting #90 tabs Last Menstrual Period: 08/14/23 Zika: Zika virus screening: Negative : No Have you fallen in the past year?: No PFSH PFSH Medical History HX: benign breast biopsy Left breast mass Blister Fibroadenoma of breast Anxiety Graves' disease Restless legs Syncope Blackout Non-smoker Depression Asthma Surgical History S/P laparotomy History of breast biopsy History of oral surgery Family History Grandmother Breast cancer Uncle Lung cancer Social History adopted: No household members: spouse number of children: 0 current occupational status: employed current occupation: [employer] current occupational exposures/hazards: No pets and animals: Yes (Avoid litterbox) pets and animals: cat(s) history of recent travel: Yes ( -Oct) out of state: Yes out of country: No sexually active: Yes Smoking Status: Never smoker alcohol intake: never substance use type: does not use well-balanced diet: daily or most days caffeine: No eating out: 1-3 times/week during the past year weight has: remained stable what type of physical activity do you participate in: none lea/anglican: Islam seatbelt use: always do you feel safe at home: Yes additional social history: - Eliseo History 1 Elective abortions Hx Para 0 Spontaneous abortions Hx # Term Pregnancies Ectopic pregnancies Hx # Pregnancies Multiple births # of living children HPI 17wk OB Details: ESTRELLA RIOJAS is a 33 year old who presents for routine OB visit. OB Visit UNIQUE Calculator Estimated Delivery Date Method Current WG Current Estimate 05/24/24 Manual 17w 6d Other Estimates 05/20/24 Ultrasound #1 18w 3d Expected Delivery Route/Plan Labor Preferences- CB/BF classes: [] labor support person: [] labor intervention preferences: [] pain management options preferred: [] cut cord/dad catch: [] : [] PP control planned: [] discussed possible routes of delivery and associated risks: [] special requests: [] Specific Issue/Plans Covid status: [] Flu vaccine: [] Tdap vaccine: [] Rhogam: [] LARC form signed: [] Problem list reviewed and updated with the most current plan of care details and appropriate orders placed. Relevant counseling for the gestational age provided. Continue routine care and follow up unless otherwise noted in visit notes/problem list details Initial Weight: 187 lb Date -???-???-???-???-???-?? ?-???-???-???-???-???-? ??- EGA Weight BP Urine Prot -???-???-???-???-???-?? ?-???-???-???-???-???-? ??- Glucose FHR FuHt Pres Dilation -???-???-???-???-???-?? ?-???-???-???-???-???-? ??- Effaced St Visit Note 10/22/23 -???-???-???-???-???-?? ?-???-???-???-???-???-? ??- 9w 2d 187 lb 2 oz (+2 oz) 110/77 -???-???-???-???-???-?? ?-???-???-???-???-???-? ??- 180 -???-???-???-???-???-?? ?-???-???-???-???-???-? ??- KW- CRL cons with dates. IVF transfer. genetics done with [facility]. likely needs P C/S due to hx of uterine surgery 11/19/23 -???- (more content not included)... Normal [facility] Director Energy Office Visit Reporton 11-19-2023 Director Energy Office Visit Report [facility] [address] [place] [address], [address] [place] [address] OFFICE VISIT Date of Service: 11/19/23 MR#: [id number] Acct: [id number] Name: ESTRELLA RIOJAS Rep #: [id number] : 1990 Provider: Dr. Lakia guillermo MD Age/Sex: 33/F Location: [facility] Status: Signed Intake Vital Signs 10/04/23 17:04 10/22/23 14:59 11/19/23 14:59 11/19/23 15:02 Height 5 ft 6 in 5 ft 6 in 5 ft 6 in 5 ft 6 in Weight: 188 lb BMI 30.3 BP 102/73 Intake Visit Reasons: 12wk OB Freight Checker Required: No Is patient in pain?: No Allergies shellfish derived Allergy (Severe, Verified 11/19/23 14:59) unknown latex Allergy (Verified 11/19/23 14:59) Rash Last Menstrual Period: 08/14/23 Zika: Zika virus screening: Negative : No Have you fallen in the past year?: No PFSH PFSH Medical History HX: benign breast biopsy Left breast mass Blister Fibroadenoma of breast Anxiety Graves' disease Restless legs Syncope Blackout Non-smoker Depression Asthma Surgical History S/P laparotomy History of breast biopsy History of oral surgery Family History Grandmother Breast cancer Uncle Lung cancer Social History adopted: No household members: spouse number of children: 0 current occupational status: employed current occupation: [employer] current occupational exposures/hazards: No pets and animals: Yes (Avoid litterbox) pets and animals: cat(s) history of recent travel: Yes ( -Oct) out of state: Yes out of country: No sexually active: Yes Smoking Status: Never smoker alcohol intake: never substance use type: does not use well-balanced diet: daily or most days caffeine: No eating out: 1-3 times/week during the past year weight has: remained stable what type of physical activity do you participate in: none lea/anglican: Islam seatbelt use: always do you feel safe at home: Yes additional social history: - Eliseo History 1 Elective abortions Hx Para 0 Spontaneous abortions Hx # Term Pregnancies Ectopic pregnancies Hx # Pregnancies Multiple births # of living children HPI 12wk OB Details: ESTRELLA RIOJAS is a 33 year old who presents for routine OB visit. OB Visit UNIQUE Calculator Estimated Delivery Date Method Current WG Current Estimate 05/24/24 Manual 13w 2d Other Estimates 05/20/24 Ultrasound #1 13w 6d Expected Delivery Route/Plan Labor Preferences- CB/BF classes: [] labor support person: [] labor intervention preferences: [] pain management options preferred: [] cut cord/dad catch: [] : [] PP control planned: [] discussed possible routes of delivery and associated risks: [] special requests: [] Specific Issue/Plans Covid status: [] Flu vaccine: [] Tdap vaccine: [] Rhogam: [] LARC form signed: [] Problem list reviewed and updated with the most current plan of care details and appropriate orders placed. Relevant counseling for the gestational age provided. Continue routine care and follow up unless otherwise noted in visit notes/problem list details Initial Weight: 187 lb Date -???-???-???-???-???-?? ?-???-???-???-???-???-? ??- EGA Weight BP Urine Prot -???-???-???-???-???-?? ?-???-???-???-???-???-? ??- Glucose FHR FuHt Pres Dilation -???-???-???-???-???-?? ?-???-???-???-???-???-? ??- Effaced St Visit Note 10/22/23 -???-???-???-???-???-?? ?-???-???-???-???-???-? ??- 9w 2d 187 lb 2 oz (+2 oz) 110/77 -???-???-???-???-???-?? ?-???-???-???-???-???-? ??- 180 -???-???-???-???-???-?? ?-???-???-???-???-???-? ??- KW- CRL cons with dates. IVF transfer. genetics done with [facility]GI. likely needs P C/S due to hx of uterine surgery 11/19/23 -???-???-???-???-???-?? ?-???-???-???-???-???-? ??- 13w 2d 188 lb (+16 oz) 102/73 Negative -???-???-???-???-???-?? ?-???-???-???-???-???-? ??- Negative 150 -???-???-???-???-???-?? ?-???-???-???-???-???-? ??- SM- no vb cr amping discussed depression symptoms SM- no vb cramping discussed depre ssion symptoms co hair loss check tsh and free t4 ACOG First Trimester First Trimester: Second Trimester Second Trimester: Signs and Symptoms of Labor, Selecting a care provider, Reproductive Life Planning Contreception, Care Planning, Depression/Anxiety and Intimate Partner Violence; Discussed Tobacco Cessation Third Trimester Third Trimester: Pain Management Plans, Labor support person(s), Immediate Larc, Signs and Symptoms of Preeclampsia, Infant Feedin (more content not included)... Normal [facility] T4 Free Directon 11-19-2023 T4 FREE DIRECT 0.83 ng/dL Normal 0.76-1.46 [facility] Comment on above: Performed By: #### L 501.080 #### [facility] [address] [place], [address] Thyroid Stim Hormone (TSH)on 11-19-2023 TSH 2.470 uIU/mL Normal 0.358-3.740 [facility] Comment on above: Performed By: #### L 501.080 #### [facility] [address] [place], [address] Chlamydia/GC ALEXIS aptimaon CHLAMY,NUC ACID Negative Normal Negative [facility] Comment on above: Performed By: #### M 100.2200, L7000.1800 ####[facility] [address] [place], [address] GC BY NUC ACID Negative Normal Negative [facility] Comment on above: Result Comment: Perf ormed at: =G - [facility] [address] [place] [id number] Elevator Service Technician: Barbara Fox MD, Phone: [phone] Performed By: #### M 100.2200, L7000.1800 ####[facility] [address] [place], [address] Urine Cultureon 10-24-2023 [facility] Mixed Gram Positive Organisms [place] Count 11,000-25,000 MIXC Mixed contaminants. Submit a new specimen if indicated. Normal [facility] Comment on above: Performed By: #### M 100.2200, L7000.1800 ####[facility] [address] [place], [address] CBC W/Diff, Automatedon 10-09 Absolute Lymph 4.13 X10 3/uL Normal 0.83-4.51 [facility] Comment on above: Performed By: #### L 501.080 #### [facility] [address] [place], [address] Absolute Neut 5.9 X10 3/uL Normal 2.0-7.7 [facility] Comment on above: Performed By: #### L 501.080 #### [facility] [address] [place], [address] Basophils/100 WBC (Bld) 0.5 % Normal 0-1 [facility] Comment on above: Performed By: #### L 501.080 #### [facility] [address] [place], [address] Eosinophils/100 WBC (Bld) 3.5 % Normal 0-5 [facility] Comment on above: Performed By: #### L 501.080 #### [facility] [address] [place], [address] Erythrocyte distribution width (RBC) [Ratio] 13.7 % Normal 11.6-14.6 [facility] Comment on above: Performed By: #### L 501.080 #### [facility] [address] [place], [address] Hematocrit (Bld) [Volume fraction] 36.3 % Low 37-47 [facility] Comment on above: Performed By: #### L 501.080 #### [facility] [address] [place], [address] Hemoglobin (Bld) [Mass/Vol] 11.4 g/dL Low 12.0-15.0 [facility] Comment on above: Performed By: #### L 501.080 #### [facility] [address] [place], [address] IG% 0.400 Normal 0.0-0.9 [facility] Comment on above: Result Comment: IG% - Immature Granulocytes (promyelocytes, myelocytes and metamyelocytes) > 1% indicates that a LEFT SHIFT is Present. Performed By: #### L 501.080 #### [facility] [address] [place], [address] Lymphocytes/100 WBC (Bld) 37.3 % Normal 19-41 [facility] Comment on above: Performed By: #### L 501.080 #### [facility] [address] [place], [address] MCH (RBC) [Entitic mass] 26.2 pg Low 27.0-32.0 [facility] Comment on above: Performed By: #### L 501.080 #### [facility] [address] [place], [address] MCHC (RBC) [Mass/Vol] 31.4 g/dL Low 32-36 [facility] Comment on above: Performed By: #### L 501.080 #### [facility] [address] [place], [address] MCV (RBC) [Entitic vol] 83.4 fL Normal 81-99 [facility] Comment on above: Performed By: #### L 501.080 #### [facility] [address] [place], [address] Monocytes/100 WBC (Bld) 5.3 % Normal 0-10 [facility] Comment on above: Performed By: #### L 501.080 #### [facility] [address] [place], [address] Neutrophils/100 WBC (Bld) 53.0 % Normal 47-70 [facility] Comment on above: Performed By: #### L 501.080 #### [facility] [address] [place], [address] Nucleated RBC (Bld) [#/Vol] 0 10*3/uL Normal 0-5 [facility] Comment on above: Performed By: #### L 501.080 #### [facility] [address] [place], [address] Platelet mean volume (Bld) [Entitic vol] 9.9 fL Normal 6.2-12.0 [facility] Comment on above: Performed By: #### L 501.080 #### [facility] [address] [place], [address] Platelets (Bld) [#/Vol] 351 10*3/uL Normal 150-450 [facility] Comment on above: Performed By: #### L 501.080 #### [facility] [address] [place], [address] RBC (Bld) [#/Vol] 4.35 10*6/uL Normal 4.2-5.4 [facility] Comment on above: Performed By: #### L 501.080 #### [facility] [address] [place], [address] RDW SD 41.9 fl Normal 35.1-43.9 [facility] Comment on above: Performed By: #### L 501.080 #### [facility] [address] [place], [address] WBC (Bld) [#/Vol] 11.1 10*3/uL High 4.4-11.0 [facility] Comment on above: Performed By: #### L 501.080 #### [facility] [address] [place], [address] HIV - WCHon 10-22-2023 HIV Non-Reactive Normal Nonreactive [facility] Comment on above: Order Comment: Reaso n for Exam: Performed By: #### L 501.080 #### [facility] [address] [place], [address] Hepatitis B Surface Antigeno n 10-22-2023 HEP B Surf Ag Non-Reactive [facility] Comment on above: Order Comment: Reaso n for Exam: Performed By: #### L 501.080 #### [facility] [address] [place], [address] Hepatitis C Antibodyon 10-21 Hepatitis C AB Non-Reactive Normal Nonreactive [facility] Comment on above: Order Comment: Reaso n for Exam: Result Comment: Non Reactive: < 0.8 Equivocal: >/= 0.8 to < 1.0 Reactive: >/= 1.0 The CDC requires that a reactive/equivocal HCV antibody result be sent out for confirmation. HCV Quant by PCR testing. Performed By: #### L 501.080 #### [facility] [address] [place], [address] L509.8000on 10-22-2023 Syphilis Abs Non-Reactive Normal [facility] Comment on above: Order Comment: Reaso n for Exam: Performed By: #### L 501.080 #### [facility] [place], [address] Director Energy Office Visit Reporton 10-22-2023 Director Energy Office Visit Report [facility] [address], [address] [place] [address] OFFICE VISIT Date of Service: 10/22/23 MR#: [id number] Acct: [id number] Name: ESTRELLA RIOJAS Rep #: [id number] : 1990 Provider: ANTWON Saunders ams Age/Sex: 33/F Location: [facility] Status: Signed Intake Vital Signs 07/29/23 10:32 10/04/23 17:04 10/22/23 14:57 10/22/23 14:59 Height 5 ft 6 in 5 ft 6 in 5 ft 6 in 5 ft 6 in Weight: 187 lb 2 oz BMI 30.2 BP 110/77 Intake Visit Reasons: NOB IVF ok/SM Freight Checker Required: No Is patient in pain?: No Allergies shellfish derived Allergy (Severe, Verified 10/22/23 14:57) unknown latex Allergy (Verified 10/22/23 14:57) Rash Medications ???Medication ???Instructions ???Recorded ???Confirmed ???Type albuterol sulfate 90 mcg/actuation 2 puff inhalation Q6H PRN ASTHMA 01/21/22 10/22/23 History aerosol inhaler vits 75-iron 28 mg-folic pkg PO 04/19/23 10/22/23 History acid 800 mcg-omega-3 oral combo pack (One A Day Women's DHA) sertraline 100 mg tablet (Zoloft) 100 mg PO DAILY #30 tabs 07/29/23 10/22/23 Rx estradiol 2 mg tablet 6 mg PO QDAY 10/19/23 10/22/23 History progesterone 50 mg/mL 50 mg IM QDAY 10/19/23 10/22/23 History intramuscular oil doxylamine succinate 25 mg tablet 25 mg PO QHS PRN 10/22/23 10/22/23 History (Unisom (doxylamine)) ondansetron 4 mg disintegrating 4 mg PO Q6H PRN nausea and 10/22/23 10/22/23 Rx tablet vomiting #90 tabs Last Menstrual Period: 08/14/23 Zika: Zika virus screening: Negative : No PFSH PFSH Medical History HX: benign breast biopsy Left breast mass Blister Fibroadenoma of breast Anxiety Graves' disease Restless legs Syncope Blackout Non-smoker Depression Asthma Surgical History S/P laparotomy History of breast biopsy History of oral surgery Family History Grandmother Breast cancer Uncle Lung cancer Social History adopted: No household members: spouse number of children: 0 current occupational status: employed current occupation: [employer] current occupational exposures/hazards: No pets and animals: Yes (Avoid litterbox) pets and animals: cat(s) history of recent travel: Yes ( -Oct) out of state: Yes out of country: No sexually active: Yes Smoking Status: Never smoker alcohol intake: never substance use type: does not use well-balanced diet: daily or most days caffeine: No eating out: 1-3 times/week during the past year weight has: remained stable what type of physical activity do you participate in: none lea/anglican: Islam seatbelt use: always do you feel safe at home: Yes additional social history: - Eliseo History 1 Elective abortions Hx Para 0 Spontaneous abortions Hx # Term Pregnancies Ectopic pregnancies Hx # Pregnancies Multiple births # of living children HPI NOB IVF ok/SM Details: ESTRELLA RIOJAS is a 33 year old who presents for New OB visit. OB Visit UNIQUE Calculator Estimated Delivery Date Method Current WG Current Estimate 05/24/24 Manual 9w 2d Other Estimates 05/20/24 Ultrasound #1 9w 6d Comments: HIV: Urine Culture: Sequential Screen: NIPT Screen: Expected Delivery Route/Plan Labor Preferences- CB/BF classes: [] labor support person: [] labor intervention preferences: [] pain management options preferred: [] cut cord/dad catch: [] : [] PP control planned: [] discussed possible routes of delivery and associated risks: [] special requests: [] Specific Issue/Plans Covid status: [] Flu vaccine: [] Tdap vaccine: [] Rhogam: [] LARC form signed: [] Problem list reviewed and updated with the most current plan of care details and appropriate orders placed. Relevant counseling for the gestational age provided. Continue routine care and follow up unless otherwise noted in visit notes/problem list details Initial Weight: 187 lb Date -???-???-???-???-???-?? ?-???-???-???-???-???-? ??- EGA Weight BP Urine Prot -???-???-???-???-???-?? ?-???-???-???-???-???-? ??- Glucose FHR FuHt Pres Dilation -???-???-???-???-???-?? ?-???-???-???-???-???-? ??- Effaced St Visit Note 10/22/23 -???-???-???-???-???-?? ?-???-???-???-???-???-? ??- 9w 2d 187 lb 2 oz (+2 oz) 110/77 -???-???-???-???-???-?? ?-???-???-???-???-???-? ??- 180 -???-???-???-???-???-?? ?-???-???-???-???-???-? ??- KW- CRL cons with dates. IVF transfer. genetics done with [facility]. likely needs P C/S due to (more content not included)... Normal [facility] Rubella IgGon 10-22-2023 Rubella IgG Reactive Normal Nonreactive [facility] Comment on above: Order Comment: Reaso n for Exam: Result Comment: Anti body Results Interpretation of Immune Status Non Reactive Presumed Non-Immune Equivocal Equivocal Reactive Presumed Immune Performed By: #### L 501.080 #### [facility] [address] [place], [address] Type AND Screenon 10-22-2023 Ab SCREEN GEL Negative Normal [facility] Comment on above: Order Comment: PN Performed By: #### L 501.080 #### [facility] [address] [place], [address] CNNURSEon 10-04-2023 CNNURSE Nurse Visit (REIBD) ESTRELLA RIOJAS ([id number]) 1990 F Date Time Provider Department 10/04/23 9:00 AM [facility] BE[facility] REIBD During your visit today, we recorded the following information about you: Georgina Nolan RN 10/04/2023 3:37 PM Signed Pt here for scan s/p FET on 09/06/23 of 1 embryo. According to transfer date pt should measure 6w5d. According to scan today pt measuring 6w6d Preliminary scan today read gestational sac present, yolk sac present, embryo present FHT: 124 Small hemorrhage to the left and adjacent to the gestational sac measuring 14 x 4 x 8 mm Pt will continue taking hormones until 10 weeks GA: 10/27/23 Pt will continue taking PNV Pt aware to call and schedule appt to move on to OB. Georgina Nolan RN October 04, 2023 10:21 AM Referring Provider: NICCI CH [[id number]] Allergies As of Date: 10/04/2023 Noted Allergy Reaction LATEX 06/29/2023 2 - Rash 9 - Itching SHELLFISH DERIVED 12/31/2015 12 - Shortness of Breath Date Reviewed: 09/06/2023 Reviewed by: Sharron Ybarra RN - Fully Assessed Reason for Visit: US [4057] Visit Diagnosis:, location unknown [O36.80X0] Order(s):OBSTETRIC ULTRASOUND [facility] [0130249] Order #: [id number]. #:[id number] WPOINTQty: 1 Prescriptions as of 10/04/2023 - estradiol (ESTRACE) 2 mg tablet TAKE 3 TABLETS BY MOUTH EVERY DAY - doxycycline (VIBRA-TABS) 100 mg tablet Take 1 tablet by mouth two times a day. - methylPREDNISolone (MEDROL) 16 mg tablet Take 1 tablet by mouth once daily. - progesterone 50 mg/mL injection Inject 1 mL intramuscularly once daily. Inject in the morning - Needle, Disp, 22 G 22 gauge x 1 1/2 To be used to inject progesterone in oil - Syringe with Needle, Disp, (SYRINGE 3CC/20GX1) 3 mL 20 gauge x 1 To be used to draw up Progesterone in oil - ALPRAZolam (XANAX) 0.25 mg tablet Take 0.25 mg by mouth at bedtime as needed for anxiety. - sertraline (ZOLOFT) 50 mg tablet Take 50 mg by mouth once daily. - vit,calc76/iron/folic (PNV 29-1 ORAL) Take by mouth. Problem List As Of Date 10/04/2023 Noted Resolved Contact dermatitis and other eczema, due to uns*07/24/2010 Encounter Status:Closed by NICCI CH on 10/04/23 Normal [facility] Examination level ultrasound on 10-04-2023 Indication Viability Impression - Single, live, intrauterine . - An intrauterine gestational sac with a yolk sac and pole is present. - [place] rump length measurement is consistent with the established gestational age. - heart rate is within normal limits. Recommendations Refer to OB Maternal Assessment Height 168 cm Height (ft) 5 ft Height (in) 6 in Weight 80 kg Weight (lb) 176 lb BMI 28.41 kg/m Method Transvaginal ultrasound examination [place] . Number of fetuses: 1 Dating Conception: IVF Embryo transfer on: 09/06/2023 IVF / ET 5 d GA by IVF / ET 6 w + 5 d UNIQUE by IVF / ET: 05/24/2024 Ultrasound examination on: 10/04/2023 GA by U/S based upon: CRL GA by U/S 6 w + 6 d UNIQUE by U/S: 05/23/2024 Assessment Gestational sac: visualized Location: intrauterine Yolk sac: visualized YS 2.1 mm Embryo: visualized CRL 8.8 mm 6w 6d [place] Cardiac activity: present FHR 124 bpm Other: small hemorrhage to the left and adjacent to the gestational sac measured 14 x 4 x 8 mm Maternal Structures Uterus / Cervix Uterus: Visualized Uterus position: anteverted Uterus length 94 mm Uterus width 74 mm Uterus height 61 mm Uterus Vol 222.5 cm Cervix: Visualized Cervix details: normal Ovaries / Tubes / Adnexa Rt ovary: Visualized Rt ovary morphology: premenopausal normal follicular Rt ovary D1 31 mm Rt ovary D2 26 mm Rt ovary D3 22 mm Rt ovary Vol 9.3 cm Lt ovary: Visualized Lt ovary morphology: premenopausal normal follicular Lt ovary D1 35 mm Lt ovary D2 24 mm Lt ovary D3 21 mm Lt ovary Vol 9.3 cm Cul de Sac / Bladder / Kidneys / Other Cul de Sac: Visualized Free fluid: no free fluid visualized Performed By: Lucina Hernandez RDMS Read By: Nicci Ch M.D. MATERNAL MEDICINE [facility] Radiology Study observation (narrative) [facility] B-HCG SerPl-[place] 4 [place] [address].0 m[IU]/mL High <5.0 [facility] Comment on above: Order Comment: Speci men Type: BLOOD SPECIMENOrdering Facility: [facility] Address: [address] [place] [address] Result Comment: RAUL TITATIVE HCG NORMAL RANGES Weeks of Gestation (Weeks Since LMP) 3 Weeks (5.8-71.2 mIU/mL) 4 Weeks (9.5-750 mIU/mL) 5 Weeks (217-7138 mIU/mL) 6 Weeks (158-62624 mIU/mL) 7 Weeks (3697-934956 mIU/mL) 8 Weeks (55825-563284 mIU/mL) 9 Weeks (94412-429215 mIU/mL) 10 Weeks (93375-334006 mIU/mL) 12 Weeks (81525-458634 mIU/mL) Referenced to 4th IS of [facility] Performed By: #### 2 1198-7 ####[facility] [id number] [id number] [id number] [place] B-HCG Raymundol-Timi 4 HCG.beta subunit Qn 2117.0 m[IU]/mL High <5.0 [facility] Comment on above: Order Comment: Speci men Type: BLOOD SPECIMEN [facility] Facility: [facility] Address: [address] [place] [address] Result Comment: RAUL TITATIVE HCG NORMAL RANGES Weeks of Gestation (Weeks Since LMP) 3 Weeks (5.8-71.2 mIU/mL) 4 Weeks (9.5-750 mIU/mL) 5 Weeks (217-7138 mIU/mL) 6 Weeks (158-64537 mIU/mL) 7 Weeks (3697-508282 mIU/mL) 8 Weeks (05352-044526 mIU/mL) 9 Weeks (09252-821553 mIU/mL) 10 Weeks (27428-277534 mIU/mL) 12 Weeks (21610-847509 mIU/mL) Referenced to 4th IS of [facility] Performed By: #### 2 1198-7 #### [facility] CLIA [id number] [address] [place] [address] [place] CNCOon 09-06-2023 CNCO Letter Text Normal [facility] CNOVon 09-06-2023 CNOV Office Visit (ANDRBE ) ESTRELLA RIOJAS ([id number]) 1990 F Date Time Provider Department 09/06/23 3:00 PM ANDROLOGY FACILITIES TECHNICIAN ANDRBE During your visit today, we recorded the following information about you: Shoshana Hernandes 09/06/2023 1:33 PM Signed Embryo Transfer procedure performed. Detailed notes can be found in the paper chart in the [facility] - ACADEMIC ASSOCIATE Office. 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 - methylPREDNISolone (MEDROL) 16 mg tablet Take 1 tablet by mouth once daily. - progesterone 50 mg/mL injection Inject 1 mL intramuscularly once daily. Inject in the morning - Needle, Disp, 22 G 22 gauge x 1 1/2 To be used to inject progesterone in oil - Syringe with Needle, Disp, (SYRINGE 3CC/20GX1) 3 mL 20 gauge x 1 To be used to draw up Progesterone in oil - ALPRAZolam (XANAX) 0.25 mg tablet Take 0.25 mg by mouth at bedtime as needed for anxiety. - sertraline (ZOLOFT) 50 mg tablet Take 50 mg by mouth once daily. - vit,calc76/iron/folic (PNV 29-1 ORAL) Take by mouth. Problem List As Of Date 09/06/2023 Noted Resolved Contact dermatitis and other eczema, due to uns*07/24/2010 Encounter Status:Closed by SHOSHANA HERNANDES on 09/06/23 Normal [facility] CNOV Office Visit (IVFBE) ESTRELLA RIOJAS ([id number]) 1990 F Date Time Provider Department 09/06/23 1:30 PM REHMER, NICCI IVFBE During your visit today, we recorded the following information about you: Sharron Ybarra RN 09/06/2023 1:25 PM Signed POST EMBRYO TRANSFER INSTRUCTIONS You will need to have your blood drawn for Quantitative HCG on 09/20/23 at [place]. You can expect to be called the afternoon of your blood draw with your test results. If for any reason that date or location is changed, please call [phone] to inform us. Continue your current medications as instructed UNTIL YOU ARE 10 WEEKS or until a BLOOD test is confirmed negative. It is not uncommon to have breast tenderness, bloating, vaginal spotting ranging from pink to red to brown and generally feeling premenstrual while waiting to test. You can feel this way and still be - DO NOT STOP YOUR MEDICATIONS until testing is completed. Call the office if you develop: - Pain, redness and heat at your injection sites From the day of your transfer on, please treat yourself as if you are . Things to avoid: - Hot tubs/raising your core temperature - Chemical exposures - Drugs/medications that are not safe in - Processed lunch meat, unpasteurized cheeses - Smoking - Fish that are high in mercury Our recommendations on maintaining a healthy lifestyle during this time include: - Regular physical activity. Bed-rest is NOT recommended and will not increase your chance of - Daily vitamin or folic acid - Healthy diet - Adequate sleep - Sexual intimacy/intercourse/or gasm will not interfere with implantation. It is difficult to maintain the balance between optimism and realism. Remember you have done and are doing all that you can to improve your odds. Set reasonable expectations for yourselves. Keeping yourself busy and mentally distracted will help the time pass while waiting to test. If you have any questions, please call [phone]. Nicci Ch MD 09/06/2023 2:10 PM Signed [facility] TRANSFER PROCEDURE NOTE Date: 09/06/2023 Primary Proceduralist: Nicci Ch MD Mobile Application Developer(s): Not applicable Informed Consent: Consents and Labels Consent Signed: Informed Consent obtained and on the chart Labels Verified With Patient: Yes Indications: Estrella Riojas, is a 33 year old female here today for Embryo Transfer. [place] Protocol: Procedure to be Performed: embryo transfer Sign In: A Moment of CARE was completed. Personnel directly involved with the procedure wore the appropriate PPE (Personal Protective Equipment). Patient/Surrogate Stated/Verified: PATIENT VERIFIED(optional for EMERGENT procedures): Patient name, Date of , Relevant allergies, and The intended procedure Time Out Communication: Intended patient and procedure match the source documents. Consent documented and matches the intended procedure. Sign Out: SIGN OUT (optional for EMERGENT procedures): No specimen collected. All instruments, equipment, possible retained foreign bodies accounted for. Post-procedure follow-up management communicated and Plan of Care Visit completed when applicable. Nicci Ch MD TRANSFER Transfer Date: 09/06/23 Transfer Procedure: Embryo Transfer Transfer Physician: Nicci Ch M.D. Pre-Procedure Diagnosis: Infertility Post-Procedure Diagnosis: Infertility Source of embryos: Patient Total Thawed: 1 # of Embryos Transferred: 1 Catheter Type: Key Ease of Transfer: Easy Direction: AV Distance from fundus (mm): 13 Tissue Status: For Autologous Use Only/ Not Evaluated for Infectious Substances Cell Stage: Grade: PGT?: Specimens: None I/primary surgeon/proceduralist performed the entire procedure. SIGNATURE: Nicci Ch MD PATIENT NAME: Estrella Riojas DATE: September 06, 2023 TIME: 2:10 PM Referring Provider: MAXIM MARTIN [[id number]] Allergies As of Date: 09/06/2023 Noted Allergy Reaction LATEX 06/29/2023 2 - Rash 9 - Itching SHELLFISH DERIVED 12/31/2015 12 - Shortness of Breath Date Reviewed: 09/06/2023 Reviewed by: Sharron Ybarra RN - Fully Assessed Primary Visit Diagnosis:Female infertility [N97.9] Other Visit Diagnosis: examination or test, unconfirmed [Z32.00] Order(s):HCG QUANTITATIVE [SQHCGQT] Order #: [id number] FUTURE Prescriptions as of 09/06/2023 - estradiol (ESTRACE) 2 mg tablet TAKE 3 TABLETS BY MOUTH EVERY DAY - doxycycline (VIBRA-TABS) 100 mg tablet Take 1 tablet by mouth two times a day. - methylPREDNISolone (MEDROL) 16 mg tablet Take 1 tablet by mouth once daily. - progesterone 50 mg/mL injection Inject 1 mL intramuscularly once daily. Inject in the morning - Needle, Disp, 22 G 22 gauge x 1 1/2 To be used to inject progesterone in oil - S (more content not included)... Normal [facility] CNNURSEon 08-26-2023 CNNURSE Nurse Visit (REIBD) ESTRELLA RIOJAS ([id number]) 1990 F Date Time Provider Department 08/26/23 8:00 AM [facility] BEMARIE REIBD During your visit today, we recorded the following information about you: Marleni Rashid RN 08/26/2023 4:41 PM Signed The patient is here today for follicular ultrasound and blood work. The patient reports no problems or complaints. Ultrasound and blood will be reviewed by the physician, the flow sheet will be updated and instructions will be communicated to the patient. Pt did stay to meet with nursing. STONEY injections reviewed. Thaw plan signed. Marleni Rashid RN Call to patient at cell number listed Informed patient of confirmed FET date on 09/05. Patient will start doxy, medrol and STONEY on 08/31. Reviewed all instructions and sent to patient via [employer]. Patient verbalized understanding Marleni Rashid RN August 26, 2023 2:11 PM Referring Provider: DEUAR MARLEY [[id number]] Allergies As of Date: 08/26/2023 Noted Allergy Reaction LATEX 06/29/2023 2 - Rash 9 - Itching SHELLFISH DERIVED 12/31/2015 12 - Shortness of Breath Date Reviewed: 08/13/2023 Reviewed by: Eduar Marley APRN.COMPOSITION ROLL MAKER AND CUTTER - Fully Assessed Reason for Visit: Infertility [285] Visit Diagnosis:Female infertility [N97.9] Order(s):FOLLICULAR US [facility] [[id number]] Order #: [id number]. #:[id number] WPOINTQty: 1 ESTRADIOL-17B BLD [SQE2] Order #: [id number]. #:[id number] PROGESTERONE [SQPROG] Order #: [id number]. #:[id number] Prescriptions as of 08/26/2023 - estradiol (ESTRACE) 2 mg tablet TAKE 3 TABLETS BY MOUTH EVERY DAY - doxycycline (VIBRA-TABS) 100 mg tablet Take 1 tablet by mouth two times a day. - methylPREDNISolone (MEDROL) 16 mg tablet Take 1 tablet by mouth once daily. - progesterone 50 mg/mL injection Inject 1 mL intramuscularly once daily. Inject in the morning - Needle, Disp, 22 G 22 gauge x 1 1/2 To be used to inject progesterone in oil - Syringe with Needle, Disp, (SYRINGE 3CC/20GX1) 3 mL 20 gauge x 1 To be used to draw up Progesterone in oil - ALPRAZolam (XANAX) 0.25 mg tablet Take 0.25 mg by mouth at bedtime as needed for anxiety. - sertraline (ZOLOFT) 50 mg tablet Take 50 mg by mouth once daily. - vit,calc76/iron/folic (PNV 29-1 ORAL) Take by mouth. Problem List As Of Date 08/26/2023 Noted Resolved Contact dermatitis and other eczema, due to uns*07/24/2010 Encounter Status:Closed by ANGELA HENRY on 08/26/23 Normal [facility] E2 [Mass/Vol]Ordered By: Cierra Wall on 08-26-2023 [facility] Center ESTRADIOL-17B BLDOrdered By: Shu Wall on 08-26-2023 E2 [Mass/Vol] 228 pg/mL [facility] Comment on above: This test is not roxana table for patients receiving treatment with the drug Fulvestrant (Faslodex). The drug causes an interference leading to falsely elevated estradiol results. Menstrual cycle Estradiol reference ranges: Follicular : < 234 pg/mL Ovulation : 41 to 398 pg/mL Luteal : < 342 pg/mL Estradiol reference ranges vary by gestational period: First trimester : 154 to 3243 pg/mL Second trimester : 1561 to 48326 pg/mL Third trimester : 8285 to >45569 pg/mL Post-menopausal Estradiol reference range: < 41 pg/mL Reference: 1. Estradiol - E2 (Estradiol III) [package insert V 3.0 Finnish]. [facility], [place], [place], July 2015. Estradiol SerPl-mCncon 08-25 E2 [Mass/Vol] 228 pg/mL Normal [facility] Comment on above: Order Comment: Speci men Type: BLOOD SPECIMENOrdering Facility: [facility] Address: [facility] [place] [address] Result Comment: This test is not suitable for patients receiving treatment with the drug Fulvestrant (Faslodex). The drug causes an interference leading to falsely elevated estradiol results. Menstrual cycle Estradiol reference ranges: Follicular : < 234 pg/mL Ovulation : 41 to 398 pg/mL Luteal : < 342 pg/mL Estradiol reference ranges vary by gestational period: First trimester : 154 to 3243 pg/mL Second trimester : 1561 to 84551 pg/mL Third trimester : 8285 to >86023 pg/mL Post-menopausal Estradiol reference range: < 41 pg/mL Reference: 1. Estradiol - E2 (Estradiol III) [package insert V 3.0 Finnish]. [facility], [place], [place], July 2015. Performed By: #### 2 839-9, 2243-4 ####[facility] LABCLIA [id number] [place] [address] [place] Follicle Diameter USon 08-25 Indication Lining Assessment Impression 10 mm trilaminar lining Recommendations We recommend a follow-up scan only as clinically indicated Method Transvaginal ultrasound examination. 3D ultrasound examination Uterus Uterus position: anteverted Endometrium: three-layer pattern Endometrial thickness, total 10.8 mm Right Ovary Rt ovary: Visualized Rt ovary morphology: normal Left Ovary Lt ovary: Visualized Lt ovary morphology: normal Cul de Sac Visualized. no free fluid visualized Performed By: Vilma Mchugh RDMS Read By: Angela Henry M.D. MATERNAL MEDICINE [facility] Radiology Study observation (narrative) Bree nunez [facility] PROGESTERONEon 08-26-2023 Progesterone [Mass/Vol] 0.4 ng/mL See comment [facility] Comment on above: Menstrual Cycle Prog esterone Reference Ranges: Follicular: <1.0 ng/mL Ovulation: <12.1 ng/mL Luteal: 1.8 to 23.9 ng/mL. Progesterone Reference Ranges vary by gestational period: First Trimester: 11.0 to 44.3 ng/mL Second Trimester: >25.3 ng/mL Third Trimester: >58.6 ng/mL Post menopausal Progesterone: <0.5 ng/mL Reference: 1. Progesterone (Progesterone III) [package insert V 1.0 Finnish]. [facility], [place], [place]. November 2014. Progest SerPl-Lisandroon 024 Progesterone [Mass/Vol] 0.4 ng/mL Normal See comment [facility] Comment on above: Order Comment: Speci men Type: BLOOD SPECIMENOrdering Facility: [facility] Address: [address] [place] [address] Result Comment: Mens trual Cycle Progesterone Reference Ranges: Follicular: <1.0 ng/mL Ovulation: <12.1 ng/mL Luteal: 1.8 to 23.9 ng/mL. Progesterone Reference Ranges vary by gestational period: First Trimester: 11.0 to 44.3 ng/mL Second Trimester: >25.3 ng/mL Third Trimester: >58.6 ng/mL Post menopausal Progesterone: <0.5 ng/mL Reference: 1. Progesterone (Progesterone III) [package insert V 1.0 Finnish]. [employer] [facility], [place], [place]. November 2014. Performed By: #### 2 839-9, 2243-4 ####[facility] LABCLIA [id number] [place] [id number] [place] Progesterone [Mass/Vol]on Interpretation and review of laboratory results Normal [facility] Kae 08-13-2023 YAHIR Telephone (REIBD) ESTRELLA RIOJAS ([id number]) 1990 F Date Time Provider Department 08/13/23 ZAIDA NESS During your visit today, we recorded the following information about you: Shonda Carranza 08/13/2023 2:54 PM Signed Pt started cycle 08/12 and would like to discuss medication start Sudha Muhammad RN 08/13/2023 4:24 PM Signed Returned phone call, period started, started estrace. Lining check scheduled for 08/25 at 0800, no further questions at this time. Sudha Muhammad RN August 13, 2023 4:22 PM Allergies As of Date: 08/13/2023 Noted Allergy Reaction LATEX 06/29/2023 2 - Rash 9 - Itching SHELLFISH DERIVED 12/31/2015 12 - Shortness of Breath Date Reviewed: 08/13/2023 Reviewed by: Eduar Marley APRN.COMPOSITION ROLL MAKER AND CUTTER - Fully Assessed Reason for Visit: cd1 , medication [Other] Primary Visit Diagnosis:Female infertility [N97.9] Order(s):ESTRADIOL-17B BLD [SQE2] Order #: [id number] FUTURE PROGESTERONE [SQPROG] Order #: [id number] FUTURE FOLLICULAR US WHI [8334011] Order #: [id number]: 1 FUTURE Prescriptions as of 08/13/2023 - doxycycline (VIBRA-TABS) 100 mg tablet Take 1 tablet by mouth two times a day. - estradiol (ESTRACE) 2 mg tablet Take 3 tablets by mouth once daily. - methylPREDNISolone (MEDROL) 16 mg tablet Take 1 tablet by mouth once daily. - progesterone 50 mg/mL injection Inject 1 mL intramuscularly once daily. Inject in the morning - Needle, Disp, 22 G 22 gauge x 1 1/2 To be used to inject progesterone in oil - Syringe with Needle, Disp, (SYRINGE 3CC/20GX1) 3 mL 20 gauge x 1 To be used to draw up Progesterone in oil - ALPRAZolam (XANAX) 0.25 mg tablet Take 0.25 mg by mouth at bedtime as needed for anxiety. - sertraline (ZOLOFT) 50 mg tablet Take 50 mg by mouth once daily. - vit,calc76/iron/folic (PNV 29-1 ORAL) Take by mouth. Problem List As Of Date 08/13/2023 Noted Resolved Contact dermatitis and other eczema, due to uns*07/24/2010 Encounter Status:Closed by EDUAR MARLEY on 08/13/23 Normal [facility] Director Energy Office Visit Reporton 07-29-2023 Director Energy Office Visit Report [facility] [address] [place] [address] OFFICE VISIT Date of Service: 07/29/23 MR#: [id number] Acct: [id number] Name: ESTRELLA RIOJAS Rep #: [id number] : 1990 Provider: MIREILLE gilliam Age/Sex: 33/F Location: [facility] Status: Signed Intake Vital Signs 06/17/23 14:47 07/29/23 10:27 07/29/23 10:32 Height 5 ft 6 in 5 ft 6 in 5 ft 6 in Weight: 180 lb 6 oz BMI 29.1 BP 106/70 Blood Pressure Location Lt brachial Position Sitting Pulse 99 Pulse Source Monitor Intake Visit Reasons: 4 WK MED CHK Freight Checker Required: No Accompanied by: Self Is patient in pain?: No Feel stressed/tense/nervous/ anxious/difficulty sleeping: to some extent Allergies shellfish derived Allergy (Severe, Verified 07/29/23 10:32) unknown latex Allergy (Verified 07/29/23 10:32) Rash Medications ???Medication ???Instructions ???Recorded ???Confirmed ???Type albuterol sulfate 90 mcg/actuation 2 puff inhalation Q6H PRN ASTHMA 01/21/22 07/29/23 History aerosol inhaler alprazolam 0.5 mg tablet (Xanax) 0.25 mg PO BID PRN Anxiety 01/21/22 07/29/23 History vits 75-iron 28 mg-folic pkg PO 04/19/23 07/29/23 History acid 800 mcg-omega-3 oral combo pack (One A Day Women's DHA) benzonatate 200 mg capsule 200 mg PO TID PRN cough #20 caps 06/02/23 07/29/23 Rx fluconazole 150 mg tablet 150 mg PO .COMPLEX #2 tabs 07/29/23 07/29/23 Rx sertraline 100 mg tablet (Zoloft) 100 mg PO DAILY #30 tabs 07/29/23 07/29/23 Rx PFSH Medical History Left breast mass Blister Fibroadenoma of breast Anxiety Graves' disease Restless legs Syncope Blackout Non-smoker Depression Asthma Surgical History S/P laparotomy History of breast biopsy History of oral surgery Family History Grandmother Breast cancer Uncle Lung cancer Social History household members: spouse number of children: 0 current occupational status: employed current occupation: [employer] history of recent travel: No sexually active: Yes Smoking Status: Never smoker alcohol intake: never substance use type: does not use what type of physical activity do you participate in: walking and running seatbelt use: always do you feel safe at home: Yes additional social history: - Eliseo HPI 4 WK MED CHK Details: ESTRELLA RIOJAS is a 33 year old who presents for follow up start of zoloft 50mg. States not as tearful but still doesn't want to be around other people. Did not start counseling. Has had egg retrieval with 17 eggs removed and now has 2 viable embryos frozen. Plans transfer in next 3-4 weeks. States she didn't want to go to group therapy because she didn't want to hear of other IVF failures. She was disappointed she only has 2 viable embryos and transfer success is 50-60%. She is having vaginal itching and discharge without relief after using 3 day monistat. History 0 Elective abortions Hx Para Spontaneous abortions Hx # Term Pregnancies Ectopic pregnancies Hx # Pregnancies Multiple births # of living children ROS Const Constitutional: Reports as per HPI Psych Psych: Reports as per HPI Exam Const General: cooperative and no acute distress Nutritional Appearance: well nourished Orientation: oriented x3 Eyes General: appearance normal, both eyes and all related structures Resp Effort Inspection: normal respiratory effort Neuro Speech: speech normal Psych Appearance: grossly normal Affect: labile affect Speech and Movement: speech and movement normal Attitude: cooperative Thought Process: normal Thought Content: normal Judgment: judgment good Coding Level of Care Code Off vis,est,level 3 Diagnoses Reactive depression F32.9 Depression Type: reactive depression Anxiety F41.9 Female infertility associated with male factors Z31.81; N97.8 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 N97.1 Assessment and Plan Assessment and Plan (1) Depression: Status: Acute Qualifiers: Depression Type: reactive depression Qualified Code(s): F32.9 - Major depressive disorder, single episode, unspecified Comment: on meds (2) Anxiety: Status: Acute Comment: on meds (3) Female infertility associated with male factors: Status: Acute Comment: seeing [facility], Embryo transfer planned August 2023 (4) 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 Normal [facility] [id number] 07-26-2023 [facility] ID: [id number] Author: ZAIDA NESS MD Service: ? Author Type: Physician Type: Filed: 07/26/2023 11:27 Note Text: Summary: FET Transfer Treatment Plan ANDRE Frozen Embryo Transfer Treatment Plan: Specialty comments (one liner/guzman things to know): 33 yo status post IVF with cryopreserved embryos. Pretreatment:None - natural cycle start Uterine cavity testing: [facility] date: 07/20/2023 Protocol: Programmed NatPro Study: No If programmed, type of estradiol: Oral estradiol Type of progesterone: 50 mg Progesterone in Oil IM daily OK for OCPs to delay cycle start if needed: Yes - but probably not necessary Zaida Ness MD 07/26/2023 [facility] Uterus and Fallopian tube s W saline IUon 07-21-2023 Indication Fertility testing /SIS Impression Saline infusion sonohysterogram demonstrated a normal appearing endometrial cavity. The details of these findings are described in the procedure section below. Recommendations Follow up as clinically indicated. Menstrual History LMP on 07/10/2023. Day of cycle 11 Method Saline Infusion Sonohysterogram, Transvaginal, 3D ultrasound examination, Color Doppler examination Uterus Uterus: Visualized Uterus position: anteverted Description of uterine malformations: none Myometrium: heterogeneous, fibroids Endometrium: three-layer pattern Endometrial thickness single layer 3.4 mm Endom. th. single layer 3.8 mm Side: anterior Side: posterior Endometrial thickness, total 7.2 mm Right Ovary Rt ovary: Visualized Left Ovary Lt ovary: Visualized Cul de Sac Visualized. no free fluid visualized Procedure Saline infused ultrasound was performed and shows that the endometrial cavity is normal in size and contour. No focal endometrial thickening, endometrial polyps or sub mucosal fibroids are observed. The anterior single layer endometrial thickness measures 3.4 mm and the posterior single layer endometrial thickness measures 3.8 mm. Performed By: Caroline Juarez; [facility] Read By: Frank Troncoso M.D. MATERNAL MEDICINE [facility] CNOVon 07-20-2023 CNOV Office Visit (REIAV) ESTRELLA RIOJAS ([id number]) 1990 F Date Time Provider Department 07/20/23 8:30 AM FRANK TRONCOSO During your visit today, we recorded the following information about you: Pulse Blood pressure Weight Last Period 69/minute 101/72 79.9 kg 07/10/23 Nel Fernández MA 07/20/2023 8:37 AM Signed Exam chaperoned by Pradeep Torres MA, COLE.CN 07/20/2023 8:55 AM Signed Estrella Uribe Shine is a 33 year old here for SIS. Referred by: Steff Cazares [id number] [id number] Chief Complaint: Set up FET Endometrial Biopsy: No Ultrasound: No Hormonal therapy: No. LMP: Patient's last menstrual period was 07/10/2023 (exact date). Cycles: PERIOD REGULARITY: regular q 28-30 days Contraception: none HCG: negative UNIVERSAL PROTOCOL / SAFETY CHECKLIST Procedure to be Performed: SIS Sign In: A Moment of CARE was completed. Personnel directly involved with the procedure wore the appropriate PPE (Personal Protective Equipment). Patient/Surrogate Stated/Verified: PATIENT VERIFIED(optional for EMERGENT procedures): Patient name, Date of , Relevant allergies, and The intended procedure Time Out Communication: Intended patient and procedure match the source documents. Consent documented and matches the intended procedure. Sign Out: SIGN OUT (optional for EMERGENT procedures): No specimen collected. All instruments, equipment, possible retained foreign bodies accounted for. Post-procedure follow-up management communicated and Plan of Care Visit completed when applicable. Pradeep Andrews APRN.CNM PROCEDURE: EXTERNAL GENITALIA: Normal in appearance without lesions VAGINA: Normal in appearance without lesions Speculum placed into the vagina with excellent visualization of the cervix. Cervix cleaned with Hibiclens. SIS catheter inserted into the uterus without difficulty. Speculum removed and 20mL sterile saline injected into the uterine cavity under ultrasound guidance. Procedure Summary: Patient tolerated procedure well. See ViewPoint for procedure results. COREY Bryan Julierut, MD 07/21/2023 7:22 AM Signed Patient is here for ultrasound. Please see image section in Epic for results. Celeste Gutierrez MD Referring Provider: STEFF CAZARES [[id number]] Allergies As of Date: 07/20/2023 Noted Allergy Reaction LATEX 06/29/2023 2 - Rash 9 - Itching SHELLFISH DERIVED 12/31/2015 12 - Shortness of Breath Date Reviewed: 07/20/2023 Reviewed by: Pradeep Andrews APRN.CNM - Fully Assessed Reason for Visit: Procedure [88] Primary Visit Diagnosis:Encounter for fertility testing [Z31.41] Other Visit Diagnosis:Encounter for preprocedural laboratory examination [Z01.812] Order(s):HCG QUAL UR B/O [2247530] Order #: [id number] SONOHYSTEROGRAPHY (SIS) [facility] [[id number]] Order #: [id number]. #:[id number] WPOINTQty: 1 Prescriptions as of 07/21/2023 - ALPRAZolam (XANAX) 0.25 mg tablet Take 0.25 mg by mouth at bedtime as needed for anxiety. - sertraline (ZOLOFT) 50 mg tablet Take 50 mg by mouth once daily. - vit,calc76/iron/folic (PNV 29-1 ORAL) Take by mouth. - cabergoline (DOSTINEX) 0.5 mg tablet Take 1 tablet by mouth once daily for 8 days. Problem List As Of Date 07/20/2023 Noted Resolved Contact dermatitis and other eczema, due to uns*07/24/2010 Visit Notes: >> Nel Fernández MA Tue Jul 20, 2023 8:37 AM Status: Signed Exam chaperoned by Nel Fernández MA Encounter Status:Closed by FRANK BALLARD on 07/21/23 Normal [facility] HCG QUAL UR B/Oon 07-20-2023 Interpretation and review of laboratory results Normal [facility] status Negative neg - pos [facility] Quality Check Yes yes/no [facility] US Uterus and Fallopian tube s W saline IUon 07-20-2023 Radiology Study observation (narrative) [facility] 07-06-2023 CNPN Telephone (REIBD) ESTRELLA RIOJAS ([id number]) 1990 F Date Time Provider Department 07/06/23 [facility] VIKKI REIBD During your visit today, we recorded the following information about you: Sudha Muhammad, GERARDO 07/06/2023 11:12 AM Signed Called patient regarding her MyChart message. She was very nauseous and constipated over the weekend with taking the dostinex. Apologized to patient that I didn't see her message since I wasn't here over the weekend. Patient states she is done with the medication today, I advised she should start to feel better in the next day or 2. She states understanding, no further questions at this time. Sudha Muhammad RN July 06, 2023 11:11 AM Allergies As of Date: 07/06/2023 Noted Allergy Reaction LATEX 06/29/2023 2 - Rash 9 - Itching SHELLFISH DERIVED 12/31/2015 12 - Shortness of Breath Date Reviewed: 06/29/2023 Reviewed by: Lalitha Wing RN - Fully Assessed Prescriptions as of 07/06/2023 - ALPRAZolam (XANAX) 0.25 mg tablet Take 0.25 mg by mouth at bedtime as needed for anxiety. - sertraline (ZOLOFT) 50 mg tablet Take 50 mg by mouth once daily. - vit,calc76/iron/folic (PNV 29-1 ORAL) Take by mouth. - cabergoline (DOSTINEX) 0.5 mg tablet Take 1 tablet by mouth once daily for 8 days. Problem List As Of Date 07/06/2023 Noted Resolved Contact dermatitis and other eczema, due to uns*07/24/2010 Encounter Status:Closed by SUDHA MUHAMMAD on 07/06/23 Normal [facility] CNOVon 07-05-2023 CNOV Office Visit (ANDRBE ) ESTRELLA RIOJAS ([id number]) 1990 F Date Time Provider Department 07/05/23 10:00 AM ANDROLOGY FACILITIES TECHNICIAN ANDE During your visit today, we recorded the following information about you: Echo Monreal 07/05/2023 10:40 AM Signed IVF freeze all cycle. Echo Monreal July 05, 2023 10:39 AM Referring Provider: MAXIM MARTIN [[id number]] Allergies As of Date: 07/05/2023 Noted Allergy Reaction LATEX 06/29/2023 2 - Rash 9 - Itching SHELLFISH DERIVED 12/31/2015 12 - Shortness of Breath Date Reviewed: 06/29/2023 Reviewed by: Lalitha Wing RN - Fully Assessed Primary Visit Diagnosis:Female infertility [N97.9] Prescriptions as of 07/06/2023 - ALPRAZolam (XANAX) 0.25 mg tablet Take 0.25 mg by mouth at bedtime as needed for anxiety. - sertraline (ZOLOFT) 50 mg tablet Take 50 mg by mouth once daily. - vit,calc76/iron/folic (PNV 29-1 ORAL) Take by mouth. - cabergoline (DOSTINEX) 0.5 mg tablet Take 1 tablet by mouth once daily for 8 days. Problem List As Of Date 07/05/2023 Noted Resolved Contact dermatitis and other eczema, due to uns*07/24/2010 Encounter Status:[facility] ([id number]) 1990 F Date Time Provider Department 07/01/23 ANDERSON BARRY REIBD During your visit today, we recorded the following information about you: Anderson Barry MD 07/01/2023 10:02 PM Signed Confirmed patient full name and over the phone. Trigger injection date: 06/26 Trigger injection type and dose: Dual Trigger Number of oocytes retrieved: 17 Yes No Symptoms [] [x] Abdominal distention [x] [] Abdominal discomfort [x] [] Nausea [x] [] Vomiting [x] [] Decreased appetite [] [x] Diarrhea [x] [] Enlarged ovaries [] [x] Rapid weight gain (>1 kg or 2.2 lb in 24 hours) [] [x] Dyspnea [] [x] Oliguria [] [x] Lightheadedness [] [x] Syncope [] [x] Leg pain Concern for possible mild OHSS. Pt counseling provided: Monitor for symptom worsening, improvements, and the development of new symptoms Daily weights Monitor urine output Intake of moderate amount (1 to 2 liters per day) of electrolyte-rich fluids, like Gatorade Tylenol 1g q 8 h for pain control as needed Pt counseled that mild OHSS can progress to moderate or severe and she should call [facility] mainline again for any signs or symptoms of worsening. All questions answered and concerns addressed. Patient verbalized understanding of plan Patient encouraged to call back with any questions or concerns. Anderson Barry MD PGY-5 Reproductive Endocrinology and Infertility Fellow Allergies As of Date: 07/01/2023 Noted Allergy Reaction LATEX 06/29/2023 2 - Rash 9 - Itching SHELLFISH DERIVED 12/31/2015 12 - Shortness of Breath Date Reviewed: 06/29/2023 Reviewed by: Lalitha Wing, RN - Fully Assessed Prescriptions as of 07/01/2023 - ALPRAZolam (XANAX) 0.25 mg tablet Take 0.25 mg by mouth at bedtime as needed for anxiety. - sertraline (ZOLOFT) 50 mg tablet Take 50 mg by mouth once daily. - vit,calc76/iron/folic (PNV 29-1 ORAL) Take by mouth. - cabergoline (DOSTINEX) 0.5 mg tablet Take 1 tablet by mouth once daily for 8 days. Problem List As Of Date 07/01/2023 Noted Resolved Contact dermatitis and other eczema, due to uns*07/24/2010 Encounter Status:Closed by ANDERSON BARRY on 07/01/23 [facility] Telephone (REIBD) ESTRELLA RIOJAS ([id number]) 1990 F Date Time Provider Department 07/01/23 [facility] VIKKI WOODS During your visit today, we recorded the following information about you: Sudha Muhammad RN 07/01/2023 9:29 AM Signed Called patient regarding MyChart message about feeling sick after retrieval. Patient states she feels ok overall, a little lightheaded in the morning and some minor cramping. She is urinating, eating and drinking with no problems. She is having bloating but no difficulty breathing. Advised patient this sounds normal, if she starts to feel worse or has any questions she can call the office, discussed after hours emergency line as well. She states understanding. Sudha Muhammad RN July 01, 2023 9:28 AM Allergies As of Date: 07/01/2023 Noted Allergy Reaction LATEX 06/29/2023 2 - Rash 9 - Itching SHELLFISH DERIVED 12/31/2015 12 - Shortness of Breath Date Reviewed: 06/29/2023 Reviewed by: Lalitha Wing RN - Fully Assessed Prescriptions as of 07/01/2023 - ALPRAZolam (XANAX) 0.25 mg tablet Take 0.25 mg by mouth at bedtime as needed for anxiety. - sertraline (ZOLOFT) 50 mg tablet Take 50 mg by mouth once daily. - vit,calc76/iron/folic (PNV 29-1 ORAL) Take by mouth. - cabergoline (DOSTINEX) 0.5 mg tablet Take 1 tablet by mouth once daily for 8 days. Problem List As Of Date 07/01/2023 Noted Resolved Contact dermatitis and other eczema, due to uns*07/24/2010 Encounter Status:Closed by SUDHA MUHAMMAD on 07/01/23 Normal [facility] ANES POSTPROC EVALon 024 ANES POSTPROC EVAL HNO ID: [id number] Author: PARVIZ REYES MD Service: Anesthesiology Author Type: Anesthesiologist Type: Anesthesia Postprocedure Evaluation Filed: 06/29/2023 10:36 Note Text: POST ANESTHESIA EVALUATION NOTE : 1990 Procedure Summary Date: 06/29/23 Room / Location: [address] Anesthesia Start: 910 Anesthesia Stop: 939 Procedure: FOLLICLE PUNCTURE FOR OOCYTE RETRIEVAL (Vagina ) Diagnosis: Female infertility (Female infertility [N97.9]) Surgeons: Frank Troncoso MD Responsible Provider: Parviz Reyes V, MD Anesthesia Type: MAC ASA Status: 2 Anesthesia Type: MAC Last Vitals Vitals Value Taken Time BP 110/72 06/29/23 1017 Temp 36.2 ?C (97.2 ?F) 06/29/23 0938 Pulse 81 06/29/23 1017 Resp 16 06/29/23 1017 SpO2 100 % 06/29/23 1017 Post Anesthesia Patient Status Patient Evaluation: PACU. PACU/ICU Patient Condition: stable. Anticipated Disposition: phase 2 then home. Neurological Status: aware and responsive. Pulmonary Status: breathing comfortably on room air Airway Control: returned to baseline unsupported. Cardiovascular Status: stable. Pain Management: clinically adequate Postoperative Hydration: acceptable. Intraoperative Events: no significant anesthesia events Post Operative Nausea/Vomiting Status: no significant post operative nausea or vomiting Recommendation: continue current plan of care. Anesthesia Observations No Documentation SIGNATURE: Parviz Reyes MD PATIENT NAME: Estrella Riojas DATE: June 29, 2023 TIME: 10:36 AM CSN: [id number] Normal [facility] ANES PRE-OPon 06-29-2023 ANES PRE-OP HNO ID: [id number] Author: PARVIZ REYES MD Service: Anesthesiology Author Type: Anesthesiologist Type: Anesthesia Preprocedure Evaluation Filed: 06/29/2023 09:15 Note Text: ANESTHESIOLOGY DAY OF SURGERY NOTE : 1990 Procedure Information Date/Time: 06/29/23 0900 Procedure: FOLLICLE PUNCTURE FOR OOCYTE RETRIEVAL (Vagina ) Location: [address] Surgeons: Frank Troncoso MD Estimated body mass index is 28.44 kg/m? as calculated from the following: Height as of this encounter: 167.6 cm (5' 6). Weight as of this encounter: 79.9 kg (176 lb 3.2 oz). Most recent hematocrit and potassium results: Hematocrit 37.6 06/14/2023 Relevant Problems No relevant active problems I - PHYSICAL EVALUATION AIRWAY Patient intubated: No. Tracheostomy tube not present Mallampati: I. TM distance: >3 FB. Neck ROM: full ROM without neurological symptoms. Mouth opening: adequate. Short neck: no. Thick neck: no DENTAL Dental findings: teeth intact. Additional exam findings: yes. CARDIOVASCULAR Rhythm: regular Rate: normal PULMONARY Breath sounds clear to auscultation. II - ANESTHESIA PLAN ASA Score: 2 Anesthetic Plan: MAC NPO Status: adequate Beta Huy Monitoring Plan Monitoring plan: standard ASA. Post Procedure Analgesic Plan Postoperative analgesic plan: multimodal analgesia. Informed Consent Anesthetic risks, benefits, alternatives, personnel and consent discussed: yes. Patient / Responsible Alliance Party agrees to proceed: yes Patient / Surrogate agrees to blood products: blood products not planned Significant changes in the patient condition since the History and Physical, not otherwise documented in primary service progress note: no. Potential Anesthesia issues that may suggest increased risk of complications or contraindication to planned procedure: none. Vitals Value Taken Time BP 117/61 06/29/23 0814 Pulse 79 06/29/23 0814 Resp 17 06/29/23 0814 Temp 36.9 ?C (98.4 ?F) 06/29/23 0814 SpO2 97 % 06/29/23 0814 Facility-Administered Medications as of 06/29/2023 Medication Dose Route Frequency lactated ringers iv infusion 5-30 mL/hr INTRAVENOUS CONTINUOUS ampicillin 1 g in NaCl 0.9% 50 mL Vial-Bag 1 g INTRAVENOUS ONCE Outpatient Medications as of 06/29/2023 Medication Sig ALPRAZolam (XANAX) 0.25 mg tablet Take 0.25 mg by mouth at bedtime as needed for anxiety. sertraline (ZOLOFT) 50 mg tablet Take 50 mg by mouth once daily. vit,calc76/iron/folic (PNV 29-1 ORAL) Take by mouth. I have interviewed and examined the patient. I have reviewed the medical record and/or the pre-anesthesia evaluation, pertinent labs, and test results. This contains updated information obtained within 48 hours of Surgery/Procedure. 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 Detailed notes can be found in the paper chart in the [facility] Office. Echo Monreal Referring Provider: MAXIM MARTIN [[id number]] Allergies As of Date: 06/29/2023 Noted Allergy Reaction LATEX 06/29/2023 2 - Rash 9 - Itching SHELLFISH DERIVED 12/31/2015 12 - Shortness of Breath Date Reviewed: 06/29/2023 Reviewed by: Lalitha Wing, RN - Fully Assessed Primary Visit Diagnosis:Female infertility [N97.9] Prescriptions as of 07/03/2023 - ALPRAZolam (XANAX) 0.25 mg tablet Take 0.25 mg by mouth at bedtime as needed for anxiety. - sertraline (ZOLOFT) 50 mg tablet Take 50 mg by mouth once daily. - vit,calc76/iron/folic (PNV 29-1 ORAL) Take by mouth. - cabergoline (DOSTINEX) 0.5 mg tablet Take 1 tablet by mouth once daily for 8 days. Problem List As Of Date 06/29/2023 Noted Resolved Contact dermatitis and other eczema, due to uns*07/24/2010 Encounter Status:Closed by ECHO MONREAL on 06/29/23 Normal [facility] HISTORY PHYSICALon HISTORY PHYSICAL HNO ID: [id number] Author: FRANK TRONCOSO MD Service: Reproductive Endocrinology Author Type: Resident Type: H&P Filed: 06/29/2023 09:11 Note Text: Attestation signed by Frank Troncoso MD at 06/29/2023 9:11 AM UPDATED HISTORY AND PHYSICAL EXAMINATION SERVICE DATE: 06/29/2023 SERVICE TIME: 9:11 AM PHYSICAL EXAM MUST BE COMPLETED ON ADMISSION The History and Physical (completed in the past 30 days) has been reviewed and the patient has been examined. The contents accurately reflect the patient's condition with the following additions or revisions since the HANDP was completed. Examination indicates no changes. This HANDP can be found in the attached. SIGNATURE: Celeste Gutierrez MD PATIENT NAME: Estrella Riojas DATE: June 29, 2023 TIME: 9:11 AM HISTORY AND PHYSICAL EXAMINATION GYNECOLOGY SERVICE DATE: 06/29/2023 SERVICE TIME: 8:55 AM CHIEF COMPLAINT/HISTORY OF PRESENT ILLNESS: Ms. Riojas is a 33 year old female who presents for oocyte retrieval. PAST MEDICAL/SURGICAL/FAMILY /SOCIAL HISTORY PAST MEDICAL HISTORY Diagnosis Date Asthma Breast disorder Fibroid Graves disease remission PAST SURGICAL HISTORY Procedure Laterality Date PAST SURGICAL HISTORY OF 07/2022 myomectomy FAMILY HISTORY Problem Relation Age of Onset Breast Cancer Maternal Grandmother SOCIAL HISTORY Social History Tobacco Use Smoking status: Never Smokeless tobacco: Never Substance Use Topics Alcohol use: Not Currently Drug use: Never MEDICATIONS/ALLERGIES Current Facility-Administered Medications Medication Dose Route Frequency Provider Last Rate Last Admin lactated ringers iv infusion 5-30 mL/hr INTRAVENOUS CONTINUOUS Debora, Steff Nazario MD 30 mL/hr at 06/29/23 0823 30 mL/hr at 06/29/23 0823 ampicillin 1 g in NaCl 0.9% 50 mL Vial-Bag 1 g INTRAVENOUS ONCE Steff Cazares MD 100 mL/hr at 06/29/23 0845 1 g at 06/29/23 0845 ALLERGIES Allergen Reactions Latex Rash, Itching Shellfish Derived Shortness of Breath REVIEW OF SYSTEMS General: No weight loss, malaise or fevers. Neuro: No history of TIA's, stroke, ARTIFICIAL FLOWER MAKER tumor, impaired sensorium, hemiplegia, paraplegia or quadriplegia. No neurological symptoms or problems. Respiratory: No history of current cough or dyspnea, or pneumonia in the past 6 weeks. No history of respiratory/pulmonary symptoms or problems. Cardiovascular: No history of HTN requiring medication, no history of angina, CHF, HI, cardiac surgery or stents. Denies rest pain, gangrene or revascularization/amput ation for PVD. No history of cardiovascular symptoms or problems. GI: No history of GI symptoms or problems. No history of esophageal varices, recent ascites, or ETOH greater than 2 drinks per day. : No history of UTI in past 6 weeks. No history of renal failure. Not currently on or requiring dialysis. No history of symptoms or problems. 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 Endocrine: No history of diabetes. Has not taken steroids within the past 30 days. No history of endocrinological symptoms or problems. Hematology: No history of bleeding or clotting disorder. No history of hematological symptoms or problems. Oncology: No history of CA metastasis, chemo within 30 days, or radiotherapy within 90 days. No history of oncological symptoms or problems. Psych: Anxiety, Depression Skin: Negative for lesions, rash, and itching. PHYSICAL EXAM VITALS: BP 117/61 Pulse 79 Temp (Src) 98.4 (Temporal Artery) Resp 17 Ht 5' 6 (1.68m) Wt 176 lb 3.2 oz (79.9kg) SpO2 97% LMP 02/03/2023 BMI 28.45 kg/(m2). O2 Therapy: Room Air General: Alert and oriented Skin: Normal color, no rash, no lesions. HEENT: EOM, pupils equal, round and reactive. Cardiovascular: Normal S1 AND S2, no rubs, murmurs or gallops. No JVD. Pulse regular. Lungs: Normal breath sounds, no wheezes or crackles. Abdomen: Soft, non-tender, no rigidity. Extremities: No deformity, no edema or tenderness, no joint swelling or clubbing. Neurological: Normal cognition and motor skills. Pulses: Pedal pulses normal +2. ASSESSMENT Ms. Riojas is a 33 year old female who presents for oocyte retrieval. -ampicillin 1 g -sedation per anesthesia SIGNATURE: Fidelia Ramirez MD PATIENT NAME: Estrella Riojas DATE: June 29, 2023 TIME: 8:55 AM Normal [facility] OPERATIVE NOon 06-29-2023 OPERATIVE NO HNO ID: [id number] Author: FRANK TRONCOSO MD Service: Gynecology Author Type: Physician Type: Operative Report Filed: 06/29/2023 09:42 Note Text: WHI ANDRE RETRIEVAL PROCEDURE NOTE Log ID: [id number] Surgery Date: 06/29/2023 Incision/Procedure Start Time: 9:18 AM Incision Close/Procedure End Time: 9:31 AM Primary Proceduralist: Celeste Gutierrez MD Mobile Application Developer(s): Not applicable Informed Consent: Indications: Estrella Riojas, is a 33 year old female here today for egg retrieval. RETRIEVAL Retrieval Date: 06/29/23 Retrieval Physician: Frank Troncoso M.D. Procedure: Follicle Punc, Retrieval of Oocyte (08091) Real-time ultrasound guidance was used in oocyte retrieval. Probe was removed upon completion of procedure: Yes Pre-op Diagnosis: Infertility Post-Op Diagnosis: Infertility Right Ovary Access: Yes Right Ovary Oocytes: 8 Left Ovary Access: Yes Left Ovary Oocytes: 9 Needle: Single Lumen Total Oocytes Retrieved: 17 Excess vaginal bleeding: No Estimated Blood Loss: Minimal Complications: None Specimens: Oocyte Patient recovering well with stable vital signs after tolerating the procedure well. No qualified resident/fellow was available. I/primary surgeon/proceduralist performed the entire procedure. SIGNATURE: Celeste Gutierrez MD PATIENT NAME: Estrella Riojas DATE: June 29, 2023 TIME: 9:42 AM Normal [facility] B-HCG SerPl-aCncon 4 HCG.beta subunit Qn 83.7 m[IU]/mL High <5.0 [facility] Comment on above: Order Comment: Speci men Type: BLOOD SPECIMEN Ordering Facility: [facility] Address: [address], [place] [address] Result Comment: RAUL TITATIVE HCG NORMAL RANGES Weeks of Gestation (Weeks Since LMP) 3 Weeks (5.8-71.2 mIU/mL) 4 Weeks (9.5-750 mIU/mL) 5 Weeks (217-7138 mIU/mL) 6 Weeks (158-62154 mIU/mL) 7 Weeks (3697-336780 mIU/mL) 8 Weeks (40173-160708 mIU/mL) 9 Weeks (15203-284181 mIU/mL) 10 Weeks (92236-427702 mIU/mL) 12 Weeks (86659-358620 mIU/mL) Referenced to 4th IS of [facility] Performed By: #### 2 1198-7 #### [facility] CLIA [id number] [address] [place] [id number] [place] [address] OF [facility] Kae 06-28-2023 CNPN Telephone (REIBD) ESTRELLA RIOJAS ([id number]) 1990 F Date Time Provider Department 06/28/23 [facility] BEAC REIBD During your visit today, we recorded the following information about you: Sudha Muhammad RN 06/28/2023 4:49 PM Signed Called patient regarding MyChart message. She states her has male factor. Advised patient he can collect here in that case, and they should both arrive at 8. She states understanding, no further questions at this time. Sudha Muhammad RN June 28, 2023 4:22 PM Allergies As of Date: 06/28/2023 Noted Allergy Reaction SHELLFISH DERIVED 12/31/2015 12 - Shortness of Breath Date Reviewed: 06/28/2023 Reviewed by: Steff Cazares MD - Fully Assessed Prescriptions as of 06/29/2023 - ALPRAZolam (XANAX) 0.25 mg tablet Take 0.25 mg by mouth at bedtime as needed for anxiety. - sertraline (ZOLOFT) 50 mg tablet Take 50 mg by mouth once daily. - vit,calc76/iron/folic (PNV 29-1 ORAL) Take by mouth. - cabergoline (DOSTINEX) 0.5 mg tablet Take 1 tablet by mouth once daily for 8 days. Facility-Administered Medications as of 06/29/2023 - lactated ringers iv infusion - fentaNYL 50 mcg/mL 25 mcg injection (SUBLIMAZE) - oxyCODONE IR 5-10 mg tab(s) (ROXICODONE) - acetaminophen 1,000 mg tab(s) (TYLENOL) - diphenhydrAMINE 25 mg injection (BENADRYL) Problem List As Of Date 06/28/2023 Noted Resolved Contact dermatitis and other eczema, due to uns*07/24/2010 Encounter Status:Closed by SUDHA MUHAMMAD on 06/29/23 Normal [facility] SerPl-aCncon 06-28-2023 Lutropin Qn 46.8 m[IU]/mL Normal See comment [facility] Comment on above: Order Comment: Speci men Type: BLOOD SPECIMEN Ordering Facility: [facility] Address: [address] [place] [address] Result Comment: Refe rence range: Follicular: 2.4-12.6 mIU/mL Midcycle: 14.0-95.6 mIU/mL Luteal: 1.0-11.4 mIU/mL Post Kim: 7.7-58.5 mIU/mL Performed By: #### 1 0501-5, 2839-9 #### [facility] CLIA [id number] [address] OF [facility] Progest SerPl-mCncon 024 Progesterone [Mass/Vol] 9.2 ng/mL Normal See comment [facility] Comment on above: Order Comment: Speci men Type: BLOOD SPECIMEN Ordering Facility: [facility] Address: [address] [place] [address] Result Comment: Mens trual Cycle Progesterone Reference Ranges: Follicular: <0.2 ng/mL Ovulation: 0.1 - 4.1 ng/mL Luteal: 4.1 - 14.5 ng/mL. Progesterone Reference Ranges vary by gestational period: First Trimester: 11.0 - 44.3 ng/mL Second Trimester: 25.4 - 83.4 ng/mL Third Trimester: 58.7 - 214.0 ng/mL Post menopausal Progesterone: <0.1 ng/mL Performed By: #### 1 0501-5, 2839-9 #### [facility] CLIA [id number] [address] CNNURSEon 06-27-2023 CNNURSE Nurse Visit (REIBD) ESTRELLA RIOJAS ([id number]) 1990 F Date Time Provider Department 06/27/23 8:45 AM [facility] BE REIBD During your visit today, we recorded the following information about you: Cherelle Guallpa RN 06/27/2023 11:50 AM Signed The patient is here today for follicular ultrasound and blood work. The patient reports no problems or complaints. Ultrasound and blood will be reviewed by the physician, the flow sheet will be updated and instructions will be communicated to the patient. GERARDO Caro Bailey Gill, MD 06/27/2023 9:15 PM Signed Addended by: STEFF CAZARES on: 06/27/2023 09:15 PM Modules accepted: Orders Allergies As of Date: 06/27/2023 Noted Allergy Reaction SHELLFISH DERIVED 12/31/2015 12 - Shortness of Breath Date Reviewed: 04/12/2023 Reviewed by: Sudha Muhammad RN - Fully Assessed Reason for Visit: Infertility [285] Primary Visit Diagnosis:Female infertility [N97.9] Problem List As Of Date 06/27/2023 Noted Resolved Contact dermatitis and other eczema, due to uns*07/24/2010 Medications Discontinued During This Encounter Prescriptions - albuterol HFA (VENTOLIN HFA) 90 mcg/actuation inhaler (Discontinued) Reported on 02/15/2023 - chorionic gonadotropin (PREGNYL) 10,000 unit solr (Discontinued) 10,000 Units as directed. Mix vials as directed per nursing in office. Administer subcutaneous. - clobetasol 0.05 % TOPICAL ointment (Discontinued) Reported on 02/15/2023 - DULoxetine (CYMBALTA) 60 mg capsule (Discontinued) - escitalopram oxalate (LEXAPRO) 10 mg tablet (Discontinued) Reported on 02/15/2023 - ethynodiol diacetate-ethinyl estradiol 1 mg-35 mcg (ZOVIA , ,) 1-35 mg-mcg per tablet (Discontinued) Start day 1 of full flow period. Take 1 pill by mouth daily at bedtime, active pills only. Throw out or skip placebo week. - Follitropin Beta (FOLLISTIM AQ) 300 unit/0.36 mL (Discontinued) Inject 200 Units subcutaneously once daily. - Ganirelix Acetate 250 mcg/0.5 mL (Discontinued) Inject 1 syringe daily subcutaneous before 8am. Inject same time each day - Insulin Syringe-Needle U-100 1 mL 29 gauge x 7/16 syrg (Discontinued) Inject 80 units subcutaneously once as directed for Lupron trigger - leuprolide (LUPRON) 1 mg/0.2 mL (Discontinued) Inject 80 units subcutaneous once as directed for Lupron trigger - MEDICATION, NON-DATABASE (Discontinued) Reported on 02/15/2023 - [employer] Container-Ins Syrng-Ndl 1/2 mL 30 x 1/2 syrg (Discontinued) 1 Container as directed. Pregnyl trigger 83051 Units #1 with syringes and needles. - Sharps Container-Ins Syrng-Ndl 1/2 mL 30 x 1/2 syrg (Discontinued) 1 Container as directed. For low dose HCG Pregnyl 84573 units with 5ml syringe and needle to mix and 15 insulin syringes. Encounter Status:Closed by CHERELLE GUALLPA on 06/27/23 Normal [facility] E[facility] [Mass/Vol] 2822 pg/mL Normal [facility] Comment on above: Order Comment: Speci men Type: BLOOD SPECIMEN Ordering Facility: [facility] Address: [address], [place] [address] Result Comment: This test is not suitable for patients receiving treatment with the drug Fulvestrant (Faslodex). The drug causes an interference leading to falsely elevated estradiol results. Menstrual cycle Estradiol reference ranges: Follicular : < 234 pg/mL Ovulation : 41 to 398 pg/mL Luteal : < 342 pg/mL Estradiol reference ranges vary by gestational period: First trimester : 154 to 3243 pg/mL Second trimester : 1561 to 87626 pg/mL Third trimester : 8285 to >03020 pg/mL Post-menopausal Estradiol reference range: < 41 pg/mL Reference: 1. Estradiol - E2 (Estradiol III) [package insert V 3.0 Finnish]. [facility], [place], [place], July 2015. Performed By: #### 2 243-4, 2839-9 #### [facility] CLIA [id number] [address] [place] [address] [place] Follicle Diameter USon 06-26 Indication Follicle monitoring Impression Right Ovary: Follicle(s): 1. Size 14.9 mm x 12.1 mm. Mean 13.5 mm. Vol 1.138 cm 2. Size 16.6 mm x 14.4 mm. Mean 15.5 mm. Vol 1.797 cm 3. Size 25.1 mm x 9.3 mm. Mean 17.2 mm. Vol 1.132 cm 4. Size 14.6 mm x 9.3 mm. Mean 12.0 mm. Vol 0.667 cm 5. Size 16.4 mm x 11.5 mm. Mean 13.9 mm. Vol 1.126 cm 6. Size 20.5 mm x 14.7 mm. Mean 17.6 mm. Vol 2.312 cm 7. Size 19.5 mm x 9.8 mm. Mean 14.6 mm. Vol 0.968 cm 8. Size 16.9 mm x 18.9 mm. Mean 17.9 mm. Vol 2.818 cm 9. Size 20.7 mm x 14.8 mm. Mean 17.8 mm. Vol 2.386 cm 10. Size 22.5 mm x 18.8 mm. Mean 20.7 mm. Vol 4.181 cm 11. Size 16.6 mm x 8.3 mm. Mean 12.4 mm. Vol 0.595 cm 12. Size 21.2 mm x 14.2 mm. Mean 17.7 mm. Vol 2.232 cm 13. Size 15.9 mm x 11.0 mm. Mean 13.4 mm. Vol 0.999 cm 14. Size 16.9 mm x 11.9 mm. Mean 14.4 mm. Vol 1.242 cm 15. Size 20.1 mm x 10.6 mm. Mean 15.3 mm. Vol 1.174 cm 16. Size 11.3 mm x 9.4 mm. Mean 10.4 mm. Vol 0.525 cm 12 antral follicles < 10 mm Left Ovary: Follicle(s): 1. Size 23.7 mm x 14.5 mm. Mean 19.1 mm. Vol 2.615 cm 2. Size 18.4 mm x 8.7 mm. Mean 13.6 mm. Vol 0.727 cm 3. Size 16.3 mm x 13.2 mm. Mean 14.8 mm. Vol 1.489 cm 4. Size 27.7 mm x 15.6 mm. Mean 21.7 mm. Vol 3.538 cm 5. Size 18.3 mm x 7.4 mm. Mean 12.8 mm. Vol 0.527 cm 6. Size 15.8 mm x 21.4 mm. Mean 18.6 mm. Vol 2.776 cm 7. Size 18.8 mm x 8.6 mm. Mean 13.7 mm. Vol 0.729 cm 8. Size 16.9 mm x 11.8 mm. Mean 14.3 mm. Vol 1.222 cm 9. Size 17.0 mm x 10.6 mm. Mean 13.8 mm. Vol 0.997 cm 10. Size 14.1 mm x 11.9 mm. Mean 13.0 mm. Vol 1.053 cm 11. Size 17.3 mm x 10.0 mm. Mean 13.7 mm. Vol 0.906 cm 12. Size 12.4 mm x 9.1 mm. Mean 10.7 mm. Vol 0.532 cm 20 antral follicles < 10 mm Recommendations Follow up as clinically indicated. Method Transvaginal ultrasound examination. 3D ultrasound examination Uterus Uterus: Visualized Uterus position: anteverted Endometrium: three-layer pattern Endometrial thickness, total 13.2 mm Right Ovary Rt ovary: Visualized Rt ovarian follicle(s): Follicles identified Rt ovarian follicle D1 14.9 mm Rt ovarian follicle D2 12.1 mm Rt ovarian follicle mean 13.5 mm Rt ovarian follicle vol 1.138 cm Rt ovarian follicle D1 16.6 mm Rt ovarian follicle D2 14.4 mm Rt ovarian follicle mean 15.5 mm Rt ovarian follicle vol 1.797 cm Rt ovarian follicle D1 25.1 mm Rt ovarian follicle D2 9.3 mm Rt ovarian follicle mean 17.2 mm Rt ovarian follicle vol 1.132 cm Rt ovarian follicle D1 14.6 mm Rt ovarian follicle D2 9.3 mm Rt ovarian follicle mean 12.0 mm Rt ovarian follicle vol 0.667 cm Rt ovarian follicle D1 16.4 mm Rt ovarian follicle D2 11.5 mm Rt ovarian follicle mean 13.9 mm Rt ovarian follicle vol 1.126 cm Rt ovarian follicle D1 20.5 mm Rt ovarian follicle D2 14.7 mm Rt ovarian follicle mean 17.6 mm Rt ovarian follicle vol 2.312 cm Rt ovarian follicle D1 19.5 mm Rt ovarian follicle D2 9.8 mm Rt ovarian follicle mean 14.6 mm Rt ovarian follicle vol 0.968 cm Rt ovarian follicle D1 16.9 mm Rt ovarian follicle D2 18.9 mm Rt ovarian follicle mean 17.9 mm Rt ovarian follicle vol 2.818 cm Rt ovarian follicle D1 20.7 mm Rt ovarian follicle D2 14.8 mm Rt ovarian follicle mean 17.8 mm Rt ovarian follicle vol 2.386 cm Rt ovarian follicle D1 22.5 mm Rt ovarian follicle D2 18.8 mm Rt ovarian follicle mean 20.7 mm Rt ovarian follicle vol 4.181 cm Rt ovarian follicle D1 16.6 mm Rt ovarian follicle D2 8.3 mm Rt ovarian follicle mean 12.4 mm Rt ovarian follicle vol 0.595 cm Rt ovarian follicle D1 21.2 mm Rt ovarian follicle D2 14.2 mm Rt ovarian follicle mean 17.7 mm Rt ovarian follicle vol 2.232 cm Rt ovarian follicle D1 15.9 mm Rt ovarian follicle D2 11.0 mm Rt ovarian follicle mean 13.4 mm Rt ovarian follicle vol 0.999 cm Rt ovarian follicle D1 16.9 mm Rt ovarian follicle D2 11.9 mm Rt ovarian follicle mean 14.4 mm Rt ovarian follicle vol 1.242 cm Rt ovarian follicle D1 20.1 mm Rt ovarian follicle D2 10.6 mm Rt ovarian follicle mean 15.3 mm Rt ovarian follicle vol 1.174 cm Rt ovarian follicle D1 11.3 mm Rt ovarian follicle D2 9.4 mm Rt ovarian follicle mean 10.4 mm Rt ovarian follicle vol 0.525 cm Rt ovarian follicles other findings: 12 antral follicles < 10 mm Left Ovary Lt ovary: Visualized Lt ovarian follicle(s): Follicles identified Lt ovarian follicle D1 23.7 mm Lt ovarian follicle D2 14.5 mm Lt ovarian follicle mean 19.1 mm Lt ovarian follicle vol 2.615 cm Lt ovarian follicle D1 18.4 mm Lt ovarian follicle D2 8.7 mm Lt ovarian follicle mean 13.6 mm Lt ovarian follicle vol 0.727 cm Lt ovarian follicle D1 16.3 mm Lt ovarian follicle D2 13.2 mm Lt ovarian follicle mean 14.8 mm Lt ovarian follicle vol 1.489 cm Lt ovarian follicle D1 27.7 mm Lt ovarian follicle D2 15.6 mm Lt ovarian follicle mean 21.7 mm Lt ovarian follicle vol 3.5 (more content not included)... MATERNAL MEDICINE [facility] Radiology Study observation (narrative) [facility] Progest [facility] 024 Progesterone [Mass/Vol] 1.0 ng/mL Normal See comment [facility] Comment on above: Order Comment: Speci men Type: BLOOD SPECIMEN Ordering Facility: [facility] Address: [address] [place] [address] Result Comment: Mens trual Cycle Progesterone Reference Ranges: Follicular: <1.0 ng/mL Ovulation: <12.1 ng/mL Luteal: 1.8 to 23.9 ng/mL. Progesterone Reference Ranges vary by gestational period: First Trimester: 11.0 to 44.3 ng/mL Second Trimester: 25.4 to 83.3 ng/mL Third Trimester: 58.7 to 214 ng/mL Post menopausal Progesterone: <0.5 ng/mL Reference: 1. Progesterone (Progesterone III) [package insert V 1.0 Finnish]. [facility], [place], [place]. November 2014. Performed By: #### 2 243-4, 2839-9 #### [facility] CLIA [id number] [address] [place] [address] [place] CNNURSEon 06-26-2023 CNNURSE Nurse Visit (REIBD) ESTRELLA RIOJAS ([id number]) 1990 F Date Time Provider Department 06/26/23 8:00 AM [facility] VI[facility]I WOODS During your visit today, we recorded the following information about you: Cherelle Guallpa, GERARDO 06/26/2023 11:16 AM Signed The patient is here today for follicular ultrasound and blood work. The patient reports no problems or complaints. Ultrasound and blood will be reviewed by the physician, the flow sheet will be updated and instructions will be communicated to the patient. Cherelle Guallpa RN RN called patient, name and verified. Plan given for IVF cycle per physician, see flowsheet for details. [facility] message sent. Medications reviewed and verified, instructions given. Patient denies any questions or concerns. Message sent to scheduling pool for next appt. Cherelle Guallpa RN June 26, 2023 11:16 AM Referring Provider: EDUAR MARLEY [[id number]] Allergies As of Date: 06/26/2023 Noted Allergy Reaction SHELLFISH DERIVED 12/31/2015 12 - Shortness of Breath Date Reviewed: 04/12/2023 Reviewed by: Sudha Muhammad RN - Fully Assessed Reason for Visit: Infertility [285] Primary Visit Diagnosis:Female infertility [N97.9] Prescriptions as of 06/26/2023 - Ganirelix Acetate 250 mcg/0.5 mL Inject 1 syringe daily subcutaneous before 8am. Inject same time each day - Follitropin Beta (FOLLISTIM AQ) 300 unit/0.36 mL Inject 200 Units subcutaneously once daily. - leuprolide (LUPRON) 1 mg/0.2 mL Inject 80 units subcutaneous once as directed for Lupron trigger - Insulin Syringe-Needle U-100 1 mL 29 gauge x 7/16 syrg Inject 80 units subcutaneously once as directed for Lupron trigger - chorionic gonadotropin (PREGNYL) 10,000 unit solr 10,000 Units as directed. Mix vials as directed per nursing in office. Administer subcutaneous. - Sharps Container-Ins Syrng-Ndl 1/2 mL 30 x 1/2 syrg 1 Container as directed. Pregnyl trigger 44067 Units #1 with syringes and needles. - Sharps Container-Ins Syrng-Ndl 1/2 mL 30 x 1/2 syrg 1 Container as directed. For low dose HCG Pregnyl 74226 units with 5ml syringe and needle to mix and 15 insulin syringes. - ethynodiol diacetate-ethinyl estradiol 1 mg-35 mcg (ZOVIA , 28,) 1-35 mg-mcg per tablet Start day 1 of full flow period. Take 1 pill by mouth daily at bedtime, active pills only. Throw out or skip placebo week. - DULoxetine (CYMBALTA) 60 mg capsule - escitalopram oxalate (LEXAPRO) 10 mg tablet Take 10 mg by mouth once daily. - MEDICATION, NON-DATABASE Oral control, pt unsure of which one - albuterol HFA (VENTOLIN HFA) 90 mcg/actuation inhaler Inhale 2 Puffs as instructed every 4 hours as needed for Wheezing/Shortness of Breath. - clobetasol 0.05 % TOPICAL ointment Apply at bedtime Problem List As Of Date 06/26/2023 Noted Resolved Contact dermatitis and other eczema, due to uns*07/24/2010 Encounter Status:Closed by CHERELLE GUALLPA on 06/26/23 Normal [facility] Estradiol [facility] 06-25 E2 [Mass/Vol] 2307 pg/mL Normal [facility] Comment on above: Order Comment: Speci men Type: BLOOD SPECIMENOrdering Facility: [facility] Address: [address] [place] [address] Result Comment: This test is not suitable for patients receiving treatment with the drug Fulvestrant (Faslodex). The drug causes an interference leading to falsely elevated estradiol results. Menstrual cycle Estradiol reference ranges: Follicular : < 234 pg/mL Ovulation : 41 to 398 pg/mL Luteal : < 342 pg/mL Estradiol reference ranges vary by gestational period: First trimester : 154 to 3243 pg/mL Second trimester : 1561 to 77203 pg/mL Third trimester : 8285 to >93707 pg/mL Post-menopausal Estradiol reference range: < 41 pg/mL Reference: 1. Estradiol - E2 (Estradiol III) [package insert V 3.0 Finnish]. [facility], [place], [place], July 2015. Performed By: #### 2 243-4, 2839-9 ####[facility] [id number] [place] [address] [facility] Progest SerPl-mCncon 06-25- 024 Progesterone [Mass/Vol] 0.9 ng/mL Normal See comment [facility] Comment on above: Order Comment: Speci men Type: BLOOD SPECIMENOrdering Facility: [facility] Address: [address] [place] [address] Result Comment: Mens trual Cycle Progesterone Reference Ranges: Follicular: <1.0 ng/mL Ovulation: <12.1 ng/mL Luteal: 1.8 to 23.9 ng/mL. Progesterone Reference Ranges vary by gestational period: First Trimester: 11.0 to 44.3 ng/mL Second Trimester: 25.4 to 83.3 ng/mL Third Trimester: 58.7 to 214 ng/mL Post menopausal Progesterone: <0.5 ng/mL Reference: 1. Progesterone (Progesterone III) [package insert V 1.0 Finnish]. [facility], [place], [place]. November 2014. Performed By: #### 2 243-4, 2839-9 ####[facility] LABIA [id number] [place] [address] [facility] CNN[facility]SE Nurse Visit (REIBD) ESTRELLA RIOJAS ([id number]) 1990 F Date Time Provider Department 06/25/23 8:30 AM [facility] VIKKI REIBD During your visit today, we recorded the following information about you: Sudha Muhammad RN 06/25/2023 2:28 PM Addendum The patient is here today for follicular ultrasound and blood work. The patient reports no problems or complaints. Ultrasound and blood will be reviewed by the physician, the flow sheet will be updated and instructions will be communicated to the patient. Sudha Muhammad RN Called patient with plan per flowsheet. Continue with same medications, return to clinic tomorrow. Patient states understanding, [facility] message sent, request sent for appointment tomorrow. Sudha Muhammad RN June 25, 2023 2:28 PM Rose Bailey MD 06/25/2023 1:24 PM Signed Follicular Ultrasound Monitoring Visit Patient here for follicle monitoring and/or endometrial assessment, via ultrasound, and lab testing. See imaging documentation and [facility] cycle flow sheet for final report and plan. Rose Bailey MD Referring Provider: EDUAR MARLEY [[id number]] Allergies As of Date: 06/25/2023 Noted Allergy Reaction SHELLFISH DERIVED 12/31/2015 12 - Shortness of Breath Date Reviewed: 04/12/2023 Reviewed by: Sudha Muhammad RN - Fully Assessed Reason for Visit: Infertility [285] Visit Diagnosis:Encounter for fertility testing [Z31.41] Order(s):FOLLICULAR US WHI [4111332] Order #: [id number]. #:[id number] WPOINTQty: 1 PROGESTERONE [SQPROG] Order #: [id number] FUTURE Prescriptions as of 06/25/2023 - Ganirelix Acetate 250 mcg/0.5 mL Inject 1 syringe daily subcutaneous before 8am. Inject same time each day - Follitropin Beta (FOLLISTIM AQ) 300 unit/0.36 mL Inject 200 Units subcutaneously once daily. - leuprolide (LUPRON) 1 mg/0.2 mL Inject 80 units subcutaneous once as directed for Lupron trigger - Insulin Syringe-Needle U-100 1 mL 29 gauge x 7/16 syrg Inject 80 units subcutaneously once as directed for Lupron trigger - chorionic gonadotropin (PREGNYL) 10,000 unit solr 10,000 Units as directed. Mix vials as directed per nursing in office. Administer subcutaneous. - Sharps Container-Ins Syrng-Ndl 1/2 mL 30 x 1/2 syrg 1 Container as directed. Pregnyl trigger 10679 Units #1 with syringes and needles. - [employer] Container-Ins Syrng-Ndl 1/2 mL 30 x 1/2 syrg 1 Container as directed. For low dose HCG Pregnyl 34404 units with 5ml syringe and needle to mix and 15 insulin syringes. - ethynodiol diacetate-ethinyl estradiol 1 mg-35 mcg (ZOVIA E, 28,) 1-35 mg-mcg per tablet Start day 1 of full flow period. Take 1 pill by mouth daily at bedtime, active pills only. Throw out or skip placebo week. - DULoxetine (CYMBALTA) 60 mg capsule - escitalopram oxalate (LEXAPRO) 10 mg tablet Take 10 mg by mouth once daily. - MEDICATION, NON-DATABASE Oral control, pt unsure of which one - albuterol HFA (VENTOLIN HFA) 90 mcg/actuation inhaler Inhale 2 Puffs as instructed every 4 hours as needed for Wheezing/Shortness of Breath. - clobetasol 0.05 % TOPICAL ointment Apply at bedtime Problem List As Of Date 06/25/2023 Noted Resolved Contact dermatitis and other eczema, due to uns*07/24/2010 Encounter Status:Closed by ROSE BAILEY on 06/25/23 Normal [facility] Estradiol Raymundol-Keny 06-24 E2 [Mass/Vol] 1419 pg/mL Normal [facility] Comment on above: Order Comment: Speci men Type: BLOOD SPECIMENOrdering Facility: [facility] Address: [address] [place] [address] Result Comment: This test is not suitable for patients receiving treatment with the drug Fulvestrant (Faslodex). The drug causes an interference leading to falsely elevated estradiol results. Menstrual cycle Estradiol reference ranges: Follicular : < 234 pg/mL Ovulation : 41 to 398 pg/mL Luteal : < 342 pg/mL Estradiol reference ranges vary by gestational period: First trimester : 154 to 3243 pg/mL Second trimester : 1561 to 84827 pg/mL Third trimester : 8285 to >06867 pg/mL Post-menopausal Estradiol reference range: < 41 pg/mL Reference: 1. Estradiol - E2 (Estradiol III) [package insert V 3.0 Finnish]. [facility], [place], [place], July 2015. Performed By: #### 2 243-4 ####[facility] LABCLIA [id number] [place] [id number] [place] Follicle Diameter USon 06-24 Indication Follicle monitoring Impression Follicle monitoring Recommendations Follow up as clinically indicated. Method Transvaginal ultrasound examination. 3D ultrasound examination, Color Doppler examination Uterus Uterus: Visualized Uterus position: anteverted Endometrium: three-layer pattern Endometrial thickness, total 11.2 mm Polyps: Polyps identified Uterine polyp D1 4 mm Uterine polyp D2 5 mm Uterine polyp D3 6 mm Uterine polyp mean 5.0 mm Uterine polyp findings: questionable posterior polyp Right Ovary Rt ovary: Visualized Rt ovarian follicle(s): Follicles identified Rt ovarian follicle D1 14.2 mm Rt ovarian follicle D2 9.4 mm Rt ovarian follicle mean 11.8 mm Rt ovarian follicle vol 0.664 cm Rt ovarian follicle D1 10.9 mm Rt ovarian follicle D2 8.8 mm Rt ovarian follicle mean 9.9 mm Rt ovarian follicle vol 0.446 cm Rt ovarian follicle D1 12.1 mm Rt ovarian follicle D2 9.0 mm Rt ovarian follicle mean 10.5 mm Rt ovarian follicle vol 0.508 cm Rt ovarian follicle D1 15.1 mm Rt ovarian follicle D2 10.5 mm Rt ovarian follicle mean 12.8 mm Rt ovarian follicle vol 0.868 cm Rt ovarian follicle D1 14.5 mm Rt ovarian follicle D2 6.3 mm Rt ovarian follicle mean 10.4 mm Rt ovarian follicle vol 0.298 cm Rt ovarian follicle D1 15.4 mm Rt ovarian follicle D2 10.3 mm Rt ovarian follicle mean 12.9 mm Rt ovarian follicle vol 0.861 cm Rt ovarian follicle D1 12.4 mm Rt ovarian follicle D2 14.1 mm Rt ovarian follicle mean 13.3 mm Rt ovarian follicle vol 1.132 cm Rt ovarian follicle D1 18.3 mm Rt ovarian follicle D2 7.1 mm Rt ovarian follicle mean 12.7 mm Rt ovarian follicle vol 0.480 cm Rt ovarian follicle D1 11.2 mm Rt ovarian follicle D2 9.4 mm Rt ovarian follicle mean 10.3 mm Rt ovarian follicle vol 0.524 cm Rt ovarian follicle D1 16.7 mm Rt ovarian follicle D2 14.8 mm Rt ovarian follicle mean 15.7 mm Rt ovarian follicle vol 1.900 cm Rt ovarian follicle D1 16.4 mm Rt ovarian follicle D2 12.6 mm Rt ovarian follicle mean 14.5 mm Rt ovarian follicle vol 1.372 cm Rt ovarian follicle D1 14.7 mm Rt ovarian follicle D2 9.8 mm Rt ovarian follicle mean 12.3 mm Rt ovarian follicle vol 0.746 cm Rt ovarian follicle D1 15.1 mm Rt ovarian follicle D2 8.7 mm Rt ovarian follicle mean 11.9 mm Rt ovarian follicle vol 0.598 cm Rt ovarian follicle D1 9.8 mm Rt ovarian follicle D2 11.6 mm Rt ovarian follicle mean 10.7 mm Rt ovarian follicle vol 0.584 cm Rt ovarian follicle D1 27.3 mm Rt ovarian follicle D2 15.8 mm Rt ovarian follicle mean 21.6 mm Rt ovarian follicle vol 3.573 cm Rt ovarian follicles other findings: 9 antral follicles < 10 mm Left Ovary Lt ovary: Visualized Lt ovarian follicle(s): Follicles identified Lt ovarian follicle D1 15.5 mm Lt ovarian follicle D2 10.2 mm Lt ovarian follicle mean 12.8 mm Lt ovarian follicle vol 0.834 cm Lt ovarian follicle D1 16.9 mm Lt ovarian follicle D2 14.0 mm Lt ovarian follicle mean 15.4 mm Lt ovarian follicle vol 1.716 cm Lt ovarian follicle D1 14.0 mm Lt ovarian follicle D2 12.2 mm Lt ovarian follicle mean 13.1 mm Lt ovarian follicle vol 1.079 cm Lt ovarian follicle D1 15.5 mm Lt ovarian follicle D2 11.7 mm Lt ovarian follicle mean 13.6 mm Lt ovarian follicle vol 1.112 cm Lt ovarian follicle D1 16.0 mm Lt ovarian follicle D2 9.1 mm Lt ovarian follicle mean 12.5 mm Lt ovarian follicle vol 0.685 cm Lt ovarian follicle D1 12.6 mm Lt ovarian follicle D2 8.4 mm Lt ovarian follicle mean 10.5 mm Lt ovarian follicle vol 0.471 cm Lt ovarian follicle D1 10.8 mm Lt ovarian follicle D2 8.6 mm Lt ovarian follicle mean 9.7 mm Lt ovarian follicle vol 0.416 cm Lt ovarian follicle D1 10.7 mm Lt ovarian follicle D2 10.2 mm Lt ovarian follicle mean 10.4 mm Lt ovarian follicle vol 0.574 cm Lt ovarian follicle D1 17.5 mm Lt ovarian follicle D2 8.1 mm Lt ovarian follicle mean 12.8 mm Lt ovarian follicle vol 0.595 cm Lt ovarian follicle D1 13.6 mm Lt ovarian follicle D2 6.8 mm Lt ovarian follicle mean 10.2 mm Lt ovarian follicle vol 0.332 cm Lt ovarian follicle D1 14.3 mm Lt ovarian follicle D2 10.0 mm Lt ovarian follicle mean 12.1 mm Lt ovarian follicle vol 0.744 cm Lt ovarian follicle D1 18.7 mm Lt ovarian follicle D2 15.2 mm Lt ovarian follicle mean 17.0 mm Lt ovarian follicle vol 2.268 cm Lt ovarian follicles other findings: 13 antral follicles < 10 mm Cul [place] Sac Visualized. no free fluid visualized Performed By: Renita Plascencia RDMS Read By: Rose Bailey M.D. MATERNAL MEDICINE [facility] Radiology Study observation (narrative) [facility] CNNURSEon 06-22-2023 CNNURSE Nurse Visit (REIBD) ESTRELLA RIOJAS ([id number]) 1990 F Date Time Provider Department 06/22/23 8:45 AM [facility] VIKKI REIBD During your visit today, we recorded the following information about you: Sudha Muhammad RN 06/22/2023 7:48 PM Signed The patient is here today for follicular ultrasound and blood work. The patient reports no problems or complaints. Ultrasound and blood will be reviewed by the physician, the flow sheet will be updated and instructions will be communicated to the patient. Patient stayed to meet with nursing. Sudha Muhammad RN Called patient with plan per flowsheet. Start ganirelix today, continue with FSH 175, return to clinic on Wednesday. Patient states understanding, no further questions at this time. Sudha Muhammad RN June 22, 2023 3:41 PM Referring Provider: EDUAR MARLEY [[id number]] Allergies As of Date: 06/22/2023 Noted Allergy Reaction SHELLFISH DERIVED 12/31/2015 12 - Shortness of Breath Date Reviewed: 04/12/2023 Reviewed by: Sudha Muhammad RN - Fully Assessed Reason for Visit: Infertility [285] Primary Visit Diagnosis:Encounter for fertility testing [Z31.41] Prescriptions as of 06/22/2023 - Ganirelix Acetate 250 mcg/0.5 mL Inject 1 syringe daily subcutaneous before 8am. Inject same time each day - Follitropin Beta (FOLLISTIM AQ) 300 unit/0.36 mL Inject 200 Units subcutaneously once daily. - leuprolide (LUPRON) 1 mg/0.2 mL Inject 80 units subcutaneous once as directed for Lupron trigger - Insulin Syringe-Needle U-100 1 mL 29 gauge x 7/16 syrg Inject 80 units subcutaneously once as directed for Lupron trigger - chorionic gonadotropin (PREGNYL) 10,000 unit solr 10,000 Units as directed. Mix vials as directed per nursing in office. Administer subcutaneous. - Shar[employer] Container-Ins Syrng-Ndl 1/2 mL 30 x 1/2 syrg 1 Container as directed. Pregnyl trigger 05185 Units #1 with syringes and needles. - Sharps Container-Ins Syrng-Ndl 1/2 mL 30 x 1/2 syrg 1 Container as directed. For low dose HCG Pregnyl 38195 units with 5ml syringe and needle to mix and 15 insulin syringes. - ethynodiol diacetate-ethinyl estradiol 1 mg-35 mcg (ZOVIA , ,) 1-35 mg-mcg per tablet Start day 1 of full flow period. Take 1 pill by mouth daily at bedtime, active pills only. Throw out or skip placebo week. - DULoxetine (CYMBALTA) 60 mg capsule - escitalopram oxalate (LEXAPRO) 10 mg tablet Take 10 mg by mouth once daily. - MEDICATION, NON-DATABASE Oral control, pt unsure of which one - albuterol HFA (VENTOLIN HFA) 90 mcg/actuation inhaler Inhale 2 Puffs as instructed every 4 hours as needed for Wheezing/Shortness of Breath. - clobetasol 0.05 % TOPICAL ointment Apply at bedtime Problem List As Of Date 06/22/2023 Noted Resolved Contact dermatitis and other eczema, due to uns*07/24/2010 Encounter Status:Closed by FRANK BALLARD on 06/22/23 [facility] Estradiol SerPl-mCncon 06-21 E2 [Mass/Vol] 444 pg/mL Normal [facility] Comment on above: Order Comment: Speci men Type: BLOOD SPECIMENOrdering Facility: [facility] Address: [place] [address] Result Comment: This test is not suitable for patients receiving treatment with the drug Fulvestrant (Faslodex). The drug causes an interference leading to falsely elevated estradiol results. Menstrual cycle Estradiol reference ranges: Follicular : < 234 pg/mL Ovulation : 41 to 398 pg/mL Luteal : < 342 pg/mL Estradiol reference ranges vary by gestational period: First trimester : 154 to 3243 pg/mL Second trimester : 1561 to 24968 pg/mL Third trimester : 8285 to >16588 pg/mL Post-menopausal Estradiol reference range: < 41 pg/mL Reference: 1. Estradiol - E2 (Estradiol III) [package insert V 3.0 Finnish]. [facility], [place], [place], July 2015. Performed By: #### 2 243-4 ####[facility] LABCLIA [id number] [address] [place] Follicle Diameter USon 06-21 Indication Follicle monitoring Impression Right Ovary: Follicle(s): 1. Size 11.0 mm x 9.7 mm. Mean 10.4 mm. Vol 0.544 cm 2. Size 11.5 mm x 10.7 mm. Mean 11.1 mm. Vol 0.685 cm 3. Size 10.8 mm x 10.6 mm. Mean 10.7 mm. Vol 0.635 cm 4. Size 11.3 mm x 9.6 mm. Mean 10.4 mm. Vol 0.544 cm 17 antral follicles < 10 mm Left Ovary: Follicle(s): 1. Size 13.9 mm x 5.9 mm. Mean 9.9 mm. Vol 0.256 cm 2. Size 12.1 mm x 12.3 mm. Mean 12.2 mm. Vol 0.945 cm 20 antral follicles < 10 mm Recommendations Follow up as clinically indicated. Method Transvaginal ultrasound examination. 3D ultrasound examination Uterus Uterus: Visualized Uterus position: anteverted Endometrium: three-layer pattern Endometrial thickness, total 6.8 mm Right Ovary Rt ovary: Visualized Rt ovarian follicle(s): Follicles identified Rt ovarian follicle D1 11.0 mm Rt ovarian follicle D2 9.7 mm Rt ovarian follicle mean 10.4 mm Rt ovarian follicle vol 0.544 cm Rt ovarian follicle D1 11.5 mm Rt ovarian follicle D2 10.7 mm Rt ovarian follicle mean 11.1 mm Rt ovarian follicle vol 0.685 cm Rt ovarian follicle D1 10.8 mm Rt ovarian follicle D2 10.6 mm Rt ovarian follicle mean 10.7 mm Rt ovarian follicle vol 0.635 cm Rt ovarian follicle D1 11.3 mm Rt ovarian follicle D2 9.6 mm Rt ovarian follicle mean 10.4 mm Rt ovarian follicle vol 0.544 cm Rt ovarian follicles other findings: 17 antral follicles < 10 mm Left Ovary Lt ovary: Visualized Lt ovarian follicle(s): Follicles identified Lt ovarian follicle D1 13.9 mm Lt ovarian follicle D2 5.9 mm Lt ovarian follicle mean 9.9 mm Lt ovarian follicle vol 0.256 cm Lt ovarian follicle D1 12.1 mm Lt ovarian follicle D2 12.3 mm Lt ovarian follicle mean 12.2 mm Lt ovarian follicle vol 0.945 cm Lt ovarian follicles other findings: 20 antral follicles < 10 mm Cul [place] Sac Visualized. no free fluid visualized Performed By: Christi Duarte RDMS Read By: Frank Troncoso M.D. MATERNAL MEDICINE [facility] Radiology Study observation (narrative) Florina kay [facility] Director Energy Office Visit Reporton 06-17-2023 Director Energy Office Visit Report [facility] [address] [place] [address] OFFICE VISIT Date of Service: 06/17/23 MR#: [id number] Acct: [id number] Name: ESTRELLA RIOJAS Rep #: [id number] : 1990 Provider: MIREILLE gilliam Age/Sex: 33/F Location: [facility] Status: Signed Intake Vital Signs 04/19/23 08:23 06/17/23 14:39 06/17/23 14:47 Height 5 ft 6 in 5 ft 6 in 5 ft 6 in Weight: 183 lb 6 oz BMI 29.5 BP 112/68 Intake Visit Reasons: depression sx Chief Complaint: Depression Sx Freight Checker Required: No Is patient in pain?: No Allergies shellfish derived Allergy (Severe, Verified 06/17/23 14:38) unknown latex Allergy (Verified 06/17/23 14:38) Rash Medications albuterol sulfate 90 mcg/actuation aerosol inhaler 2 puff inhalation Q6H PRN ASTHMA 01/21/22 [History Confirmed 06/17/23] alprazolam 0.5 mg tablet (Xanax) 0.25 mg PO BID PRN Anxiety 01/21/22 [History Confirmed 06/17/23] vits 75-iron 28 mg-folic acid 800 mcg-omega-3 oral combo pack (One A Day Women's DHA) pkg PO 04/19/23 [History Confirmed 06/17/23] benzonatate 200 mg capsule 200 mg PO TID PRN cough #20 caps 06/02/23 [Rx Confirmed 06/17/23] sertraline 50 mg tablet (Zoloft) 50 mg PO DAILY #30 tabs 06/17/23 [Rx Confirmed 06/17/23] Is last menstrual period known: Yes Last Menstrual Period: 05/30/23 Post menopausal: No Patient : No : No [facility] Medical History (Updated 06/17/23 @ 16:08 by Nadeen Turner 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, 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-C) Anxiety Asthma Blackout Blister Depression Fibroadenoma of breast Graves' disease Left breast mass Non-smoker Restless legs Syncope Surgical History History of breast biopsy History of oral surgery S/P laparotomy Family History Grandmother Breast cancer Uncle Lung cancer Social History household members: spouse number of children: 0 current occupational status: employed current occupation: [employer] history of recent travel: No sexually active: Yes Smoking Status: Never smoker alcohol intake: never substance use type: does not use what type of physical activity do you participate in: walking and running seatbelt use: always do you feel safe at home: Yes additional social history: - Eliseo ADRIANA depression sx Details: ESTRELLA RIOJAS is a 33 year old who presents for discussion of depressive symptoms. States she weaned off cymbalta with direction of PCP as she and will be doing IVF soon. States that weaning off of this medication coincided with start of oral contraceptive needed for IVF. She is tearful, states anxiety has been significant but last week was worse. She will start stim injections tomorrow X 4 days. She is now off OCP. States she is very fearful about future of IVF success, risks etc. She had tried zoloft several years ago, did not think very successful but also thinks took very low dose. She was notified last week Dr Martin abruptly left [facility] and she wasn't sure who would be doing her care but finally found out she will see Dr Ness. She did see an library sales consultant who made her feel more anxious by discussing patient's high AMH level, risk of PCOS. She also felt library sales consultant was very confrontational by asking her questions like what have you done to prepare yourself for IVF or are you eating a healthy diet to support your IVF. She will not be returning. Female Reproductive History Last Menstrual Period: 05/30/23 History 0 Elective abortions Hx Para Spontaneous abortions Hx # Term Pregnancies Ectopic pregnancies Hx # Pregnancies Multiple births # of living children ROS Const Constitutional: Reports as per HPI Psych Psych: Reports as per HPI Exam Const General: cooperative and anxious Nutritional Appearance: well nourished Orientation: oriented x3 HENMT Head: normal to inspection and normocephalic Eyes General: appearance normal, both eyes and all related structures Neck Neck: normal visual inspection Resp Effort Inspection: normal respiratory effort Neuro Cognition: normal cognition Speech: speech normal Psych Appearance: grossly normal Mood: anxious mood Affect: tearful Speech and Movement: speech and movement normal Attitude: cooperative Thought Process: normal Thought Content: normal Judgment: judgment good Coding Level of Care Code Off vis,est,level 3 Diagnoses Reactive depression F32.9 Depression Type: reactive depression Anxiety F41.9 Female infertility associated with male factors Z31.81; N97.8 Positive test for genetic breast cancer susceptibility marker Z15.01 (more content not included)... [facility] Nurse Visit (REIBD) ESTRELLA RIOJAS ([id number]) 1990 F Date Time Provider Department 06/14/23 8:00 AM [facility] VIKKI WOODS During your visit today, we recorded the following information about you: Pulse Blood pressure Weight Height 87/minute 107/73 82.4 kg 1.676 m Sudha Muhammad RN 06/15/2023 6:47 AM Signed The patient is here today for follicular ultrasound and blood work. The patient reports no problems or complaints. Ultrasound and blood will be reviewed by the physician, the flow sheet will be updated and instructions will be communicated to the patient. Patient stayed to meet with nursing, went over medications and timeline. Sudha Muhammad RN Called patient with plan per flowsheet. Start injections on Wednesday, return to clinic on Wednesday 06/21. Patient states understanding, detailed Cortex message sent. Sudha Muhammad RN June 14, 2023 2:30 PM Referring Provider: EDUAR MARLEY [[id number]] Allergies As of Date: 06/14/2023 Noted Allergy Reaction SHELLFISH DERIVED 12/31/2015 12 - Shortness of Breath Date Reviewed: 04/12/2023 Reviewed by: Sudha Muhammad, GERARDO - Fully Assessed Reason for Visit: Infertility [285] Visit Diagnosis:Encounter for fertility testing [Z31.41] Order(s):FOLLICULAR US [facility] [[id number]] Order #: [id number]. #:[id number] WPOINTQty: 1 ESTRADIOL-17B BLD [SQE2] Order #: [id number]. #:[id number] HEMATOCRIT [SQHCT] Order #: [id number]. #:[id number] Prescriptions as of 06/15/2023 - Ganirelix Acetate 250 mcg/0.5 mL Inject 1 syringe daily subcutaneous before 8am. Inject same time each day - Follitropin Beta (FOLLISTIM AQ) 300 unit/0.36 mL Inject 200 Units subcutaneously once daily. - leuprolide (LUPRON) 1 mg/0.2 mL Inject 80 units subcutaneous once as directed for Lupron trigger - Insulin Syringe-Needle U-100 1 mL 29 gauge x 08/23 syrg Inject 80 units subcutaneously once as directed for Lupron trigger - chorionic gonadotropin (PREGNYL) 10,000 unit solr 10,000 Units as directed. Mix vials as directed per nursing in office. Administer subcutaneous. - Sharps Container-Ins Syrng-Ndl 1/2 mL 30 x 1/2 syrg 1 Container as directed. Pregnyl trigger 78684 Units #1 with syringes and needles. - Sharps Container-Ins Syrng-Ndl 1/2 mL 30 x 1/2 syrg 1 Container as directed. For low dose HCG Pregnyl 21534 units with 5ml syringe and needle to mix and 15 insulin syringes. - ethynodiol diacetate-ethinyl estradiol 1 mg-35 mcg (ZOVIA , ,) 1-35 mg-mcg per tablet Start day 1 of full flow period. Take 1 pill by mouth daily at bedtime, active pills only. Throw out or skip placebo week. - DULoxetine (CYMBALTA) 60 mg capsule - escitalopram oxalate (LEXAPRO) 10 mg tablet Take 10 mg by mouth once daily. - MEDICATION, NON-DATABASE Oral control, pt unsure of which one - albuterol HFA (VENTOLIN HFA) 90 mcg/actuation inhaler Inhale 2 Puffs as instructed every 4 hours as needed for Wheezing/Shortness of Breath. - clobetasol 0.05 % TOPICAL ointment Apply at bedtime Problem List As Of Date 06/14/2023 Noted Resolved Contact dermatitis and other eczema, due to uns*07/24/2010 Encounter Status:Closed by NICCI CH on 06/15/23 Normal [facility] E2 [Mass/Vol]Ordered By: Umang Abraham on 06-14-2023 [facility] ESTRADIOL-17B BLDOrdered By: Fabiana Abraham on 06-14-2023 E2 [Mass/Vol] pg/mL pg/mL [facility] Comment on above: This test is not roxana table for patients receiving treatment with the drug Fulvestrant (Faslodex). The drug causes an interference leading to falsely elevated estradiol results. Menstrual cycle Estradiol reference ranges: Follicular : < 234 pg/mL Ovulation : 41 to 398 pg/mL Luteal : < 342 pg/mL Estradiol reference ranges vary by gestational period: First trimester : 154 to 3243 pg/mL Second trimester : 1561 to 32009 pg/mL Third trimester : 8285 to >75255 pg/mL Post-menopausal Estradiol reference range: < 41 pg/mL Reference: 1. Estradiol - E2 (Estradiol III) [package insert V 3.0 Finnish]. [facility], [place], [place], July 2015. Estradiol SerPl-mCncon 06-13 E2 [Mass/Vol] pg/mL Normal [facility] Comment on above: Order Comment: Speci men Type: BLOOD SPECIMENOrdering Facility: [facility] Address: [address] [place] [address] Result Comment: This test is not suitable for patients receiving treatment with the drug Fulvestrant (Faslodex). The drug causes an interference leading to falsely elevated estradiol results. Menstrual cycle Estradiol reference ranges: Follicular : < 234 pg/mL Ovulation : 41 to 398 pg/mL Luteal : < 342 pg/mL Estradiol reference ranges vary by gestational period: First trimester : 154 to 3243 pg/mL Second trimester : 1561 to 03732 pg/mL Third trimester : 8285 to >70223 pg/mL Post-menopausal Estradiol reference range: < 41 pg/mL Reference: 1. Estradiol - E2 (Estradiol III) [package insert V 3.0 Finnish]. [facility], [place], [place], July 2015. Performed By: #### 2 243-4 ####[facility] LABCLIA [id number] [address] STATES OF ANTOINE Follicle Diameter USon 06-13 Indication Baseline TV Impression Scan for follicle monitoring. Recommendations Follow up as clinically indicated. Method Transvaginal ultrasound examination. 3D ultrasound examination Uterus Uterus: Visualized Uterus position: anteverted Description of uterine malformations: none Myometrium: suspicious of adenomyosis Endometrium: endometrial midline: linear Uterus length 90 mm Uterus width 58 mm Uterus height 48 mm Uterus Vol 130.4 cm Endometrial thickness, total 4.7 mm Uterine fibroid D1 15 mm Uterine fibroid D2 15 mm Uterine fibroid D3 15 mm Uterine fibroid mean 15.1 mm Uterine fibroid vol 1.817 cm Uterine fibroids findings: left, GERMANIA, intramural Uterine fibroid D1 10 mm Uterine fibroid D2 7 mm Uterine fibroid D3 10 mm Uterine fibroid mean 9.1 mm Uterine fibroid vol 0.386 cm Uterine fibroids findings: posterior, Subserous Uterine fibroid D1 10 mm Uterine fibroid D2 9 mm Uterine fibroid D3 8 mm Uterine fibroid mean 8.8 mm Uterine fibroid vol 0.359 cm Uterine fibroids findings: Posterior, Subserous Right Ovary Rt ovary: Visualized Rt ovary morphology: premenopausal normal follicular Rt ovary D1 30 mm Rt ovary D2 29 mm Rt ovary D3 27 mm Rt ovary mean 28.5 mm Rt ovary Vol 12.1 cm Rt ovarian follicle(s): Follicles identified Rt ovarian follicles other findings: 20 + antral follicles < 10 mm Left Ovary Lt ovary: Visualized Lt ovary morphology: premenopausal normal follicular Lt ovary D1 38 mm Lt ovary D2 28 mm Lt ovary D3 22 mm Lt ovary mean 29.3 mm Lt ovary Vol 12.3 cm Lt ovarian follicle(s): Follicles identified Lt ovarian follicles other findings: 20 +antral follicles < 10 mm [place] Sac Visualized. no free fluid visualized Performed By: Janessa Ortega RDMS Read By: Nicci Ch M.D. MATERNAL MEDICINE [facility] Radiology Study observation (narrative) [facility] Hematocrit Auto (Bld) [Volum e fraction]on 06-14-2023 Hematocrit (Bld) [Volume fraction] 37.6 % 36.0 - 46.0 % [facility] Interpretation and review of laboratory results Normal [facility] Hematocrit (Bld) [Volume fraction] 37.6 % Normal 36.0-46.0 [facility] Comment on above: Order Comment: Speci men Type: BLOOD SPECIMENOrdering Facility: [facility] Address: [address] [place] [address] Performed By: #### 4 544-3 ####[facility] LABCLIA [id number] [address] OF [facility] Kae 06-09-2023 YAHIR Telephone (ALINAD) ESTRELLA RIOJAS ([id number]) 1990 F Date Time Provider Department 06/09/23 ANGELA HENRY During your visit today, we recorded the following information about you: Tiffany Liz 06/09/2023 2:35 PM Signed Pt ret call Sudha Muhammad RN 06/09/2023 4:10 PM Signed Returned phone call. Patient is asking about meeting with new doctor before her cycle starts. Spoke with scheduling, advised nothing available until 07/25. Called patient back and advised above. Advised patient I will send her an open MyChart so she can send me questions, assured patient she will receive the same care as all the other patients, and I will go to Dr. Ness for questions that come up for her. Patient states understanding, and appreciates the message. No further questions at this time. Sudha Muhammad RN June 09, 2023 4:10 PM Allergies As of Date: 06/09/2023 Noted Allergy Reaction SHELLFISH DERIVED 12/31/2015 12 - Shortness of Breath Date Reviewed: 04/12/2023 Reviewed by: Sudha Muhammad, RN - Fully Assessed Reason for Visit: sudha pt ret call [Other] Prescriptions as of 06/09/2023 - Ganirelix Acetate 250 mcg/0.5 mL Inject 1 syringe daily subcutaneous before 8am. Inject same time each day - Follitropin Beta (FOLLISTIM AQ) 300 unit/0.36 mL Inject 200 Units subcutaneously once daily. - leuprolide (LUPRON) 1 mg/0.2 mL Inject 80 units subcutaneous once as directed for Lupron trigger - Insulin Syringe-Needle U-100 1 mL 29 gauge x 7/16 syrg Inject 80 units subcutaneously once as directed for Lupron trigger - chorionic gonadotropin (PREGNYL) 10,000 unit solr 10,000 Units as directed. Mix vials as directed per nursing in office. Administer subcutaneous. - Sharps Container-Ins Syrng-Ndl 1/2 mL 30 x 1/2 syrg 1 Container as directed. Pregnyl trigger 85632 Units #1 with syringes and needles. - Sharps Container-Ins Syrng-Ndl 1/2 mL 30 x 1/2 syrg 1 Container as directed. For low dose HCG Pregnyl 76470 units with 5ml syringe and needle to mix and 15 insulin syringes. - ethynodiol diacetate-ethinyl estradiol 1 mg-35 mcg (ZOVIA , 28,) 1-35 mg-mcg per tablet Start day 1 of full flow period. Take 1 pill by mouth daily at bedtime, active pills only. Throw out or skip placebo week. - DULoxetine (CYMBALTA) 60 mg capsule - escitalopram oxalate (LEXAPRO) 10 mg tablet Take 10 mg by mouth once daily. - MEDICATION, NON-DATABASE Oral control, pt unsure of which one - albuterol HFA (VENTOLIN HFA) 90 mcg/actuation inhaler Inhale 2 Puffs as instructed every 4 hours as needed for Wheezing/Shortness of Breath. - clobetasol 0.05 % TOPICAL ointment Apply at bedtime Problem List As Of Date 06/09/2023 Noted Resolved Contact dermatitis and other eczema, due to uns*07/24/2010 Encounter Status:Closed by SUDHA MUHAMMAD on 06/09/23 [facility] Kae 06-07-2023 YAHIR Telephone (REIBD) ESTRELLA RIOJAS ([id number]) 1990 F Date Time Provider Department 06/07/23 ANGELA HENRY During your visit today, we recorded the following information about you: Tiffany Liz 06/07/2023 2:37 PM Signed Sudha pt wants to discuss her ivf cycle Sudha Muhammad RN 06/07/2023 3:10 PM Signed Attempted to call patient back, left voicemail message to call the office. Sudha Muhammad RN June 07, 2023 3:10 PM Allergies As of Date: 06/07/2023 Noted Allergy Reaction SHELLFISH DERIVED 12/31/2015 12 - Shortness of Breath Date Reviewed: 04/12/2023 Reviewed by: Sudha Muhammad, RN - Fully Assessed Reason for Visit: sudha discuss her ivf cycle [Other] Prescriptions as of 06/07/2023 - Ganirelix Acetate 250 mcg/0.5 mL Inject 1 syringe daily subcutaneous before 8am. Inject same time each day - Follitropin Beta (FOLLISTIM AQ) 300 unit/0.36 mL Inject 200 Units subcutaneously once daily. - leuprolide (LUPRON) 1 mg/0.2 mL Inject 80 units subcutaneous once as directed for Lupron trigger - Insulin Syringe-Needle U-100 1 mL 29 gauge x 7/16 syrg Inject 80 units subcutaneously once as directed for Lupron trigger - chorionic gonadotropin (PREGNYL) 10,000 unit solr 10,000 Units as directed. Mix vials as directed per nursing in office. Administer subcutaneous. - Sharps Container-Ins Syrng-Ndl 1/2 mL 30 x 1/2 syrg 1 Container as directed. Pregnyl trigger 82337 Units #1 with syringes and needles. - Sharps Container-Ins Syrng-Ndl 1/2 mL 30 x 1/2 syrg 1 Container as directed. For low dose HCG Pregnyl 76488 units with 5ml syringe and needle to mix and 15 insulin syringes. - ethynodiol diacetate-ethinyl estradiol 1 mg-35 mcg (ZOVIA E, 28,) 1-35 mg-mcg per tablet Start day 1 of full flow period. Take 1 pill by mouth daily at bedtime, active pills only. Throw out or skip placebo week. - DULoxetine (CYMBALTA) 60 mg capsule - escitalopram oxalate (LEXAPRO) 10 mg tablet Take 10 mg by mouth once daily. - MEDICATION, NON-DATABASE Oral control, pt unsure of which one - albuterol HFA (VENTOLIN HFA) 90 mcg/actuation inhaler Inhale 2 Puffs as instructed every 4 hours as needed for Wheezing/Shortness of Breath. - clobetasol 0.05 % TOPICAL ointment Apply at bedtime Problem List As Of Date 06/07/2023 Noted Resolved Contact dermatitis and other eczema, due to uns*07/24/2010 Encounter Status:Closed by SUDHA MUHAMMAD on 06/07/23 [facility] Kae 04-26-2023 YAHIR Telephone (REIBD) ESTRELLA RIOJAS ([id number]) 1990 F Date Time Provider Department 04/26/23 MAXIM MARTIN REIBD During your visit today, we recorded the following information about you: Nae Ureña 04/26/2023 12:51 PM Signed calling inquiring if freezing the sample is necessary for ivf? Please follow up with him his mrn is [id number] is 01/30/1988 Eliseo. Sudha Muhammad, GERARDO 04/27/2023 10:04 AM Signed Returned Eliseo's call. Please see telephone note in his chart. Sudha Muhammad RN April 27, 2023 10:04 AM Allergies As of Date: 04/26/2023 Noted Allergy Reaction SHELLFISH DERIVED 12/31/2015 12 - Shortness of Breath Date Reviewed: 04/12/2023 Reviewed by: Sudha Muhammad, RN - Fully Assessed Reason for Visit: re sa/is freezing necessary [Other] Prescriptions as of 04/27/2023 - DULoxetine (CYMBALTA) 60 mg capsule - escitalopram oxalate (LEXAPRO) 10 mg tablet Take 10 mg by mouth once daily. - MEDICATION, NON-DATABASE Oral control, pt unsure of which one - albuterol HFA (VENTOLIN HFA) 90 mcg/actuation inhaler Inhale 2 Puffs as instructed every 4 hours as needed for Wheezing/Shortness of Breath. - clobetasol 0.05 % TOPICAL ointment Apply at bedtime Problem List As Of Date 04/26/2023 Noted Resolved Contact dermatitis and other eczema, due to uns*07/24/2010 Encounter Status:Closed by SUDHA MUHAMMAD on 04/27/23 [facility] HIV 1 and HIV-2 antibody ass ay with HIV-1 p24 antigen detectionOrdered By: Nadeen Turner on 04-19-2023 HIV 1+2 Ab+HIV1 p24 Ag IA Ql Non-Reactive Nonreactive [facility] No Panel InformationOrdered By: Nadeen Turner on 04-19-2023 Hepatitis A IgM Antibody Negative Negative [facility] Comment on above: Performed at: [facility] [address] [id number] Director: Micah Lambert PhD, Phone: [phone] Hepatitis B Surface Antigen Non-Reactive Nonreactive [facility] Hepatitis C Antibody Non-Reactive Nonreactive [facility] Comment on above: Non Reactive: < 0.8 Equivocal: >/= 0.8 to < 1.0 Reactive: >/= 1.0The CDC requires that a reactive/equivocal HCV antibody result be sent out for confirmation. HCV Quant by PCR testing. Rubella IgG Antibody Reactive Nonreactive [facility] Comment on above: Antibody Results Int erpretation of Immune Status Non Reactive Presumed Non-Immune Equivocal Equivocal Reactive Presumed Immune Serum Treponema species anti body detectionOrdered By: Nadeen Turner on 04-19-2023 Treponema sp Ab Ql (S) Non-Reactive [facility] Serum Varicella zoster virus IgG antibody assay by immunoassay (units/volume)Ordered By: Nadeen Turner on 04-19-2023 VZV IgG IA Qn (S) 846 index Immune >165 [facility] Comment on above: Negative <135 Equivo blu 135 - 165 Positive >165A positive result generally indicates exposure to thepathogen or administration of specific immunoglobulins,but it is not indication of active infection or stageof disease. Serum hepatitis B virus core antibody detectionOrdered By: Nadeen Turner on 04-19-2023 HBV core Ab Ql (S) Negative Negative [facility] CNNURSEon 04-12-2023 CNNURSE Nurse Visit (REIBD) SHINEESTRELLA RASMUSSEN ([id number]) 1990 F Date Time Provider Department 04/12/23 10:30 AM [facility] VI[facility]I [facility]ODS During your visit today, we recorded the following information about you: Sudha Muhammad, RN 04/14/2023 1:40 PM Signed Patient had an IVF consult with Maxim Martin MD. Present for the phone call today is patient and partner/. Identified patient by name and date of . Yes. Chief Complaint- infertility Medications and allergies reviewed and updated. Yes. History reviewed: OB, Medical, Surgical, and Substance AND Sexuality- Yes. Pre IVF requirements reviewed- Yes. Pre IVF requirements sent to the patient via [facility]- Yes Patient reminded to call us with start of periods- Yes Previous Fertility Treatment? - No G 0P 0 AB 0 LMP 04/01/23, Cycles- 30 days Episode created- yes / Protocol- antagonist Will monitor at [place] [facility] yearly exam/PAP - 04/19/23 Uterine [...] PGTA/M - yes Financial/Coverage- self pay Pharmacy [facility] discussed Psych Consult- n/a Donor Sperm- n/a IVF / Embryo - Nursing reviewed with patient and Sent via Cortex Is there anything special we should know [...] medication. Patient and Partner verbally agreed on 34 to share their medical information with each other. 3/4 will be available and with patient before and after surgery. To Do: Well woman STD for both Semen analysis Send invitae Referring Provider: MAXIM MARTIN [[id number]] Allergies As of Date: 04/12/2023 Noted Allergy Reaction SHELLFISH DERIVED 12/31/2015 12 - Shortness of Breath Date Reviewed: 04/12/2023 Reviewed by: Sudha Muhammad, RN - Fully Assessed Reason for Visit: IVF teach [Other] Primary Visit Diagnosis:Female infertility [N97.9] Prescriptions as of 04/14/2023 - DULoxetine (CYMBALTA) 60 mg capsule - escitalopram oxalate (LEXAPRO) 10 mg tablet Take 10 mg by mouth once daily. - MEDICATION, NON-DATABASE Oral control, pt unsure of which one - albuterol HFA (VENTOLIN HFA) 90 mcg/actuation inhaler Inhale 2 Puffs as instructed every 4 hours as needed for Wheezing/Shortness of Breath. - clobetasol 0.05 % TOPICAL ointment Apply at bedtime Problem List As Of Date 04/12/2023 Noted Resolved Contact dermatitis and other eczema, due to uns*07/24/2010 Encounter Status:Closed by SUDHA MUHAMMAD on 04/14/23 [facility] 04-02-2023 RICHARN Telephone (REIBD) ESTRELLA RIOJAS ([id number]) 1990 F Date Time Provider Department 04/02/23 MAXIM MARTIN REIBKay During your visit today, we recorded the following information about you: Shonda Carranza 04/02/2023 11:08 AM Signed Pt made payment for ivf , would like to start scheduling her apts Nae Ureña 04/02/2023 4:00 PM Signed Patient is financially cleared for IVF, scheduled ivf teach looking for next stepsl Sudha Muhammad RN 04/02/2023 4:31 PM Signed Cortex message sent to patient. Sudha Muhammad RN April 02, 2023 4:31 PM Allergies As of Date: 04/02/2023 Noted Allergy Reaction SHELLFISH DERIVED 12/31/2015 12 - Shortness of Breath Date Reviewed: 02/15/2023 Reviewed by: Jenna Singh MA - Fully Assessed Reason for Visit: scheduling next apts [Other] IVF next steps/financially cleared [Other] Prescriptions as of 04/02/2023 - DULoxetine (CYMBALTA) 60 mg capsule - escitalopram oxalate (LEXAPRO) 10 mg tablet Take 10 mg by mouth once daily. - MEDICATION, NON-DATABASE Oral control, pt unsure of which one - albuterol HFA (VENTOLIN HFA) 90 mcg/actuation inhaler Inhale 2 Puffs as instructed every 4 hours as needed for Wheezing/Shortness of Breath. - clobetasol 0.05 % TOPICAL ointment Apply at bedtime Problem List As Of Date 04/02/2023 Noted Resolved Contact dermatitis and other eczema, due to uns*07/24/2010 Encounter Status:Closed by SUDHA MUHAMMAD on 04/02/23 [facility] CNOVon 02-15-2023 CNOV Office Visit (WHREBA ) ESTRELLA RIOJAS ([id number]) 1990 F Date Time Provider Department 02/15/23 9:45 AM MAXIM MARTIN WHREBA During your visit today, we recorded the following information about you: Pulse Blood pressure Weight Height 69/minute 98/69 81.6 kg 1.676 m Last Period 02/03/23 Maxim Martin MD 02/15/2023 12:14 PM Addendum [facility] Date: 02/15/2023 Consultation Requested By: [...] Desire for future fertility Consultation at [facility] 35 year old male partner without proven fertility PMHx: Central sleep apnea (phrenic nerve). Gastroparesis (vagus nerve) PSHx: Denies Meds: Pantoprazole SA: 1.6M/15%/0% Obstetric History T0 L0 SAB0 IAB0 Ectopic0 Multiple0 Live Births0 Fertility Evaluations and Treatments: Eval Checklist Results Date Comments HSG Hysteroscopy Not done Laparoscopy Not done OPK (Ovulation Predictor Kit) Normal Ovarian [place] Ultrasound Semen Analysis Abnormal all categorys abnormal Ultrasound Normal Other (See comments) MENSTRUAL HISTORY: Menarche Age: 16 Length of Cycle: 28-30 most recent 50 day Regular Days: 7 Menstrual Flow: Heavy,Moderate Menstrual Symptoms: Breast Tenderness,Mood Changes,Bloating,Crampi ng Patient's last menstrual period was 02/03/2023 (exact date). 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 35 year old male partner without proven fertility PMHx: Central sleep apnea (phrenic nerve). Gastroparesis (vagus nerve) PSHx: Denies Meds: Pantoprazole SA: 1.6M/15%/0% PLAN: IVF cycle planning: Consider PGT-A Antagonist. FSH 150-200. No LD hCg. Dual trigger STI/FDA infectious disease screening tests Carrier screening Office hysteroscopy or SIS prior to FET Financial Team: Discuss medical insurance benefits and likely gfl-le-kdnftc costs of IVF. IVF nurse coordinator: Schedule IVF nurse teaching. Order meds. Prepare IVF cycle schedule/flowsheet. Sign consents. Dr Martin: Review lab test results. Determine IVF stimulation protocol and medications dosage. Consultation with couple prior to IVF start if questions, abnormal lab test values or other concerns arise. I spent a total of 64 minutes on the date of the service which included preparing to see the patient, [id number] patient care, completing clinical documentation, obtaining and/or reviewing separately obtained history, counseling and educating the patient/family/caregive r, ordering medications, (more content not included)... Normal [facility] No Panel InformationOrdered By: Shameka Rowe on 07-30-2022 Miscellaneous Test See comment [facility] Comment on above: Sent directly to [facility] per ordering physician. Basophil percentageOrdered B y: Dr. Richards on 07-18-2022 WBC (Bld) [#/Vol] 11.6 10*3/uL 4.4-11.0 [facility] Blood erythrocytes count (nu mber/volume)Ordered By: Dr. Richards on 07-18-2022 RBC (Bld) [#/Vol] 3.90 10*6/uL 4.2-5.4 [facility] Blood hemoglobin measurement (mass/volume)Ordered By: Dr. Richards on 07-18-2022 Hemoglobin (Bld) [Mass/Vol] 10.7 g/dL 12.0-15.0 [facility] Blood platelet mean volumeOr dered By: Dr. Richards on 07-18-2022 Platelet mean volume (Bld) [Entitic vol] 10.1 fL 6.2-12.0 [facility] Determination of erythrocyte mean corpuscular volume (MCV)Ordered By: Dr. Richards on 07-18-2022 MCV (RBC) [Entitic vol] 87.4 fL 81-99 [facility] Hematocrit Auto (Bld) [Volum e fraction]Ordered By: Dr. Richards on 07-18-2022 Hematocrit (Bld) [Volume fraction] 34.1 % 37-47 [facility] Laboratory - Hematology and Cell countsOrdered By: Dr. Richards on 07-18-2022 Erythrocyte distribution width (RBC) [Entitic vol] 41.1 fL 35.1-43.9 [facility] Erythrocyte distribution width (RBC) [Ratio] 13.1 % 11.6-14.6 [facility] MCH (RBC) [Entitic mass] 27.4 pg 27.0-32.0 [facility] MCHC Auto (RBC) [Mass/Vol]Or dered By: Dr. Richards on 07-18-2022 MCHC (RBC) [Mass/Vol] 31.4 g/dL 32-36 [facility] Platelets bldOrdered By: Dr. Richards on 07-18-2022 Platelets (Bld) [#/Vol] 271 10*3/uL 150-450 [facility] Laboratory - Chemistry and C hemistry - challengeOrdered By: Dr. Richards on 07-17-2022 HCG ( test) Ql (U) Negative [facility] Comment on above: Very dilute urine sp ecimens, as indicated by a low specificgravity, may not contain installation service representative levels of hCG. If is still suspected, a first morning urinespecimen should be collected 48 hours later and tested. Culture, urineOrdered By: Zoraida Salas on 05-21-2022 Bacteria identified Cx Nom (U) Escherichia coli [facility] Basophil percentageOrdered B y: Kenrick Salas on 05-19-2022 Basophil percentage 0-5 SEEN /hpf 0-5 [facility] Bilirubin Test strip Ql (U)O rdered By: Kenrick Salas on 05-19-2022 Bilirubin Ql (U) 3 mg/dL Negative [facility] Comment on above: COLOR OF URINE MAY A FFECT DIPSTICK RESULTS. Culture, urineOrdered By: Zoraida Salas on 05-19-2022 Bacteria identified Cx Nom (U) Escherichia coli [facility] Ketones Test strip Ql (U)Ord ered By: Kenrick Salas on 04-11-2023 Ketones Ql (U) Negative Negative [facility] Mucus LM Ql (Urine sed)Order ed By: Kenrick Salas on 05-19-2022 Mucus Ql (Urine sed) 0 SEEN /hpf [facility] Nitrite Test strip Ql (U)Ord ered By: Kenrick Salas on 05-19-2022 Nitrite Ql (U) Positive Negative [facility] Protein Test strip Ql (U)Ord ered By: Kenrick Salas on 05-19-2022 Protein Ql (U) 15 mg/dl Negative [facility] Squamous epithelial cells de tection in urine sediment by light microscopyOrdered By: Kenrick Salas on 05-19-2022 Epithelial cells.squamous LM Ql (Urine sed) 0-5 SEEN /hpf 5-10 [facility] Urine blood detectionOrdered By: Kenrick Salas on 05-19-2022 RBC Ql (U) Negative Negative [facility] RBC Ql (U) 0 SEEN /hpf 0-5 [facility] Urine clarityOrdered By: Bar Salas on 05-19-2022 Clarity (U) Clear Clear [facility] Urine color determinationOrd ered By: Kenrick Salas on 05-19-2022 Color (U) Yellow Yellow [facility] Urine glucose detectionOrder ed By: Kenrick Salas on 05-19-2022 Glucose Ql (U) Normal mg/dl Normal [facility] Urine leukocyte esterase det ection by dipstickOrdered By: Kenrick Salas on 05-19-2022 Leukocyte esterase Test strip Ql (U) 25 /ul Negative [facility] Urine pHOrdered By: Kenrick lilly on 05-19-2022 pH (U) 7.0 [pH] 5.0 - 8.0 [facility] Urine sediment bacteria coun t by microscopy (number/high power field)Ordered By: Kenrick Salas on 05-19-2022 Bacteria LM.HPF (Urine sed) [#/Area] 0 /[HPF] None Seen [facility] Urine specific gravity measu rementOrdered By: Kenrick Salas on 05-19-2022 Specific gravity (U) [Rel density] 1.005 1.002-1.030 [facility] Urobilinogen Auto test strip Ql (U)Ordered By: Kenrick Salas on 05-19-2022 Urobilinogen Ql (U) 8 mg/dl Normal [facility] Beta hCG serum qualOrdered B y: Dr. Prince on 02-27-2022 Beta HCG ( test) Ql Negative [facility] Laboratory - Chemistry and C hemistry - challengeOrdered By: Dr. Flores on 01-26-2022 HCG ( test) Ql (U) Negative [facility] Comment on above: Very dilute urine sp ecimens, as indicated by a low specificgravity, may not contain installation service representative levels of hCG. If is still suspected, a first morning urinespecimen should be collected 48 hours later and tested. Cervical or vagninal specime n microscopic examination by cytology stain (reported ason 01-13-2022 Cytology report Cyto stain Doc (Cvx/Vag) Comment . [facility] Work Phone: Comment on above: The Pap smear is a s creening test designed to aid in thedetection of premalignant and malignant conditions of theuterine cervix. It is not a diagnostic procedure andshould not be used as the sole means of detecting cervicalcancer. Both false-positive and false-negative reports dooccur. Laboratory - Cytologyon Optical Engineering Manager Cyto stain Nom (Cvx/Vag) [ID] Comment . [facility] Work Phone: Comment on above: Chaz White totechnologist Laboratory - Miscellaneous t estson 01-13-2022 Service comment (Unsp spec) [Interp] Comment . [facility] Work Phone: Comment on above: This liquid based Th inPrep(R) pap test was screened withthe use of an image guided system. Service comment (Unsp spec) [Interp] . . [facility] Work Phone: No Panel Informationon 01-13 Human Papillomavirus Screen Comment . [facility] Work Phone: Comment on above: The HPV DNA reflex zakiya pierre were not met with this specimenresult therefore, no HPV testing was performed.Performed at: [address] [id number] Director: Barbara Fox MD, Phone: [phone] Pathology report final diagnosis Narrative Comment . [facility] Work Phone: Comment on above: NEGATIVE FOR INTRAEP ITHELIAL LESION OR MALIGNANCY. Miscellaneous Test Comment MAILED SPECIMEN [facility] Work Phone: Laboratory - Chemistry and C hemistry - challengeon 12-15-2021 HCG ( test) Ql (U) Negative [facility] Work Phone: CBCon 08-18-2019 ABSOLUTE BAS 0.1 10*3/uL Normal 0.0-0.2 [facility] Comment on above: Performed By: #### A CBC, CHEM7F #### Testing performed at [address] [address] ABSOLUTE EOS 0.10 10*3/uL Normal 0.0-0.7 [facility] Comment on above: Performed By: #### A CBC, CHEM7F #### Testing performed at [address] [address] ABSOLUTE NEUTROPHIL COUNT 3.8 10*3/uL Normal 1.4-6.5 [facility] Comment on above: Performed By: #### A CBC, CHEM7F #### Testing performed at [address] [address] Basophils/100 WBC (Bld) 1.1 % Normal 0.0-2.0 [facility] Comment on above: Performed By: #### A CBC, CHEM7F #### Testing performed at [address] [address] DTYPE AUTO DIFF Normal [facility] Comment on above: Performed By: #### A CBC, CHEM7F #### Testing performed at [address] [address] Eosinophils/100 WBC (Bld) 1.5 % Normal 0.0-11.0 [facility] Comment on above: Performed By: #### A CBC, CHEM7F #### Testing performed at [address] [address] Lymphocytes (Bld) [#/Vol] 2.90 10*3/uL Normal 1.2-3.4 [facility] Comment on above: Performed By: #### A CBC, CHEM7F #### Testing performed at [address] [address] Lymphocytes/100 WBC (Bld) 38.8 % Normal 20.0-55.0 [facility] Comment on above: Performed By: #### A CBC, CHEM7F #### Testing performed at [address] [address] Monocytes (Bld) [#/Vol] 0.5 10*3/uL Normal 0.0-0.7 [facility] Comment on above: Performed By: #### A CBC, CHEM7F #### Testing performed at [address] [address] Monocytes/100 WBC (Bld) 7.3 % Normal 0.0-10.0 [facility] Comment on above: Performed By: #### A CBC, CHEM7F #### Testing performed at [address] [address] Neutrophils/100 WBC (Bld) 51.3 % Normal 37.0-75.0 [facility] Comment on above: Performed By: #### A CBC, CHEM7F #### Testing performed at [address] [address] Erythrocyte distribution width (RBC) [Ratio] 13.6 % Normal 11.5-14.5 [facility] Comment on above: Performed By: #### A CBC, CHEM7F #### Testing performed at [address] [address] Hematocrit (Bld) [Volume fraction] 39.7 % Normal 36.0-48.0 [facility] Comment on above: Performed By: #### A CBC, CHEM7F #### Testing performed at [address] [address] Hemoglobin (Bld) [Mass/Vol] 13.1 g/dL Normal 12.0-16.0 [facility] Comment on above: Performed By: #### A CBC, CHEM7F #### Testing performed at [address] [address] MCH (RBC) [Entitic mass] 28.4 pg Normal 26.0-35.0 [facility] Comment on above: Performed By: #### A CBC, CHEM7F #### Testing performed at [address] [address] MCHC (RBC) [Mass/Vol] 33.0 g/dL Normal 27.0-37.0 [facility] Comment on above: Performed By: #### A CBC, CHEM7F #### Testing performed at [address] [address] MCV (RBC) [Entitic vol] 85.9 fL Normal 80.0-100.0 [facility] Comment on above: Performed By: #### A CBC, CHEM7F #### Testing performed at [address] [address] Platelet mean volume (Bld) [Entitic vol] 8.9 fL Normal 7.4-11.0 [facility] Comment on above: Performed By: #### A CBC, CHEM7F #### Testing performed at [address] [address] Platelets (Bld) [#/Vol] 289 10*3/uL Normal 130.0-400.0 [facility] Comment on above: Performed By: #### A CBC, CHEM7F #### Testing performed at [address] [address] RBC (Bld) [#/Vol] 4.62 10*6/uL Normal 4.0-5.4 [facility] Comment on above: Performed By: #### A CBC, CHEM7F #### Testing performed at [address] [address] WBC (Bld) [#/Vol] 7.3 10*3/uL Normal 3.6-11.0 [facility] Comment on above: Performed By: #### A CBC, CHEM7F #### Testing performed at [address] [address] CBC, EDIF, PLATELETon 2019 ABSOLUTE BASOPHIL COUNT 0.1 10*3/uL 0 - 0.2 10*3/uL [facility] Basophils/100 WBC (Bld) 1.1 % 0 - 2 % [facility] Differential cell count method Nom (Bld) AUTO DIFF % [facility] Eosinophils (Bld) [#/Vol] 0.10 10*3/uL 0 - 0.7 10*3/uL [facility] Eosinophils/100 WBC (Bld) 1.5 % 0 - 11 % [facility] Erythrocyte distribution width (RBC) [Ratio] 13.6 % 11.5 - 14.5 % [facility] Hematocrit (Bld) [Volume fraction] 39.7 % 36 - 48 % [facility] Hemoglobin (Bld) [Mass/Vol] 13.1 g/dL [facility] Lymphocytes (Bld) [#/Vol] 2.90 10*3/uL 1.2 - 3.4 10*3/uL [facility] Lymphocytes/100 WBC (Bld) 38.8 % 20 - 55 % [facility] MCH (RBC) [Entitic mass] 28.4 pg 26 - 35 PG [facility] MCHC (RBC) [Mass/Vol] 33.0 g/dL [facility] MCV (RBC) [Entitic vol] 85.9 fL [facility] Monocytes (Bld) [#/Vol] 0.5 10*3/uL 0 - 0.7 10*3/uL [facility] Monocytes/100 WBC (Bld) 7.3 % 0 - 10 % [facility] Neutrophils (Bld) [#/Vol] 3.8 10*3/uL 1.4 - 6.5 10*3/uL [facility] Neutrophils/100 WBC (Bld) 51.3 % 37 - 75 % [facility] Platelet mean volume (Bld) [Entitic vol] 8.9 fL [facility] Platelets (Bld) [#/Vol] 289 10*3/uL 130 - 400 10*3/uL [facility] RBC (Bld) [#/Vol] 4.62 10*6/uL 4 - 5.4 10*6/uL [facility] WBC (Bld) [#/Vol] 7.3 10*3/uL 3.6 - 11 10*3/uL [facility] CHEM 7 FASTINGon 08-18-2019 Creatinine [Mass/Vol] 0.81 mg/dL Normal 0.52-1.04 [facility] Comment on above: Performed By: #### A CBC, CHEM7F #### Testing performed at [address] [address] EST. GFR, >60 Normal [facility] Comment on above: Performed By: #### A CBC, CHEM7F #### Testing performed at [address] [address] EST. GFR,Non >60 Normal [facility] Comment on above: Performed By: #### A CBC, CHEM7F #### Testing performed at [address] [address] GFR/1.73 sq M predicted among non-blacks MDRD (S/P/Bld) [Vol rate/Area] Average GFR for 20-29 years old = 116. Normal [facility] Comment on above: Result Comment: Retail Assistant Store Manager lucas Kidney disease, GFR = <60. Kidney failure, GFR = <15. The GFR estimate is not adjusted for extreme body surface area or acute process, nor has it been validated for women or ethnic groups other than and . Performed By: #### A CBC, CHEM7F #### Testing performed at [address] [address] Urea nitrogen [Mass/Vol] 7 mg/dL Normal 7-20 [facility] Comment on above: Performed By: #### A CBC, CHEM7F #### Testing performed at [address] [address] Chloride [Moles/Vol] 103 mmol/L Normal 98-107 [facility] Comment on above: Performed By: #### A CBC, CHEM7F #### Testing performed at [address] [address] CO2 [Moles/Vol] 21 mmol/L Low 22-30 [facility] Comment on above: Performed By: #### A CBC, CHEM7F #### Testing performed at [address] [address] Glucose [Mass/Vol] 116 mg/dL High 70-100 [facility] Comment on above: Result Comment: NORMAL <100 mg/dL PREDIABETES 101-126 mg/dL DIABETES 126 mg/dL or higher Performed By: #### A CBC, CHEM7F #### Testing performed at [address] [address] Potassium [Moles/Vol] 3.6 mmol/L Normal 3.5-5.1 [facility] Comment on above: Performed By: #### A CBC, CHEM7F #### Testing performed at [facility] [address] [place] [address] Sodium [Moles/Vol] 136 mmol/L Normal 136-145 [facility] Comment on above: Performed By: #### A CBC, CHEM7F #### Testing performed at [address] [address] CHEM 7 (LYTES,BUN,CREA,GLUC) on 08-18-2019 Chloride [Moles/Vol] 103 mmol/L [facility] CO2 [Moles/Vol] 21 mmol/L Low [facility] Creatinine [Mass/Vol] 0.81 mg/dL [facility] GFR/1.73 sq M predicted among blacks MDRD (S/P/Bld) [Vol rate/Area] mL/min/{1.73_m2} ml/min/1.73sq .m [facility] GFR/1.73 sq M predicted among non-blacks MDRD (S/P/Bld) [Vol rate/Area] mL/min/{1.73_m2} ml/min/1.73sq .m [facility] GFR/1.73 sq M predicted among non-blacks MDRD (S/P/Bld) [Vol rate/Area] Average GFR for 20-29 years old = 116. [facility] Comment on above: Chronic Kidney disea se, GFR = <60. Kidney failure, GFR = <15. The GFR estimate is not adjusted for extreme body surface area or acute process, nor has it been validated for women or ethnic groups other than and . Glucose post fast [Mass/Vol] 116 mg/dL High [facility] Comment on above: NORMAL <100 mg/dL PREDIABETES 101-126 mg/dL DIABETES 126 mg/dL or higher Interpretation and review of laboratory results Abnormal [facility] Potassium [Moles/Vol] 3.6 mmol/L [facility] Sodium [Moles/Vol] 136 mmol/L [facility] Urea nitrogen [Mass/Vol] 7 mg/dL [facility] HCG QUALITATIVE, URINEon HCG ( test) Ql (U) Negative NEGATIVE [facility] URINALYSIS, MACROon 08-18-19 20 Bilirubin Ql (U) Negative NEGATIVE [facility] Clarity (U) CLEAR CLEAR [facility] Color (U) YELLOW YELLOW [facility] Glucose Test strip (U) [Mass/Vol] Negative NEGATIVE mg/dl [facility] Hemoglobin Ql (U) Negative NEGATIVE [facility] Interpretation and review of laboratory results Abnormal [facility] Ketones (U) [Mass/Vol] 80 mg/dl Abnormal NEGATIVE [facility] Leukocyte esterase Test strip Ql (U) Negative NEGATIVE [facility] Nitrite Ql (U) Negative NEGATIVE [facility] pH (U) 6.0 [pH] [facility] Protein Ql (U) Negative NEGATIVE mg/dl [facility] Specific gravity (U) [Rel density] 1.015 [facility] Urobilinogen (U) [Mass/Vol] 0.2 [facility] URINE HCG QUALon 08-18-2019 Beta HCG ( test) Ql (U) Negative Normal NEGATIVE [facility] Comment on above: Performed By: #### U HCGT, UMAC #### Testing performed at [address] [address] URINE MACROSCOPICon 08-18-19 20 Bilirubin Ql (U) Negative Normal NEGATIVE [facility] Comment on above: Performed By: #### U HCGT, UMAC #### Testing performed at [address] [address] Clarity (U) CLEAR Normal CLEAR [facility] Comment on above: Performed By: #### U HCGT, UMAC #### Testing performed at [address] [address] Color (U) YELLOW Normal YELLOW [facility] Comment on above: Performed By: #### U HCGT, UMAC #### Testing performed at [address] [address] Glucose Ql (U) Negative Normal NEGATIVE [facility] Comment on above: Performed By: #### U HCGT, UMAC #### Testing performed at [address] [address] pH (U) 6.0 [pH] Normal 5.0-7.0 [facility] Comment on above: Performed By: #### U HCGT, UMAC #### Testing performed at [address] [address] Protein (U) [Mass/Vol] Negative Normal NEGATIVE [facility] Comment on above: Performed By: #### U HCGT, UMAC #### Testing performed at [address] [address] URINE HEMOGLOBIN Negative Normal NEGATIVE [facility] Comment on above: Performed By: #### U HCGT, UMAC #### Testing performed at [address] [address] URINE KETONE 80 mg/dl Abnormal NEGATIVE [facility] Comment on above: Performed By: #### U HCGT, UMAC #### Testing performed at [address] [address] URINE LEUKOTEST Negative Normal NEGATIVE [facility] Comment on above: Performed By: #### U HCGT, UMAC #### Testing performed at [address] [address] URINE NITRATES Negative Normal NEGATIVE [facility] Comment on above: Performed By: #### U HCGT, UMAC #### Testing performed at [address] [address] URINE SPEC GRAVITY 1.015 Normal 1.010-1.025 [facility] Comment on above: Performed By: #### U HCGT, UMAC #### Testing performed at [address] [address] Urobilinogen Qn (U) 0.2 {Stuart'U}/dL Normal 0.2-1.0 [facility] Comment on above: Performed By: #### U HCGT, UMAC #### Testing performed at [address] [address] Vital Signs Date Time Vital Sign Value Performing Clinician Phyllis rico 04-29-2024 14:00-0400 Body temperature 97.6 [degF] Dr. Julieta Prince MD Work Phone: [facility] 04-29-2024 14:00-0400 Diastolic blood pressure 66 mm[Hg] Dr. Julieta Prince MD Work Phone: [facility] 04-29-2024 14:00-0400 Heart rate 68 /min Dr. Julieta Prince MD Work Phone: [facility] 04-29-2024 14:00-0400 Respiratory rate 16 /min Dr. Julieta Prince MD Work Phone: [facility] 04-29-2024 14:00-0400 SaO2% (BldA) [Mass fraction] 98 % Dr. Julieta Prince MD Work Phone: 6(870)256-716285 [place] [address] 04-29-2024 14:00-0400 Systolic blood pressure 95 mm[Hg] Dr. Julieta Prince MD Work Phone: 3(632)051-613455 [address] 04-27-2024 13:52-0400 Body temperature 97 [degF] Dr. Julieta Prince MD Work Phone: 9(775)626-915255 [address] 04-27-2024 13:52-0400 Diastolic blood pressure 71 mm[Hg] Dr. Julieta Prince MD Work Phone: 8(640)887-607985 [place] [address] 04-27-2024 13:52-0400 Heart rate 79 /min Dr. Julieta Prince MD Work Phone: 5(679)137-559885 [place] [address] 04-27-2024 13:52-0400 Respiratory rate 16 /min Dr. Julieta Prince MD Work Phone: 1(475)072-682385 [place] [address] 04-27-2024 13:52-0400 SaO2% (BldA) [Mass fraction] 95 % Dr. Julieta Prince MD Work Phone: [facility] 04-27-2024 13:52-0400 Systolic blood pressure 103 mm[Hg] Dr. Julieta Prince MD Work Phone: 8(491)199-563985 [place] [address] 04-26-2024 05:41-0400 Body height 167.[address] Julieta Prince MD Work Phone: [facility] 04-26-2024 05:41-0400 Body mass index (BMI) [Ratio] 32.1 kg/m2 Dr. Julieta Prince MD Work Phone: 8(397)439-603685 [place] [address] 04-26-2024 05:41-0400 Body weight 90.[address] Julieta Prince MD Work Phone: 0(585)185-468513 [place] [address] 04-18-2024 09:55-0400 Body mass index (BMI) [Ratio] 32.1 kg/m2 Dr. Julieta Prince MD Work Phone: 5(699)071-755513 [place] [address] 04-18-2024 09:55-0400 Body weight 90.[address] Julieta Prince MD Work Phone: 3(779)695-479713 [place] [address] 04-18-2024 09:55-0400 Diastolic blood pressure 75 mm[Hg] Dr. Julieta Prince MD Work Phone: 7(342)332-036713 [place] [address] 04-18-2024 09:55-0400 Systolic blood pressure 106 mm[Hg] Dr. Julieta Prince MD Work Phone: 0(846)233-862813 [place] [address] 04-12-2024 14:20-0500 Body mass index (BMI) [Ratio] 32.8 kg/m2 Dr. Julieta Prince MD Work Phone: 2(378)870-850913 [place] [address] 04-12-2024 14:20-0500 Body weight 92.[address] Julieta Prince MD Work Phone: 6(066)072-650213 [place] [address] 04-12-2024 14:20-0500 Diastolic blood pressure 70 mm[Hg] Dr. Julieta Prince MD Work Phone: 9(701)970-057113 [place] [address] 04-12-2024 14:20-0500 Systolic blood pressure 102 mm[Hg] Dr. Julieta Prince MD Work Phone: 8(027)602-447113 [place] [address] 04-08-2024 01:28-0500 Body weight 93.[address] Julieta Prince MD Work Phone: 8(265)487-974113 [place] [address] 04-03-2024 15:17-0500 Body weight 93.[address] Julieta Prince MD Work Phone: 3(113)540-758413 [place] [address] 03-30-2024 14:28-0500 Body mass index (BMI) [Ratio] 33.4 kg/m2 Dr. Julieta Prince MD Work Phone: [facility] 03-30-2024 14:28-0500 Body weight 93.[address] Julieta Prince MD Work Phone: 8(175)992-724585 [place] [address] 03-30-2024 14:28-0500 Diastolic blood pressure 75 mm[Hg] Dr. Julieta Prince MD Work Phone: 7(624)852-473013 [place] [address] 03-30-2024 14:28-0500 Systolic blood pressure 115 mm[Hg] Dr. Julieta Prince MD Work Phone: 8(938)651-620255 [address] 03-17-2024 14:47-0500 Body mass index (BMI) [Ratio] 33.2 kg/m2 Dr. Julieta Prince MD Work Phone: 9(817)907-306213 [place] [address] 03-17-2024 14:47-0500 Body weight 93.[address] Julieta Prince MD Work Phone: 9(021)249-425413 [place] [address] 03-17-2024 14:47-0500 Diastolic blood pressure 72 mm[Hg] Dr. Julieta Prince MD Work Phone: 7(859)583-623413 [place] [address] 03-17-2024 14:47-0500 Systolic blood pressure 104 mm[Hg] Dr. Julieta Prince MD Work Phone: 6(826)952-177813 [place] [address] 02-29-2024 13:33-0500 Body mass index (BMI) [Ratio] 33.3 kg/m2 Dr. Julieta Prince MD Work Phone: 3(775)046-562285 [place] [address] 02-29-2024 13:33-0500 Body weight 93.[address] Julieta Prince MD Work Phone: 3(689)908-088013 [place] [address] 02-29-2024 13:33-0500 Diastolic blood pressure 70 mm[Hg] Dr. Julieta Prince MD Work Phone: 7(848)672-882513 [place] [address] 02-29-2024 13:33-0500 Systolic blood pressure 108 mm[Hg] Dr. Julieta Prince MD Work Phone: 2(604)890-284313 [place] [address] 02-24-2024 14:59-0500 Body mass index (BMI) [Ratio] 32.8 kg/m2 Dr. Julieta Prince MD Work Phone: [facility] 02-24-2024 14:59-0500 Body weight 92.[address] Julieta Prince MD Work Phone: [facility] 02-24-2024 14:59-0500 Diastolic blood pressure 83 mm[Hg] Dr. Julieta Prince MD Work Phone: 1(994)760-103985 [place] [address] 02-24-2024 14:59-0500 Heart rate 91 /min Dr. Julieta Prince MD Work Phone: 0(706)199-474985 [place] [address] 02-24-2024 14:59-0500 Respiratory rate 20 /min Dr. Julieta Prince MD Work Phone: 8(468)793-495685 [place] [address] 02-24-2024 14:59-0500 SaO2% (BldA) [Mass fraction] 98 % Dr. Julieta Prince MD Work Phone: 7(058)115-857285 [place] [address] 02-24-2024 14:59-0500 Systolic blood pressure 118 mm[Hg] Dr. Julieta Prince MD Work Phone: 4(095)062-687285 [place] [address] 02-16-2024 14:10-0500 Body mass index (BMI) [Ratio] 33 kg/m2 Dr. Julieta Prince MD Work Phone: 1(398)[phone] [place] [address] 02-16-2024 14:10-0500 Body weight 92.[address] Julieta Prince MD Work Phone: 8(816)[phone] [place] [address] 02-16-2024 14:10-0500 Diastolic blood pressure 75 mm[Hg] Dr. Julieta Prince MD Work Phone: 3(095)855-116485 [place] [address] 02-16-2024 14:10-0500 Systolic blood pressure 107 mm[Hg] Dr. Julieta Prince MD Work Phone: [facility] 01-19-2024 14:13-0500 Body mass index (BMI) [Ratio] 31.7 kg/m2 Dr. Julieta Prince MD Work Phone: 0(809)932-745785 [place] [address] 01-19-2024 14:13-0500 Body weight 89.[address] Julieta Prince MD Work Phone: [facility] 01-19-2024 14:13-0500 Diastolic blood pressure 71 mm[Hg] Dr. Julieta Prince MD Work Phone: [facility] 01-19-2024 14:13-0500 Systolic blood pressure 106 mm[Hg] Dr. Julieta Prince MD Work Phone: [facility] 07-20-2023 08:28-0400 Body mass index (BMI) [Ratio] 28.44 kg/m2 Frank Troncoso MD Work Phone: [facility] 07-20-2023 08:28-0400 Body weight 79.92 kg Frank Troncoso MD Work Phone: [facility] 07-20-2023 08:28-0400 Diastolic blood pressure 72 mm[Hg] Frank Troncoso MD Work Phone: [facility] 07-20-2023 08:28-0400 Heart rate 69 /min Frank Troncoso MD Work Phone: [facility] 07-20-2023 08:28-0400 Systolic blood pressure 101 mm[Hg] Frank Troncoso MD Work Phone: [facility] 06-14-2023 07:45-0400 Body height 167.6 cm Nurse Beac Work Phone: [facility] 06-14-2023 07:45-0400 Body mass index (BMI) [Ratio] 29.32 kg/m2 Nurse Beac Work Phone: [facility] 06-14-2023 07:45-0400 Body weight 82.4 kg Nurse Beac Work Phone: [facility] 06-14-2023 07:45-0400 Diastolic blood pressure 73 mm[Hg] Nurse Beac Work Phone: [facility] 06-14-2023 07:45-0400 Heart rate 87 /min Nurse Beac Work Phone: [facility] 06-14-2023 07:45-0400 SaO2% (BldA) [Mass fraction] 100 % Nurse Beac Work Phone: [facility] 06-14-2023 07:45-0400 Systolic blood pressure 107 mm[Hg] Nurse Beac Work Phone: [facility] 04-19-2023 08:23-0400 Body height 167.[address] Julieta Prince Work Phone: [facility] 04-19-2023 08:16-0400 Body mass index (BMI) [Ratio] 28.5 kg/m2 Dr. Julieta Prince Work Phone: [facility] 04-19-2023 08:16-0400 Body weight 80.[address] Julieta Prince Work Phone: [facility] 04-19-2023 08:16-0400 Diastolic blood pressure 78 mm[Hg] Dr. Julieta Prince Work Phone: [facility] 04-19-2023 08:16-0400 Systolic blood pressure 120 mm[Hg] Dr. Julieta Prince Work Phone: [facility] 08-14-2022 08:18-0400 Body mass index (BMI) [Ratio] 27.9 kg/m2 Dr. Julieta Prince Work Phone: [facility] 08-14-2022 08:18-0400 Diastolic blood pressure 73 mm[Hg] Dr. Julieta Prince Work Phone: [facility] 08-14-2022 08:18-0400 Systolic blood pressure 104 mm[Hg] Dr. Julieta Prince Work Phone: [facility] 08-14-2022 08:14-0400 Body height 167.[address] Julieta Prince Work Phone: [facility] 08-14-2022 08:14-0400 Body temperature 97.8 [degF] Dr. Julieta Prince Work Phone: [facility] 08-14-2022 08:14-0400 Body weight 78.[address] Julieta Prince Work Phone: [facility] 08-14-2022 08:14-0400 Heart rate 87 /min Dr. Julieta Prince Work Phone: [facility] 08-14-2022 08:14-0400 Respiratory rate 16 /min Dr. Julieta Prince Work Phone: [facility] 08-14-2022 08:14-0400 SaO2% (BldA) [Mass fraction] 97 % Dr. Julieta Prince Work Phone: [facility] 07-31-2022 13:57-0400 Body height 167.[address] Julieta Prince Work Phone: [facility] 07-31-2022 13:55-0400 Body mass index (BMI) [Ratio] 28.7 kg/m2 Dr. Julieta Prince Work Phone: [facility] 07-31-2022 13:55-0400 Body weight 80.[address] Julieta Prince Work Phone: [facility] 07-31-2022 13:55-0400 Diastolic blood pressure 64 mm[Hg] Dr. Julieta Prince Work Phone: [facility] 07-31-2022 13:55-0400 Systolic blood pressure 89 mm[Hg] Dr. Julieta Prince Work Phone: [facility] 07-18-2022 08:16-0400 Body temperature 98.3 [degF] Dr. Julieta Prince Work Phone: [facility] 07-18-2022 08:16-0400 Diastolic blood pressure 61 mm[Hg] Dr. Julieta Prince Work Phone: 8(918)014-579885 [place] [address] 07-18-2022 08:16-0400 Heart rate 87 /min Dr. Julieta Prince Work Phone: [facility] 07-18-2022 08:16-0400 Respiratory rate 16 /min Dr. Julieta Prince Work Phone: [facility] 07-18-2022 08:16-0400 SaO2% (BldA) [Mass fraction] 96 % Dr. Julieta Prince Work Phone: [facility] 07-18-2022 08:16-0400 Systolic blood pressure 107 mm[Hg] Dr. Julieta Prince Work Phone: 4(176)884-664455 [address] 07-17-2022 15:32-0400 Inhaled oxygen flow rate 2 L/min Dr. Julieta Prince Work Phone: 9(740)733-240585 [place] [address] 07-17-2022 10:49-0400 Body mass index (BMI) [Ratio] 29.8 kg/m2 Dr. Julieta Prince Work Phone: 8(848)147-100085 [place] [address] 07-17-2022 10:49-0400 Body weight 83.[address] Julieta Prince Work Phone: 2(339)674-388985 [place] [address] 06-29-2022 13:48-0400 Body mass index (BMI) [Ratio] 28.8 kg/m2 Dr. Julieta Prince Work Phone: 3(164)208-424985 [place] [address] 06-29-2022 13:48-0400 Body weight 81.[address] Julieta Prince Work Phone: [facility] 06-29-2022 13:48-0400 Diastolic blood pressure 79 mm[Hg] Dr. Julieta Prince Work Phone: [facility] 06-29-2022 13:48-0400 Systolic blood pressure 117 mm[Hg] Dr. Julieta Prince Work Phone: [facility] 05-01-2022 14:14-0400 Body height 167.[address] Julieta Prince Work Phone: 5(610)989-014085 [place] [address] 05-01-2022 14:14-0400 Body mass index (BMI) [Ratio] 30.2 kg/m2 Dr. Julieta Prince Work Phone: [facility] 05-01-2022 14:14-0400 Body weight 85.[address] Julieta Prince Work Phone: [facility] 05-01-2022 14:14-0400 Diastolic blood pressure 78 mm[Hg] Dr. Julieta Prince Work Phone: [facility] 05-01-2022 14:14-0400 Systolic blood pressure 118 mm[Hg] Dr. Julieta Prince Work Phone: [facility] 01-26-2022 11:00-0500 Body temperature 98.8 [degF] Dr. Julieta Prince Work Phone: [facility] 01-26-2022 11:00-0500 Diastolic blood pressure 76 mm[Hg] Dr. Julieta Prince Work Phone: [facility] 01-26-2022 11:00-0500 Heart rate 96 /min Dr. Julieta Prince Work Phone: [facility] 01-26-2022 11:00-0500 Respiratory rate 16 /min Dr. Julieta Prince Work Phone: [facility] 01-26-2022 11:00-0500 SaO2% (BldA) [Mass fraction] 97 % Dr. Julieta Prince Work Phone: [facility] 01-26-2022 11:00-0500 Systolic blood pressure 110 mm[Hg] Dr. Julieta Prince Work Phone: [facility] 01-26-2022 09:00-0500 Body height 167.[address] Julieta Prince Work Phone: [facility] Work Phone: 01-26-2022 09:00-0500 Body mass index (BMI) [Ratio] 28 kg/m2 Dr. Julieta Prince Work Phone: [facility] 01-26-2022 09:00-0500 Body weight [address] Julieta Prince Work Phone: [facility] 01-19-2022 10:11-0500 Body height 167.[address] Julieta Prince Work Phone: [facility] Work Phone: 01-19-2022 10:11-0500 Body mass index (BMI) [Ratio] 28.2 kg/m2 Dr. Julieta Prince Work Phone: [facility] Work Phone: 01-19-2022 10:11-0500 Body weight 79.[address] Julieta Prince Work Phone: [facility] Work Phone: 01-19-2022 10:11-0500 Diastolic blood pressure 87 mm[Hg] Dr. Julieta Prince Work Phone: [facility] Work Phone: 01-19-2022 10:11-0500 Respiratory rate 16 /min Dr. Julieta Prince Work Phone: [facility] Work Phone: 01-19-2022 10:11-0500 Systolic blood pressure 127 mm[Hg] Dr. Julieta Prince Work Phone: [facility] Work Phone: 01-13-2022 08:41-0500 Body mass index (BMI) [Ratio] 29.2 kg/m2 Dr. Julieta Prince Work Phone: [facility] Work Phone: 01-13-2022 08:41-0500 Body weight 82.[address] Julieta Prince Work Phone: [facility] Work Phone: 01-13-2022 08:41-0500 Diastolic blood pressure 82 mm[Hg] Dr. Julieta Prince Work Phone: [facility] Work Phone: 01-13-2022 08:41-0500 Systolic blood pressure 112 mm[Hg] Dr. Julieta Prince Work Phone: [facility] Work Phone: 12-15-2021 17:33-0500 Diastolic blood pressure 74 mm[Hg] Dr. Julieta Prince Work Phone: [facility] Work Phone: 12-15-2021 17:33-0500 Systolic blood pressure 118 mm[Hg] Dr. Julieta Prince Work Phone: [facility] Work Phone: 12-15-2021 17:23-0500 Body temperature 98 [degF] Dr. Julieta Prince Work Phone: [facility] Work Phone: 12-15-2021 17:23-0500 Heart rate 75 /min Dr. Julieta Prince Work Phone: [facility] Work Phone: 12-15-2021 17:23-0500 Respiratory rate 14 /min Dr. Julieta Prince Work Phone: [facility] Work Phone: 12-15-2021 17:23-0500 SaO2% (BldA) [Mass fraction] 99 % Dr. Julieta Prince Work Phone: [facility] Work Phone: 08-18-2019 15:29-0400 BP Diastolic 72 mm[Hg] Julieta [id number] 08-18-2019 15:29-0400 BP Systolic 117 mm[Hg] Julieta [id number] [facility] 08-18-2019 15:29-0400 Pulse (Heart Rate) 92 /min Julieta [facility] 08-18-2019 15:29-0400 Pulse Oximetry 100 % Julieta [id number] [facility] 08-18-2019 15:29-0400 Respiratory Rate 16 /min [facility] 08-18-2019 14:57-0400 Height 167.6 cm [facility] 08-18-2019 14:55-0400 Body Temperature 97.81 [degF] [facility] Encounters Encounter Date Encounter Type Care Provider Facility Start: 06-07-2024 End: 06-07-2024 ambulatory Lakia Richards Facility:[facility] Start: 06-07-2024 End: 06-07-2024 ambulatory Lakia Richards Facility:[facility] Start: 05-19-2024 ambulatory Nadeen [place] 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 Facil ity:[facility] Start: 05-09-2024 End: 05-09-2024 ambulatory Nadeen Turner 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 Facility:[facility] Start: 05-05-2024 End: 05-05-[address] Janessa Rodrigues DO -[facility] Work Phone: Start: 05-05-2024 End: 05-05-2024 ambulatory Janessa Rodrigues Facility:[facility] Start: 04-29-2024 Non-patient / Non-visit Joanne Duff [facility] Start: 04-28-2024 ambulatory Lakia Richards Faci lity:[facility] Start: 04-28-2024 Non-patient / Non-visit Joanne Duff [facility] Start: 04-27-2024 Non-patient / Non-visit Dr. Lakia Richards MD -[facility] Start: 04-26-2024 Non-patient / Non-visit Dr. Lakia Richards MD -[facility] Start: 04-26-2024 ambulatory Julieta Prince Facility: [facility] Start: 04-26-2024 End: 04-29-2024 Evaluation and management of inpatient Dr. Lakia Richards MD -[facility] Work Phone: Start: 04-19-2024 End: 04-19-[address] Julieta Prince MD Work Phone: [facility] Work Phone: Start: 04-19-2024 End: 04-19-[address] Lakia Richards MD -[facility] Work Phone: Start: 04-18-2024 End: 04-18-[address] Lakia Richards MD -[facility] Work Phone: Start: 04-18-2024 End: 04-19-2024 ambulatory Lakia Richards Facility:[facility] Start: 04-12-2024 End: 04-12-[address] Lakia Richards MD -[facility] Work Phone: Start: 04-12-2024 End: 04-12-2024 ambulatory Lakia Richards Facility:[facility] Start: 04-11-2024 End: 05-08-2024 Discharged Recurring Nadeen Johnny 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-C -[facility] Work Phone: Start: 04-11-2024 Registered Recurring Nadeen Johnny 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-C -[facility] Work Phone: Start: 04-11-2024 End: 05-08-[address] Julieta Prince MD Work Phone: [facility] Work Phone: Start: 04-03-2024 End: 04-07-2024 Discharged Recurring Nadeen [place] 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-C -[facility] Work Phone: Start: 04-03-2024 End: 04-07-2024 ambulatory Nadeen [place] 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 Facility:[facility] Start: 03-30-2024 End: 03-30-[address] Lakia Richards MD -[facility] Work Phone: Start: 03-30-2024 End: 03-30-2024 ambulatory Lakia Richards Facility:[facility] Start: 03-17-2024 End: 03-17-[address] Lakia Richards MD -[facility] Work Phone: Start: 03-17-2024 End: 03-17-2024 ambulatory Lakia Richards Facility:[facility] Start: 03-17-2024 Non-patient / Non-visit Dr. David Miles MD -[facility] Start: 03-17-2024 End: 03-17-[address] Cecil Ramirez MD -[facility] Work Phone: Start: 03-17-2024 End: 03-17-2024 ambulatory Cecil Ramirez Facility:[facility] Start: 03-09-2024 End: 03-09-2024 Patient encounter procedure Nadeen Turner 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-C -Laboratory Work Phone: Start: 03-09-2024 End: 03-09-2024 ambulatory Nadeen Ordonezs 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 Facility:[facility] Start: 02-29-2024 End: 02-29-2024 Patient encounter procedure Nadeen Turner 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-C -[facility] Work Phone: Start: 02-29-2024 End: 02-29-2024 ambulatory Nadeen Ordonezs 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 Facility:[facility] Start: 02-29-2024 End: 02-29-2024 ambulatory Nadeenguera Ordonezs 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 Facility:[facility] Start: 02-24-2024 End: 02-24-[address] Cecil Ramirez MD -[facility] Work Phone: Start: 02-24-2024 End: 02-24-2024 ambulatory Cecil Ramirez Facility:[facility] Start: 02-16-2024 End: 02-16-[address] Lakia Richards MD -[facility] Work Phone: Start: 02-16-2024 End: 02-16-2024 ambulatory Lakia Richards Facility:[facility] Start: 01-26-2024 End: 01-26-2024 [facility] Start: 01-19-2024 End: 01-19-[address] Janessa Rodrigues DO -[facility] Work Phone: Start: 01-19-2024 End: 01-19-2024 ambulatory Janessa Rodrigues Facility:[facility] Start: 01-19-2024 End: 01-19-2024 ambulatory Janessa Rodrigues Facility:[facility] Start: 01-13-2024 End: 01-13-2024 ambulatory LAKIA RICHARDS [facility] Start: 12-28-2023 End: 12-28-2023 ambulatory LAKIA RICHARDS [facility] Start: 12-21-2023 End: 12-21-2023 ambulatory Shameka Rowe Facility:[facility] Start: 11-19-2023 End: 11-19-2023 ambulatory Lakia Richards Facility:[facility] Start: 11-19-2023 End: 11-19-2023 ambulatory Lakia Richards Facility:[facility] Start: 10-22-2023 End: 10-22-2023 ambulatory Shameka Rowe Facility:[facility] Start: 10-22-2023 End: 10-22-2023 ambulatory Shameka [place] Facility:[facility] Start: 10-04-2023 End: 10-04-2023 ambulatory JULIETA PRINCE Facility:[facility] Start: 10-04-2023 End: 10-04-2023 Nursing evaluation of patient and report Nurse Andre Hutchinson Work Phone: [facility] Comment on above: , location unknown Start: 09-28-2023 End: 09-28-2023 Telemedicine consultation with patient Nurse Andre Bath Work Phone: [facility] Start: 09-28-2023 End: 09-28-2023 ambulatory Zaida Ness MD Work Phone: [facility] Comment on above: Bleeding Positive t est (Primary Dx) Start: 09-27-2023 End: 09-27-2023 Telemedicine consultation with patient Nurse Andre Bath Work Phone: [facility] Start: 09-27-2023 End: 09-27-2023 ambulatory JULIETA PRINCE [facility] Comment on above: Female infertility ( Primary Dx) Start: 09-20-2023 End: 09-20-2023 Telemedicine consultation with patient Nurse Andre Bath Work Phone: [facility] Start: 09-20-2023 End: 09-20-2023 ambulatory JULIETA PRINCE [facility] Comment on above: Positive t est (Primary Dx); , location unknown Start: 09-15-2023 ambulatory Zaida mixon MD Work Phone: [facility] Comment on above: question Start: 09-06-2023 End: 09-06-2023 ambulatory MAXIM MARTIN Facility:[facility] Start: 09-06-2023 End: 09-06-2023 Patient encounter procedure [facility] Work Phone: [facility] Comment on above: Primary female infer tility (Primary Dx) Female infertility ( Primary Dx); examination or test, unconfirmed Start: 08-26-2023 End: 08-26-2023 ambulatory JULIETA PRINCE Facility:[facility] Start: 08-26-2023 End: 08-26-2023 Nursing evaluation of patient and report Nurse Andre [facility] Vikki Work Phone: [facility] Comment on above: Female infertility Start: 08-20-2023 Refill Eduar aguayo APRNMookieCOMPOSITION RO[employer] Work Phone: [facility] Comment on above: Med Change Request Start: 08-13-2023 Telephone encounter Zaida lowe MD Work Phone: [facility] Comment on above: cd1 , medication Start: 07-29-2023 End: 07-29-2023 ambulatory Nadeen Turner NP Facility:[facility] Start: 07-26-2023 End: 07-26-2023 ambulatory Sudha Muhammad RN Work Phone: [facility] Start: 07-26-2023 End: 07-26-2023 Office outpatient visit 25 minutes Zaida Ness MD Work Phone: [facility] Comment on above: Female infertility ( Primary Dx); Procreative management counseling Start: 07-20-2023 End: 07-20-2023 ambulatory JULIETA PRINCE Facility:[facility] Start: 07-20-2023 Encounter for preprocedural laboratory examination PRADEEP JOYBALWINDER [facility] Start: 07-20-2023 End: 07-20-2023 Patient encounter procedure Frank Troncoso MD Work Phone: [facility] Comment on above: Encounter for fertil ity testing (Primary Dx); Encounter for preprocedural laboratory examination Start: 07-20-2023 End: 07-20-2023 Patient encounter status Frank Troncoso MD Work Phone: [facility] Start: 07-19-2023 Admission to [facility] Jo-Ann López PhD Work Phone: [facility] Comment on above: PGT results Start: 07-19-2023 E-mail encounter fro m caregiver Jo-Ann López PhD Work Phone: [facility] Start: 07-06-2023 Telephone encounter Nurse Andre zakiya Hutchinson Work Phone: [facility] Start: 07-05-2023 End: 07-05-2023 ambulatory JULIETA PRINCE Facility:[facility] Start: 07-05-2023 End: 07-05-2023 Patient encounter procedure [facility] Work Phone: [facility] Comment on above: Female infertility ( Primary Dx) Start: 07-04-2023 ambulatory [facility] Provider [facility] Comment on above: day 5 update Start: 07-04-2023 E-mail encounter fro m caregiver [facility] Provider [facility] Start: 07-01-2023 Telephone encounter Nurse Andre [facility] Bemarie Work Phone: [facility] Start: 06-29-2023 End: 06-29-2023 ambulatory JULIETA KENNETH PRINCE Facility:[facility] Start: 06-29-2023 End: 06-29-2023 Patient encounter procedure [facility] Work Phone: [facility] Comment on above: Female infertility ( Primary Dx) Start: 06-28-2023 Telephone encounter Nurse Andre [facility] Beac Work Phone: [facility] Start: 06-28-2023 End: 06-28-2023 ambulatory JULIETA PRINCE Facility:[facility] Start: 06-27-2023 End: 06-27-2023 ambulatory [facility] Provider [facility] Comment on above: Trigger and RET inst ructions Start: 06-27-2023 E-mail encounter fro m caregiver [facility] Start: 06-27-2023 End: 06-27-2023 Patient encounter procedure Ultra Andre [facility] Beac Work Phone: [facility] Start: 06-27-2023 End: 06-27-2023 Nursing evaluation of patient and report Nurse Andre [facility] Beac Work Phone: [facility] Comment on above: Female infertility ( Primary Dx) Start: 06-26-2023 End: 06-26-2023 Patient encounter procedure Ultra Andre [facility] Beac Work Phone: [facility] Start: 06-26-2023 End: 06-26-2023 ambulatory EDUAR DONELL [facility] Start: 06-26-2023 End: 06-26-2023 Nursing evaluation of patient and report Nurse Andre [facility] Beac Work Phone: [facility] Comment on above: Female infertility ( Primary Dx) Start: 06-25-2023 End: 06-25-2023 ambulatory EDUAR MARLEY Facility:[facility] Start: 06-25-2023 End: 06-25-2023 Nursing evaluation of patient and report Nurse Andre [facility] Beac Work Phone: [facility] Comment on above: Encounter for fertil ity testing Start: 06-22-2023 End: 06-22-2023 ambulatory EDUAR MARLEY Facility:[facility] Start: 06-22-2023 End: 06-22-2023 Nursing evaluation of patient and report Nurse Andre [facility] Beac Work Phone: [facility] Comment on above: Encounter for fertil ity testing (Primary Dx) Start: 06-17-2023 End: 06-17-2023 ambulatory Sudha Muhammad RN Work Phone: [facility] Start: 06-14-2023 End: 06-14-2023 ambulatory EDUAR MARLEY Facility:[facility] Start: 06-14-2023 End: 06-14-2023 Nursing evaluation of patient and report Nurse Andre [facility] Vikki Work Phone: [facility] Comment on above: Encounter for fertil ity testing Start: 06-09-2023 Telephone encounter Angela hanley MD Work Phone: [facility] Comment on above: sudha pt ret call Start: 06-07-2023 Telephone encounter Angela hanley MD Work Phone: [facility] Comment on above: sudha discuss her iv f cycle Start: 05-31-2023 ambulatory Sudha miller RN Work Phone: [facility] Start: 05-05-2023 ambulatory Sudha miller RN Work Phone: [facility] Start: 05-03-2023 End: 05-03-[address] Julieta Prince Work Phone: [facility] Work Phone: Start: 05-03-2023 End: 05-03-[address] Julieta Prince Work Phone: [facility]-Outpatient Breast Imaging Work Phone: Start: 04-26-2023 Telephone encounter Maxim Martin MD Work Phone: [facility] Comment on above: re sa/is johann ezing necessary Start: 04-19-2023 End: 04-19-[address] Julieta Prince Work Phone: [facility] Work Phone: Start: 04-19-2023 End: 04-19-[address] Julieta Prince Work Phone: [facility] Work Phone: Start: 04-12-2023 End: 04-12-2023 ambulatory MAXIM MARTIN Facility:[facility] Start: 04-12-2023 End: 04-12-2023 Nursing evaluation of patient and report Nurse Andre [facility] Vikki Work Phone: Reproductive Endocrinology Infertility Comment on above: Female infertility ( Primary Dx) Start: 04-02-2023 Telephone encounter Maxim Martin MD Work Phone: [facility]roductive Endocrinology [facility]ertility Comment on above: scheduling next apts ; IVF next steps/financially cleared Start: 02-15-2023 End: 02-15-2023 ambulatory MAXIM MARTIN Facility:[facility] Start: 08-20-2022 Non-patient / Non-visit Dr. Julieta Prince Work Phone: [facility] Start: 08-20-2022 End: 08-20-[address] Julieta Prince Work Phone: [facility] Work Phone: Start: 08-20-2022 End: 08-20-[address] Julieta Prince Work Phone: [facility]-Outpatient Pavilion Ultrasound Work Phone: Start: 08-14-2022 End: 08-14-[address] Julieta Prince Work Phone: [facility] Work Phone: Start: 08-10-2022 End: 08-10-[address] Julieta Prince Work Phone: [facility] Work Phone: Start: 08-10-2022 End: 08-10-[address] Julieta Prince Work Phone: [facility]-Outpatient Pavilion Ultrasound Work Phone: Start: 08-04-2022 End: 08-04-[address] Julieta Prince Work Phone: [facility] Work Phone: Start: 08-04-2022 End: 08-04-[address] Julieta Prince Work Phone: [facility] Work Phone: Start: 07-31-2022 End: 07-31-[address] Julieta Prince Work Phone: [facility] Start: 07-30-2022 End: 07-30-[address] Julieta Prince Work Phone: [facility] Work Phone: Start: 07-30-2022 End: 07-30-[address] Julieta Prince Work Phone: [facility]-Laboratory, Pavilion Start: 07-18-2022 Non-patient / Non-visit Dr. Julieta Prince Work Phone: [facility] Start: 07-17-2022 End: 07-18-2022 Evaluation and management of inpatient Dr. Julieta Prince Work Phone: [facility]-Medical Surgical 3 Start: 07-17-2022 Non-patient / Non-visit Dr. Julieta Prince Work Phone: [facility] Start: 06-29-2022 End: 06-29-[address] Julieta Prince Work Phone: [facility] Start: 05-31-2022 Non-patient / Non-visit Dr. Julieta Prince Work Phone: [facility] Start: 05-28-2022 End: 05-28-[address] Julieta Prince Work Phone: [facility] Work Phone: Start: 05-28-2022 End: 05-28-[address] Julieta Prince Work Phone: [facility]-Radiology, [facility] Start: 05-20-2022 End: 05-20-[address] Julieta Prince Work Phone: [facility] Work Phone: Start: 05-20-2022 End: 05-20-[address] Julieta Prince Work Phone: [facility]-Ultrasound, [facility] Start: 05-19-2022 End: 05-19-[address] Julieta Prince Work Phone: [facility] Work Phone: Start: 05-19-2022 End: 05-19-[address] Julieta Prince Work Phone: [facility]-Laboratory, Specimen Start: 05-19-2022 End: 05-19-[address] Julieta Prince Work Phone: [facility] Start: 05-01-2022 End: 05-01-[address] Julieta Prince Work Phone: [facility] Start: 02-27-2022 End: 02-27-[address] Julieta Prince Work Phone: [facility] Start: 02-11-2022 End: 02-11-[address] Julieta Prince Work Phone: [facility] Start: 01-26-2022 Non-patient / Non-visit Dr. Julieta Prince Work Phone: [facility] Start: 01-26-2022 End: 01-26-2022 Admission to same day surgery center Dr. Julieta Prince Work Phone: [facility]-Surgical Day Care Start: 01-26-2022 End: 01-26-[address] Julieta Prince Work Phone: [facility] Work Phone: Start: 01-19-2022 End: 01-19-[address] Julieta Prince Work Phone: [facility] Start: 01-14-2022 End: 01-14-[address] Julieta Prince Work Phone: [facility] Work Phone: Start: 01-14-2022 End: 01-14-[address] Julieta Prince Work Phone: [facility]-Outpatient Breast Imaging Start: 01-13-2022 End: 01-13-[address] Julieta Prince Work Phone: [facility] Work Phone: Start: 01-13-2022 End: 01-13-[address] Julieta Prince Work Phone: [facility] Start: 12-15-2021 End: 12-15-[address] Julieta Prince Work Phone: [facility] Work Phone: Start: 12-15-2021 End: 12-15-[address] Julieta Prince Work Phone: [facility] Start: 08-18-2019 End: 08-18-2019 Emergency department patient visit Julieta [facility] Procedures Date Procedure Procedure Detail Performing Clinician Start: 04-19-2024 Ultrasound scan for growth Dr. Julieta Prince MD Work Phone: Start: 02-24-2024 Evaluation of diagno stic study results Dr. Julieta Prince MD Work Phone: Start: 10-04-2023 Us preg uterus after 1st trimest 02/08 gestation Nicci Ch MD Work Phone: Start: 08-26-2023 Us pelvic nonobstetr ic image dcmtn limited/f/u Eduar Dudziak PHARMACY BILLING ADJUDICATOR.[employer] Work Phone: Start: 08-26-2023 Assay of estradiol Dayna negar Dudziak PHARMACY BILLING ADJUDICATOR.[employer] Work Phone: Start: 07-20-2023 Urine test visual color cmprsn roseann Pradeepdiego Andrews PHARMACY BILLING ADJUDICATOR.CNM Work Phone: Start: 07-20-2023 Saline infus sonohysterography w/color doppler Steff Cazares MD Work Phone: Start: 06-27-2023 Us pelvic nonobstetr ic image dcmtn limited/f/u Eduar Dudziak PHARMACY BILLING ADJUDICATOR.[employer] Work Phone: Start: 06-25-2023 Us pelvic nonobstetr ic image dcmtn limited/f/u Eduar Dudziak PHARMACY BILLING ADJUDICATOR.[employer] Work Phone: Start: 06-22-2023 Us pelvic nonobstetr ic image dcmtn limited/f/u Eduar Dudziak PHARMACY BILLING ADJUDICATOR.[employer] Work Phone: Start: 06-14-2023 Us pelvic nonobstetr ic image dcmtn limited/f/u Eduar Dudziak PHARMACY BILLING ADJUDICATOR.[employer] Work Phone: Start: 06-14-2023 Assay of estradiol [address] negar Dudziak PHARMACY BILLING ADJUDICATOR.[employer] Work Phone: Start: 05-03-2023 Screening mammography Kay Prince Work Phone: Start: 08-20-2022 Ultrasonography guid ed biopsy of breast Dr. Julieta Prince Work Phone: Start: 08-10-[address] Julieta Prince Work Phone: Start: 08-04-2022 MRI of bilateral michelle asts with contrast Dr. Julieta Prince Work Phone: Start: 07-17-[address] Julieta Prince Work Phone: Start: 05-28-[address] Julieta Prince Work Phone: Start: 05-20-[address] Harjeet Prince Work Phone: Start: 05-19-[address] Julieta rand Work Phone: Start: 01-26-2022 Breast, Biopsy, Need le Localization (Right) Dr. Julieta Prince Work Phone: Start: 01-14-2022 Bilateral mammography Kay Prince Work Phone: Start: 01-14-[address] Julieta Prince Work Phone: Start: 12-15-2021 Plain X-ray of shoulder Dr. Julieta Prince Work Phone: Start: 08-18-2019 Choriogonadotropin ( test) [Presence] in Urine Shameka Miramontes Work Phone: Start: 08-18-2019 Urinalysis, reagent strip without microscopy Shameka Miramontes Work Phone: Start: 08-18-2019 Complete blood count with white cell differential, automated Shameka Miramontes Work Phone: Start: 08-18-2019 Creatinine blood Shameka Miramontes Work Phone: H/O: surgery S/P laparotomy Dr. Julieta Dudley ff Work Phone: Comment on above: s/p 5.5cm fibroid re moval subserosal minimal myometrial involvement, was distorting cavity and blocking left fallopian tube. Urine culture Dr. Julieta islas Work Phone: Plan of Treatment Date Care Activity Detail Author Start: 04-29-2024 Patient discharge [facility] Start: 04-27-2024 Application of abdom inal corset [facility] Start: 04-26-2024 End: 04-26-2024 [facility] Start: 04-26-2024 Continuous pulse oximetry [facility] Start: 04-26-2024 End: 04-26-2024 Notification of physician [facility] Start: 04-26-2024 Oxygen therapy [facility] Start: 04-26-2024 Administration of medication [facility] Start: 04-26-2024 Ambulation therapy management [facility] Start: 04-26-2024 Application of device [facility] Start: 04-26-2024 End: 04-26-2024 Application of intermittent pneumatic compression device [facility] Start: 04-26-2024 Assessment of risk o f venous thromboembolism [facility] Start: 04-26-2024 Catheterization of vein [facility] Start: 04-26-2024 Deep breathing and coughing exercises [facility] Start: 04-26-2024 Exercises [facility] Start: 04-26-2024 Measuring intake and output [facility] Start: 04-26-2024 Procedure discontinued [facility] Start: 04-26-2024 Provision of activit y privileges [facility] Start: 04-26-2024 Skin care [facility] Start: 04-26-2024 Vital signs measurements [facility] Start: 04-26-2024 Wound care [facility] Start: 04-26-2024 Application of abdom inal corset [facility] Start: 04-26-2024 section Primary C Sec tion (Not Applicable) [facility] Start: 04-26-2024 Verification routine [facility] Start: 04-26-2024 Admission procedure [facility] Start: 04-26-2024 Consultation [facility] Start: 01-19-2024 Patient referral [facility] Work Phone: Start: 10-10-2023 Influenza vaccination [facility] Start: 10-04-2023 End: 10-04-2023 Nursing evaluation of patient and report 10/04/2023 9:00 AM EDT Nurse Visit [facility] [address] [place] [address] Beac, Nurse Andre [facility] [address] [place] [address] ob scan [facility] Comment on above: ob scan Start: 09-28-2023 End: 09-28-2023 ambulatory [facility] Comment on above: repeat hCG results f rom 09/26 Positive t est (Primary Dx) Start: 09-27-2023 End: 09-27-2023 ambulatory 09/27/2023 6:00 PM EDT [facility] Infertility [address] [place] [address] hcg level at [place] [facility] Comment on above: hcg level at [place] Start: 09-21-2023 End: 12-21-2023 Choriogonadotropin.beta subunit [Units/volume] in Serum or Plasma HCG QUANTITATIVE Lab STAT Positive test Expected: 09/21/2023, Expires: 12/21/2023 [facility] Comment on above: Expected: 09/21/2023 , Expires: 12/21/2023 Start: 09-20-2023 End: 09-20-2023 ambulatory 09/20/2023 6:00 PM EDT [facility]ocr[facility]ology Infertility [address] [place] [address] hcg level at [place] [facility] Comment on above: hcg level at [place] Start: 09-20-2023 End: 12-20-2023 Choriogonadotropin.beta subunit [Units/volume] in Serum or Plasma HCG QUANTITATIVE Lab STAT examination or test, unconfirmed Expected: 09/20/2023, Expires: 12/20/2023 [facility] Work Phone: Comment on above: Expected: 09/20/2023 , Expires: 12/20/2023 Start: 09-20-2023 End: 09-19-2024 OBSTETRIC ULTRASOUND WHI OBSTETRIC ULTRASOUND WHI Anc Imaging Routine , location unknown Expected: 09/20/2023, Expires: 09/19/2024 [facility] Work Phone: Comment on above: Expected: 09/20/2023 , Expires: 09/19/2024 Start: 08-26-2023 End: 08-26-2023 Nursing evaluation of patient and report 08/26/2023 8:00 AM EDT Nurse Visit [facility] [address] [place] [address] Nurse Andre Hutchinson [facility] [place] [address] [place] [address] us.e2,p4 [facility] Comment on above: us.e2,p4 Start: 08-13-2023 End: 11-12-2023 Estradiol (E2) [Mass/volume] in Serum or Plasma ESTRADIOL-17B BLD Lab STAT Female infertility Expected: 08/13/2023, Expires: 11/12/2023 [facility] Work Phone: Comment on above: Expected: 08/13/2023 , Expires: 11/12/2023 Start: 08-13-2023 End: 08-12-2024 FOLLICULAR US WHI FOLLICULAR US WHI Anc Imaging Routine Female infertility Expected: 08/13/2023, Expires: 08/12/2024 [facility] Comment on above: Expected: 08/13/2023 , Expires: 08/12/2024 Start: 08-13-2023 End: 11-12-2023 Progesterone [Mass/volume] in Serum or Plasma PROGESTERONE Lab STAT Female infertility Expected: 08/13/2023, Expires: 11/12/2023 [facility] Comment on above: Expected: 08/13/2023 , Expires: 11/12/2023 Start: 07-26-2023 End: 07-26-2023 Patient encounter procedure 07/26/2023 7:45 AM EDT [facility] [address] [place] [address] [place] [address] [place] [address] ivf -consult [facility] Comment on above: ivf -consult Start: 07-20-2023 End: 07-20-2023 Patient encounter procedure 07/20/2023 8:30 AM EDT Office Visit [facility]ology [facility] [address] [place] [address] Pradeep Andrews APRN.[facility] [id number] [facility] [place] [address] Nurse Andre Alegria [facility] [address] [facility] [place] [address] [facility] Comment on above: [facility] Start: 07-01-2023 End: 07-01-2023 Patient encounter procedure 07/01/2023 6:00 PM EDT Office Visit [facility] [address] [place] [address] [facility] benefit check [facility] Comment on above: [facility] benefit check Start: 06-29-2023 End: 06-29-2023 [facility] encounter procedure [facility] Comment on above: ret ret- spouse to colle ct here Start: 06-29-2023 End: 06-29-2023 Follicle puncture oocyte retrieval any method FOLLICLE PUNCTURE FOR OOCYTE RETRIEVAL Female infertility 06/29/2023 8:50 AM EDT [facility] Start: 06-28-2023 End: 09-27-2023 Choriogonadotropin.beta subunit [Units/volume] in Serum or Plasma HCG QUANTITATIVE Lab STAT Encounter for fertility testing Expected: 06/28/2023, Expires: 09/27/2023 [facility] Work Phone: Comment on above: Expected: 06/28/2023 , Expires: 09/27/2023 Start: 06-28-2023 End: 09-27-2023 Lutropin [Units/volume] in Serum or Plasma LUTEINIZING HORMONE Lab STAT Encounter for fertility testing Expected: 06/28/2023, Expires: 09/27/2023 [facility] Comment on above: Expected: 06/28/2023 , Expires: 09/27/2023 Start: 06-28-2023 End: 09-27-2023 Progesterone [Mass/volume] in Serum or Plasma PROGESTERONE Lab STAT Encounter for fertility testing Expected: 06/28/2023, Expires: 09/27/2023 [facility] Comment on above: Expected: 06/28/2023 , Expires: 09/27/2023 Start: 06-28-2023 End: 06-28-2023 Nursing evaluation of patient and report 06/28/2023 8:00 AM EDT Nurse Visit [facility]ology [facility] [address] [place] [address] Nurse Andre Hutchinson [facility] [address] [place] [address] post trigger - LH P4 HCG [facility] Comment on above: post trigger - LH P4 HCG Start: 06-27-2023 End: 09-26-2023 Choriogonadotropin.beta subunit [Units/volume] in Serum or Plasma HCG QUANTITATIVE Lab STAT Female infertility Expected: 06/27/2023, Expires: 09/26/2023 [facility] Comment on above: Expected: 06/27/2023 , Expires: 09/26/2023 Start: 06-27-2023 End: 09-26-2023 Lutropin [Units/volume] in Serum or Plasma LUTEINIZING HORMONE Lab STAT Female infertility Expected: 06/27/2023, Expires: 09/26/2023 [facility] Work Phone: Comment on above: Expected: 06/27/2023 , Expires: 09/26/2023 Start: 06-27-2023 End: 09-26-2023 Progesterone [Mass/volume] in Serum or Plasma PROGESTERONE Lab STAT Female infertility Expected: 06/27/2023, Expires: 09/26/2023 [facility] Comment on above: Expected: 06/27/2023 , Expires: 09/26/2023 Start: 06-27-2023 End: 06-27-2023 ambulatory 06/27/2023 9:45 AM EDT Procedure [facility] [address] [place] [address] us p4 e2 [facility] Comment on above: us p4 e2 Start: 06-27-2023 End: 06-27-2023 Nursing evaluation of patient and report 06/27/2023 8:45 AM EDT Nurse Visit [facility] [address] [place] [address] Nurse Andre Hutchinson [facility] [address] [place] [address] us e2 p4 [facility] Comment on above: us e2 p4 Start: 06-26-2023 End: 09-25-2023 Progesterone [Mass/volume] in Serum or Plasma PROGESTERONE Lab STAT Encounter for fertility testing Expected: 06/26/2023, Expires: 09/25/2023 [facility] Work Phone: Comment on above: Expected: 06/26/2023 , Expires: 09/25/2023 Start: 06-26-2023 End: 06-26-2023 ambulatory 06/26/2023 8:15 AM EDT Procedure [facility] [address] [place] [id number] E2, P4 [facility] Comment on above: E2, P4 Start: 06-26-2023 End: 06-26-2023 Nursing evaluation of patient and report 06/26/2023 8:00 AM EDT Nurse Visit [facility] [address] [facility] [place] [place] [address] Bemarie, Nurse Andre [facility] [address] [place] [address] 1: IVF us.e2 p4 [facility] Comment on above: 1: IVF us.e2 p4 Start: 06-22-2023 End: 06-22-2023 Patient encounter procedure 06/22/2023 4:00 PM EDT Office [place] [address] could insurance be used if for stress and not IVF [employer] [facility] Comment on above: could insurance be u sed if for stress and not IVF Start: 06-14-2023 End: 06-14-2023 Nursing evaluation of patient and report 06/14/2023 8:00 AM EDT Nurse Visit [facility] [address] [place] [address] Beac, Nurse Andre [facility] [address] [place] [address] 2: IVF baseline us e2 hct [facility] Comment on above: 2: IVF baseline us e 2 hct Start: 05-20-2023 End: 05-19-2024 FOLLICULAR US WHI FOLLICULAR US WHI Anc Imaging Routine Encounter for fertility testing Expected: 05/20/2023, Expires: 05/19/2024 [facility] Work Phone: Comment on above: Expected: 05/20/2023 , Expires: 05/19/2024 Start: 05-20-2023 End: 08-19-2023 Hematocrit [Volume Fraction] of Blood HEMATOCRIT Lab STAT Encounter for fertility testing Expected: 05/20/2023, Expires: 08/19/2023 [facility] Work Phone: Comment on above: Expected: 05/20/2023 , Expires: 08/19/2023 Start: 02-08-2023 Behavioral Health Screening Behavioral Health Screening [facility] Start: 02-08-2023 Depression Assessment Depression Ass essment [facility] Start: 10-09-2022 Covid-19 Vaccine () Covid-19 Vaccine () [facility] Start: 10-09-2022 Influenza vaccination Influenza Vacc ine (#1) [facility] Start: 08-10-2022 Ultrasonography of breast Breast Limited Unilateral [facility] Start: 07-18-2022 Introduction of urin brigid catheter [facility] Start: 07-18-2022 Patient discharge [facility] Start: 07-17-2022 Following clinical pathway protocol [facility] Start: 07-17-2022 Ambulation therapy management [facility] Start: 07-17-2022 Continuous pulse oximetry [facility] Start: 07-17-2022 Elevation of head of bed [facility] Start: 07-17-2022 Incentive spirometry [facility] Start: 07-17-2022 Measuring intake and output [facility] Start: 07-17-2022 Notification of physician [facility] Start: 07-17-2022 Oxygen therapy [facility] Start: 07-17-2022 Patient education [facility] Start: 07-17-2022 Procedures relating to eating and drinking [facility] Start: 07-17-2022 Taking patient vital signs [facility] Start: 07-17-2022 [facility] Start: 07-17-2022 Introduction of urin brigid catheter [facility] Start: 07-17-2022 Admission procedure [facility] Start: 07-17-2022 Application of abdom inal corset [facility] Start: 01-26-2022 Anes integ extremiti es ant trunk & perineum nos ANESTH SKIN EXT/PER/ATRUNK [facility] Start: 01-26-2022 Exc cyst/aberrant br east tissue open 1/> lesion REMOVAL OF BREAST LESION [facility] Start: 01-26-2022 Patient discharge [facility] Start: 05-01-2021 Screening for malign ant neoplasm of cervix HPV Testing [facility] Start: 10-10-2019 Influenza vaccination INFLUENZA VACC INE (#1) [facility] Start: 05-01-2012 Screening for malign ant neoplasm of cervix [facility] Start: 05-01-2010 Hepatitis B Vaccine (1 of 3 - 19+ 3-dose series) Hepatitis B Vaccine (1 of 3 - 19+ 3-dose series) [facility] Start: 05-01-2010 Third diphtheria, tetanus and acellular pertussis (DTaP) vaccination TDAP (ADULT) [facility] Start: 05-01-2010 Urine microalbumin profile DTaP,Tdap,Td Vaccine (1 - Tdap) [facility] Start: 05-01-2009 Anxiety Screening Anxiety Screening [facility] Start: 05-01-2009 Depression Screening Depression Scre ening [facility] Start: 05-01-2009 Hepatitis C screening Hepatitis C Sc reening [facility] Start: 05-01-2009 HIV screening HIV Screening [facility] Start: 05-01-2009 Tetanus vaccination [facility] Start: 05-01-2004 HIV screening HIV SCREENING DISCUSSION [facility] Start: 1990 Hepatitis B Vaccine (1 of 3 - 3-dose series) Hepatitis B Vaccine (1 of 3 - 3-dose series) [facility] End: 01-18-2024 Estradiol (E2) [Mass/volume] in Serum or Plasma ESTRADIOL-17B BLD Lab STAT Encounter for fertility testing Daily for 6 Occurrences starting 05/20/2023 until 01/18/2024 [facility] Work Phone: Comment on above: Daily for 6 Occurren azar starting 05/20/2023 until 01/18/2024 End: 01-03-2024 FOLLICULAR US WHI FOLLICULAR US WHI Anc Imaging Routine Encounter for fertility testing Daily for 6 Occurrences starting 06/17/2023 until 01/03/2024 [facility] Work Phone: Comment on above: Daily for 6 Occurren azar starting 06/17/2023 until 01/03/2024 MG Breast - bilatera l Screening [facility] Patient Education RAD RN Ultraso und Breast Biopsy Discharge Instructions [facility] Work Phone: Patient referral [facility] Work Phone: Ultrasonography guid ed biopsy of breast [facility] Immunizations Immunization Date Immunization Notes Care Provider Fa cility 03-17-2024 tetanus toxoid, redu jennifer diphtheria toxoid, and acellular pertussis vaccine, adsorbed Dr. Julieta Prince MD Work Phone: [facility] 02-16-2024 influenza, injectabl e, madin agustina canine kidney, preservative free Dr. Julieta Prince MD Work Phone: [facility] 01-28-2022 influenza virus vaccine, unspecified formulation Maxim Martin MD Work Phone: [facility] Payers Date Payer Category Payer Self-pay [id number] 2018 Unknown MMO MMO [employer] PPO [id number] 2018-Present [phone] [address] [place] [address] PPO [id number] 2018 Unknown [id number] 2015 Unknown [employer] M MO [id number] 2015-Present [id number] [id number] 1991 Unknown [id number] 2.16.840.1.893974.3.579.2.479 1991 Unknown [id number] 2.16.840.1.338586.3.579.2.479 1991 Unknown [id number] 2.16.840.1.568335.3.579.2.479 Unknown [id number] 2.16.840.1.118295.3.579.2.462 Unknown [id number] 2.16.840.1.656690.3.579.2.462 Unknown [id number] 2.16.840.1.404705.3.579.2.462 Unknown [id number] 2.16.840.1.003265.3.579.2.462 Unknown [id number] 2.16.840.1.829667.3.579.2.462 Unknown [id number] 2.16.840.1.846957.3.579.2.462 Unknown [id number] 2.16.840.1.890826.3.579.2.462 Unknown [id number] 2.16.840.1.804715.3.579.2.462 Unknown [id number] 2.16.840.1.876702.3.579.2.462 Unknown [id number] 2.16.840.1.878620.3.579.2.462 Unknown [id number] 2.16.840.1.011944.3.579.2.462 Unknown [id number] 2.16.840.1.406671.3.579.2.462 Unknown [id number] 2.16.840.1.416001.3.579.2.462 Unknown [id number] 2.16.840.1.023823.3.579.2.462 Unknown [id number] 2.16.840.1.899713.3.579.2.462 Unknown [id number] 2.16.840.1.825635.3.579.2.462 Unknown [id number] 2.16.840.1.981389.3.579.2.462 Unknown [id number] 2.16.840.1.307341.3.579.2.462 Unknown [id number] 2.16.840.1.661978.3.579.2.462 Unknown [id number] 2.16.840.1.612875.3.579.2.462 Unknown [id number] 2.16840.1.437798.3.579.2.462 Unknown [id number] 2.840.1.480063.3.579.2.462 Unknown [id number] 2.840.1.651881.3.579.2.462 Unknown [id number] 2.840.1.201150.3.579.2.462 Unknown [id number] 2.840.1.380635.3.579.2.462 Unknown [id number] 2.840.1.313912.3.579.2.462 Unknown [id number] 2.840.1.657077.3.579.2.462 Unknown [id number] 2.840.1.211829.3.579.2.462 Unknown [id number] 2.840.1.424373.3.579.2.462 Unknown [id number] 2.840.1.919565.3.579.2.462 Unknown [id number] 2.840.1.229665.3.579.2.462 Unknown [id number] 2.840.1.339301.3.579.2.462 Unknown [id number] 2.840.1.432389.3.579.2.462 Unknown [id number] 2.840.1.219281.3.579.2.462 Social History Date Type Detail Facility Start: 08-18-2019 End: 04-26-2024 Tobacco smoking status [facility] Never smoker [facility] Start: 12-31-2015 End: 08-18-2019 Tobacco use and exposure Never used [facility] Start: 08-18-2019 Alcohol intake Current drinke r of alcohol (finding) [facility] Start: 08-18-2019 Alcohol Comment social [facility] Start: 1990 Sex Assigned At Not on file [facility] Exposure to SARS-CoV-2 (event) Not sure [facility] Start: 12-15-2021 End: 04-19-2023 Tobacco smoking status NHIS Unknown if ever smoked [facility] Start: 1990 Sex Assigned At Female [facility] Start: 02-15-2023 End: 07-26-2023 Alcohol intake Ex-drinker (finding) [facility] Start: 02-15-2023 End: 04-12-2023 History of Social function [facility] Start: 02-15-2023 End: 04-12-2023 Tobacco use panel [facility] National Score (1-100), lower number is lower risk 90 [facility] Start: 04-27-2024 End: 05-09-2024 Sex Female (finding) [facility] NEGATED: Highlighted row [facility] Medical Equipment Procedure Code Equipment Code Equipment Origin al Text Equipment Identifier Dates Hysterectomy, total, abdominal DRESSING,FIBRILLAR 1X2 1960 FDA Start: 07-17-2022 Hysterectomy, total, abdominal DRESSING,INTERCEED 3X4 FDA Start: 07-17-2022 Hysterectomy, total, abdominal Plant polysaccharide haemostatic agent, bioabsorbable ([id number] FDA Start: 07-17-2022 Hysterectomy, total, abdominal DRESSING,FIBRILLAR 1X2 1960 FDA Start: 07-17-2022 Hysterectomy, total, abdominal DRESSING,INTERCEED 3X4 FDA Start: 07-17-2022 Hysterectomy, total, abdominal DRESSING,FIBRILLAR 1X2 1960 FDA Start: 07-17-2022 Hysterectomy, total, abdominal DRESSING,INTERCEED 3X4 FDA Start: 07-17-2022 Hysterectomy, total, abdominal DRESSING,FIBRILLAR 1X2 1960 FDA Start: 07-17-2022 Hysterectomy, total, abdominal DRESSING,INTERCEED 3X4 FDA Start: 07-17-2022 Hysterectomy, total, abdominal DRESSING,FIBRILLAR 1X2 1960 FDA Start: 07-17-2022 Hysterectomy, total, abdominal DRESSING,INTERCEED 3X4 FDA Start: 07-17-2022 Hysterectomy, total, abdominal DRESSING,FIBRILLAR 1X2 1960 FDA Start: 07-17-2022 Hysterectomy, total, abdominal DRESSING,INTERCEED 3X4 FDA Start: 07-17-2022 Hysterectomy, total, abdominal DRESSING,FIBRILLAR 1X2 1960 FDA Start: 07-17-2022 Hysterectomy, total, abdominal DRESSING,INTERCEED 3X4 FDA Start: 07-17-2022 Hysterectomy, total, abdominal DRESSING,FIBRILLAR 1X2 1960 FDA Start: 07-17-2022 Hysterectomy, total, abdominal DRESSING,INTERCEED 3X4 FDA Start: 07-17-2022 Hysterectomy, total, abdominal DRESSING,FIBRILLAR 1X2 1960 FDA Start: 07-17-2022 Hysterectomy, total, abdominal DRESSING,INTERCEED 3X4 FDA Start: 07-17-2022 [id number], [id number], [id number] Start: 05-05-2023 Comment on above: Inject 80 units subcutaneously once as d irected for Lupron trigger Blood Sugar Diagnostic (Blood Glucose Test) strip Start: 03-17-2024 Lancets misc Start: 03-17-2024 Blood Sugar Diagnostic (Blood Glucose Test) strip Start: 03-13-2024 End: 03-17-2024 Lancets misc Start: 03-13-2024 End: 03-17-2024 Blood Sugar Diagnostic (Blood Glucose Test) strip Start: 03-17-2024 Lancets misc Start: 03-17-2024 Blood Sugar Diagnostic (Blood Glucose Test) strip Start: 03-13-2024 End: 03-17-2024 Lancets misc Start: 03-13-2024 End: 03-17-2024 Blood Sugar Diagnostic (Blood Glucose Test) strip Start: 03-17-2024 Lancets misc Start: 03-17-2024 Blood Sugar Diagnostic (Blood Glucose Test) strip Start: 03-13-2024 End: 03-17-2024 Lancets misc Start: 03-13-2024 End: 03-17-2024 Goals Date Patient Goal Desired Activity /State Functional Status Date Assessment Result Facility 07-18-2022 Functional status Ambulates [facility] Work Phone: Mental Status Date Assessment Result Facility 04-26-2024 Cognitive function Voice/Name [facility] Work Phone: 07-18-2022 Cognitive function Level Of Cons ciousness Awake;Alert;Appropriate;Follow s Commands [facility] Work Phone: 07-17-2022 Cognitive function Voice/Name [facility] Work Phone: 01-26-2022 Cognitive function Voice/Name [facility] Work Phone: Clinical Notes 01-13-2022 to 04-29-2024 Note Date & Type Note Facility 04-29-2024 Progress note [facility] 04-29-2024 Progress note Note Date/Time April 29, 2024 10:43am [facility] Medical Records Department [address] [place] [address] Progress Note - OBGYN 04/29/24 1042 MR#: [id number] Acct: [id number] Name: ESTRELLA RIOJAS Rep #:[id number] : 1990 33 From: Joanne Duff CNM PCP: Dr. Julieta Prince MD Status:ADM IN Location: [id number] Subjective Subjective Patient doing well without complaints. Tolerating PO. Ambulating and voiding without difficulty. Feeding/pumping well. Denies chest pain, shortness of breath, calf pain/swelling, fevers, chills, lightheadedness. Objective Data Objective Data Vital Signs: Vital Signs Temp Pulse Resp BP Pulse Ox O2 Del Method 99 F 72 16 115/94 H 98 Room Air 04/29/24 08:30 04/29/24 08:30 04/29/24 08:30 04/29/24 08:30 04/29/24 00:50 04/29/24 00:50 Oxygen Delivery Method Room Air Weight: 199 lb 4.766 oz Body Mass Index (BMI) 32.1 Intake & Output: Intake and Output for Last 24 Hours 04/26/24 04/27/24 04/28/24 23:59 23:59 23:59 Intake Total 2250.0 / 2250.0 Output Total 1700 / 1700 Balance 550.0 / 550.0 Lab / Micro Data 04/27/24 06:15 Physical Exam Const alert, oriented x3 and no apparent distress HEENT Head and Scalp: atraumatic Resp normal respiratory effort GI soft to palpation and non-tender Inspection: incision intact, healing well and drainage (none) Bimanual Exam - Vag & Uterus: uterus non-tender Uterus Palpation: uterus fundus firm (below Umbilicus) Assessment & Plan (1) delivery delivered: COMMENT: LTCS 36 SM boy amandeep gdm previous myomectomy (2) Gestational diabetes mellitus (GDM): COMMENT: diet controlled. growth US 35 weeks. PLAN: Plan s/p LTCS PPD # 3 1. routine post care 2. breast feeding- support given 3. rh positive 4. rubella immune 5. plan on d/c home tomorrow due to feedings 04/29/24 1043 <Electronically signed by Joanne Duff CNM> Cosigner Signature (if applicable): CC: ~ Signed [facility] Work Phone: 1(334) 274-831703-22-2025 Progress note [facility] Medical Records Department [address] [place] [address] Progress Note - OBGYN 04/29/24 1042 MR#: [id number] Acct: [id number] Name: ESTRELLA RIOJAS Rep #:[id number] : 1990 33 From: Joanne Duff CNM PCP: Dr. Julieta Prince MD Status:ADM IN Location: [place] [id number] Subjective Subjective Patient doing well without complaints. Tolerating PO. Ambulating and voiding without difficulty. Feeding/pumping well. Denies chest pain, shortness of breath, calf pain/swelling, fevers, chills, lightheadedness. Objective Data Objective Data Vital Signs: Vital Signs Temp Pulse Resp BP Pulse Ox O2 Del Method 99 F 72 16 115/94 H 98 Room Air 04/29/24 08:30 04/29/24 08:30 04/29/24 08:30 04/29/24 08:30 04/29/24 00:50 04/29/24 00:50 Oxygen Delivery Method Room Air Weight: 199 lb 4.766 oz Body Mass Index (BMI) 32.1 Intake & Output: Intake and Output for Last 24 Hours 04/26/24 04/27/24 04/28/24 23:59 23:59 23:59 Intake Total 2250.0 / 2250.0 Output Total 1700 / 1700 Balance 550.0 / 550.0 Lab / Micro Data 04/27/24 06:15 Physical Exam Const alert, oriented x3 and no apparent distress HEENT Head and Scalp: atraumatic Resp normal respiratory effort GI soft to palpation and non-tender Inspection: incision intact, healing well and drainage (none) Bimanual Exam - Vag & Uterus: uterus non-tender Uterus Palpation: uterus fundus firm (below Umbilicus) Assessment & Plan (1) delivery delivered: COMMENT: LTCS 36 SM boy amandeep gdm previous myomectomy (2) Gestational diabetes mellitus (GDM): COMMENT: diet controlled. growth US 35 weeks. PLAN: Plan s/p LTCS PPD # 3 1. routine post care 2. breast feeding- support given 3. rh positive 4. rubella immune 5. plan on d/c home tomorrow due to feedings 04/29/24 1043 Cosigner Signature (if applicable): CC: ~ Signed [facility]03-21-2025 Progress note Author Joanne Duff [facility] Note Date/Time April 28, 2024 8:2 6am [facility] Medical Records Department [address] [place] [address] Progress Note - OBGYN 04/28/2425 MR#: [id number] Acct: [id number] Name: ESTRELLA RIOJAS Rep #:[id number] : 1990 33 From: Joanne Duff CNM PCP: Dr. Julieta Prince MD Status:ADM IN Location: [id number] Subjective Subjective Patient doing well without complaints. Tolerating PO. Ambulating and voiding without difficulty. Feeding/pumping well. Denies chest pain, shortness of breath, calf pain/swelling, fevers, chills, lightheadedness. Objective Data Objective Data Vital Signs: Vital Signs Temp Pulse Resp BP Pulse Ox O2 Del Method 97.6 F L 65 16 115/79 100 Room Air 04/28/24 07:50 04/28/24 07:50 04/28/24 07:50 04/28/24 07:50 04/28/24 07:50 04/28/24 07:50 Oxygen Delivery Method Room Air Weight: 199 lb 4.766 oz Body Mass Index (BMI) 32.1 Intake & Output: Intake and Output for Last 24 Hours 04/26/24 04/27/24 04/28/24 23:59 23:59 23:59 Intake Total 2250.0 / 2250.0 Output Total 1700 / 1700 Balance 550.0 / 550.0 Lab / Micro Data 04/27/24 06:15 Physical Exam Const alert, oriented x3 and no apparent distress HEENT Head and Scalp: atraumatic Resp normal respiratory effort GI soft to palpation and non-tender Inspection: incision intact, healing well and drainage (none) Bimanual Exam - Vag & Uterus: uterus non-tender Uterus Palpation: uterus fundus firm (below Umbilicus) Assessment & Plan (1) delivery delivered: COMMENT: LTCS 36 SM boy amandeep gdm previous myomectomy (2) Gestational diabetes mellitus (GDM): COMMENT: diet controlled. growth US 35 weeks. PLAN: Plan s/p LTCS PPD # 2 1. routine post care 2. breast feeding- support given 3. rh positive 4. rubella immune 5. plan on d/c home tomorrow 04/28/24 08 <Electronically signed by Joanne Duff CNM> Cosigner Signature (if applicable): CC: ~ Signed [facility] Work Phone: 1(528) 825-526403-21-2025 Progress note [facility] Medical Records Department [address] [place] [address] Progress Note - OBGYN 04/28/2425 MR#: [id number] Acct: [id number] Name: ESTRELLA RIOJAS Rep #:[id number] : 1990 33 From: Joanne Dfuf CNM PCP: Dr. Julieta Prince MD Status:ADM IN Location: [id number] Subjective Subjective Patient doing well without complaints. Tolerating PO. Ambulating and voiding without difficulty. Feeding/pumping well. Denies chest pain, shortness of breath, calf pain/swelling, fevers, chills, lightheadedness. Objective Data Objective Data Vital Signs: Vital Signs Temp Pulse Resp BP Pulse Ox O2 Del Method 97.6 F L 65 16 115/79 100 Room Air 04/28/24 07:50 04/28/24 07:50 04/28/24 07:50 04/28/24 07:50 04/28/24 07:50 04/28/24 07:50 Oxygen Delivery Method Room Air Weight: 199 lb 4.766 oz Body Mass Index (BMI) 32.1 Intake & Output: Intake and Output for Last 24 Hours 04/26/24 04/27/24 04/28/24 23:59 23:59 23:59 Intake Total 2250.0 / 2250.0 Output Total 1700 / 1700 Balance 550.0 / 550.0 Lab / Micro Data 04/27/24 06:15 Physical Exam Const alert, oriented x3 and no apparent distress HEENT Head and Scalp: atraumatic Resp normal respiratory effort GI soft to palpation and non-tender Inspection: incision intact, healing well and drainage (none) Bimanual Exam - Vag & Uterus: uterus non-tender Uterus Palpation: uterus fundus firm (below Umbilicus) Assessment & Plan (1) delivery delivered: COMMENT: LTCS 36 SM boy amandeep gdm previous myomectomy (2) Gestational diabetes mellitus (GDM): COMMENT: diet controlled. growth US 35 weeks. PLAN: Plan s/p LTCS PPD # 2 1. routine post care 2. breast feeding- support given 3. rh positive 4. rubella immune 5. plan on d/c home tomorrow 04/28/24 0826 Cosigner Signature (if applicable): CC: ~ Signed [facility]03-20-2025 Progress note Author Lakia Richards [facility] Note Date/Time April 29, 2024 2:1 5pm [facility] Medical Records Department [address] [place] [address] Progress Note - OBGYN 04/27/24 0717 MR#: [id number] Acct: [id number] Name: ESTRELLA RIOJAS Rep #:[id number] : 1990 33 From: Lakia weiss MD PCP: Dr. Julieta Prince MD Status:ADM IN Location: [id number] Subjective Subjective Patient doing well without complaints. Tolerating PO. Ambulating and voiding without difficulty. feeding well. Denies chest pain, shortness of breath,calf pain/swelling, fevers, chills, lightheadedness. Objective Data Objective Data Vital Signs: Vital Signs Temp Pulse Resp BP Pulse Ox O2 Del Method 97.1 F L 78 16 106/68 96 Room Air 04/27/24 03:40 04/27/24 03:40 04/27/24 03:40 04/27/24 03:40 04/27/24 03:40 04/27/24 03:40 Oxygen Delivery Method Room Air Weight: 199 lb 4.766 oz Body Mass Index (BMI) 32.1 Intake & Output: Intake and Output for Last 24 Hours 04/25/24 04/26/24 04/27/24 23:59 23:59 23:59 Intake Total 2250.0 / 2250.0 Output Total 1700 / 1700 Balance 550.0 / 550.0 Lab / Micro Data 04/27/24 06:15 Labs: Laboratory Results - last 24 hr 04/26/24 06:00: Blood Type A POSITIVE, Antibody Screen NEGATIVE 04/26/24 10:09: POC Glucose 89 04/26/24 12:10: WBC 13.6 H, RBC 3.54 L, Hgb 9.0 L, Hct 27.8 L, MCV 78.5 L, MCH 25.4 L, MCHC 32.4, RDW Std Deviation 41.5, RDW Coeff of Ramiro 14.6, Plt Count 286,MPV 10.4, Immature Gran % (Auto) 0.400, Neut % (Auto) 79.5 H, Lymph % (Auto) 13.9 L, [place] % (Auto) 5.5, Eos % (Auto) 0.3, Baso % (Auto) 0.4, Absolute Neuts (auto) 10.8 H, Absolute Lymphs (auto) 1.90, Nucleated RBC % 0 04/27/24 06:15: WBC 12.0 H, RBC 3.19 L, Hgb 8.1 L, Hct 25.5 L, MCV 79.9 L, MCH 25.4 L, MCHC 31.8 L, RDW Std Deviation 43.0, RDW Coeff of Ramiro 14.6, Plt Count 277, MPV 11.3 04/27/24 06:17: POC Glucose 101 ROS Constitutional Constitutional: Reports systems reviewed and no addt'l complaints, except as documented Cardiovascular Cardiovascular: Reports systems reviewed and no addt'l complaints, except as documented Respiratory/Chest Respiratory/Chest: Reports systems reviewed and no addt'l complaints, except as documented Gastrointestinal Gastrointestinal: Reports systems reviewed and no addt'l complaints, except as documented Physical Exam Const alert, oriented x3 and no apparent distress HEENT Head and Scalp: atraumatic Resp normal respiratory effort GI soft to palpation and non-tender Inspection: incision intact, healing well and drainage (none) Bimanual Exam - Vag & Uterus: uterus non-tender Uterus Palpation: uterus fundus firm (below Umbilicus) Assessment & Plan (1) delivery delivered: COMMENT: LTCS 36 SM boy amandeep gdm previous myomectomy PLAN: Plan s/p LTCS PPD # 1 1. routine post care 2. breast feeding- support given 3. rh positive 4. rubella immune 04/27/24 0717 <Electronically signed by Lakia Richards MD> Cosigner Signature (if applicable): CC: ~ Signed [facility] Work Phone: 1(948) 579-665603-20-2025 Discharge summary Author Lakia Richards [facility] Note Date/Time April 26, 2024 10: 47pm [facility] Medical Records Department [address] [place] [address] Instructions for Home/Discharge Instructions 04/26/24 2237 MR#: [id number] Acct: [id number] Name: ESTRELLA RIOJAS Rep #:[id number] : 1990 33 From: Lakia weiss MD PCP: Dr. Julieta Prince MD Status:ADM IN Discharge Instructions Diet Discharge Diet: No restrictions DC O2, CPAP, BIPAP needs Home O2 Discharge instructions: No Dressing / Incision Discharge Activity: May Not Drive (for 2 weeks or while taking narcotic pain medications.), May Shower and May Take a Tub Bath (in 7 days) May shower in (days): 0 May resume sexual activity in: 4-6 weeks Weight Bearing Status: Full weight bearing Lifting Restrictions: 20 pounds Dressing / Incision Call your doctor if your incision/area has: Continuous Slow Oozing, Sudden Increased Bleeding, Increased Pain/ Swelling, Increased Redness and Foul Smelling Discharge Call your doctor if you observe: Fever of 101 or Higher and Using more than 1 pad per hour (for 2 hours) Suture Line Care: Avoid Pulling/Pushing and Avoid Pinching/Bending Cleanse incision/area with: Soap & Water and Keep Dressing Clean & Dry Follow Up Care Please Follow Up With: Lakia Richards MD When: Call [phone] to make an appointment for an incision check in 1-2 weeks. Test Results: Test results from this visit will be discussed in further detail at your follow- up appointment, if applicable. Discharge Plan Admission Admit Date/Time: 04/26/24 05:37 Attending Provider: Lakia Richards Primary Care Provider: Julieta Prince Discharge Orders/Prescriptions Prescriptions: New oxycodone-acetaminophen [Percocet] 5-325 mg tablet 1 tab PO Q4H PRN (Reason: pain) 7 Days Qty: 20 0RF naproxen 500 mg tablet 500 mg PO BID PRN PRN (Reason: Pain) Qty: 30 1RF No Action One A Day Women's DHA 28 mg iron- 800 mcg combo pack 1 pkg PO DAILY famotidine 10 mg tablet 10 mg PO BID (DME) Blood Glucose Test Strip See Rx Instructions .MEDSUPPLY Qty: 120 5RF Rx Instructions: As directed-fasting & 2 hr post meals (DME) blood-glucose meter Misc See Rx Instructions .MEDSUPPLY Qty: 1 0RF Rx Instructions: As directed- Test fasting and 2 hours after meals (DME) lancets Misc See Rx Instructions .MEDSUPPLY Qty: 200 5RF Rx Instructions: As directed-fasting & 2 hr post meals albuterol sulfate 90 mcg/actuation Hfa Aerosol Inhaler 2 puff INHALATION Q6H PRN (Reason: ASTHMA) sertraline [Zoloft] 100 mg tablet 100 mg PO DAILY Qty: 30 1RF Referrals / Follow Up: Julieta Prince MD [Primary Care Provider] - Disposition Disposition (needs filled in before D/C Order can be placed): Home, Self Care 04/26/24 9288<Electronically signed by Lakia Richards MD>Lakia Richards MD CC: Dr. Julieta Prince MD ~ Signed [facility] Work Phone: 1(667) 725-574803-19-2025 Discharge summary [facility] Medical Records Department [address] [place] [address] Instructions for Home/Discharge Instructions 04/26/242236 MR#: [id number] Acct: [id number] Name: ESTRELLA RIOJAS Rep #:[id number] : 1990 33 From: Lakia weiss MD PCP: Dr. Julieta Prince MD Status:ADM IN Discharge Instructions Diet Discharge Diet: No restrictions DC O2, CPAP, BIPAP needs Home O2 Discharge instructions: No Dressing / Incision Discharge Activity: May Not Drive (for 2 weeks or while taking narcotic pain medications.), May Shower and May Take a Tub Bath (in 7 days) May shower in (days): 0 May resume sexual activity in: 4-6 weeks Weight Bearing Status: Full weight bearing Lifting Restrictions: 20 pounds Dressing / Incision Call your doctor if your incision/area has: Continuous Slow Oozing, Sudden Increased Bleeding, Increased Pain/ Swelling, Increased Redness and Foul Smelling Discharge Call your doctor if you observe: Fever of 101 or Higher and Using more than 1 pad per hour (for 2 hours) Suture Line Care: Avoid Pulling/Pushing and Avoid Pinching/Bending Cleanse incision/area with: Soap & Water and Keep Dressing Clean & Dry Follow Up Care Please Follow Up With: Lakia Richards MD When: Call [phone] to make an appointment for an incision check in 1-2 weeks. Test Results: Test results from this visit will be discussed in further detail at your follow- up appointment, if applicable. Discharge Plan Admission Admit Date/Time: 04/26/24 05:37 Attending Provider: Lakia Richards Primary Care Provider: Julieta Prince Discharge Orders/Prescriptions Prescriptions: New oxycodone-acetaminophen [Percocet] 5-325 mg tablet 1 tab PO Q4H PRN (Reason: pain) 7 Days Qty: 20 0RF naproxen 500 mg tablet 500 mg PO BID PRN PRN (Reason: Pain) Qty: 30 1RF No Action One A Day Women's DHA 28 mg iron- 800 mcg combo pack 1 pkg PO DAILY famotidine 10 mg tablet 10 mg PO BID (DME) Blood Glucose Test Strip See Rx Instructions .MEDSUPPLY Qty: 120 5RF Rx Instructions: As directed-fasting & 2 hr post meals (DME) blood-glucose meter Misc See Rx Instructions .MEDSUPPLY Qty: 1 0RF Rx Instructions: As directed- Test fasting and 2 hours after meals (DME) lancets Misc See Rx Instructions .MEDSUPPLY Qty: 200 5RF Rx Instructions: As directed-fasting & 2 hr post meals albuterol sulfate 90 mcg/actuation Hfa Aerosol Inhaler 2 puff INHALATION Q6H PRN (Reason: ASTHMA) sertraline [Zoloft] 100 mg tablet 100 mg PO DAILY Qty: 30 1RF Referrals / Follow Up: Julieta Prince MD [Primary Care Provider] - Disposition Disposition (needs filled in before D/C Order can be placed): Home, Self Care 04/26/24 [id number] Richards MD CC: Dr. Julieta Prince MD ~ Signed [facility]03-19-2025 Procedure note [facility] Medical Records Department [address] [place] [address] Operative Report 04/26/24 0724 MR#: [id number] Acct: [id number] Name: ESTRELLA RIOJAS Rep #:[id number] : 1990 33 From: Lakia weiss MD PCP: Dr. Julieta Prince MD Status:ADM IN [facility] Assessment & Plan (1) Gestational diabetes mellitus (GDM): COMMENT: diet controlled. growth US 35 weeks. (2) Supervision of high-risk : QUALIFIERS: Trimester: second trimester Qualified Code(s): O09.92- Supervision of high risk , unspecified, second trimester COMMENT: PRR, , UNIQUE 05/24/24, boy Amandeep Eliseo (3) Conceived by in vitro fertilization: COMMENT: echo schedulednl (4) : QUALIFIERS: Weeks of gestation: 34 weeks Qualified Code(s): Z3A.34 - 34 weeks gestation of COMMENT: nl echo, nl anatomy (additional views in 2 weeks)previouslyhad genetic and carrier testing-IVF (5) History of uterine fibroid: COMMENT: removed SM- needs P C/S at 36 weeks. (6) Female infertility associated with male factors: COMMENT: seeing [facility], Embryo transfer planned August 2023 (7) Positive test for genetic breast cancer susceptibility marker: COMMENT: Positive CHEK2: yearly mammogram and MRI with imaging Q 6 mo. (8) Depression: QUALIFIERS: Depression Type: reactive depression Qualified Code(s): F32.9 - Major depressive disorder, single episode, unspecified COMMENT: on meds/stable (9) Anxiety: COMMENT: on meds (10) delivery delivered: COMMENT: LTCS 36 SM boy amandeep gdm previous myomectomy Maternal Data Information UNIQUE Calculator Estimated Delivery Date Method Current WG Current Estimate 05/24/24 Manual 36w 0d Other Estimates 05/20/24 Ultrasound #1 36w 4d Final UNIQUE Source: LMP Operative Report (OB) Cecarean Details Procedure Type: low transverse Date of Procedure: 04/26/24 Procedure Start Time: 07:48 Procedure Stop Time: 08:30 Pre-Operative Diagnosis: Other Other Pre-Operative diagnosis: see a/p comments Post-Operative Diagnosis: Same as Pre-operative diagnosis Classification: Scheduled Type of Anesthesia: Spinal Special Medications: none Antibiotic Given: Ancef 2 grams IV x1 Drain: Garcia to straight drain Estimated Blood Loss: 1100 Fluids Replaced: crystalloid Findings Description of surgery: Patient had a prevoius myomectomy so 36 week delivery was recommended. Spinal anesthesia was placedwithout difficulty. Garcia catheter was placed. The patient was placed in the dorsal supine positionwith leftward tilt. Patient was prepped and draped in the normal sterile fashion. Pfannenstiel skinincision was made with the scalpel and carried through to the underlying layer of fascia with the scalpel. Fascia was nicked in the midline and the incision extended laterally. The rectus bellies were dissected off superiorly and inferiorly with out complication both sharply and bluntly. The peritoneum was entered digitally. omental to peritoneum adhesions encountered and taken down with the ligasure. The incision was stretched and a low transverse uterine incision was made with the scalpel. The infant's head was delivered atraumatically followed by the anterior and posterior shoulders without complication the rest of the delivered. large blood vessels were encountered and a larger blood loss was encountered approximatlye 1100cc. The cord was clamped and cut and the was handed off to awaiting nurse. The placenta was delivered spontaneously immediately following and was noted to be intact and have a three-vessel cord. The uterus was exteriorized cleared of allclots and debris, and the incision was closed in a single layer closure using #1Monocryl. The ovaries and fallopian tubes were noted to be within normal limits. The uterus was returned to the maternal abdomen andgutters were cleared of all clots and debris. The peritoneum was closed with 3-0 Monocryl in a running fashion. Gloves were changed prior to fascial closure. Fascia was closed with 0 PDS in a runningfashion. Subcutaneous tissue was copiously irrigated and the skin was closed with 3-0 Monocryl in a subcuticular fashion. Mepilex dressing was applied without complication. Patient was taken to recovery in stable condition. It was discussed with the patient that based on the clinical information obtained during this encounter, combined with her history, at this time I would recommend forfuture deliveries if further pregnancies are desired. Surgical findings: nl uterus tubes ovaries two small 2 cm fibroid in posterior uterine wall Presentation: Vertex Amniotic Membrane Rupture Type: Artificial Amniotic Fluid Description: Clear Specimen collected: Yes Description of specimen(s) removed: placenta and baby Cord Vessel Description: 3 Vessels Delayed Cord Clamping: Yes Cobbler Apprentice computer network and systems engineer: Yes Marketing Assistant Retail Division: [employer] Tasks completed by assistant professor of forestry: Opening & closing, Retracting and Other (assisting in deliveryof the ) Additional fleet administrative assistant?: No Complications Complications: No Admit VTE Documentation VTE Present on Admission: No VTE Mechan Device Prophylaxis: SCD's Procedures Urinary/Genital 52xxx-59xxx: 54894 Delivery [facility] 04/26/242233 Cosigner Signature (if applicable): CC: Dr. Julieta Prince MD; Dr. Lakia Richards MD~ Signed [facility]03-19-2025 History and physical note Author Lakia Richards [facility] Note Date/Time April 26, 2024 7:2 4am [facility] Medical Records Department [address] [place] [address] H&P Exam - ACADEMIC ASSOCIATE 04/26/24 0723 MR#: [id number] Acct: [id number] Name: ESTRELLA RIOJAS Rep #:[id number] : 1990 33 From: Lakia weiss MD PCP: Dr. Julieta Prince MD Status:ADM IN Location: [id number] HPI - General General Date of Admission: 04/26/24 HPI Narrative ESTRELLA RIOJAS, is a 33 F who presents for LTCS due to previous myomectomy. GDM. Maternal Data Information UNIQUE Calculator 2 Estimated Delivery Date Method Current WG Current Estimate 05/24/24 Manual 36w 0d Other Estimates 05/20/24 Ultrasound #1 36w 4d PFSH PFSH Medical History (Updated 04/26/24 @ 06:06 by Whit Zelaya) Infertility HX: benign breast biopsy Left breast mass Blister Fibroadenoma of breast Anxiety Graves' disease Restless legs Syncope Blackout Non-smoker Depression Asthma Home Medications ?Medication ?Instructions ?Recorded ?Last Taken ?Type albuterol sulfate 90 mcg/actuation 2 puff inhalation Q 6H PRN ASTHMA 01/21/22 04/25/24 16:00 History aerosol inhaler vits 75-iron 28 mg-folic 1 pkg PO DAILY suppl ement 04/19/23 04/25/24 22:00 History acid 800 mcg-omega-3 oral combo pack (One A Day Women's DHA) famotidine 10 mg tablet 10 mg PO BID acid reflux 10/0204/25/24 22:00 History blood sugar diagnostic (Blood #120 ea 03/17/24 Unknown Rx Glucose Test strips) blood-glucose meter #1 ea 03/17/24 Unknown Rx lancets #200 ea 03/17/24 Unknown Rx sertraline 100 mg tablet (Zoloft) 100 mg PO DAILY anxi ety #30 tabs 04/05/24 04/25/24 22:00 Rx Allergy/AdvReac Type Severity Reaction Status Date / Time shellfish derived Allergy Severe unknown Verified 04/26/24 05:49 latex Allergy Rash Verified 04/26/24 05:49 Family History Grandmother Breast cancer Uncle Lung cancer Surgical History S/P laparotomy History of breast biopsy History of oral surgery Social History adopted: No household members: spouse number of children: 0 current occupational status: employed current occupation: [employer] current occupational exposures/hazards: No pets and animals: Yes (Avoid litterbox) pets and animals: cat(s) history of recent travel: Yes ( -Oct) out of state: Yes out of country: No sexually active: Yes Smoking Status: Never smoker alcohol intake: never substance use type: does not use well-balanced diet: daily or most days caffeine: No eating out: 1-3 times/week during the past year weight has: remained stable what type of physical activity do you participate in: none lea/anglican: Islam seatbelt use: always do you feel safe at home: Yes additional social history: - Eliseo History 1 Elective abortions Hx Para 0 Spontaneous abortions Hx # Term Pregnancies Ectopic pregnancies Hx # Pregnancies Multiple births # of living children Visit Details Expected Delivery Route/Plan LTCS with Labor Preferences- CB/BF classes: yes labor support person: Tyler labor intervention preferences: [] pain management options preferred: [] cut cord/dad catch: [] : yes PP control planned: discussed discussed possible routes of delivery and associated risks: [] special requests: [] Plans Covid status: [] Flu vaccine: given Tdap vaccine: given Rhogam: NA LARC form signed: yes Problem list reviewed and updated with the most current plan of care details and appropriate orders placed. Relevant counseling for the gestational age provided. Continue routine care and follow up unless otherwise noted in visit notes/problem list details OB Flowsheet Initial Weight: 187 lb Date -?-?-?-?-?-?-?-?-?-?-?-?- EGA Weight BP Urine Prot -?-?-?-?-?-?-?-?-?-?-?-?- Glucose FHR FuHt Pres Dilation -?-?-?-?-?-?-?-?-?-?-?-?- Effaced St Visit Note 10/22/23 -?-?-?-?-?-?-?-?-?-?-?-?- 9w 2d 187 lb 2 oz (+2 oz) 110/77 -?-?-?-?-?-?-?-?-?-?-?-?- 180 -?-?-?-?-?-?-?-?-?-?-?-?- KW- CRL cons wit h dates. IVF transfer. genetics done with [facility]. likely needs P C/S due to hx of uterine surgery 11/19/23 -?-?-?-?-?-?-?-?-?-?-?-?- 13w 2d 188 lb (+16 oz) 102/73 Negative -?-?-?-?-?-?-?-?-?-?-?-?- Negative 150 -?-?-?-?-?-?-?-?-?-?-?-?- SM- no vb crampi ng discussed depression symptoms SM- no vb cramping discussed depression symptoms co hair loss check tsh and free t4 12/21/23 -?-?-?-?-?-?-?-?-?-?-?-?- 17w 6d 191 lb 2 oz (+4 lb 2 oz) 109/77 Negative -?-?-?-?-?-?-?-?-?-?-?-?- Negative 145 -?-?-?-?-?-?-?-?-?-?-?-?- KW- no vb/crampi ng. M US scheduled. requesting mammogram to be scheduled for gene mutation. was getting Q6 mo-last testing was last jan. 01/19/24 -?-?-?-?-?-?-?-?-?-?-?-?- 22w 0d 196 lb 8 oz (+9 lb 8 oz) 106/71 Trace -?-?-?-?-?-?-?-?-?-?-?-?- Negative 148 -?-?-?-?-?-?-?-?--?-?-?-?- JV- pt complains of near blacking out a couple of times. one of the times was when she was driving and had to green chain puller. She has rapid heart rate and has tunnel vision when this happens. One time she started vomiting and this stopped the episode. consulting cardiology and encouraging fluids and compression stockings. Ordering some baseline blood work. There is also a report in her chart that is inaccurate and this was clarified with MFM. they have sent over a new correct copy of her ultrasound. plan for echo at 24 weeks. 02/16/24 -?-?-?-?-?-?-?-?-?-?-?-?- 26w 0d 204 lb 6 oz (+17 lb 6 oz) 107/75 Trace -?-?-?-?-?-?-?-?-?-?-?-?- Negative 140 26 -?-?-?-?-?-?-?-?-?-?-?-?- SM- no vb lof go od fm no regular ctx discussed scheduling csection, will figure out timing 02/29/24 -?-?-?-?-?-?-?-?-?-?-?-?- 27w 6d 206 lb 2 oz (+19 lb 2 oz) 108/70 Trace -?-?-?-?-?-?-?-?-?-?-?-?- Negative 142 28 -?-?-?-?-?-?-?-?-?-?-?-?- MH-No VB, LOF. G ood FM. 28 wk labs pending. [facility] 03/17/24 -?-?-?-?-?-?-?-?-?-?-?-?- 30w 2d 206 lb (+19 lb) 104/72 Negative -?-?-?-?-?-?-?-?-?-?-?-?- Negative 140 30 -?-?-?-?-?-?-?-?-?-?-?-?- SM- no vb lof go od fm no reugalr ctx, threw u p3 hour test. 03/30/24 -?-?-?-?-?-?-?-?-?-?-?-?- 32w 1d 207 lb (+20 lb) 115/75 Negative -?-?-?-?-?-?-?-?-?-?-?-?- Negative 135 33 -?-?-?-?-?-?-?-?-?-?-?-?- SM- no vb lof go od fm no regular ctx BS reveiwed. 04/12/24 -?-?-?-?-?-?-?-?-?-?-?-?- 34w 0d 203 lb 8 oz (+16 lb 8 oz) 102/70 Negative -?-?-?-?-?-?-?-?-?-?-?-?- Negative 135 34 -?-?-?-?-?-?-?-?-?-?-?-?- SM- no vb lof go od fm no regular ctx BS reviewed 04/18/24 -?-?-?-?-?-?-?-?-?-?-?-?- 34w 6d 199 lb (+12 lb) 106/75 Negative -?-?-?-?-?-?-?-?-?-?-?-?- Negative 140 35 -?-?-?-?-?-?-?-?-?-?-?-?- SM- no vb lof go od fm no reuglar ctx NST FHR Rate Baby A Baseline: 130 Variability:: Moderate Accelerations:: 15 x 15 Decelerations:: None NST Reactive:: Yes FHR Category:: Category I Uterine Activity:: irregular ROS Constitutional Constitutional: Reports systems reviewed and no addt'l complaints, except as documented Eyes Eyes: Denies change in vision ENT HEENT: Reports systems reviewed and no addt'l complaints, except as documented; Denies headache(s) Cardiovascular Cardiovascular: Reports systems reviewed and no addt'l complaints, except as documented; Denies chest pain or dyspnea Respiratory/Chest Respiratory/Chest: Reports systems reviewed and no addt'l complaints, except as documented Gastrointestinal Gastrointestinal: Reports systems reviewed and no addt'l complaints, except as documented; Denies abdominal pain Genitourinary Genitourinary: Reports systems reviewed and no addt'l complaints, except as documented, contractions Details: present (irregular) and movement Details: present; Denies dysuria or genital lesions Musculoskeletal Musculoskeletal: Reports systems reviewed and no addt'l complaints, except as documented Neurologic Neurologic: Reports systems reviewed and no addt'l complaints, except as documented Endocrine Endocrinology: Reports systems reviewed and no addt'l complaints, except as documented Vital Signs Vital Signs Vital Signs: 04/26/24 06:34 04/26/24 06:34 04/26/24 06:34 Temperature Temperature Source Pulse Rate 91 Respiratory Rate Blood Pressure 110/69 Blood Pressure Mean BP Systolic 110 BP Diastolic 69 Blood Pressure Source Blood Pressure Position Blood Pressure Location Pulse Ox 97 Oxygen Delivery Method 04/26/24 06:34 04/26/24 06:34 04/26/24 06:34 Temperature 98.2 F Temperature Source Temporal Pulse Rate Respiratory Rate 16 Blood Pressure Blood Pressure Mean BP Systolic BP Diastolic Blood Pressure Source Blood Pressure Position Blood Pressure Location Pulse Ox Oxygen Delivery Method 04/26/24 06:36 Temperature 98.2 F Temperature Source Temporal Pulse Rate 81 Respiratory Rate 16 Blood Pressure 110/69 Blood Pressure Mean 82 BP Systolic BP Diastolic Blood Pressure Source Monitor Blood Pressure Position Semi-Fowlers Blood Pressure Location Right Arm Pulse Ox 100 Oxygen Delivery Method Room Air Weight Weight: 199 lb 4.766 oz Body Mass Index (BMI) 32.1 Physical Exam Const alert, oriented x3, no apparent distress and healthy appearing HEENT normocephalic and moist oral mucous membranes Head and Scalp: atraumatic Neck full ROM, no lymphadenopathy, supple and thyroid normal General: trachea midline Lymph Lymphatic: no lymphadenopathy noted Chest inspection of chest normal Resp normal respiratory effort Cardio regular rate GI soft to palpation and non-tender GI Narrative: gravid Inspection: gravid external exam normal Manual OB Exam: estimated gestational size appropriate, presentation cephalic, dilated, effaced and station Extremity normal to inspection General Extremity: Negative for edema Skin no rashes or lesions noted Neuro no focal motor deficits and deep tendon reflexes 2+ bilaterally Motor Exam: strength 5/5 throughout and clonus absent Psych mental status grossly normal Labs Labs Labs: Blood Type A POSITIVE Antibody Screen NEGATIVE Hct 30.2 % (37-47) L Hgb 9.6 g/dL (12.0-15.0) L Obstetrics Ultrasound Syphilis Total Ab Nonreactive (Nonreactive) VZV IgG Antibody 846 index (Immune >165) Rubella IgG Antibody Reactive (Nonreactive) Hep Bs Antigen Non-Reactive (Nonreactive) Hepatitis C Antibody Non-Reactive (Nonreactive) Chlamydia DNA (ALEXIS) Negative (Negative) N.gonorrhoeae DNA (ALEXIS) Negative (Negative) HIV 1&2 Antibody Non-Reactive (Nonreactive) Glucose 1 Hr 50 gm 169 mg/dL (70-140) H Gest Glucose Tolerance MG/DL Miscellaneous Test Assessment & Plan (1) Gestational diabetes mellitus (GDM): COMMENT: diet controlled. growth US 35 weeks. (2) Supervision of high-risk : QUALIFIERS: Trimester: second trimester Qualified Code(s): O09.92 - Supervision of high risk , unspecified, second trimester COMMENT: PRR, , UNIQUE 05/24/24, boy Amandeep Eliseo (3) Conceived by in vitro fertilization: COMMENT: echo schedulednl (4) : QUALIFIERS: Weeks of gestation: 34 weeks Qualified Code(s): Z3A.34 - 34 weeks gestation of COMMENT: nl echo, nl anatomy (additional views in 2 weeks)previously had genetic and carrier testing-IVF (5) History of uterine fibroid: COMMENT: removed SM- needs P C/S at 36 weeks. (6) Female infertility associated with male factors: COMMENT: seeing [facility], Embryo transfer planned August 2023 (7) Positive test for genetic breast cancer susceptibility marker: COMMENT: Positive CHEK2: yearly mammogram and MRI with imaging Q 6 mo. (8) Anxiety: COMMENT: on meds (9) Depression: QUALIFIERS: Depression Type: reactive depression Qualified Code(s): F32.9 - Major depressive disorder, single episode, unspecified COMMENT: on meds/stable PLAN: Plan plan primary ltcs at 36 weeks due to preivous myomectomy 04/26/24 07 <Electronically signed by Lakia Richards MD> Cosigner Signature (if applicable): CC: Dr. Julieta Prince MD; Dr. 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 Julieta Prince MD Status:ADM IN Location: [id number] HPI - General General Date of Admission: 04/26/24 HPI Narrative AERIAL SHINE, is a 33 F who presents for LTCS due to previous myomectomy. GDM. Maternal Data Information UNIQUE Calculator 2 Estimated Delivery Date Method Current WG Current Estimate 05/24/24 Manual 36w 0d Other Estimates 05/20/24 Ultrasound #1 36w 4d PFSH PFSH Medical History (Updated 04/26/24 @ 06:06 by Whit Zelaya) Infertility HX: benign breast biopsy Left breast mass Blister Fibroadenoma of breast Anxiety Graves' disease Restless legs Syncope Blackout Non-smoker Depression Asthma Home Medications ?Medication ?Instructions ?Recorded ?Last Taken ?Type albuterol sulfate 90 mcg/actuation 2 puff inhalation Q 6H PRN ASTHMA 01/21/22 04/25/24 16:00 History aerosol inhaler vits 75-iron 28 mg-folic 1 pkg PO DAILY suppl ement 04/19/23 04/25/24 22:00 History acid 800 mcg-omega-3 oral combo pack (One A Day Women's DHA) famotidine 10 mg tablet 10 mg PO BID acid reflux 10/0204/25/24 22:00 History blood sugar diagnostic (Blood #120 ea 03/17/24 Unknown Rx Glucose Test strips) blood-glucose meter #1 ea 03/17/24 Unknown Rx lancets #200 ea 03/17/24 Unknown Rx sertraline 100 mg tablet (Zoloft) 100 mg PO DAILY anxi ety #30 tabs 04/05/24 04/25/24 22:00 Rx Allergy/AdvReac Type Severity Reaction Status Date / Time shellfish derived Allergy Severe unknown Verified 04/26/24 05:49 latex Allergy Rash Verified 04/26/24 05:49 Family History Grandmother Breast cancer Uncle Lung cancer Surgical History S/P laparotomy History of breast biopsy History of oral surgery Social History adopted: No household members: spouse number of children: 0 current occupational status: employed current occupation: [employer] current occupational exposures/hazards: No pets and animals: Yes (Avoid litterbox) pets and animals: cat(s) history of recent travel: Yes ( -Oct) out of state: Yes out of country: No sexually active: Yes Smoking Status: Never smoker alcohol intake: never substance use type: does not use well-balanced diet: daily or most days caffeine: No eating out: 1-3 times/week during the past year weight has: remained stable what type of physical activity do you participate in: none lea/anglican: Islam seatbelt use: always do you feel safe at home: Yes additional social history: - Eliseo History 1 Elective abortions Hx Para 0 Spontaneous abortions Hx # Term Pregnancies Ectopic pregnancies Hx # Pregnancies Multiple births # of living children Visit Details Expected Delivery Route/Plan LTCS with SM Labor Preferences- CB/BF classes: yes labor support person: Tyler labor intervention preferences: [] pain management options preferred: [] cut cord/dad catch: [] : yes PP control planned: discussed discussed possible routes of delivery and associated risks: [] special requests: [] Plans Covid status: [] Flu vaccine: given Tdap vaccine: given Rhogam: NA LARC form signed: yes Problem list reviewed and updated with the most current plan of care details and appropriate ordersplaced. Relevant counseling for the gestational age provided. Continue routine care and follow up unless otherwise noted in visit notes/problem list details OB Flowsheet Initial Weight: 187 lb Date -?-?-?-?-?-?-?-?-?-?-?-?- EGA Weight BP Urine Prot -?-?-?-?-?-?-?-?-?-?-?-?- Glucose FHR FuHt Pres Dilation -?-?-?-?-?-?-?-?-?-?-?-?- Effaced St Visit Note 10/22/23 -?-?-?-?-?-?-?-?-?-?-?-?- 9w 2d 187 lb 2 oz (+2 oz) 110/77 -?-?-?-?-?-?-?-?-?-?-?-?- 180 -?-?-?-?-?-?-?-?-?-?-?-?- KW- CRL cons wit h dates. IVF transfer. genetics done with [facility]. likely needs P C/S due to hx of uterine surgery 11/19/23 -?-?-?-?-?-?-?-?-?-?-?-?- 13w 2d 188 lb (+16 oz) 102/73 Negative -?-?-?-?-?-?-?-?-?-?-?-?- Negative 150 -?-?-?-?-?-?-?-?-?-?-?-?- SM- no vb crampi ng discussed depression symptoms SM- no vb cramping discussed depression symptoms co hair loss check tsh and free t4 12/21/23 -?-?-?-?-?-?-?-?-?-?-?-?- 17w 6d 191 lb 2 oz (+4 lb 2 oz) 109/77 Negative -?-?-?-?-?-?-?-?-?-?-?-?- Negative 145 -?-?-?-?-?-?-?-?-?-?-?-?- KW- no vb/crampi ng. MFM US scheduled. requesting mammogram to be scheduled for gene mutation. was getting Q6 mo-last testing was last jan. 01/19/24 -?-?-?-?-?-?-?-?-?-?-?-?- 22w 0d 196 lb 8 oz (+9 lb 8 oz) 106/71 Trace -?-?-?-?-?-?-?-?-?-?-?-?- Negative 148 -?-?-?-?-?-?-?-?--?-?-?-?- JV- pt complains of near blacking out a couple of times. one of the times was when she was driving and had to green chain puller. She has rapid heart rate and has tunnel vision when thishappens. One time she started vomiting and this stopped the episode. consulting cardiology and encouraging fluids and compression stockings. Ordering some baseline blood work. There is also a report in her chart that is inaccurate and this was clarified with MFM. they have sent over a new correct copy of her ultrasound. plan for echo at 24 weeks. 02/16/24 -?-?-?-?-?-?-?-?-?-?-?-?- 26w 0d 204 lb 6 oz (+17 lb 6 oz) 107/75 Trace -?-?-?-?-?-?-?-?-?-?-?-?- Negative 140 26 -?-?-?-?-?-?-?-?-?-?-?-?- SM- no vb lof go od fm no regular ctx discussed scheduling csection, will figure out timing 02/29/24 -?-?-?-?-?-?-?-?-?-?-?-?- 27w 6d 206 lb 2 oz (+19 lb 2 oz) 108/70 Trace -?-?-?-?-?-?-?-?-?-?-?-?- Negative 142 28 -?-?-?-?-?-?-?-?-?-?-?-?- -No VB, LOF. G ood FM. 28 wk labs pending. [facility] 03/17/24 -?-?-?-?-?-?-?-?-?-?-?-?- 30w 2d 206 lb (+19 lb) 104/72 Negative -?-?-?-?-?-?-?-?-?-?-?-?- Negative 140 30 -?-?-?-?-?-?-?-?-?-?-?-?- SM- no vb lof go od fm no reugalr ctx, threw u p3 hour test. 03/30/24 -?-?-?-?-?-?-?-?-?-?-?-?- 32w 1d 207 lb (+20 lb) 115/75 Negative -?-?-?-?-?-?-?-?-?-?-?-?- Negative 135 33 -?-?-?-?-?-?-?-?-?-?-?-?- SM- no vb lof go od fm no regular ctx BS reveiwed. 04/12/24 -?-?-?-?-?-?-?-?-?-?-?-?- 34w 0d 203 lb 8 oz (+16 lb 8 oz) 102/70 Negative -?-?-?-?-?-?-?-?-?-?-?-?- Negative 135 34 -?-?-?-?-?-?-?-?-?-?-?-?- SM- no vb lof go od fm no regular ctx BS reviewed 04/18/24 -?-?-?-?-?-?-?-?-?-?-?-?- 34w 6d 199 lb (+12 lb) 106/75 Negative -?-?-?-?-?-?-?-?-?-?-?-?- Negative 140 35 -?-?-?-?-?-?-?-?-?-?-?-?- SM- no vb lof go od fm no reuglar ctx NST FHR Rate Baby A Baseline: 130 Variability:: Moderate Accelerations:: 15 x 15 Decelerations:: None NST Reactive:: Yes FHR Category:: Category I Uterine Activity:: irregular ROS Constitutional Constitutional: Reports systems reviewed and no addt'l complaints, except as documented Eyes Eyes: Denies change in vision ENT HEENT: Reports systems reviewed and no addt'l complaints, except as documented; Denies headache(s) Cardiovascular Cardiovascular: Reports systems reviewed and no addt'l complaints, except as documented; Denies chest pain or dyspnea Respiratory/Chest Respiratory/Chest: Reports systems reviewed and no addt'l complaints, except as documented Gastrointestinal Gastrointestinal: Reports systems reviewed and no addt'l complaints, except as documented; Denies abdominal pain Genitourinary Genitourinary: Reports systems reviewed and no addt'l complaints, except as documented, contractions Details: present (irregular) and movement Details: present; Denies dysuria or genital lesions Musculoskeletal Musculoskeletal: Reports systems reviewed and no addt'l complaints, except as documented Neurologic Neurologic: Reports systems reviewed and no addt'l complaints, except as documented Endocrine Endocrinology: Reports systems reviewed and no addt'l complaints, except as documented Vital Signs Vital Signs Vital Signs: 04/26/24 06:34 04/26/24 06:34 04/26/24 06:34 Temperature Temperature Source Pulse Rate 91 Respiratory Rate Blood Pressure 110/69 Blood Pressure Mean BP Systolic 110 BP Diastolic 69 Blood Pressure Source Blood Pressure Position Blood Pressure Location Pulse Ox 97 Oxygen Delivery Method 04/26/24 06:34 04/26/24 06:34 04/26/24 06:34 Temperature 98.2 F Temperature Source Temporal Pulse Rate Respiratory Rate 16 Blood Pressure Blood Pressure Mean BP Systolic BP Diastolic Blood Pressure Source Blood Pressure Position Blood Pressure Location Pulse Ox Oxygen Delivery Method 04/26/24 06:36 Temperature 98.2 F Temperature Source Temporal Pulse Rate 81 Respiratory Rate 16 Blood Pressure 110/69 Blood Pressure Mean 82 BP Systolic BP Diastolic Blood Pressure Source Monitor Blood Pressure Position Semi-Fowlers Blood Pressure Location Right Arm Pulse Ox 100 Oxygen Delivery Method Room Air Weight Weight: 199 lb 4.766 oz Body Mass Index (BMI) 32.1 Physical Exam Const alert, oriented x3, no apparent distress and healthy appearing HEENT normocephalic and moist oral mucous membranes Head and Scalp: atraumatic Neck full ROM, no lymphadenopathy, supple and thyroid normal General: trachea midline Lymph Lymphatic: no lymphadenopathy noted Chest inspection of chest normal Resp normal respiratory effort Cardio regular rate GI soft to palpation and non-tender GI Narrative: gravid Inspection: gravid external exam normal Manual OB Exam: estimated gestational size appropriate, presentation cephalic, dilated, effaced and station Extremity normal to inspection General Extremity: Negative for edema Skin no rashes or lesions noted Neuro no focal motor deficits and deep tendon reflexes 2+ bilaterally Motor Exam: strength 5/5 throughout and clonus absent Psych mental status grossly normal Labs Labs Labs: Blood Type A POSITIVE Antibody Screen NEGATIVE Hct 30.2 % (37-47) L Hgb 9.6 g/dL (12.0-15.0) L Obstetrics Ultrasound Syphilis Total Ab Nonreactive (Nonreactive) VZV IgG Antibody 846 index (Immune >165) Rubella IgG Antibody Reactive (Nonreactive) Hep Bs Antigen Non-Reactive (Nonreactive) Hepatitis C Antibody Non-Reactive (Nonreactive) Chlamydia DNA (ALEXIS) Negative (Negative) N.gonorrhoeae DNA (ALEXIS) Negative (Negative) HIV 1&2 Antibody Non-Reactive (Nonreactive) Glucose 1 Hr 50 gm 169 mg/dL (70-140) H Gest Glucose Tolerance MG/DL Miscellaneous Test Assessment & Plan (1) Gestational diabetes mellitus (GDM): COMMENT: diet controlled. growth US 35 weeks. (2) Supervision of high-risk : QUALIFIERS: Trimester: second trimester Qualified Code(s): O09.92 - Supervision of high risk , unspecified, second trimester COMMENT: PRR, , UNIQUE 05/24/24, boy Amandeep Eliseo (3) Conceived by in vitro fertilization: COMMENT: echo schedulednl (4) : QUALIFIERS: Weeks of gestation: 34 weeks Qualified Code(s): Z3A.34 - 34 weeks gestation of COMMENT: nl echo, nl anatomy (additional views in 2 weeks)previously had genetic and carrier testing-IVF (5) History of uterine fibroid: COMMENT: removed SM- needs P C/S at 36 weeks. (6) Female infertility associated with male factors: COMMENT: seeing [facility], Embryo transfer planned August 2023 (7) Positive test for genetic breast cancer susceptibility marker: COMMENT: Positive CHEK2: yearly mammogram and MRI with imaging Q 6 mo. (8) Anxiety: COMMENT: on meds (9) Depression: QUALIFIERS: Depression Type: reactive depression Qualified Code(s): F32.9 - Major depressive disorder, single episode, unspecified COMMENT: on meds/stable PLAN: Plan plan primary ltcs at 36 weeks due to preivous myomectomy 04/26/24 0724 Cosigner Signature (if applicable): CC: Dr. Julieta Prince MD; Dr. Lakia Richards MD~ Signed [facility]03-12-2025 Radiology Diagnostic study note [facility] Imaging Services [address] [place], [place] [id number] OB Limited With Biometrics MR#: [id number] Acct: [id number] Name: ESTRELLA RIOJAS Rep #: [id number] : 1990 F 33 From: Estiven Marshall MD PCP: Dr. Julieta Prince MD Status: REG CLI Study:OB Limited With Biometrics Date of Exam : 04/19/24 Exam# [id number] Ordering Dr: Lakia Luong MD PROCEDURE: OB LIMITED WITH BIOMETRICS REASON FOR EXAM: GROWTH COMPARISON: None. FINDINGS Number: 1 Position: Vertex Placental Position: Posterior and not low-lying. Placental Abnormalities: None. DIMENSIONS: Biparietal Diameter: 9 cm: 36 weeks and 2 days: 86 percentile/ Head Circumference: 32.3 cm: 36 weeks and 3 days: 52 percentile/ Abdominal Circumference: 31.5 cm: 35 weeks and 3 days: 70 percentile/ Femur Length: 6.7 cm: 34 weeks and 2 days: 25th percentile/ ESTIMATED WEIGHT: 2672 g plus/-401 g ESTIMATED WEIGHT PERCENTILE (24+ weeks): 59 ESTIMATED GESTATIONAL AGE: Baseline: 35 weeks and 0 days By Ultrasound: 35 weeks and 4 days ESTIMATED DATE OF DELIVERY: Baseline: May 24, 2024 By Ultrasound: May 20, 2024 BIOPHYSICAL ASSESSMENT: Amniotic Fluid Volume: Subjectively normal. Amniotic Fluid Index: 14.7 (8-24 cm normal range) Cardiac Motion: 157 beats per minute (average) Trunk and Limb Motion: Present. MATERNAL ANATOMY: Adnexa: Neither maternal ovary is successfully identified. US/OB Limited With Biometrics IMPRESSION: Single live intrauterine gestation with a mean gestational age of 35 weeks and 4days. Reading Location: [place] [address] CC: Dr. Juileta Prince MD; Dr. Lakia Richards MD ~ Psychiatry Resident: Signed [facility]12-11-2024 Evaluation note* Diagnosis Onset Date Resolution Status Admit Date Anxiety acute January 19, 2024 2:07pm Conceived by in vitro fertilization acute January 18 024 2:07pm Depression acute January 19, 2024 2:07pm 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 acute January 19, 2024 2:07pm History of uterine fibroid acute January 19, 2024 2:07pm Positive test for genetic breast cancer susceptibility marker acute January 18, 2 024 2:07pm acute January 19, 2024 2:07pm Supervision of high-risk acute January 18, 024 2:07pm Abnormal menstrual periods resolved January 19, 2024 2:07pm Family history of breast cancer resolved January 18 024 2:07pm 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 resolved January 19, 2024 2:07pm Subchorionic hematoma resolved Jan 2:07pm Upper respiratory infection, viral resolved January 18, 2 024 2:07pm Anxiety acute February 15, 2 025 2:08pm Conceived by in vitro fertilization acute February 15 2:08pm Depression acute February 15, 2 025 2:08pm 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 acute February 15, 2 025 2:08pm History of uterine fibroid acute February 16, 2024 2:08pm Positive test for genetic breast cancer susceptibility marker acute February 15 2:08pm acute February 15, 2 025 2:08pm Supervision of high-risk acute February 15 2:08pm Abnormal menstrual periods resolved February 16, 2024 2:08pm Dizziness resolved February 15 025 2:08pm Family history of breast cancer resolved February 15 2:08pm 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 resolved February 16, 2024 2:08pm Subchorionic hematoma resolved Feb 2:08pm Tachycardia resolved February 16, 2024 2:08pm Upper respiratory infection, viral resolved February 15 2:08pm Near syncope resolved February 2:56pm Tachycardia resolved February 24, 2024 2:56pm Anxiety acute February 29, 2024 1:31pm Conceived by in vitro fertilization acute February 28 1:31pm Depression acute February 29, 2024 1:31pm 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 acute February 29, 2024 1:31pm acute February 29, 2024 1:31pm Supervision of high-risk acute February 28 1:31pm 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 resolved February 29, 2024 1:31pm Anxiety acute March 17, 2024 2:28pm Conceived by in vitro fertilization acute March 17 2:28pm Depression acute March 17, 2024 2:28pm 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 acute March 17, 2024 2:28pm History of uterine fibroid acute March 17, 2024 2:28pm Positive test for genetic breast cancer susceptibility marker acute March 17 2:28pm acute March 17, 2024 2:28pm Supervision of high-risk acute March 17 2:28pm Dizziness resolved March 17, 2024 2:28pm Anxiety acute March 30, 2024 2:25pm Conceived by in vitro fertilization acute February 20th, 2 025 2:25pm Depression acute March 30, 2024 2:25pm 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 acute March 30, 2024 2:25pm Gestational diabetes mellitu s (GDM) acute March 30, 025 2:25pm History of uterine fibroid acute March 30, 2024 2:25pm Positive test for genetic breast cancer susceptibility marker acute March 30, 2 025 2:25pm acute March 30, 2024 2:25pm Supervision of high-risk acute March 30, 025 2:25pm Anxiety acute April 12 2:12pm Conceived by in vitro fertilization acute April 12, 2024 2:12pm Depression acute April 12 2:12pm 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 acute April 12 2:12pm Gestational diabetes mellitu s (GDM) acute April 12, 2024 2:12pm History of uterine fibroid acute April 12, 2024 2:12pm Positive test for genetic breast cancer susceptibility marker acute April 12, 2024 2:12pm acute April 12 2:12pm Supervision of high-risk acute April 12, 2024 2:12pm Anxiety acute April 18 9:50am Conceived by in vitro fertilization acute April 18, 2024 9:50am Depression acute April 18 9:50am 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 acute April 18 9:50am Gestational diabetes mellitu s (GDM) acute April 18, 2024 9:50am History of uterine fibroid acute April 18, 2024 9:50am Positive test for genetic breast cancer susceptibility marker acute April 18, 2024 9:50am acute April 18 9:50am Supervision of high-risk acute April 18, 2024 9:50am Anxiety acute April 26 5:37am delivery delivered acute April 26, 2024 5:37am Conceived by in vitro fertilization acute April 26, 2024 5:37am Depression acute April 26 5:37am 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 acute April 26 5:37am Gestational diabetes mellitu s (GDM) acute April 26, 2024 5:37am History of uterine fibroid acute April 26, 2024 5:37am Positive test for genetic breast cancer susceptibility marker acute April 26, 2024 5:37am acute April 26 5:37am Supervision of high-risk acute April 26, 2024 5:37am [facility] Work Phone: 1(558) 719-715812-11-2024 Evaluation note* Diagnosis Onset Date Resolution Status Admit Date Anxiety acute January 19, 2024 2:07pm Conceived by in vitro fertilization acute January 18, 2 024 2:07pm Depression acute January 19, 2024 2:07pm 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 acute January 19, 2024 2:07pm History of uterine fibroid acute January 19, 2024 2:07pm Positive test for genetic breast cancer susceptibility marker acute January 18, 2 024 2:07pm acute January 19, 2024 2:07pm Supervision of high-risk acute January 18, 2 024 2:07pm Abnormal menstrual periods resolved January 19, 2024 2:07pm Family history of breast cancer resolved January 18, 2 024 2:07pm 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 resolved January 19, 2024 2:07pm Subchorionic hematoma resolved Jan 2:07pm Upper respiratory infection, viral resolved January 18, 2 024 2:07pm Anxiety acute February 15, 2 025 2:08pm Conceived by in vitro fertilization acute February 15 2:08pm Depression acute February 15, 2 025 2:08pm 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 acute February 15, 2 025 2:08pm History of uterine fibroid acute February 16, 2024 2:08pm Positive test for genetic breast cancer susceptibility marker acute February 15 2:08pm acute February 15, 2 025 2:08pm Supervision of high-risk acute February 15 2:08pm Abnormal menstrual periods resolved February 16, 2024 2:08pm Dizziness resolved February 15, 2 025 2:08pm Family history of breast cancer resolved February 15 2:08pm 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 resolved February 16, 2024 2:08pm Subchorionic hematoma resolved Feb 2:08pm Tachycardia resolved February 16, 2024 2:08pm Upper respiratory infection, viral resolved February 15 2:08pm Near syncope resolved February 2:56pm Tachycardia resolved February 24, 2024 2:56pm Anxiety acute February 29, 2024 1:31pm Conceived by in vitro fertilization acute February 28 1:31pm Depression acute February 29, 2024 1:31pm 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 acute February 29, 2024 1:31pm acute February 29, 2024 1:31pm Supervision of high-risk acute February 28 1:31pm 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 resolved February 29, 2024 1:31pm Anxiety acute March 17, 2024 2:28pm Conceived by in vitro fertilization acute March 17 2:28pm Depression acute March 17, 2024 2:28pm 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 acute March 17, 2024 2:28pm History of uterine fibroid acute March 17, 2024 2:28pm Positive test for genetic breast cancer susceptibility marker acute March 17 2:28pm acute March 17, 2024 2:28pm Supervision of high-risk acute March 17 2:28pm Dizziness resolved March 17, 2024 2:28pm Anxiety acute March 30, 2024 2:25pm Conceived by in vitro fertilization acute March 30, 2 025 2:25pm Depression acute March 30, 2024 2:25pm 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 acute March 30, 2024 2:25pm Gestational diabetes mellitu s (GDM) acute March 30, 2 025 2:25pm History of uterine fibroid acute March 30, 2024 2:25pm Positive test for genetic breast cancer susceptibility marker acute March 30, 2 025 2:25pm acute March 30, 2024 2:25pm Supervision of high-risk acute March 30, 2 025 2:25pm Anxiety acute April 12 2:12pm Conceived by in vitro fertilization acute April 12, 2024 2:12pm Depression acute April 12 2:12pm 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 acute April 12 2:12pm Gestational diabetes mellitu s (GDM) acute April 12, 2024 2:12pm History of uterine fibroid acute April 12, 2024 2:12pm Positive test for genetic breast cancer susceptibility marker acute April 12, 2024 2:12pm acute April 12 2:12pm Supervision of high-risk acute April 12, 2024 2:12pm Anxiety acute April 18 9:50am Conceived by in vitro fertilization acute April 18, 2024 9:50am Depression acute April 18 9:50am 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 acute April 18 9:50am Gestational diabetes mellitu s (GDM) acute April 18, 2024 9:50am History of uterine fibroid acute April 18, 2024 9:50am Positive test for genetic breast cancer susceptibility marker acute April 18, 2024 9:50am acute April 18 9:50am Supervision of high-risk acute April 18, 2024 9:50am Anxiety acute April 26 5:37am delivery delivered acute April 26, 2024 5:37am Conceived by in vitro fertilization acute April 26, 2024 5:37am Depression acute April 26 5:37am 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 Author Type: Registered Nurse Type: Progress Notes Filed: 10/04/2023 15:37 Note Text: Pt here for scan s/p FET on 09/06/23 of 1 embryo. According to transfer date pt should measure 6w5d. According to scan today pt measuring 6w6d Preliminary scan today read gestational sac present, yolk sac present, embryo present FHT: 124 Small hemorrhage to the left and adjacent to the gestational sac measuring 14 x 4 x 8 mm Pt will continue taking hormones until 10 weeks GA: 10/27/23 Pt will continue taking PNV Pt aware to call and schedule appt to move on to OB. Georgina Nolan RN October 04, 2023 10:21 [facility]08-26-2024 History of Present illness Narrative* Georgina Nolan RN - 10/04/2023 10:21 AM EDT Pt here for scan s/p FET on 09/06/23 of 1 embryo. According to transfer date pt should measure 6w5d. According to scan today pt measuring 6w6d Preliminary scan today read gestational sac present, yolk sac present, embryo present FHT: 124 Small hemorrhage to the left and adjacent to the gestational sac measuring 14 x 4 x 8 mm Pt will continue taking hormones until 10 weeks GA: 10/27/23 Pt will continue taking PNV Pt aware to call and schedule appt to move on to OB. Georgina Nolan RN October 04, 2023 10:21 AM documented in this encounterOhio[facility] NoteHNO ID: [id number] Author: CHERELLE GUALLPA RN Service: ? Author Type: Registered Nurse Type: Progress Notes Filed: 09/28/2023 12:57 Note Text: Transfer Date: 09/05 Gestational age yesterday ( day of lab): 4w5d hCG Level (s): Latest Ref Rng 09/20/2023 09/27/2023 hCG Quantitative, Blood <5.0 mIU/mL 2,117.0 (H) 15,620.0 (H) Plan: Progesterone / Estrace until 10/26 OB scan next week Cherelle Guallpa RN September 28, 2023 7:44 [facility]08-20-2024 History of Present illness Narrative* Cherelle Guallpa RN - 09/28/2023 7:43 AM EDT Transfer Date: 09/05 Gestational age yesterday ( day of lab): 4w5d hCG Level (s): Latest Ref Rng 09/20/2023 09/27/2023 hCG Quantitative, Blood <5.0 mIU/mL 2,117.0 (H) 15,620.0 (H) Plan: Progesterone / Estrace until 10/26 OB scan next week Cherelle Guallpa RN September 28, 2023 7:44 AM documented in this encounterOhio[facility]08-19-2024 NoteHNO ID: [id number] Author: CHERELLE GUALLPA RN Service: ? Author Type: Registered Nurse Type: Progress Notes Filed: 09/27/2023 15:17 Note Text: Pt results not back. Will f/u tomorrow, request for televisit sent Cherelle Guallpa RN September 27, 2023 3:17 [facility]08-19-2024 History of Present illness Narrative* Cherelle Guallpa RN - 09/27/2023 3:16 PM EDT Pt results not back. Will f/u tomorrow, request for televisit sent Cherelle Guallpa RN September 27, 2023 3:17 PM documented in this encounterOhio[facility]08-12-2024 NoteHNO ID: [id number] Author: CHERELLE GUALLPA RN Service: ? Author Type: Registered Nurse Type: Progress Notes Filed: 09/20/2023 13:21 Note Text: Transfer Date: 09/05 Gestational age today: 4w5d hCG Level (s): Latest Ref Rng 09/20/2023 hCG Quantitative, Blood <5.0 mIU/mL 2,117.0 (H) Legend: (H) High Pain: No Bleeding: No Plan: Progesterone / Estrace until 10/26 Repeat in 1 week Cherelle Guallpa RN September 20, 2023 9:28 [facility]08-12-2024 History of Present illness Narrative* Cherelle Guallpa RN - 09/20/2023 9:28 AM EDT Transfer Date: 09/05 Gestational age today: 4w5d hCG Level (s): Latest Ref Rng 09/20/2023 hCG Quantitative, Blood <5.0 mIU/mL 2,117.0 (H) Legend: (H) High Pain: No Bleeding: No Plan: Progesterone / Estrace until 10/26 Repeat in 1 week Cherelle Guallpa RN September 20, 2023 9:28 AM documented in this encounterOhiohealth [facility]08-07-2024 Telephone encounter Note * Telephone Encounter - Lily Berger RN - 09/15/2023 11:41 AM EDT Reached out to patient by phone. Gave patient reassurance brown discharge and cramping can be very common in early . Provided patient with precautions including increased bleeding,clotting, and extreme pain located specifically on one side. Patient will continue all medications and test for Tuesday 09/19. Encouraged patient to reach out with any further questions/concerns or any increase in bleeding. Patient appreciative and has no further needs at this time. Lily Berger RN September 15, 2023 11:45 AM [facility]08-07-2024 Miscellaneous Notes* Telephone Encounter - Lily Berger RN - 09/15/2023 11:41 AM EDT Reached out to patient by phone. Gave patient reassurance brown discharge and cramping can be very common in early . Provided patient with precautions including increased bleeding,clotting, and extreme pain located specifically on one side. Patient will continue all medications and test for Tuesday 09/19. Encouraged patient to reach out with any further questions/concerns or any increase in bleeding. Patient appreciative and has no further needs at this time. Lily Berger RN September 15, 2023 11:45 AM documented in this encounterOhiohealth [facility]07-29-2024 NoteHNO ID: [id number] Author: NICCI CH MD Service: ? Author Type: Physician Type: Procedures Filed: 09/06/2023 14:10 Note Text: [facility] ANDRE TRANSFER PROCEDURE NOTE Date: 09/06/2023 Primary Proceduralist: Nicci Ch MD Mobile Application Developer(s): Not applicable Informed Consent: Consents and Labels Consent Signed: Informed Consent obtained and on the chart Labels Verified With Patient: Yes Indications: Estrella Riojas, is a 33 year old female here today for Embryo Transfer. [place] Protocol: Procedure to be Performed: embryo transfer Sign In: A Moment of CARE was completed. Personnel directly involved with the procedure wore the appropriate PPE (Personal Protective Equipment). Patient/Surrogate Stated/Verified: PATIENT VERIFIED(optional for EMERGENT procedures): Patient name, Date of , Relevant allergies, and The intended procedure Time Out Communication: Intended patient and procedure match the source documents. Consent documented and matches the intended procedure. Sign Out: SIGN OUT (optional for EMERGENT procedures): No specimen collected. All instruments, equipment, possible retained foreign bodies accounted for. Post-procedure follow-up management communicated and Plan of Care Visit completed when applicable. Nicci Ch MD TRANSFER Transfer Date: 09/06/23 Transfer Procedure: Embryo Transfer Transfer Physician: Nicci Ch M.D. Pre-Procedure Diagnosis: Infertility Post-Procedure Diagnosis: Infertility Source of embryos: Patient Total Thawed: 1 # of Embryos Transferred: 1 Catheter Type: Key Ease of Transfer: Easy Direction: AV Distance from fundus (mm): 13 Tissue Status: For Autologous Use Only/ Not Evaluated for Infectious Substances Cell Stage: Grade: PGT?: Specimens: None I/primary surgeon/proceduralist performed the entire procedure. SIGNATURE: Nicci Ch MD PATIENT NAME: Estrella Riojas DATE: September 06, 2023 TIME: 2:10 [facility] [facility] Procedure note* Nicci Ch MD - 09/06/2023 2:10 PM EDT [facility] ANDRE TRANSFER PROCEDURE NOTE Date: 09/06/2023 Primary Proceduralist: Nicci Ch MD Mobile Application Developer(s): Not applicable Informed Consent: Consents and Labels Consent Signed: Informed Consent obtained and on the chart Labels Verified With Patient: Yes Indications: Estrella Riojas is a 33 year old female here today for Embryo Transfer. [place] Protocol: Procedure to be Performed: embryo transfer Sign In: A Moment of CARE was completed. Personnel directly involved with the procedure wore the appropriate PPE (Personal Protective Equipment). Patient/Surrogate Stated/Verified: PATIENT VERIFIED(optional for EMERGENT procedures): Patient name, Date of , Relevant allergies, and The intended procedure Time Out Communication: Intended patient and procedure match the source documents. Consent documented and matches the intended procedure. Sign Out: SIGN OUT (optional for EMERGENT procedures): No specimen collected. All instruments, equipment, possible retained foreign bodies accounted for. Post-procedure follow-up management communicated and Plan of Care Visit completed when applicable. Nicci Ch MD TRANSFER Transfer Date: 09/06/23 Transfer Procedure: Embryo Transfer Transfer Physician: Nicci Ch M.D. Pre-Procedure Diagnosis: Infertility Post-Procedure Diagnosis: Infertility Source of embryos: Patient Total Thawed: 1 # of Embryos Transferred: 1 Catheter Type: Key Ease of Transfer: Easy Direction: AV Distance from fundus (mm): 13 Tissue Status: For Autologous Use Only/ Not Evaluated for Infectious Substances Cell Stage: Grade: PGT?: Specimens: None I/primary surgeon/proceduralist performed the entire procedure. SIGNATURE: Nicci Ch MD PATIENT NAME: Estrella Riojas DATE: September 06, 2023 TIME: 2:10 PM [facility]07-29-2024 Procedure note* Nicci Ch MD - 09/06/2023 2:10 PM EDT [facility] ANDRE TRANSFER PROCEDURE NOTE Date: 09/06/2023 Primary Proceduralist: Nicci Ch MD Mobile Application Developer(s): Not applicable Informed Consent: Consents and Labels Consent Signed: Informed Consent obtained and on the chart Labels Verified With Patient: Yes Indications: Estrella Riojas, is a 33 year old female here today for Embryo Transfer. [place] Protocol: Procedure to be Performed: embryo transfer Sign In: A Moment of CARE was completed. Personnel directly involved with the procedure wore the appropriate PPE (Personal Protective Equipment). Patient/Surrogate Stated/Verified: PATIENT VERIFIED(optional for EMERGENT procedures): Patient name, Date of , Relevant allergies, and The intended procedure Time Out Communication: Intended patient and procedure match the source documents. Consent documented and matches the intended procedure. Sign Out: SIGN OUT (optional for EMERGENT procedures): No specimen collected. All instruments, equipment, possible retained foreign bodies accounted for. Post-procedure follow-up management communicated and Plan of Care Visit completed when applicable. Nicci Ch MD TRANSFER Transfer Date: 09/06/23 Transfer Procedure: Embryo Transfer Transfer Physician: Nicci Ch M.D. Pre-Procedure Diagnosis: Infertility Post-Procedure Diagnosis: Infertility Source of embryos: Patient Total Thawed: 1 # of Embryos Transferred: 1 Catheter Type: Key Ease of Transfer: Easy Direction: AV Distance from fundus (mm): 13 Tissue Status: For Autologous Use Only/ Not Evaluated for Infectious Substances Cell Stage: Grade: PGT?: Specimens: None I/primary surgeon/proceduralist performed the entire procedure. SIGNATURE: Nicci Ch MD PATIENT NAME: Estrella Riojas DATE: September 06, 2023 TIME: 2:10 PM documented in this encounterOhiohealth [facility]ville [facility] Center07-29-2024 NoteHNO ID: [id number] Author: SHOSHANA HERNANDES, ? Service: ? Author Type: Hogshead Builder Type: Progress Notes Filed: 09/06/2023 13:33 Note Text: Embryo Transfer procedure performed. Detailed notes can be found in the paper chart in the [facility] - [facility] Office. [facility] History of Present illness Narrative* Shoshana Hernandes - 09/06/2023 1:32 PM EDT Embryo Transfer procedure performed. Detailed notes can be found in the paper chart in the [facility] - [facility] Office. Shoshana Hernandes documented in this encounterOhiohealth Nelsonville [facility] Center07-29-2024 Instructions* Patient Instructions* Sharron Ybarra RN - 09/06/2023 1:25 PM EDT POST EMBRYO TRANSFER INSTRUCTIONS You will need to have your blood drawn for Quantitative HCG on 09/20/23 at [place]. You can expect to be called the afternoon of your blood draw with your test results. If for any reason that date or location is changed, please call [phone] to inform us. Continue your current medications as instructed UNTIL YOU ARE 10 WEEKS or until a BLOOD test is confirmed negative. It is not uncommon to have breast tenderness, bloating, vaginal spotting ranging from pink to red to brown and generally feeling premenstrual while waiting to test. You can feel this way and still be - DO NOT STOP YOUR MEDICATIONS until testing is completed. Call the office if you develop: - Pain, redness and heat at your injection sites From the day of your transfer on, please treat yourself as if you are . Things to avoid: - Hot tubs/raising your core temperature - Chemical exposures - Drugs/medications that are not safe in - Processed lunch meat, unpasteurized cheeses - Smoking - Fish that are high in mercury Our recommendations on maintaining a healthy lifestyle during this time include: - Regular physical activity. Bed-rest is NOT recommended and will not increase your chance of - Daily vitamin or folic acid - Healthy diet - Adequate sleep - Sexual intimacy/intercourse/orgasm will not interfere with implantation. It is difficult to maintain the balance between optimism and realism. Remember you have done and are doing all that you can to improve your odds. Set reasonable expectations for yourselves. Keeping yourself busy and mentally distracted will help the time pass while waiting to test. If you have any questions, please call [phone]. documented in this encounterOhiohealth Nelsonville [facility] Center07-18-2024 NoteHNO ID: [id number] Author: MARLENI RASHID RN Service: ? Author Type: Registered Nurse Type: Progress Notes Filed: 08/26/2023 16:41 Note Text: The patient is here today for follicular ultrasound and blood work. The patient reports no problems or complaints. Ultrasound and blood will be reviewed by the physician, the flow sheet will be updated and instructions will be communicated to the patient. Pt did stay to meet with nursing. STONEY injections reviewed. Thaw plan signed. Marleni Rashid RN Call to patient at cell number listed Informed patient of confirmed FET date on 09/05. Patient will start doxy, medrol and STONEY on 08/31. Reviewed all instructions and sent to patient via [employer]. Patient verbalized understanding Marleni Rashid RN August 26, 2023 2:[facility] History of Present illness Narrative* Marleni Rashid RN - 08/26/2023 8:32 AM EDT The patient is here today for follicular ultrasound and blood work. The patient reports no problemsor complaints. Ultrasound and blood will be reviewed by the physician, the flow sheet will be updated and instructions will be communicated to the patient. Pt did stay to meet with nursing. STONEY injections reviewed. Thaw plan signed. Marleni Rashid RN Call to patient at cell number listed Informed patient of confirmed FET date on 09/05. Patient will start doxy, medrol and STONEY on 08/31. Reviewed all instructions and sent to patient via [employer]. Patient verbalized understanding Marleni Rashid RN August 26, 2023 2:11 PM documented in this encounterOhiohealth Nelsonville [facility] Center07-05-2024 Telephone encounter Note * Telephone Encounter - Sudha Muhammad RN - 08/13/2023 4:20 PM EDT Returned phone call, period started, started estrace. Lining check scheduled for 08/25 at 0800, no further questions at this time. Sudha Muhammad RN August 13, 2023 4:22 PM [facility]07-05-2024 Miscellaneous Notes* Telephone Encounter - Sudha Muhammad RN - 08/13/2023 4:20 PM EDT Returned phone call, period started, started estrace. Lining check scheduled for 08/25 at 0800, no further questions at this time. Sudha Muhammad RN August 13, 2023 4:22 PM * Telephone Encounter - Shonda Carranza - 08/13/2023 2:53 PM EDT Pt started cycle 08/12 and would like to discuss medication start documented in this encounterOhiohealth Nelsonville [facility] Center07-05-2024 Telephone encounter Note * Telephone Encounter - Shonda Carranza - 08/13/2023 2:53 PM EDT Pt started cycle 08/12 and would like to discuss medication start [facility]06-17-2024 NoteHNO ID: [id number] Author: EDUAR MARLEY APRN.[facility] Service: ? Author Type: Nurse Practitioner Type: Progress Notes Filed: 07/26/2023 16:37 Note Text: The following approved medication requests have been transmitted electronically. Requested Prescriptions Signed Prescriptions Disp Refills doxycycline (VIBRA-TABS) 100 mg tablet 8 tablet 0 Sig: Take 1 tablet by mouth two times a day. estradiol (ESTRACE) 2 mg tablet 120 tablet 3 Sig: Take 3 tablets by mouth once daily. methylPREDNISolone (MEDROL) 16 mg tablet 4 tablet 0 Sig: Take 1 tablet by mouth once daily. progesterone 50 mg/mL injection 90 mL 0 Sig: Inject 1 mL intramuscularly once daily. Inject in the morning Needle, Disp, 22 G 22 gauge x 1 1/2 30 Each 3 Sig: To be used to inject progesterone in oil Syringe with Needle, Disp, (SYRINGE 3CC/20GX1) 3 mL 20 gauge x 1 30 Each 3 Sig: To be used to draw up Progesterone in oil Eduar Marley APRN.[facility]06-17[facility] History of Present illness Narrative* Eduar Marley APRN.[employer] - 07/26/2023 4:37 PM EDT The following approved medication requests have been transmitted electronically. Requested Prescriptions Signed Prescriptions Disp Refills doxycycline (VIBRA-TABS) 100 mg tablet 8 tablet 0 Sig: Take 1 tablet by mouth two times a day. estradiol (ESTRACE) 2 mg tablet 120 tablet 3 Sig: Take 3 tablets by mouth once daily. methylPREDNISolone (MEDROL) 16 mg tablet 4 tablet 0 Sig: Take 1 tablet by mouth once daily. progesterone 50 mg/mL injection 90 mL 0 Sig: Inject 1 mL intramuscularly once daily. Inject in the morning Needle, Disp, 22 G 22 gauge x 1 1/2 30 Each 3 Sig: To be used to inject progesterone in oil Syringe with Needle, Disp, (SYRINGE 3CC/20GX1) 3 mL 20 gauge x 1 30 Each 3 Sig: To be used to draw up Progesterone in oil Eduar Marley APRN.[employer] * Sudha Muhammad RN - 07/26/2023 4:21 PM EDT Patient set up for FET #1. Medications ordered, thaw plan sent to patient. All questions answered. Sudha Muhammad RN July 26, 2023 4:21 PM documented in this encounterOhiohealth Nelsonville [facility] Center06-17-2024 NoteHNO ID: [id number] Author: SUDAH MUHAMMAD RN Service: ? Author Type: Registered Nurse Type: Progress Notes Filed: 07/26/2023 16:37 Note Text: Patient set up for FET #1. Medications ordered, thaw plan sent to patient. All questions answered. Sudha Muhammad RN July 26, 2023 4:21 [facility]06-17-2024 Instructions* Patient Instructions* Zaida Ness MD - 07/26/2023 8:19 AM EDT Thank you for visiting the [facility] [place]. Our team looks forward to providing you with excellent care to help you achieve your family goals. The best way to contact me is by [facility] Important phone numbers: [facility] main line: [phone]. Wednesday-Wednesday 8 AM - 4:30 PM. This number is for questions or scheduling related to your fertility treatments. For patients wanting to schedule surgery or questions related to your surgery call [phone]. After hours emergency only Physician line: [phone] For patients needing to create a medical record/chart for partner: [phone] 2. I have forwarded your frozen embryo transfer (FET) treatment plan to our IVF nurse team. They will help order your medications and guide you through the process. documented in this encounterOhiohealth Nelsonville [facility] Center06-17-2024 Plan of care note* ANDRE Plan Note - Zaida Ness MD - 07/26/2023 8:13 AM EDTSummary: FET Transfer Treatment Plan ANDRE Frozen Embryo Transfer Treatment Plan: Specialty comments (one liner/guzman things to know): 33 yo status post IVF with cryopreserved embryos. Pretreatment:None - natural cycle start Uterine cavity testing: SIS date: 07/20/2023 Protocol: Programmed NatPro Study: No If programmed, type of estradiol: Oral estradiol Type of progesterone: 50 mg Progesterone in Oil IM daily OK for OCPs to delay cycle start if needed: Yes - but probably not necessary Zaida Ness MD 07/26/2023 [facility]06-17-2024 Miscellaneous Notes* ANDRE Plan Note - Zaida Ness MD - 07/26/2023 8:13 AM EDTSummary: FET Transfer Treatment Plan ANDRE Frozen Embryo Transfer Treatment Plan: Specialty comments (one liner/guzman things to know): 33 yo status post IVF with cryopreserved embryos. Pretreatment:None - natural cycle start Uterine cavity testing: SIS date: 07/20/2023 Protocol: Programmed NatPro Study: No If programmed, type of estradiol: Oral estradiol Type of progesterone: 50 mg Progesterone in Oil IM daily OK for OCPs to delay cycle start if needed: Yes - but probably not necessary Zaida Ness MD 07/26/2023 documented in this encounterOhiohealth Nelsonville [facility] Center06-17-2024 History of Present illness Narrative* Zaida Ness MD - 07/26/2023 7:45 AM EDT Images from the original note were not included. REPRODUCTIVE ENDOCRINOLOGY AND INFERTILITY RETURN PATIENT CLINIC NOTE This is a virtual visit using Zoom. It required patient-provider interaction for the medical decision making as documented below. I have communicated my name and active licensure. The patient's identity and physical location were verified at the time of this visit. Either the patient or their legalrepresentative has been informed of the risks and benefits of -- and alternatives to -- treatment through a remote evaluation and consents to proceed with the evaluation remotely. Reason for visit: Follow Up Subjective: ADRIANA Riojas is a 33 year old woman, a , who presents for follow up after IVF. She was last seen in this clinic on 02/15/[address] Martin. Patient has been trying to conceive since 2020. Patient is s/p IVF on 06/29/2023. IVF 1: 12 mature eggs, 5 Blastocyst, 2 PGT Euploid embryos. Saline Infusion Sonohysterography on 07/20/2023 was normal. Patient would like to discuss cycle outcome and plan for FET today. Goal family size is 2. 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 Allergies: ALLERGIES Allergen Reactions Latex Rash, Itching Shellfish Derived Shortness of Breath Medications: Current Outpatient Medications Medication Sig ALPRAZolam (XANAX) 0.25 mg tablet Take 0.25 mg by mouth at bedtime as needed for anxiety. sertraline (ZOLOFT) 50 mg tablet Take 50 mg by mouth once daily. vit,calc76/iron/folic (PNV 29-1 ORAL) Take by mouth. cabergoline (DOSTINEX) 0.5 mg tablet Take 1 tablet by mouth once daily for 8 days. No current facility-administered medications for this visit. Family History: Negative for breast, ovarian, uterine or colon cancer. family history includes Breast Cancer in her maternal grandmother. Social History: Social History Tobacco Use Smoking status: Never Smokeless tobacco: Never Substance Use Topics Alcohol use: Not Currently Drug use: Never The following portions of the patient's history were reviewed and updated as appropriate: allergies, current medications, past family history, past medical history, past social history, past surgicalhistory and problem list. Review of Systems A >10 system ROS was reviewed and is otherwise negative, except as indicated in the chief complaint and/or HPI above if applicable. Objective: Physical Exam Constitutional: Well-developed and well-nourished. HEENT: Head normocephalic and atraumatic. Assessment: Estrella Riojas is a 33 year old woman, a , who presents for follow up after IVF. Plan: 1. We reviewed her evaluation and treatment to date. 2. IVF cycle and FET plan discussed. 3. Treatment plan for patient is as follows: ANDRE Frozen Embryo Transfer Treatment Plan: Specialty comments (one liner/guzman things to know): 33 yo status post IVF with cryopreserved embryos. Pretreatment:None - natural cycle start Uterine cavity testing: [facility] date: 07/20/2023 Protocol: Programmed NatPro Study: No If programmed, type of estradiol: Oral estradiol Type of progesterone: 50 mg Progesterone in Oil IM daily OK for OCPs to delay cycle start if needed: Yes - but probably not necessary 4. The patient had multiple questions that were addressed today. These were answered to her satisfaction. I spent a total of 20 minutes face to face with the patient. Greater than 50% of the time was spentcounseling and coordinating the care based on my plan and assessment as noted. I spent a total of 30 minutes on the date of the service which included preparing to see the patient, [id number] patient care, completing clinical documentation, obtaining and/or reviewing separately obtained history, counseling and educating the patient/family/caregiver and care coordination (not separately reported). Zaida Ness MD, YAZMIN documented in this encounterOhiohealth Nelsonville Health Center06-17-2024 NoteHNO ID: [id number] Author: ZAIDA NESS MD Service: ? Author Type: Physician Type: Progress Notes Filed: 07/26/2023 11:27 Note Text: REPRODUCTIVE ENDOCRINOLOGY AND INFERTILITY RETURN PATIENT CLINIC NOTE This is a virtual visit using Zoom. It required patient-provider interaction for the medical decision making as documented below. I have communicated my name and active licensure. The patient's identity and physical location were verified at the time of this visit. Either the patient or their legal installation service representative has been informed of the risks and benefits of -- and alternatives to -- treatment through a remote evaluation and consents to proceed with the evaluation remotely. Reason for visit: Follow Up Subjective: ADRIANA Riojas is a 33 year old woman, a , who presents for follow up after IVF. She was last seen in this clinic on 02/15/[address] Martin. Patient has been trying to conceive since 2020. Patient is s/p IVF on 06/29/2023. IVF 1: 12 mature eggs, 5 Blastocyst, 2 PGT Euploid embryos. Saline Infusion Sonohysterography on 07/20/2023 was normal. Patient would like to discuss cycle outcome and plan for FET today. Goal family size is 2. 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 Allergies: ALLERGIES Allergen Reactions Latex Rash, Itching Shellfish Derived Shortness of Breath Medications: Current Outpatient Medications Medication Sig ALPRAZolam (XANAX) 0.25 mg tablet Take 0.25 mg by mouth at bedtime as needed for anxiety. sertraline (ZOLOFT) 50 mg tablet Take 50 mg by mouth once daily. vit,calc76/iron/folic (PNV 29-1 ORAL) Take by mouth. cabergoline (DOSTINEX) 0.5 mg tablet Take 1 tablet by mouth once daily for 8 days. No current facility-administered medications for this visit. Family History: Negative for breast, ovarian, uterine or colon cancer. family history includes Breast Cancer in her maternal grandmother. Social History: Social History Tobacco Use Smoking status: Never Smokeless tobacco: Never Substance Use Topics Alcohol use: Not Currently Drug use: Never The following portions of the patient's history were reviewed and updated as appropriate: allergies, current medications, past family history, past medical history, past social history, past surgical history and problem list. Review of Systems A >10 system ROS was reviewed and is otherwise negative, except as indicated in the chief complaint and/or HPI above if applicable. Objective: Physical Exam Constitutional: Well-developed and well-nourished. HEENT: Head normocephalic and atraumatic. Assessment: Estrella Riojas is a 33 year old woman, a , who presents for follow up after IVF. Plan: 1. We reviewed her evaluation and treatment to date. 2. IVF cycle and FET plan discussed. 3. Treatment plan for patient is as follows: ANDRE Frozen Embryo Transfer Treatment Plan: Specialty comments (one liner/guzman things to know): 33 yo status post IVF with cryopreserved embryos. Pretreatment:None - natural cycle start Uterine cavity testing: [facility] date: 07/20/2023 Protocol: Programmed NatPro Study: No If programmed, type of estradiol: Oral estradiol Type of progesterone: 50 mg Progesterone in Oil IM daily OK for OCPs to delay cycle start if needed: Yes - but probably not necessary 4. The patient had multiple questions that were addressed today. These were answered to her satisfaction. I spent a total of 20 minutes face to face with the patient. Greater than 50% of the time was spent counseling and coordinating the care based on my plan and assessment as noted. I spent a total of 30 minutes on the date of the service which included preparing to see the patient, [id number] patient care, completing clinical documentation, obtaining and/or reviewing separately obtained history, counseling and educating the patient/family/caregiver and care coordination (not separately reported). Zaida Ness MD, [facility]06-12-2024 NoteHNO ID: [id number] Author: FRANK TRONCOSO MD Service: ? Author Type: Physician Type: Progress Notes Filed: 07/21/2023 07:22 Note Text: Patient is here for ultrasound. Please see image section in Epic for results. Celeste Gutierrez [facility]06-12-2024 History of Present illness Narrative* Frank Troncoso MD - 07/21/2023 7:22 AM EDT Patient is here for ultrasound. Please see image section in Epic for results. Celeste Gutierrez MD documented in this encounterOhiohealth Nelsonville Health Center06-11-2024 NoteHNO ID: [id number] Author: PRADEEP ANDREWS APRN.CNM Service: ? Author Type: Nurse Practitioner Type: Procedures Filed: 07/20/2023 08:55 Note Text: Estrella Riojas is a 33 year old here for SIS. Referred by: Steff Nazario [place] [id number] Chief Complaint: Set up FET Endometrial Biopsy: No Ultrasound: No Hormonal therapy: No. LMP: Patient's last menstrual period was 07/10/2023 (exact date). Cycles: PERIOD REGULARITY: regular q 28-30 days Contraception: none HCG: negative UNIVERSAL PROTOCOL / SAFETY CHECKLIST Procedure to be Performed: SIS Sign In: A Moment of CARE was completed. Personnel directly involved with the procedure wore the appropriate PPE (Personal Protective Equipment). Patient/Surrogate Stated/Verified: PATIENT VERIFIED(optional for EMERGENT procedures): Patient name, Date of , Relevant allergies, and The intended procedure Time Out Communication: Intended patient and procedure match the source documents. Consent documented and matches the intended procedure. Sign Out: SIGN OUT (optional for EMERGENT procedures): No specimen collected. All instruments, equipment, possible retained foreign bodies accounted for. Post-procedure follow-up management communicated and Plan of Care Visit completed when applicable. Pradeep Andrews APRN.CNM PROCEDURE: EXTERNAL GENITALIA: Normal in appearance without lesions VAGINA: Normal in appearance without lesions Speculum placed into the vagina with excellent visualization of the cervix. Cervix cleaned with Hibiclens. SIS catheter inserted into the uterus without difficulty. Speculum removed and 20mL sterile saline injected into the uterine cavity under ultrasound guidance. Procedure Summary: Patient tolerated procedure well. See ViewPoint for procedure results. [facility] Procedure note* Pradeep Andrews APRN.CNM - 07/20/2023 8:54 AM EDT Estrella Riojas is a 33 year old here for SIS. Referred by: Steff Nazario [place] [id number] Chief Complaint: Set up FET Endometrial Biopsy: No Ultrasound: No Hormonal therapy: No. LMP: Patient's last menstrual period was 07/10/2023 (exact date). Cycles: PERIOD REGULARITY: regular q 28-30 days Contraception: none HCG: negative UNIVERSAL PROTOCOL / SAFETY CHECKLIST Procedure to be Performed: SIS Sign In: A Moment of CARE was completed. Personnel directly involved with the procedure wore the appropriate PPE (Personal Protective Equipment). Patient/Surrogate Stated/Verified: PATIENT VERIFIED(optional for EMERGENT procedures): Patient name, Date of , Relevant allergies, and The intended procedure Time Out Communication: Intended patient and procedure match the source documents. Consent documented and matches the intended procedure. Sign Out: SIGN OUT (optional for EMERGENT procedures): No specimen collected. All instruments, equipment, possible retained foreign bodies accounted for. Post-procedure follow-up management communicated and Plan of Care Visit completed when applicable. Pradeep Andrews APRN.CNM PROCEDURE: EXTERNAL GENITALIA: Normal in appearance without lesions VAGINA: Normal in appearance without lesions Speculum placed into the vagina with excellent visualization of the cervix. Cervix cleaned with Hibiclens. SIS catheter inserted into the uterus without difficulty. Speculum removed and 20mL sterile saline injected into the uterine cavity under ultrasound guidance. Procedure Summary: Patient tolerated procedure well. See ViewPoint for procedure results. Pradeep Andrews APRN.CNM [facility] Work Phone: [phone] 630-271806-11-2024 Procedure note* Pradeep Andrews APRN.CNM - 07/20/2023 8:54 AM EDT Estrella Riojas is a 33 year old here for SIS. Referred by: Steff Cazares [address] [place], [place] [id number] Chief Complaint: Set up FET Endometrial Biopsy: No Ultrasound: No Hormonal therapy: No. LMP: Patient's last menstrual period was 07/10/2023 (exact date). Cycles: PERIOD REGULARITY: regular q 28-30 days Contraception: none HCG: negative UNIVERSAL PROTOCOL / SAFETY CHECKLIST Procedure to be Performed: SIS Sign In: A Moment of CARE was completed. Personnel directly involved with the procedure wore the appropriate PPE (Personal Protective Equipment). Patient/Surrogate Stated/Verified: PATIENT VERIFIED(optional for EMERGENT procedures): Patient name, Date of , Relevant allergies, and The intended procedure Time Out Communication: Intended patient and procedure match the source documents. Consent documented and matches the intended procedure. Sign Out: SIGN OUT (optional for EMERGENT procedures): No specimen collected. All instruments, equipment, possible retained foreign bodies accounted for. Post-procedure follow-up management communicated and Plan of Care Visit completed when applicable. Pradeep Andrews APRN.CNM PROCEDURE: EXTERNAL GENITALIA: Normal in appearance without lesions VAGINA: Normal in appearance without lesions Speculum placed into the vagina with excellent visualization of the cervix. Cervix cleaned with Hibiclens. SIS catheter inserted into the uterus without difficulty. Speculum removed and 20mL sterile saline injected into the uterine cavity under ultrasound guidance. Procedure Summary: Patient tolerated procedure well. See ViewPoint for procedure results. Pradeep Andrews APRN.CNM documented in this encounterOhio[facility]06-[facility] Nurse Note* Nel Fernández MA - 07/20/2023 8:37 AM EDT Exam chaperoned by Nel Fernández MA [facility]06-11-2024 Nurse Note* Nel Fernández MA - 07/20/2023 8:37 AM EDT Exam chaperoned by Nel Fernández MA documented in this encounterOhiohealth [facility]05-28-2024 Telephone encounter Note * Telephone Encounter - Sudha Muhammad RN - 07/06/2023 11:10 AM EDT Called patient regarding her MyChart message. She was very nauseous and constipated over the weekend with taking the dostinex. Apologized to patient that I didn't see her message since I wasn't here over the weekend. Patient states she is done with the medication today, I advised she should start to feel better in the next day or 2. She states understanding, no further questions at this time. Sudha Muhammad RN July 06, 2023 11:11 AM [facility] Work Phone: [phone] Miscellaneous Notes* Telephone Encounter - Sudha Muhammad RN - 07/06/2023 11:10 AM EDT Called patient regarding her MyChart message. She was very nauseous and constipated over the weekend with taking the dostinex. Apologized to patient that I didn't see her message since I wasn't here over the weekend. Patient states she is done with the medication today, I advised she should start to feel better in the next day or 2. She states understanding, no further questions at this time. Sudha Muhammad RN July 06, 2023 11:11 AM documented in this encounterOhiohealth [facility]05-27-2024 NoteHNO ID: [id number] Author: ECHO MONREAL, ? Service: ? Author Type: Technologist Type: Progress Notes Filed: 07/05/2023 10:40 Note Text: IVF freeze all cycle. Echo Monreal July 05, 2023 10:39 [facility]05-27-2024 History of Present illness Narrative* Echo Monreal Bill - 07/05/2023 10:39 AM EDT IVF freeze all cycle. Echo Monreal July 05, 2023 10:39 AM documented in this encounterOhiohealth [facility]05-23-2024 Telephone encounter Note * Telephone Encounter - Anderson Barry MD - 07/01/2023 9:58 PM EDT Confirmed patient full name and over the phone. Trigger injection date: 06/26 Trigger injection type and dose: Dual Trigger Number of oocytes retrieved: 17 Yes No Symptoms [] [x] Abdominal distention [x] [] Abdominal discomfort [x] [] Nausea [x] [] Vomiting [x] [] Decreased appetite [] [x] Diarrhea [x] [] Enlarged ovaries [] [x] Rapid weight gain (>1 kg or 2.2 lb in 24 hours) [] [x] Dyspnea [] [x] Oliguria [] [x] Lightheadedness [] [x] Syncope [] [x] Leg pain Concern for possible mild OHSS. Pt counseling provided: Monitor for symptom worsening, improvements, and the development of new symptoms Daily weights Monitor urine output Intake of moderate amount (1 to 2 liters per day) of electrolyte-rich fluids, like Gatorade Tylenol 1g q 8 h for pain control as needed Pt counseled that mild OHSS can progress to moderate or severe and she should call [facility] again for any signs or symptoms of worsening. All questions answered and concerns addressed. Patient verbalized understanding of plan Patient encouraged to call back with any questions or concerns. Anderson Barry MD PGY-5 Reproductive Endocrinology and Infertility Fellow [facility] Work Phone: [phone] Miscellaneous Notes* Telephone Encounter - Anderson Barry MD - 07/01/2023 9:58 PM EDT Confirmed patient full name and over the phone. Trigger injection date: 06/26 Trigger injection type and dose: Dual Trigger Number of oocytes retrieved: 17 Yes No Symptoms [] [x] Abdominal distention [x] [] Abdominal discomfort [x] [] Nausea [x] [] Vomiting [x] [] Decreased appetite [] [x] Diarrhea [x] [] Enlarged ovaries [] [x] Rapid weight gain (>1 kg or 2.2 lb in 24 hours) [] [x] Dyspnea [] [x] Oliguria [] [x] Lightheadedness [] [x] Syncope [] [x] Leg pain Concern for possible mild OHSS. Pt counseling provided: Monitor for symptom worsening, improvements, and the development of new symptoms Daily weights Monitor urine output Intake of moderate amount (1 to 2 liters per day) of electrolyte-rich fluids, like Gatorade Tylenol 1g q 8 h for pain control as needed Pt counseled that mild OHSS can progress to moderate or severe and she should call [facility] again for any signs or symptoms of worsening. All questions answered and concerns addressed. Patient verbalized understanding of plan Patient encouraged to call back with any questions or concerns. Anderson Barry MD PGY-5 Reproductive Endocrinology and Infertility Fellow documented in this encounterOhiohealth [facility]05-23-2024 Telephone encounter Note * Telephone Encounter - Sudha Muhammad RN - 07/01/2023 9:23 AM EDT Called patient regarding MyChart message about feeling sick after retrieval. Patient states she feels ok overall, a little lightheaded in the morning and some minor cramping. She is urinating, eating and drinking with no problems. She is having bloating but no difficulty breathing. Advised patient this sounds normal, if she starts to feel worse or has any questions she can call the office, discussed after hours emergency line as well. She states understanding. Sudha Muhammad RN July 01, 2023 9:28 AM [facility] Work Phone: [phone]) 703-167605-23-2024 Miscellaneous Notes* Telephone Encounter - Sudha Muhammad RN - 07/01/2023 9:23 AM EDT Called patient regarding MyChart message about feeling sick after retrieval. Patient states she feels ok overall, a little lightheaded in the morning and some minor cramping. She is urinating, eating and drinking with no problems. She is having bloating but no difficulty breathing. Advised patient this sounds normal, if she starts to feel worse or has any questions she can call the office, discussed after hours emergency line as well. She states understanding. Sudha Muhammad RN July 01, 2023 9:28 AM documented in this encounterOhiohealth Nelsonville [facility] Center05-21-2024 NoteHNO ID: [id number] Author: ECHO MONREAL, ? Service: ? Author Type: Technologist Type: Progress Notes Filed: 06/29/2023 09:38 Note Text: Retrieval procedure performed. Detailed notes can be found in the paper chart in the [facility] Office. [facility] History of Present illness Narrative* Echo Monreal - 06/29/2023 9:37 AM EDT Retrieval procedure performed. Detailed notes can be found in the paper chart in the [facility]- [facility] Office. Echo Monreal documented in this encounterOhiohealth Nelsonville [facility]05-20-2024 Telephone encounter Note * Telephone Encounter - Sudha Muhammad RN - 06/28/2023 4:21 PM EDT Called patient regarding MyChart message. She states her has male factor. Advised patient he can collect here in that case, and they should both arrive at 8. She states understanding, no further questions at this time. Sudha Muhammad RN June 28, 2023 4:22 PM [facility]05-20-2024 Miscellaneous Notes* Telephone Encounter - Sudha Muhammad RN - 06/28/2023 4:21 PM EDT Called patient regarding MyChart message. She states her has male factor. Advised patient he can collect here in that case, and they should both arrive at 8. She states understanding, no further questions at this time. Sudha Muhammad RN June 28, 2023 4:22 PM documented in this encounterOhiohealth Nelsonville [facility] Center05-19-2024 NoteHNO ID: [id number] Author: ZAIDA NESS MD Service: ? Author Type: Physician Type: Progress Notes Filed: 06/27/2023 11:57 Note Text: ANDRE Attending Physician Note: Ultrasound and lab results reviewed. Based on review of ultrasound and lab results, medication dose and follow up date plans provided. See cycle flowsheet for dosing details. Zaida Ness [facility], [facility] History of Present illness Narrative* Zaida Ness MD - 06/27/2023 11:53 AM EDT ANDRE Attending Physician Note: Ultrasound and lab results reviewed. Based on review of ultrasound and lab results, medication doseand follow up date plans provided. See cycle flowsheet for dosing details. Zaida Ness MD, YAZMIN documented in this encounterOhiohealth Nelsonville [facility] Center05-19-2024 NoteHNO ID: [id number] Author: CHERELLE GUALLPA RN Service: ? Author Type: Registered Nurse Type: Progress Notes Filed: 06/27/2023 11:50 Note Text: The patient is here today for follicular ultrasound and blood work. The patient reports no problems or complaints. Ultrasound and blood will be reviewed by the physician, the flow sheet will be updated and instructions will be communicated to the patient. Cherelle [facility]allpa [facility]NC[facility]05-19-2024 History of Present illness Narrative* Cherelle Guallpa RN - 06/27/2023 8:41 AM EDT The patient is here today for follicular ultrasound and blood work. The patient reports no problemsor complaints. Ultrasound and blood will be reviewed by the physician, the flow sheet will be updated and instructions will be communicated to the patient. Cherelle Guallpa RN documented in this encounterOhiohealth Nelsonville [facility] Center05-18-2024 NoteHNO ID: [id number] Author: ZAIDA NESS MD Service: ? Author Type: Physician Type: Progress Notes Filed: 06/26/2023 11:25 Note Text: ANDRE Attending Physician Note: Ultrasound and lab results reviewed. Based on review of ultrasound and lab results, medication dose and follow up date plans provided. See cycle flowsheet for dosing details. Zaida Ness MD, [facility]05[facility] History of Present illness Narrative* Zaida Ness MD - 06/26/2023 11:25 AM EDT ANDRE Attending Physician Note: Ultrasound and lab results reviewed. Based on review of ultrasound and lab results, medication doseand follow up date plans provided. See cycle flowsheet for dosing details. Zaida Ness MD, YAZMIN documented in this encounterOhiohealth Nelsonville [facility]05-18-2024 NoteHNO ID: [id number] Author: CHERELLE GUALLPA RN Service: ? Author Type: Registered Nurse Type: Progress Notes Filed: 06/26/2023 11:16 Note Text: The patient is here today for follicular ultrasound and blood work. The patient reports no problems or complaints. Ultrasound and blood will be reviewed by the physician, the flow sheet will be updated and instructions will be communicated to the patient. Cherelle Guallpa RN RN called patient, name and verified. Plan given for IVF cycle per physician, see flowsheet for details. MyChart message sent. Medications reviewed and verified, instructions given. Patient denies any questions or concerns. Message sent to scheduling pool for next appt. Cherelle Guallpa RN June 26, 2023 11:16 [facility]05-18-2024 History of Present illness Narrative* Cherelle Guallpa RN - 06/26/2023 8:53 AM EDT The patient is here today for follicular ultrasound and blood work. The patient reports no problemsor complaints. Ultrasound and blood will be reviewed by the physician, the flow sheet will be updated and instructions will be communicated to the patient. Cherelle Guallpa RN RN called patient, name and verified. Plan given for IVF cycle per physician, see flowsheet fordetails. MyChart message sent. Medications reviewed and verified, instructions given. Patient denies any questions or concerns. Message sent to scheduling [place] for next appt. Cherelle Guallpa RN June 26, 2023 11:16 AM documented in this encounterOhiohealth Nelson[facility]05-17-2024 NoteHNO ID: [id number] Author: ROSE BAILEY MD Service: ? Author Type: Physician Type: Progress Notes Filed: 06/25/2023 13:24 Note Text: Follicular Ultrasound Monitoring Visit Patient here for follicle monitoring and/or endometrial assessment, via ultrasound, and lab testing. See imaging documentation and ANDRE cycle flow sheet for final report and plan. Rose Bailey, [facility]05-17-2024 History of Present illness Narrative* Rose Bailey MD - 06/25/2023 1:24 PM EDT Follicular Ultrasound Monitoring Visit Patient here for follicle monitoring and/or endometrial assessment, via ultrasound, and lab testing. See imaging documentation and ANDRE cycle flow sheet for final report and plan. Rose Bailey MD * Sudha Muhammad RN - 06/25/2023 9:54 AM EDT The patient is here today for follicular ultrasound and blood work. The patient reports no problemsor complaints. Ultrasound and blood will be reviewed by the physician, the flow sheet will be updated and instructions will be communicated to the patient. Sudha Muhammad RN Called patient with plan per flowsheet. Continue with same medications, return to clinic tomorrow. Patient states understanding, MyChart message sent, request sent for appointment tomorrow. Sudha Muhammad RN June 25, 2023 2:28 PM documented in this encounterOhiohealth [facility]05-17-2024 NoteHNO ID: [id number] Author: SUDHA MUHAMMAD RN Service: ? Author Type: Registered Nurse Type: Progress Notes Filed: 06/25/2023 14:28 Note Text: The patient is here today for follicular ultrasound and blood work. The patient reports no problems or complaints. Ultrasound and blood will be reviewed by the physician, the flow sheet will be updated and instructions will be communicated to the patient. Sudha Muhammad RN Called patient with plan per flowsheet. Continue with same medications, return to clinic tomorrow. Patient states understanding, MyChart message sent, request sent for appointment tomorrow. Sudha Muhammad RN June 25, 2023 2:28 [facility]05-14-2024 NoteHNO ID: [id number] Author: SUDHA MUHAMMAD RN Service: ? Author Type: Registered Nurse Type: Progress Notes Filed: 06/22/2023 19:48 Note Text: The patient is here today for follicular ultrasound and blood work. The patient reports no problems or complaints. Ultrasound and blood will be reviewed by the physician, the flow sheet will be updated and instructions will be communicated to the patient. Patient stayed to meet with nursing. Sudha Muhammad RN Called patient with plan per flowsheet. Start ganirelix today, continue with FSH 175, return to clinic on Wednesday. Patient states understanding, no further questions at this time. Sudha Muhammad RN June 22, 2023 3:41 [facility]05-14-2024 History of Present illness Narrative* Sudha Muhammad RN - 06/22/2023 8:57 AM EDT The patient is here today for follicular ultrasound and blood work. The patient reports no problemsor complaints. Ultrasound and blood will be reviewed by the physician, the flow sheet will be updated and instructions will be communicated to the patient. Patient stayed to meet with nursing. Sudha Muhammad RN Called patient with plan per flowsheet. Start ganirelix today, continue with FSH 175, return to clinic on Wednesday. Patient states understanding, no further questions at this time. Sudha Muhammad RN June 22, 2023 3:41 PM documented in this encounterOhiohealth [facility]05-06-2024 NoteHNO ID: [id number] Author: SUDHA MUHAMMAD RN Service: ? Author Type: Registered Nurse Type: Progress Notes Filed: 06/15/2023 06:47 Note Text: The patient is here today for follicular ultrasound and blood work. The patient reports no problems or complaints. Ultrasound and blood will be reviewed by the physician, the flow sheet will be updated and instructions will be communicated to the patient. Patient stayed to meet with nursing, went over medications and timeline. Sudha Muhammad RN Called patient with plan per flowsheet. Start injections on Wednesday, return to clinic on Wednesday 06/21. Patient states understanding, detailed MyChart message sent. Sudha Muhammad RN June 14, 2023 2:30 [facility]05-06-2024 History of Present illness Narrative* Sudha Muhammad RN - 06/14/2023 9:04 AM EDT The patient is here today for follicular ultrasound and blood work. The patient reports no problemsor complaints. Ultrasound and blood will be reviewed by the physician, the flow sheet will be updated and instructions will be communicated to the patient. Patient stayed to meet with nursing, went over medications and timeline. Sudha Muhammad RN Called patient with plan per flowsheet. Start injections on Wednesday, return to clinic on Wednesday 06/21. Patient states understanding, detailed MyChart message sent. Sudha Muhammad RN June 14, 2023 2:30 PM documented in this encounterOhiohealth [facility]05-01-2024 Telephone encounter Note * Telephone Encounter - Sudha Muhammad RN - 06/09/2023 4:03 PM EDT Returned phone call. Patient is asking about meeting with new doctor before her cycle starts. Spokewith scheduling, advised nothing available until 07/25. Called patient back and advised above. Advised patient I will send her an open MyChart so she can send me questions, assured patient she will receive the same care as all the other patients, and I will go to Dr. Ness for questions that come up for her. Patient states understanding, and appreciates the message. No further questions at this time. Sudha Muhammad RN June 09, 2023 4:10 PM [facility]05-01-2024 Miscellaneous Notes* Telephone Encounter - Sudha Muhammad RN - 06/09/2023 4:03 PM EDT Returned phone call. Patient is asking about meeting with new doctor before her cycle starts. Spokewith scheduling, advised nothing available until 07/25. Called patient back and advised above. Advised patient I will send her an open MyChart so she can send me questions, assured patient she will receive the same care as all the other patients, and I will go to Dr. Ness for questions that come up for her. Patient states understanding, and appreciates the message. No further questions at this time. Sudha Muhammad RN June 09, 2023 4:10 PM * Telephone Encounter - Tiffany Liz - 06/09/2023 2:35 PM EDT Pt ret call documented in this encounterOhiohealth Nelsonville [facility]05-01-2024 Telephone encounter Note * Telephone Encounter - Tiffany Liz - 06/09/2023 2:35 PM EDT Pt ret call [facility]04-29-2024 Telephone encounter Note* Telephone Encounter - Sudha Muhammad RN - 06/07/2023 3:10 PM EDT Attempted to call patient back, left voicemail message to call the office. Sudha Muhammad RN June 07, 2023 3:10 PM [facility]04-29-2024 Miscellaneous Notes* Telephone Encounter - Sudha Muhammad RN - 06/07/2023 3:10 PM EDT Attempted to call patient back, left voicemail message to call the office. Sudha Muhammad RN June 07, 2023 3:10 PM * Telephone Encounter - Tiffany Liz - 06/07/2023 2:36 PM EDT Sudha pt wants to discuss her ivf cycle documented in this encounterOhiohealth Nelson[facility]04-29-2024 Telephone encounter Note * Telephone Encounter - Tiffany Liz - 06/07/2023 2:36 PM EDT Sudha pt wants to discuss her ivf cycle [facility]04-22-2024 NoteHNO ID: [id number] Author: SUDHA MUHAMMAD RN Service: ? Author Type: Registered Nurse Type: Progress Notes Filed: 05/31/2023 08:31 Note Text: control pill started on 05/29. [facility]04-[facility]2024 History of Present illness Narrative* Sudha Muhammad RN - 05/31/2023 8:31 AM EDT control pill started on 05/29. Sudha Muhammad RN documented in this encounterOhiohealth Nelsonville [facility] Center03-27-2024 NoteHNO ID: [id number] Author: SUDHA MUHAMMAD RN Service: ? Author Type: Registered Nurse Type: Progress Notes Filed: 05/20/2023 15:21 Note Text: Checklist completed, medications ordered to MDR. Held baseline on 06/15 Sudha Muhammad RN May 05, 2023 4:12 [facility] History of Present illness Narrative* Sudha Muhammad RN - 05/05/2023 4:12 PM EDT Checklist completed, medications ordered to MDR. Held baseline on 06/15 Sudha Muhammad RN May 05, 2023 4:12 PM documented in this encounterOhiohealth Nelsonville [facility] Center03-19-2024 Miscellaneous Notes* Telephone Encounter - Sudha Muhammad RN - 04/27/2023 10:04 AM EDT Returned Eliseo's call. Please see telephone note in his chart. Sudha Muhammad RN April 27, 2023 10:04 AM * Telephone Encounter - Nae Ureña - 04/26/2023 12:50 PM EDT calling inquiring if freezing the sample is necessary for ivf? Please follow up with him his mrn is [id number] is 01/30/1988 Eliseo. documented in this encounterOhio[facility]24 NoteHNO ID: [id number] Author: SUDHA MUHAMMAD RN Service: ? Author Type: Registered Nurse Type: Progress Notes Filed: 04/14/2023 13:40 Note Text: Patient had an IVF consult with Maxim Martin MD. Present for the phone call today is patient and partner/. Identified patient by name and date of . Yes. Chief Complaint- infertility Medications and allergies reviewed and updated. Yes. History reviewed: OB, Medical, Surgical, and Substance AND Sexuality- Yes. Pre IVF requirements reviewed- Yes. Pre IVF requirements sent to the patient via [facility]- Yes Patient reminded to call us with start of periods- Yes Previous Fertility Treatment? - No G 0P 0 AB 0 LMP 04/01/23, Cycles- 30 days Episode created- yes / Protocol- antagonist Will monitor at [place] [facility] yearly exam/PAP - 04/19/23 Uterine [...] PGTA/M - yes Financial/Coverage- self pay Pharmacy [facility] discussed Psych Consult- n/a Donor Sperm- n/a IVF / Embryo - Nursing reviewed with patient and Sent via [facility] Is there anything special we should know [...] appt. Patient and Partner verbally agreed on 04/11 not to order medication until all of the above requirements are completed, and they have been formally instructed to order medication. Patient and Partner verbally agreed on 04/11 to share their medical information with each other. 3/4 will be available and with patient before and after surgery. To Do: Well woman STD for both Semen analysis Send [facility]03-04-2024 History of Present illness Narrative* Sudha Muhammad RN - 04/12/2023 9:57 AM EST Patient had an IVF consult with Maxim Martin MD. Present for the phone call today is patient and partner/. Identified patient by name and date of . Yes. Chief Complaint- infertility Medications and allergies reviewed and updated. Yes. History reviewed: OB, Medical, Surgical, and Substance & Sexuality- Yes. Pre IVF requirements reviewed- Yes. Pre IVF requirements sent to the patient via [facility]- Yes Patient reminded to call us with [...] PGTA/M - yes Financial/Coverage- self pay Pharmacy [facility] discussed Psych Consult- n/a Donor Sperm- n/a IVF / Embryo - Nursing reviewed with patient and Sent via [facility] Is there anything special we should know [...] migraines No / smoking No / blood clotsNo RN Discussed: Nursing reviewed with patient all [...] monitoring, which consist of ultrasound and bloodwork. Noonmeeting with MD to discuss results/POC. Nurse call patient in afternoon with plan and send MyChart,schedule next appt. Patient and Partner verbally agreed [...] Semen analysis Send invitae documented in this encounterOhio[facility]02-23-2024 Miscellaneous Notes* Telephone Encounter - Sudha Muhammad RN - 04/02/2023 4:30 PM EST MyChart message sent to patient. Sudha Muhammad RN April 02, 2023 4:31 PM * Telephone Encounter - Nae Ureña - 04/02/2023 4:00 PM EST Patient is financially cleared for IVF, scheduled ivf teach looking for next stepsl * Telephone Encounter - Shonda Carranza - 04/02/2023 11:08 AM EST Pt made payment for ivf , would like to start scheduling her apts documented in this encounterOhio[facility]01-08-2024 NoteHNO ID: [id number] Author: JENNIE TELLEZ RN Service: ? Author Type: Registered Nurse Type: Progress Notes Filed: 02/15/2023 11:16 Note Text: [employer] req completed on portal. Next steps IVF mychart sent to patient. [facility] entered in resports console. Jennie Tellez RN February 15, 2023 11:16 [facility]01-08-2024 NoteHNO ID: [id number] Author: MAXIM MARTIN MD Service: ? Author Type: Physician Type: Progress Notes Filed: 02/15/2023 12:14 Note Text: [facility] Date: 02/15/2023 Consultation Requested By: [...] Desire for future fertility Consultation at [facility] 35 year old male partner without proven fertility PMHx: Central sleep apnea (phrenic nerve). 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 35 year old male partner without proven fertility PMHx: Central sleep apnea (phrenic nerve). Gastroparesis (vagus nerve) PSHx: Denies Meds: Pantoprazole SA: 1.6M/15%/0% PLAN: IVF cycle planning: Consider PGT-A Antagonist. FSH 150-200. No LD hCg. Dual trigger STI/FDA infectious disease screening tests Carrier screening Office hysteroscopy or SIS prior to FET Financial Team: Discuss medical insurance benefits and likely [id number]-[id number] costs of IVF. IVF nurse coordinator: Schedule IVF nurse teaching. Order meds. Prepare IVF cycle schedule/flowsheet. Sign consents. Dr Martin: Review lab test results. Determine IVF stimulation protocol and medications dosage. Consultation with couple prior to IVF start if questions, abnormal lab test values or other concerns arise. I spent a total of 64 minutes on the date of the service which included preparing to see the patient, iftk-fi-[id number] patient care, completing clinical documentation, obtaining and/or reviewing separately obtained history, counseling and educating the patient/family/caregiver, ordering medications, tests, or procedures, communicating with other HCPs (not separately reported), independently interpreting results (not separately reported), communicating results to the patient/family/caregiver, and care coordination (not separately reported). Maxim Martin MD February 15, 2023 12:14 [facility]07-13-2023 Procedure note [facility]04-23-2023 Procedure [facility] 01-13-2022 NotePap Smear Specimen [facility] 11:13amComment. Satisfactory for evaluation. No endocervical component is identified.[employer] INTERFACED A#[id number] Hospitals Ge[facility] Work Phone: Comment on above:Satisfactory for evaluation. No endocervical component is identified.01-13-2022 NotePap Smear Specimen Adequacy January 13, 2022 11:13amComment.Satisfactory for evaluation. No endocervical component is identified.[facility] INTERFACED A#[id number] Hospitals [facility] Work Phone: Comekwp on above:Satisfactory for evaluation. No endocervical component is identified.01-13-2022 NotePap Smear Specimen Adequacy January 13, 2022 11:13amComment.Satisfactory for evaluation. No endocervical component is identified.[facility] INTERFACED A#[id number] Hospitals [facility] Work Phone: Comxhgv on above:Satisfactory for evaluation. No endocervical component is identified.Evaluation note* Diagnosis Onset Date Resolution Status Cervical strain, acute acute Right shoulder strain acute [facility] Work Phone: Evaluation note* Diagnosis Onset Date Resolution Status Cervical strain, acute acute Right shoulder strain acute Breast mass, right acute Family history of breast cancer acute Procreative management counseling acute Encounter for routine gynecological examination noneactive Breast mass, right acute [facility] Work Phone: Evaluation note* Diagnosis Onset Date Resolution Status Cervical strain, acute acute Right shoulder strain acute Breast mass, right acute Family history of breast cancer acute Procreative management counseling acute Encounter for routine gynecological examination noneactive Breast mass, right acute Breast mass, right acute [facility] Work Phone: Evaluation note* Diagnosis Onset Date Resolution Status Breast mass, right acute Fibroadenoma of breast acute Infertility acute Dysuria acute [facility] Work Phone: Evaluation note* Diagnosis Onset Date Resolution Status Fibroadenoma of breast acute Infertility acute Dysuria acute 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 Fibroid uterus acute [facility] Work Phone: Evaluation note* Diagnosis Onset Date Resolution Status Infertility acute Dysuria acute 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 Fibroid uterus acute 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 Fibroid uterus acute Abnormal menstrual periods a cute Fibroid uterus acute Family history of breast cancer acute Procreative management counseling acute S/P laparotomy acute [facility] Work Phone: Evaluation note* Diagnosis Onset Date Resolution Status Infertility acute Dysuria acute 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 Fibroid uterus acute 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 Fibroid uterus acute Abnormal menstrual periods a cute Fibroid uterus acute Family history of breast cancer acute Procreative management counseling acute S/P laparotomy acute Abnormal ultrasound of breast acute [facility] Work Phone: Evaluation note* Diagnosis Female infertility- Primary Female infertility of unspecified origin [facility] Diagnosis Onset Date Resolution Status Family history of breast cancer acute Female infertility associated with male factors acute 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 History of uterine fibroid a cute Positive test for genetic br east cancer susceptibility marker acute Encounter for routine gynecological examination noneactive [facility] Work Phone: Evaluation note* Diagnosis Encounter for fertility testing- Primary Fertility testing [facility] Diagnosis Encounter for fertility testing Fertility testing [facility] Diagnosis Encounter for fertility testing- Primary Fertility testing [facility]* Diagnosis Encounter for fertility testing- Primary Fertility testing [facility]* Diagnosis Encounter for fertility testing Fertility testing [facility] Diagnosis Female infertility- Primary Female infertility of unspecified origin [facility]* Diagnosis Female infertility- Primary Female infertility of unspecified origin [facility]* Diagnosis Female infertility- Primary Female infertility of unspecified origin [facility]* Diagnosis Encounter for fertility testing Fertility testing [facility]* Diagnosis Female infertility- Primary Female infertility of unspecified origin [facility]* Diagnosis Female infertility- Primary Female infertility of unspecified origin [facility]* Diagnosis Encounter for fertility testing- Primary Fertility testing Encounter for preprocedural laboratory examination Pre-procedural laboratory examination [facility] Diagnosis Female infertility- Primary Female infertility of unspecified origin Procreative management counseling Other procreative management counseling and advice documented in this encounter [facility] note* Diagnosis Female infertility- Primary Female infertility of unspecified origin [facility] Diagnosis Female infertility Female infertility of unspecified origin documented [facility]* Diagnosis Primary female infertility- Primary Female infertility of unspecified origin documented in this encounter [facility] note* Diagnosis Female infertility- Primary Female infertility of unspecified origin examination or test, unconfirmed documented in this encounter [facility] note* Diagnosis Positive test- Primary examination or test, positive result , location unknown state, incidental documented in this encounter [facility]* Diagnosis Female infertility- Primary Female infertility of unspecified origin documented in this [facility]* Diagnosis Positive test- Primary examination or test, positive result documented in this encounter [facility] note* Diagnosis , location unknown state, incidental documented in this encounter [facility] for referral (narrative)* Diagnostic Procedure Only (Routine) - Pending Review Specialty Diagnoses / Procedures Referred By Macy donaldson [facility] Diagnoses Encounter for fertility testing Procedures FOLLICULAR US WHI US PELVIC NONOBSTETRIC IMAGE ESSENCE LIMITED/F/U Eduar Marley APRN.CNP [id number] [place] [address] [place] [address] Referral ID Status Reason Start Date Expiration Date Visits Requested Visits Authorized [id number] Pending Review Auto-Generat ed Referral 05/20/2023 05/19/2024 1 [facility] Diagnostic Procedure Only (Routine) - Pending Review Specialty Diagnoses / Procedures Referred By Macy donaldson Referred To [facility] Diagnoses Encounter for fertility testing Procedures FOLLICULAR US WHI US PELVIC NONOBSTETRIC IMAGE ESSENCE LIMITED/F/U Eduar Marley APRN.CNP [address] [place] [address] [address] Referral ID Status Reason Start Date Expiration Date Visits Requested Visits Authorized [id number] Pending Review Auto-Generat ed Referral 06/17/2023 06/16/2024 6 1 [facility] for referral (narrative)* Diagnostic Procedure Only (Routine) - Pending Review Specialty Diagnoses / Procedures Referred By Contac t Referred To [facility] Diagnoses Female infertility Procedures FOLLICULAR US WHI US PELVIC NONOBSTETRIC IMAGE DCMTN LIMITED/F/U Eduar Marley APRN.CNP [address] [place] [address] [address] Referral ID Status Reason Start Date Expiration Date Visits Requested Visits Authorized [id number] Pending Review Auto-Generat ed Referral 08/13/2023 08/12/2024 1 1 [facility] for referral (narrative)* Diagnostic Procedure Only (Routine) - New Request Specialty Diagnoses / Procedures Referred By Contac t Referred To [facility] Diagnoses , location unknown Procedures OBSTETRIC ULTRASOUND WHI US PREG UTERUS AFTER 1ST TRIMEST GESTATION Nicci Ch MD [address] [place] [address] [address] Referral ID Status Reason Start Date Expiration Date Visits Requested Visits Authorized [id number] New Request Auto-Generat ed Referral 09/20/2023 09/19/2024 1 1 [facility] for visit Narrative* Diagnostic Procedure Only (Routine) - Closed Specialty Diagnoses / Procedures Referred By Contac t Referred To [facility] Diagnoses Encounter for fertility testing Procedures FOLLICULAR US WHI US PELVIC NONOBSTETRIC IMAGE DCMTN LIMITED/F/U Eduar Marley APRN.[employer]UTTER [address] [place] [address] [facility] [address] [place] [address] Referral ID Status Reason Start Date Expiration Date V isits Requested Visits Authorized [id number] Closed Auto-Generate d Referral 06/17/2023 06/16/2024 6 1 [facility] Summary Purpose Family History No Family History Records Found Relationship Condition Age at Onset Recorded Date/T aimee grandmother Malignant neoplasm of breast Unknown uncle Malignant neoplasm of lung Unknown Advance Directives No Advanced Directives Records Found Advance Directive Response Recorded Date/ Time Living Will No May 08, 2019 10:41am Power of Second Crusher No May 07 10:41am Advance Directive Response Recorded Date/ Time Living Will No January 21, 022 1:06pm Power of Second Crusher No January 21, 2022 1:06pm Advance Directive Response Recorded Date/ Time Living Will No April 29, 2022 4:26pm Power of Second Crusher No April 29 4:26pm Advance Directive Response Recorded Date/ Time Living Will No July 17, 2022 1 0:49am Power of Second Crusher No July 17, 2022 10:49am Advance Directive Response Recorded Date/ Time Living Will No April 26, 2024 5:41am Do you have a Healthcare Power of Second Crusher? No April 26, 2024 5:41am Discharge Instructions * Instructions* Shameka Miramontes PA-C - 08/18/2019 Use Zofran as needed for nausea. Follow a clear liquid diet for the next 48 hours. Slowly progress to a bland diet. Utilize your Xanax as needed for further panic attack. * Attachments The following attachments cannot be sent through Care Everywhere. 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) Z80.3 N63.0 RIGHT BIRAD 4 Reason for Visit Cervical strain, acu te Right shoulder strain Breast mass, right Family history of breast cancer Procreative management counseling Encounter for routine gynecological examination Breast mass, right Chief Complaint EORDER RIGHTSHOULDER INJURY 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) Z80.3 N63.0 RIGHT BIRAD 4 RT EXCISIONAL BREAST BX RT EXCISIONAL BREAST BX Reason for Visit Cervical strain, acu te Right shoulder strain Breast mass, right Family history of breast cancer Procreative management counseling Encounter for routine gynecological examination Breast mass, right Breast mass, right Chief Complaint RT EXCISIONAL BREAST BX RT EXCISIONAL BREAST BX BREAST BX 01/26 FERTILITY CONSULT CONCERN FOR UTI INFERTILITY Reason for Visit Breast mass, right Fibroadenoma of breast Infertility Dysuria Chief Complaint BREAST BX 01/26 FERTILITY CONSULT CONCERN FOR UTI INFERTILITY ABNORMAL US ABNORMAL US Reason for Visit Fibroadenoma of shana[address] st Infertility Dysuria 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 abdominal myomectomy MINI LAPAROTOMY, ABDOMINAL MYOMECTOMY MINI LAPAROTOMY, ABDOMINAL MYOMECTOMY MINI LAPAROTOMY, ABDOMINAL MYOMECTOMY FEMALE INFERTILITY ASSOCIATED WITH ANOVULATION 2 wk mini lap. 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 abdominal myomectomy MINI LAPAROTOMY, ABDOMINAL MYOMECTOMY MINI LAPAROTOMY, ABDOMINAL MYOMECTOMY MINI LAPAROTOMY, ABDOMINAL MYOMECTOMY FEMALE INFERTILITY ASSOCIATED WITH ANOVULATION 2 wk mini lap. 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 abdominal myomectomy MINI LAPAROTOMY, ABDOMINAL MYOMECTOMY MINI LAPAROTOMY, ABDOMINAL MYOMECTOMY MINI LAPAROTOMY, ABDOMINAL MYOMECTOMY FEMALE INFERTILITY ASSOCIATED WITH ANOVULATION 2 wk mini lap. 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 abdominal myomectomy MINI LAPAROTOMY, ABDOMINAL MYOMECTOMY MINI LAPAROTOMY, ABDOMINAL MYOMECTOMY MINI LAPAROTOMY, ABDOMINAL MYOMECTOMY FEMALE INFERTILITY ASSOCIATED WITH ANOVULATION 2 wk mini lap. 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) Reason for Visit Family history of br east cancer Female infertility associated with male factors 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 History of uterine fibroid Positive test for genetic breast cancer susceptibility marker Encounter for routine gynecological examination Chief Complaint 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) SCREENING Reason for Visit Family history of br east cancer Female infertility associated with male factors 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 History of uterine fibroid Positive test for genetic breast cancer susceptibility marker Encounter for routine gynecological examination Chief Complaint Admit Date 22 wk ob January 19, 2024 2:07pm 26 wk ob February 16, 2024 2: 08pm Tachycardia/Dizziness and Giddiness Jesse rainey 2024 2:56pm 28 WK OB/GLUCOSE February 29, 2024 1 :31pm ABN GLUCOSE AFFECTING March 09, 2024 7:03am SYNCOPE / NEAR SYNCOPE March 17 12:55pm 30 WK OB March 17, 2024 2 :28pm 32 WK OB March 30, 2024 2:25pm GDM April 03, 2024 4:02pm GDM April 11, 2024 3:55 pm 34 WK OB April 12, 2024 2:12 pm 35 wk ob April 18, 2024 9:5 0am GROWTH April 19, 2024 12: 11pm C SECTION April 26, 2024 5:3 7am C SECTION April 26, 2024 7:2 3am C SECTION April 27, 2024 7:1 7am Reason for Visit Admit Date Anxiety January 19, 2024 2:07pm Conceived by in vitro fertilization Dece mber 2023 2:07pm Depression January 19, 2024 2:07pm Female infertility associated with male factors January 19, 2024 2:07pm History of uterine fibroid January 2:07pm Positive test for genetic br east cancer susceptibility marker January 19, 2024 2:07pm January 19, 2024 2:07pm Supervision of high-risk Decem christine 2023 2:07pm Abnormal menstrual periods January 2:07pm Family history of breast cancer January 19, 2024 2:07pm Female infertility due to block of fallo pian tube January 19, 2024 2:07pm Subchorionic hematoma January 18 2:07pm Upper respiratory infection, viral Decem christine 2023 2:07pm Anxiety February 16, 2024 2: 08pm Conceived by in vitro fertilization 2024 2:08pm Depression February 16, 2024 2: 08pm Female infertility associated with male factors February 16, 2024 2:08pm History of uterine fibroid February 16, 2024 2:08pm Positive test for genetic br east cancer susceptibility marker February 16, 2024 2:08pm February 16, 2024 2: 08pm Supervision of high-risk Janua ry 2024 2:08pm Abnormal menstrual periods February 16, 2024 2:08pm Dizziness February 16, 2024 2: 08pm Family history of breast cancer February 16, 2024 2:08pm Female infertility due to block of fallo pian tube February 16, 2024 2:08pm Subchorionic hematoma February 16, 2024 2:08pm Tachycardia February 16, 2024 2: 08pm Upper respiratory infection, viral Janua ry 2024 2:08pm Near syncope February 24, 2024 2 :56pm Tachycardia February 24, 2024 2 :56pm Anxiety February 29, 2024 1 :31pm Conceived by in vitro fertilization Jesse [email or web address] 1:31pm Depression February 29, 2024 1 :31pm Female infertility associated with male factors February 29, 2024 1:31pm February 29, 2024 1 :31pm Supervision of high-risk Janua ry 2024 1:31pm Female infertility due to block of fallo pian tube February 29, 2024 1:31pm Anxiety March 17, 2024 2 :28pm Conceived by in vitro fertilization [facility] 2024 2:28pm Depression March 17, 2024 2 :28pm Female infertility associated with male factors March 17, 2024 2:28pm History of uterine fibroid March 17, 2024 2:28pm Positive test for genetic br east cancer susceptibility marker March 17, 2024 2:28pm March 17, 2024 2 :28pm Supervision of high-risk u 2024 2:28pm Dizziness March 17, 2024 2 :28pm Anxiety March 30, 2024 2:25pm Conceived by in vitro fertilization [facility]2024 2:25pm Depression March 30, 2024 2:25pm Female infertility associated with male factors March 30, 2024 2:25pm Gestational diabetes mellitus (GDM) [facility] 2024 2:25pm History of uterine fibroid March 2:25pm Positive test for genetic br east cancer susceptibility marker March 30, 2024 2:25pm March 30, 2024 2:25pm Supervision of high-risk Febru [email or web address] 2:25pm Anxiety April 12, 2024 2:12 pm Conceived by in vitro fertilization Kasi stubbs 2024 2:12pm Depression April 12, 2024 2:12 pm Female infertility associated with male factors April 12, 2024 2:12pm Gestational diabetes mellitus (GDM) Kasi stubbs 2024 2:12pm History of uterine fibroid April 12 2:12pm Positive test for genetic br east cancer susceptibility marker April 12, 2024 2:12pm April 12, 2024 2:12 pm Supervision of high-risk April 12, 2024 2:12pm Anxiety April 18, 2024 9:5 0am Conceived by in vitro fertilization Kasi stubbs 2024 9:50am Depression April 18, 2024 9:5 0am Female infertility associated with male factors April 18, 2024 9:50am Gestational diabetes mellitus (GDM) Kasi stubbs 2024 9:50am History of uterine fibroid April 18, 2 025 9:50am Positive test for genetic br east cancer susceptibility marker April 18, 2024 9:50am April 18, 2024 9:5 0am Supervision of high-risk April 18, 2024 9:50am Anxiety April 26, 2024 5:3 7am delivery delivered April 26, 2024 5:37am Conceived by in vitro fertilization Kasi evelyne 2024 5:37am Depression April 26, 2024 5:3 7am Female infertility associated with male factors April 26, 2024 5:37am Gestational diabetes mellitus (GDM) Kasi evelyne 2024 5:37am History of uterine fibroid April 26, 2 025 5:37am Positive test for genetic br east cancer susceptibility marker April 26, 2024 5:37am April 26, 2024 5:3 7am Supervision of high-risk April 26, 2024 5:37am Chief Complaint Admit Date 22 wk ob January 19, 2024 2:07pm 26 wk ob February 16, 2024 2: 08pm Tachycardia/Dizziness and Giddiness [facility] 2024 2:56pm 28 WK OB/GLUCOSE February 29, 2024 1 :31pm ABN GLUCOSE AFFECTING March 09, 2024 7:03am SYNCOPE / NEAR SYNCOPE March 17 12:55pm 30 WK OB March 17, 2024 2 :28pm 32 WK OB March 30, 2024 2:25pm GDM April 03, 2024 4:02pm GDM April 11, 2024 3:55 pm 34 WK OB April 12, 2024 2:12 pm 35 wk ob April 18, 2024 9:5 0am GROWTH April 19, 2024 12: 11pm C SECTION April 26, 2024 5:3 7am C SECTION April 26, 2024 7:2 3am C SECTION April 27, 2024 7:1 7am C SECTION April 28, 2024 8:2 5am C SECTION April 29, 2024 10: 42am Chief Complaint Admit Date 22 wk ob January 19, 2024 2:07pm 26 wk ob February 16, 2024 2: 08pm Tachycardia/Dizziness and Giddiness Jesse brigid 2024 2:56pm 28 WK OB/GLUCOSE February 29, 2024 1 :31pm ABN GLUCOSE AFFECTING March 09, 2024 7:03am SYNCOPE / NEAR SYNCOPE March 17 12:55pm 30 WK OB March 17, 2024 2 :28pm 32 WK OB March 30, 2024 2:25pm GDM April 03, 2024 4:02pm GDM April 11, 2024 3:55 pm 34 WK OB April 12, 2024 2:12 pm 35 wk ob April 18, 2024 9:5 0am GROWTH April 19, 2024 12: 11pm C SECTION April 26, 2024 5:3 7am C SECTION April 26, 2024 7:2 3am C SECTION April 27, 2024 7:1 7am C SECTION April 28, 2024 8:2 5am C SECTION April 29, 2024 10: 42am phone call per JV May 05, 2024 9:4 2am Reason for Visit Admit Date Anxiety January 19, 2024 2:07pm Conceived by in vitro fertilization Dece mber 2023 2:07pm Depression January 19, 2024 2:07pm Female infertility associated with male factors January 19, 2024 2:07pm History of uterine fibroid January 2:07pm Positive test for genetic br east cancer susceptibility marker January 19, 2024 2:07pm January 19, 2024 2:07pm Supervision of high-risk Decem christine 2023 2:07pm Abnormal menstrual periods January 2:07pm Family history of breast cancer January 19, 2024 2:07pm Female infertility due to block of fallo pian tube January 19, 2024 2:07pm Subchorionic hematoma January 18 2:07pm Upper respiratory infection, viral Decem christine 2023 2:07pm Anxiety February 16, 2024 2: 08pm Conceived by in vitro fertilization Jesse rainey 2024 2:08pm Depression February 16, 2024 2: 08pm Female infertility associated with male factors February 16, 2024 2:08pm History of uterine fibroid February 16, 2024 2:08pm Positive test for genetic br east cancer susceptibility marker February 16, 2024 2:08pm February 16, 2024 2: 08pm Supervision of high-risk Janua 2024 2:08pm Abnormal menstrual periods February 16, 2024 2:08pm Dizziness February 16, 2024 2: 08pm Family history of breast cancer February 16, 2024 2:08pm Female infertility due to block of fallo pian tube February 16, 2024 2:08pm Subchorionic hematoma February 16, 2024 2:08pm Tachycardia February 16, 2024 2: 08pm Upper respiratory infection, viral Febua 2024 2:08pm Near syncope February 24, 2024 2 :56pm Tachycardia February 24, 2024 2 :56pm Anxiety February 29, 2024 1 :31pm Conceived by in vitro fertilization Jesse brigid 2024 1:31pm Depression February 29, 2024 1 :31pm Female infertility associated with male factors February 29, 2024 1:31pm February 29, 2024 1 :31pm Supervision of high-risk Febua ry 2024 1:31pm Female infertility due to block of fallo pian tube February 29, 2024 1:31pm Anxiety March 17, 2024 2 :28pm Conceived by in vitro fertilization 2024 2:28pm Depression March 17, 2024 2 :28pm Female infertility associated with male factors March 17, 2024 2:28pm History of uterine fibroid March 17, 2024 2:28pm Positive test for genetic br east cancer susceptibility marker March 17, 2024 2:28pm March 17, 2024 2 :28pm Supervision of high-risk [facility] 2024 2:28pm Dizziness March 17, 2024 2 :28pm Anxiety March 30, 2024 2:25pm Conceived by in vitro fertilization [facility]2024 2:25pm Depression March 30, 2024 2:25pm Female infertility associated with male factors March 30, 2024 2:25pm Gestational diabetes mellitus (GDM) 2024 2:25pm History of uterine fibroid March 2:25pm Positive test for genetic br east cancer susceptibility marker March 30, 2024 2:25pm March 30, 2024 2:25pm Supervision of high-risk u 2024 2:25pm Anxiety April 12, 2024 2:12 pm Conceived by in vitro fertilization [facility] 2024 2:12pm Depression April 12, 2024 2:12 pm Female infertility associated with male factors April 12, 2024 2:12pm Gestational diabetes mellitus (GDM) Kasi stubbs 2024 2:12pm History of uterine fibroid April 12 2:12pm Positive test for genetic br east cancer susceptibility marker April 12, 2024 2:12pm April 12, 2024 2:12 pm Supervision of high-risk April 12, 2024 2:12pm Anxiety April 18, 2024 9:5 0am Conceived by in vitro fertilization Kasi stubbs 2024 9:50am Depression April 18, 2024 9:5 0am Female infertility associated with male factors April 18, 2024 9:50am Gestational diabetes mellitus (GDM) Kasi stubbs 2024 9:50am History of uterine fibroid April 18, 025 9:50am Positive test for genetic br east cancer susceptibility marker April 18, 2024 9:50am April 18, 2024 9:5 0am Supervision of high-risk April 18, 2024 9:50am Anxiety April 26, 2024 5:3 7am delivery delivered April 26, 2024 5:37am Conceived by in vitro fertilization Kasi stubbs 2024 5:37am Depression April 26, 2024 5:3 7am Female infertility associated with male factors April 26, 2024 5:37am Gestational diabetes mellitus (GDM) Kasi stubbs 2024 5:37am History of uterine fibroid April 26, 2 025 5:37am Positive test for genetic br east cancer susceptibility marker April 26, 2024 5:37am April 26, 2024 5:3 7am Supervision of high-risk April 26, 2024 5:37am depression May 05, 2024 9 :42am Additional Source Comments INFORMATION SOURCE (unrecogn ized section and content) DATE CREATED AUTHOR 09/08/2019 Cherry daniels DATE CREATED AUTHOR AUTHOR'S ORGANIZ ATION 09/29/2023 [facility] DATE CREATED AUTHOR AUTHOR'S ORGANIZ ATION 10/05/2023 [facility] DATE CREATED AUTHOR AUTHOR'S ORGANIZ ATION 01/29/2024 [facility] DATE CREATED AUTHOR AUTHOR'S ORGANIZ ATION 06/15/2024 [facility] Reason for Visit (unrecogniz ed section and content) Reason Comments Vomiting Pt reports she start ed with nausea and felt hot and started vomiting. Denies any pain. No known fever. Reason Comments scheduling next apts IVF next steps/financially cleared Reason Comments IVF teach Specialty Diagnoses / Procedures Referred By Macy donaldson Referred To Contact [facility] Diagnoses Encounter for other procreative management [place] [address] [place] [address] Ivf Surgery Ctr [facility] [address] [place] [id number] Referral ID Status Reason Start Date Expiration Date Visits Requested Visits Authorized [id number] Authorized Do Not Bill Insurance - SP patient Patient Cleared - True Self-Pay required payment collected 04/02/2023 10/01/2023 99 99 Reason Comments re sa/is freezing necessary Reason Comments sudha discuss her ivf cycle Reason Comments sudha pt ret call Reason Comments Infertility Specialty Diagnoses / Procedures Referred By Macy donaldson Referred To Contact [facility] Diagnoses Encounter for fertility testing Procedures FOLLICULAR US WHI US PELVIC NONOBSTETRIC IMAGE DCMTN LIMITED/F/U Eduar Marley, [employer] [address] [place] [address] [address] Referral ID Status Reason Start Date Expiration Date V isits Requested Visits Authorized [id number] Closed Auto-Generate d Referral 05/20/2023 05/19/2024 1 1 Referral ID Status Reason Start Date Expiration Date V isits Requested Visits Authorized [id number] Closed Auto-Generate d Referral 06/17/2023 06/16/2024 6 1 Specialty Diagnoses / Procedures Referred By Macy donaldson Referred To Contact [facility] Diagnoses Encounter for other procreative management [place] [address] [place] [address] Iv[facility] C[facility] [address] [place] [address] Reason Comments Procedure Specialty Diagnoses / Procedures Referred By Contac t Referred To Contact [facility] Diagnoses Encounter for fertility testing Procedures SONOHYSTEROGRAPHY (SIS) US I SALINE INFUS SONOHYSTEROGRAPHY W/COLOR DOPPLER CATH & SALINE/CONTRAST SONOHYSTER/HYSTEROSALPI Steff Cazares MD [address] [place] [address] [address] Referral ID Status Reason Start Date Expiration Date V isits Requested Visits Authorized [id number] Closed Benefit Check 06/30/2023 06/29/2024 3 1 Reason Comments Follow Up Reason Comments cd1 , medication Reason Comments Med Change Request Specialty Diagnoses / Procedures Referred By Radhaac t Referred To Contact [facility] Diagnoses Female infertility Procedures FOLLICULAR US [facility] US PELVIC NONOBSTETRIC IMAGE DCMTN LIMITED/F/U Eduar Marley APRN.[employer] [address] [place] [address] [place] [id number] Referral ID Status Reason Start Date Expiration Date V isits Requested Visits Authorized [id number] Closed Benefit Check 08/13/2023 08/12/2024 1 1 Reason Comments hcg level Reason Comments hcg Reason Comments US Specialty Diagnoses / Procedures Referred By Macy t Referred To Contact [facility] Diagnoses , location unknown Procedures OBSTETRIC ULTRASOUND [facility] US PREG UTERUS AFTER 1ST TRIMEST GESTATION Nicci Ch MD [address] [place] [address] [place] [id number] Referral ID Status Reason Start Date Expiration Date V isits Requested Visits Authorized [id number] Closed Auto-Generate d Referral 09/20/2023 09/19/2024 1 1 Goals (unrecognized section and content) Goals may be documented in a n alternate sectionGoals may be documented in an alternate sectionGoals may be documented in an alternate sectionGoals may be documented in an alternate sectionGoals may be documented in an alternate section Care Teams (unrecognized sec tion and content) Team Status: Active Member Role Status Dates Dr. Julieta Prince MD Family Provider Active Dr. Julieta Prince MD Primary Care Provider Active Team Status: Active Member Role Status Dates Dr. Julieta Prince MD Primary Care Provider Active Dr. Federico Perea MD Attending Pr ovider, Referring Provider, Other Provider Active Team Status: Inactive Member Role Status Dates Dr. Julieta Prince MD Primary Care Provider, Referrin g Provider Active Dr. Federico Perea MD Attending Provider Active Team Status: Inactive Member Role Status Dates Dr. Julieta Prince MD Primary Care Provider, Referrin g Provider Active Shameka Rowe CNM Attending Provider Active Team Status: Inactive Member Role Status Dates Dr. Julieta Prince MD Primary Care Provider, Referrin g Provider Active HUMBERTO Hastings Attending Provider Active Team Status: Inactive Member Role Status Dates Dr. Julieta Prince MD Primary Care Provider Active Dr. Federico Perea MD Attending Provider, Referr ing Provider Active Team Status: Inactive Member Role Status Dates Dr. Julieta Prince MD Primary Care Prov ider, Attending Provider, Referring Provider Active Team Status: Active Member Role Status Dates Dr. Julieta Prince MD Primary Care Provider Active Shameka Rowe CNM Attending Provider, Referring Pro vider Active Team Status: Inactive Member Role Status Dates Dr. Julieta Prince MD Primary Care Provider Active Kenrick PAUL PA Attending Provider, Referring Provi denice Active Team Status: Inactive Member Role Status Dates Dr. Julieta Prince MD Primary Care Provider Active Shameka Rowe CNM Attending Provider, Referring Pro vider Active Team Status: Active Member Role Status Dates Dr. Julieta Prince MD Primary Care Provider Active Shameka Rowe CNM Referring Provider, Other Provide r Active Dr. Lakia Richards MD Attending Provider Active Team Status: Inactive Member Role Status Dates Dr. Julieta Prince MD Primary Care Provider, Referrin g Provider Active Dr. Lakia Richards MD Attending Provider Active Team Status: Active Member Role Status Dates Dr. Julieta Prince MD Primary Care Provider Active Dr. Lakia Richards MD Attending Pr ovider, Referring Provider, Other Provider Active Team Status: Active Member Role Status Dates Dr. Julieta Prince MD Primary Care Provider Active Dr. Lakia Richards MD Admit Provid er, Referring Provider, Other Provider Active Joanne Duff CNM Attending Provider Active Team Status: Inactive Member Role Status Dates Dr. Julieta Prince MD Primary Care Provider Active Dr. Lakia Richards MD Admit Provid er, Attending Provider, Referring Provider Active Team Status: Inactive Member Role Status Dates Dr. Julieta Prince MD Primary Care Provider Active Nadeen Turner 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, 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-C Attending Provider, Referring Provider Active Team Status: Active Member Role Status Dates Dr. Julieta Prince MD Primary Care Provider Active Joanne Duff CNM Attending Provider, Referring Pr ovider Active Team Status: Inactive Member Role Status Dates Dr. Julieta Prince MD Primary Care Provider Active Dr. Federico Perea MD Attending Provider Active Shameka Rowe CNM Referring Provider Active Team Status: Inactive Member Role Status Dates Dr. Julieta Prince MD Primary Care Provider Active Joanne Duff CNM Attending Provider, Referring Pr ovider Active Team Status: Inactive Member Role Status Dates Dr. Julieta Prince MD Primary Care Provider, Referrin g Provider Active Nadeen Turner 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, 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-C Attending Provider Active Web Marketing Assistant Relationship Specialty Start Date End Date Julieta Prince [address] [facility] [address] [place] [address] PCP - General Family Medicine 06/28/23 Web Marketing Assistant Relationship Specialty Start Date End Date Julieta Prince [address] [facility] [address] [place] [address] PCP - General Family Medicine 06/28/23 Web Marketing Assistant Relationship Specialty Start Date End Date Julieta Prince [address] [facility] [address] [place] [address] PCP - General Family Medicine 06/28/23 Web Marketing Assistant Relationship Specialty Start Date End Date Julieta Prince [address] [facility] [address] [place] [address] PCP - General Family Medicine 06/28/23 Web Marketing Assistant Relationship Specialty Start Date End Date Julieta Prince [address] [place] [address] PCP - General Family Medicine 06/28/23 Web Marketing Assistant Relationship Specialty Start Date End Date Julieta Prince [address] [place] [address] PCP - General Family Medicine 06/28/23 Web Marketing Assistant Relationship Specialty Start Date End Date Julieta Prince [address] [place] [address] PCP - General Family Medicine 06/28/23 Web Marketing Assistant Relationship Specialty Start Date End Date Julieta Prince [address] [place] [address] PCP - General Family Medicine 06/28/23 Web Marketing Assistant Relationship Specialty Start Date End Date Julieta Prince [address] [place] [address] PCP - General Family Medicine 06/28/23 Web Marketing Assistant Relationship Specialty Start Date End Date Julieta Prince [address] [place] [address] PCP - General Family Medicine 06/28/23 Web Marketing Assistant Relationship Specialty Start Date End Date Julieta Prince [address] [place] [address] PCP - General Family Medicine 06/28/23 Web Marketing Assistant Relationship Specialty Start Date End Date Julieta Prince [address] [place] [address] PCP - General Family Medicine 06/28/23 Web Marketing Assistant Relationship Specialty Start Date End Date Julieta Prince [address] [place] [address] PCP - General Family Medicine 06/28/23 Web Marketing Assistant Relationship Specialty Start Date End Date Julieta Prince [address] [place] [address] PCP - General Family Medicine 06/28/23 Web Marketing Assistant Relationship Specialty Start Date End Date Julieta Prince [address] [place] [address] PCP - General Family Medicine 06/28/23 Web Marketing Assistant Relationship Specialty Start Date End Date Julieta Prince [address] [place] [address] PCP - General Family Medicine 06/28/23 Team Status: Active Member Role Status Dates Dr. Julieta Prince MD Primary Care Provider Active Team Status: Inactive Member Role Status Dates Dr. Julieta Prince MD Primary Care Provider Active Start: January 19, 2024 End: January 19, 2024 Dr. Julieta Prince MD Referring Provider Active Start: January 19, 2024 End: January 19, 2024 Dr. Janessa Rodrigues DO Attending Provider Activ e Start: January 19, 2024 End: January 19, 2024 Team Status: Inactive Member Role Status Dates Dr. Julieta Prince MD Primary Care Provider Active Start: January 19, 2024 End: January 19, 2024 Dr. Janessa Rodrigues DO Attending Provider Activ e Start: January 19, 2024 End: January 19, 2024 Dr. Janessa Rodrigues DO Referring Provider Activ e Start: January 19, 2024 End: January 19, 2024 Team Status: Inactive Member Role Status Dates Dr. Julieta Prince MD Primary Care Provider Active Start: February 16, 2024 End: February 16, 2024 Dr. Julieta Prince MD Referring Provider Active Start: February 16, 2024 End: February 16, 2024 Dr. Lakia Richards MD Attending Provider Active Start: February 16, 2024 End: February 16, 2024 Team Status: Inactive Member Role Status Dates Dr. Julieta Prince MD Primary Care Provider Active Start: February 24, 2024 End: February 24, 2024 Dr. Cecil Ramirez MD Attending Provider Active Start: February 24, 2024 End: February 24, 2024 Dr. Janessa Rodrigues DO Referring Provider Activ e Start: February 24, 2024 End: February 24, 2024 Team Status: Inactive Member Role Status Dates Dr. Julieta Prince MD Primary Care Provider Active Start: February 29, 2024 End: February 29, 2024 Dr. Julieta Prince MD Referring Provider Active Start: February 29, 2024 End: February 29, 2024 Nadeen Turner 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, 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-C Attending Provider Active Start: February 29, 2024 End: February 29, 2024 Team Status: Inactive Member Role Status Dates Dr. Julieta Prince MD Primary Care Provider Active Start: February 29, 2024 End: February 29, 2024 Nadeen Turner 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, 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-C Attending Provider Active Start: February 29, 2024 End: February 29, 2024 Nadeen Turner 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, 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-C Referring Provider Active Start: February 29, 2024 End: February 29, 2024 Team Status: Inactive Member Role Status Dates Dr. Julieta Prince MD Primary Care Provider Active Start: March 09, 2024 End: March 09, 2024 Nadeen Turner 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, 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-C Attending Provider Active Start: March 09, 2024 End: March 09, 2024 Nadeen Turner 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, 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-C Referring Provider Active Start: March 09, 2024 End: March 09, 2024 Team Status: Inactive Member Role Status Dates Dr. Julieta Prince MD Primary Care Provider Active Start: March 17, 2024 End: March 17, 2024 Dr. Cecil Ramirez MD Attending Provider Active Start: March 17, 2024 End: March 17, 2024 Dr. Cecil Ramirez MD Referring Provider Active Start: March 17, 2024 End: March 17, 2024 Team Status: Active Member Role Status Dates Dr. Julieta Prince MD Primary Care Provider Active Start: March 17, 2024 Dr. David Miles MD Attending Provider Active S tart: March 17, 2024 Team Status: Inactive Member Role Status Dates Dr. Julieta Prince MD Primary Care Provider Active Start: March 17, 2024 End: March 17, 2024 Dr. Julieta Prince MD Referring Provider Active Start: March 17, 2024 End: March 17, 2024 Dr. Lakia Richards MD Attending Provider Active Start: March 17, 2024 End: March 17, 2024 Team Status: Inactive Member Role Status Dates Dr. Julieta Prince MD Primary Care Provider Active Start: March 30, 2024 End: March 30, 2024 Dr. Julieta Prince MD Referring Provider Active Start: March 30, 2024 End: March 30, 2024 Dr. Lakia Richards MD Attending Provider Active Start: March 30, 2024 End: March 30, 2024 Team Status: Inactive Member Role Status Dates Dr. Julieta Prince MD Primary Care Provider Active Start: April 03, 2024 End: April 07, 2024 Nadeen Turner 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, 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-C Attending Provider Active Start: April 03, 2024 End: April 07, 2024 Nadeen Turner 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, 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-C Referring Provider Active Start: April 03, 2024 End: April 07, 2024 Team Status: Active Member Role Status Dates Dr. Julieta Prince MD Primary Care Provider Active Start: April 11, 2024 Nadeen Turner 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, 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-C Attending Provider Active Start: April 11, 2024 Nadeen Turner 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, 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-C Referring Provider Active Start: April 11, 2024 Team Status: Inactive Member Role Status Dates Dr. Julieta Prince MD Primary Care Provider Active Start: April 12, 2024 End: April 12, 2024 Dr. Julieta Prince MD Referring Provider Active Start: April 12, 2024 End: April 12, 2024 Dr. Lakia Richards MD Attending Provider Active Start: April 12, 2024 End: April 12, 2024 Team Status: Inactive Member Role Status Dates Dr. Julieta Prince MD Primary Care Provider Active Start: April 18, 2024 End: April 18, 2024 Dr. Julieta Prince MD Referring Provider Active Start: April 18, 2024 End: April 18, 2024 Dr. Lakia Richards MD Attending Provider Active Start: April 18, 2024 End: April 18, 2024 Team Status: Inactive Member Role Status Dates Dr. Julieta Prince MD Primary Care Provider Active Start: April 19, 2024 End: April 19, 2024 Dr. Lakia Richards MD Attending Provider Active Start: April 19, 2024 End: April 19, 2024 Dr. Lakia Richards MD Referring Provider Active Start: April 19, 2024 End: April 19, 2024 Team Status: Active Member Role Status Dates Dr. Julieta Prince MD Primary Care Provider Active Start: April 26, 2024 Dr. Lakia Richards MD Admit Provider Active Start: April 26, 2024 Dr. Lakia Richards MD Attending Provider Active Start: April 26, 2024 Team Status: Active Member Role Status Dates Dr. Julieta Prince MD Primary Care Provider Active Start: April 26, 2024 Dr. Lakia Richards MD Admit Provider Active Start: April 26, 2024 Dr. Lakia Richards MD Attending Provider Active Start: April 26, 2024 Dr. Lakia Richards MD Other Provider Active Start: April 26, 2024 Team Status: Active Member Role Status Dates Dr. Julieta Prince MD Primary Care Provider Active Start: April 27, 2024 Dr. Lakia Richards MD Admit Provider Active Start: April 27, 2024 Dr. Lakia Richards MD Attending Provider Active Start: April 27, 2024 Dr. Lakia Richards MD Other Provider Active Start: April 27, 2024 Team Status: Inactive Member Role Status Dates Dr. Julieta Prince MD Primary Care Provider Active Start: April 26, 2024 End: April 29, 2024 Dr. Lakia Richards MD Admit Provider Active Start: April 26, 2024 End: April 29, 2024 Dr. Lakia Richards MD Attending Provider Active Start: April 26, 2024 End: April 29, 2024 Team Status: Active Member Role Status Dates Dr. Julieta Prince MD Primary Care Provider Active Start: April 28, 2024 Dr. Lakia Richards MD Admit Provider Active Start: April 28, 2024 Dr. Lakia Richards MD Other Provider Active Start: April 28, 2024 Joanne Duff CNM Attending Provider Active Start: April 28, 2024 Team Status: Active Member Role Status Dates Dr. Julieta Prince MD Primary Care Provider Active Start: April 29, 2024 Dr. Lakia Richards MD Admit Provider Active Start: April 29, 2024 Dr. Lakia Richards MD Other Provider Active Start: April 29, 2024 Joanne Duff CNM Attending Provider Active Start: April 29, 2024 Team Status: Inactive Member Role Status Dates Dr. Julieta Prince MD Primary Care Provider Active Start: April 11, 2024 End: May 08, 2024 Nadeen Turner 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, 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-C Attending Provider Active Start: April 11, 2024 End: May 08, 2024 Nadeen Turner 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, 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-C Referring Provider Active Start: April 11, 2024 End: May 08, 2024 Team Status: Inactive Member Role Status Dates Dr. Julieta Prince MD Primary Care Provider Active Start: May 05, 2024 End: May 05, 2024 Dr. Julieta Prince MD Referring Provider Active Start: May 05, 2024 End: May 05, 2024 Dr. Janessa Rodrigues DO Attending Provider Activ e Start: May 05, 2024 End: May 05, 2024 Source Comments (unrecognize d section and content) In the event this informatio n is protected by the Federal Confidentiality of Alcohol and Drug Abuse Patient Records regulations: The Federal rules restrict any use of the information to criminally investigate or prosecute any alcohol or drug abuse patient.[facility]In the event this information is protected by the Federal Confidentiality of Alcohol and Drug Abuse Patient Records regulations: The Federal rules restrict any use of the information to criminally investigate or prosecute any alcohol or drug abuse patient.[facility] CenterIn the event this information is protected by the Federal Confidentiality of Alcohol and Drug Abuse Patient Records regulations: The Federal rules restrict any use of the information to criminally investigate or prosecute any alcohol or drug abuse patient.[facility] CenterIn the event this information is protected by the Federal Confidentiality of Alcohol and Drug Abuse Patient Records regulations: The Federal rules restrict any use of the information to criminally investigate or prosecute any alcohol or drug abuse patient.[facility] CenterIn the event this information is protected by the Federal Confidentiality of Alcohol and Drug Abuse Patient Records regulations: The Federal rules restrict any use of the information to criminally investigate or prosecute any alcohol or drug abuse patient.[facility] CenterIn the event this information is protected by the Federal Confidentiality of Alcohol and Drug Abuse Patient Records regulations: The Federal rules restrict any use of the information to criminally investigate or prosecute any alcohol or drug abuse patient.[facility] CenterIn the event this information is protected by the Federal Confidentiality of Alcohol and Drug Abuse Patient Records regulations: The Federal rules restrict any use of the information to criminally investigate or prosecute any alcohol or drug abuse patient.[facility] CenterIn the event this information is protected by the Federal Confidentiality of Alcohol and Drug Abuse Patient Records regulations: The Federal rules restrict any use of the information to criminally investigate or prosecute any alcohol or drug abuse patient.[facility] CenterIn the event this information is protected by the Federal Confidentiality of Alcohol and Drug Abuse Patient Records regulations: The Federal rules restrict any use of the information to criminally investigate or prosecute any alcohol or drug abuse patient.[facility] CenterIn the event this information is protected by the Federal Confidentiality of Alcohol and Drug Abuse Patient Records regulations: The Federal rules restrict any use of the information to criminally investigate or prosecute any alcohol or drug abuse patient.[facility] CenterIn the event this information is protected by the Federal Confidentiality of Alcohol and Drug Abuse Patient Records regulations: The Federal rules restrict any use of the information to criminally investigate or prosecute any alcohol or drug abuse patient.[facility] CenterIn the event this information is protected by the Federal Confidentiality of Alcohol and Drug Abuse Patient Records regulations: The Federal rules restrict any use of the information to criminally investigate or prosecute any alcohol or drug abuse patient.[facility] CenterIn the event this information is protected by the Federal Confidentiality of Alcohol and Drug Abuse Patient Records regulations: The Federal rules restrict any use of the information to criminally investigate or prosecute any alcohol or drug abuse patient.[facility] CenterIn the event this information is protected by the Federal Confidentiality of Alcohol and Drug Abuse Patient Records regulations: The Federal rules restrict any use of the information to criminally investigate or prosecute any alcohol or drug abuse patient.[facility] CenterIn the event this information is protected by the Federal Confidentiality of Alcohol and Drug Abuse Patient Records regulations: The Federal rules restrict any use of the information to criminally investigate or prosecute any alcohol or drug abuse patient.[facility] CenterIn the event this information is protected by the Federal Confidentiality of Alcohol and Drug Abuse Patient Records regulations: The Federal rules restrict any use of the information to criminally investigate or prosecute any alcohol or drug abuse patient.[facility] CenterIn the event this information is protected by the Federal Confidentiality of Alcohol and Drug Abuse Patient Records regulations: The Federal rules restrict any use of the information to criminally investigate or prosecute any alcohol or drug abuse patient.[facility] CenterIn the event this information is protected by the Federal Confidentiality of Alcohol and Drug Abuse Patient Records regulations: The Federal rules restrict any use of the information to criminally investigate or prosecute any alcohol or drug abuse patient.[facility] CenterIn the event this information is protected by the Federal Confidentiality of Alcohol and Drug Abuse Patient Records regulations: The Federal rules restrict any use of the information to criminally investigate or prosecute any alcohol or drug abuse patient.[facility] CenterIn the event this information is protected by the Federal Confidentiality of Alcohol and Drug Abuse Patient Records regulations: The Federal rules restrict any use of the information to criminally investigate or prosecute any alcohol or drug abuse patient.[facility] CenterIn the event this information is protected by the Federal Confidentiality of Alcohol and Drug Abuse Patient Records regulations: The Federal rules restrict any use of the information to criminally investigate or prosecute any alcohol or drug abuse patient.[facility] CenterIn the event this information is protected by the Federal Confidentiality of Alcohol and Drug Abuse Patient Records regulations: The Federal rules restrict any use of the information to criminally investigate or prosecute any alcohol or drug abuse patient.[facility] CenterIn the event this information is protected by the Federal Confidentiality of Alcohol and Drug Abuse Patient Records regulations: The Federal rules restrict any use of the information to criminally investigate or prosecute any alcohol or drug abuse patient.[facility] CenterIn the event this information is protected by the Federal Confidentiality of Alcohol and Drug Abuse Patient Records regulations: The Federal rules restrict any use of the information to criminally investigate or prosecute any alcohol or drug abuse patient.[facility] CenterIn the event this information is protected by the Federal Confidentiality of Alcohol and Drug Abuse Patient Records regulations: The Federal rules restrict any use of the information to criminally investigate or prosecute any alcohol or drug abuse patient.[facility] CenterIn the event this information is protected by the Federal Confidentiality of Alcohol and Drug Abuse Patient Records regulations: The Federal rules restrict any use of the information to criminally investigate or prosecute any alcohol or drug abuse patient.[facility] CenterIn the event this information is protected by the Federal Confidentiality of Alcohol and Drug Abuse Patient Records regulations: The Federal rules restrict any use of the information to criminally investigate or prosecute any alcohol or drug abuse patient.[facility] CenterIn the event this information is protected by the Federal Confidentiality of Alcohol and Drug Abuse Patient Records regulations: The Federal rules restrict any use of the information to criminally investigate or prosecute any alcohol or drug abuse patient.[facility] CenterIn the event this information is protected by the Federal Confidentiality of Alcohol and Drug Abuse Patient Records regulations: The Federal rules restrict any use of the information to criminally investigate or prosecute any alcohol or drug abuse patient.[facility] CenterIn the event this information is protected by the Federal Confidentiality of Alcohol and Drug Abuse Patient Records regulations: The Federal rules restrict any use of the information to criminally investigate or prosecute any alcohol or drug abuse patient.[facility] CenterIn the event this information is protected by the Federal Confidentiality of Alcohol and Drug Abuse Patient Records regulations: The Federal rules restrict any use of the information to criminally investigate or prosecute any alcohol or drug abuse patient.[facility] CenterIn the event this information is protected by the Federal Confidentiality of Alcohol and Drug Abuse Patient Records regulations: The Federal rules restrict any use of the information to criminally investigate or prosecute any alcohol or drug abuse patient.[facility] CenterIn the event this information is protected by the Federal Confidentiality of Alcohol and Drug Abuse Patient Records regulations: The Federal rules restrict any use of the information to criminally investigate or prosecute any alcohol or drug abuse patient.[facility] CenterIn the event this information is protected by the Federal Confidentiality of Alcohol and Drug Abuse Patient Records regulations: The Federal rules restrict any use of the information to criminally investigate or prosecute any alcohol or drug abuse patient.[facility] CenterIn the event this information is protected by the Federal Confidentiality of Alcohol and Drug Abuse Patient Records regulations: The Federal rules restrict any use of the information to criminally investigate or prosecute any alcohol or drug abuse patient.[facility] CenterIn the event this information is protected by the Federal Confidentiality of Alcohol and Drug Abuse Patient Records regulations: The Federal rules restrict any use of the information to criminally investigate or prosecute any alcohol or drug abuse patient.[facility] CenterIn the event this information is protected by the Federal Confidentiality of Alcohol and Drug Abuse Patient Records regulations: The Federal rules restrict any use of the information to criminally investigate or prosecute any alcohol or drug abuse patient.[facility] CenterIn the event this information is protected by the Federal Confidentiality of Alcohol and Drug Abuse Patient Records regulations: The Federal rules restrict any use of the information to criminally investigate or prosecute any alcohol or drug abuse patient.[facility] FOR RECORDS PERTAINING TO PATIENTS WHO ARE [...] BE BASED ON THE PRIMARY CLINICAL RECORDS. [employer] [facility]. provides no warranty or guarantee of the accuracy or completeness of information in this document.
== END | disposition home or self-care (01) ==
LOC: OPBI 10:24
PROVIDERS: PCP Family Medicine; Referring Provider Advanced Practice Midwife; Visit Provider Advanced Practice Midwife
DX: Z12.31 Encounter for screening mammogram for malignant neoplasm of breast (principal)
CPT/HCPCS: 77063; 77067